=== PATIENT | female | born 1965 | race Caucasian/White ===

== ENCOUNTER → 2017-05-14 09:21 | Outpatient (POV) | payer OTHER, SELFPAY ==
[2017-05-14 09:41] VITALS: BP 102/62; PULSE 69; RESP 18; O2SAT 96; BMI 41.0
--- NOTE | 2017-05-14 10:19 | HMH.PAINSOAP ---
[facility] Pain Management SOAP Note Subjective:: This patient is a very pleasant 52-year-old white female that we are treating for chronic cervical neck pain secondary to degenerative disc disease cervical spine multiple levels and postlaminectomy syndrome. Also, history of fibromyalgia. Patient describes her cervical neck pain is constant, dull, aching. Patient also complains of bilateral shoulder and arm radiculopathy symptoms at times. We medically manage the patient with [place] 7.5 mg 1 p.o. twice daily. Patient reports the pain medicine decreases her pain by 50%. She does not reporting side effects from the pain medication. I will give HER-2 refills today. Her kaspar #[id number] has been reviewed and appropriate. Her UDS has been appropriate in the past. Objective:: Patient is awake alert oriented ?3. No acute distress. Action extension cervical spine somewhat guarded secondary to pain. Deep tendon reflexes upper and lower extremities normal. Motor strength upper extremities left 5/5. Right 4/5. Lower extremities 5/5. There is no gross sensory deficit. Gait is normal. Assessment:: Degenerative disc disease cervical spine multiple levels. Cervical radiculopathy symptoms. Cervical postlaminectomy syndrome. Plan:: I will refill the patient's pain medication. [place] 7.5 mg 1 p.o. twice daily. I gave her 2 prescriptions. Patient reports today she had a recent abdominal surgery. She was given Dilaudid 2 mg 1 p.o. twice daily from her surgeon. She brings in her leftover medicine today. Also, reports to me she has 7 pills over from her [place] prescription due to the fact she was taking the Dilaudid postoperatively. Patient will return to see us in 2 months
--- NOTE | 2017-05-14 10:23 | P.CONS_ITS ---
[facility] Pain Management SOAP Note Subjective:: This patient is a very pleasant 52-year-old white female that we are treating for chronic cervical neck pain secondary to degenerative disc disease cervical spine multiple levels and postlaminectomy syndrome. Also, history of fibromyalgia. Patient describes her cervical neck pain is constant, dull, aching. Patient also complains of bilateral shoulder and arm radiculopathy symptoms at times. We medically manage the patient with [place] 7.5 mg 1 p.o. twice daily. Patient reports the pain medicine decreases her pain by 50%. She does not reporting side effects from the pain medication. I will give HER-2 refills today. Her kaspar #[id number] has been reviewed and appropriate. Her UDS has been appropriate in the past. Objective:: Patient is awake alert oriented ?3. No acute distress. Action extension cervical spine somewhat guarded secondary to pain. Deep tendon reflexes upper and lower extremities normal. Motor strength upper extremities left 5/5. Right 4/5. Lower extremities 5/5. There is no gross sensory deficit. Gait is normal. Assessment:: Degenerative disc disease cervical spine multiple levels. Cervical radiculopathy symptoms. Cervical postlaminectomy syndrome. Plan:: I will refill the patient's pain medication. [place] 7.5 mg 1 p.o. twice daily. I gave her 2 prescriptions. Patient reports today she had a recent abdominal surgery. She was given Dilaudid 2 mg 1 p.o. twice daily from her surgeon. She brings in her leftover medicine today. Also, reports to me she has 7 pills over from her [place] prescription due to the fact she was taking the Dilaudid postoperatively. Patient will return to see us in 2 months
== END ==
PROVIDERS: PCP Family Medicine; Visit Provider Nurse Anesthetist, Certified Registered
DX: M50.10 Cervical disc disorder with radiculopathy, unspecified cervical region (principal)
CPT/HCPCS: 99212

== ENCOUNTER → 2017-05-31 15:01 | Outpatient (CLI) | payer OTHER, SELFPAY ==
--- NOTE | 2017-05-31 15:16 | MM_ITS ---
MM Dig screening mamm BI w/CAD CAD Screening COMPARISON: Digital mammograms 04/28/2015 and 05/05/2016 INDICATION: There is no personal or family history of breast cancer TECHNIQUE: Standard CC and MLO images were obtained. R2 CAD reviewed. FINDINGS: The breasts are composed primarily of fat with minimal scattered fiber glandular densities in each breast. There is no suspicious lesion and no suspicious microcalcifications. IMPRESSION: Stable fatty type breast parenchyma tissue lesion seen BI-RADS Category: 1 Negative RECOMMENDED FOLLOW-UP: 1YR - 1 YEAR FOLLOW-UP (A letter has been sent to the patient regarding results of the study.)
== END ==
PROVIDERS: PCP Family Medicine; Visit Provider Family Medicine
DX: Z12.11 Encounter for screening for malignant neoplasm of colon (principal)
CPT/HCPCS: 77067

== ENCOUNTER → 2017-06-26 13:23 | Outpatient (POV) | payer OTHER, SELFPAY ==
[2017-06-26 13:40] VITALS: BP 120/69; PULSE 68; RESP 18; TEMP 36.3; O2SAT 96; BMI 38.6
--- NOTE | 2017-06-26 14:09 | HMH.PAINSOAP ---
[facility] Pain Management SOAP Note Subjective:: Patient is a very pleasant 52-year-old white female who presents today to discuss her back pain, right hip pain, right leg pain. Patient has been treated in our clinic for quite a while for this. Patient currently on [place] 7.51 mg p.o. twice daily. She states the patient medication helps her pain 60-70%. Patient is having some severe point tenderness over her right SI joint. I believe that this is directly related to her back injury. Patient Kaspar #[id number] reviewed and appropriate. Patient's UDS has been appropriate in the past. We will continue to monitor this. Patient is having some decreased functionality due to right leg pain radiating from her back down her SI joint and to her knee. Patient is having numbness and tingling in his right leg. ROS General: no recent weight change, no fever, no sleep disturbances Respiratory: no cough, no shortness of air, no recurring pulmonary infections Cardiovascular/Peripheral Vascular: No chest pain, No palpitations, no edema, no shortness of breath. Gastrointestinal: no incontinence, normal bowel movements reported Genitourinary: no incontinence Musculoskeletal: Back pain, right hip pain, right SI joint pain Psychiatric: normal mood/ affect Neurological: Intermittent weakness in right lower extremely Objective:: Physical Exam General: Alert and oriented x3, no acute distress, pleasant and cooperative, [on room air] Lungs: Resps E/U, Symmetrical chest expansion, Musculoskeletal: Flexion and extension of lumbar spine somewhat guarded secondary to pain, deep tendon reflexes normal, strength in upper and lower extremities [5/5], [abnormal gait noted], positive Jero's test on the right side. Extreme point tenderness over the right SI and extreme point tenderness over the right bursa. Neurological: speech clear, color laboratory technician equal, no gross sensory deficits Assessment:: Degenerative disc disease of the lumbar spine, lumbar radiculopathy, right sacroiliitis, right greater trochanteric bursitis Plan:: We will refill this patient's prescriptions today [place] 7.51 p.o. twice daily.Patient Kaspar #[id number] reviewed and appropriate. Patient's UDS has been appropriate in the past. I have spoke with Dr. Butler and he has reviewed the chart and he feels that this is appropriate. We will give this patient 2 months prescriptions and we will ask for approval for right SI joint in her right trochanteric bursa injection. I feel like the patient would do very well with this. I feel like it may help with long-term pain relief as well as increased functionality. Patient has been prescribed a controlled substance after being counseled on the medication, medication safety, and possible side effects. GITA report has been obtained and reviewed prior to prescription and found to be appropriate. Opioid contract was reviewed and signed by the patient, and that they have agreed to all of the terms set forth by our compliance program. This note was dictated using voice recognition software may contain errors or omissions
--- NOTE | 2017-06-26 14:12 | P.CONS_ITS ---
[facility] Pain Management SOAP Note Subjective:: Patient is a very pleasant 52-year-old white female who presents today to discuss her back pain, right hip pain, right leg pain. Patient has been treated in our clinic for quite a while for this. Patient currently on [place] 7.51 mg p.o. twice daily. She states the patient medication helps her pain 60- 70%. Patient is having some severe point tenderness over her right SI joint. I believe that this is directly related to her back injury. Patient Kaspar # [id number] reviewed and appropriate. Patient's UDS has been appropriate in the past. We will continue to monitor this. Patient is having some decreased functionality due to right leg pain radiating from her back down her SI joint and to her knee. Patient is having numbness and tingling in his right leg. ROS General: no recent weight change, no fever, no sleep disturbances Respiratory: no cough, no shortness of air, no recurring pulmonary infections Cardiovascular/Peripheral Vascular: No chest pain, No palpitations, no edema, no shortness of breath. Gastrointestinal: no incontinence, normal bowel movements reported Genitourinary: no incontinence Musculoskeletal: Back pain, right hip pain, right SI joint pain Psychiatric: normal mood/ affect Neurological: Intermittent weakness in right lower extremely Objective:: Physical Exam General: Alert and oriented x3, no acute distress, pleasant and cooperative, [ on room air] Lungs: Resps E/U, Symmetrical chest expansion, Musculoskeletal: Flexion and extension of lumbar spine somewhat guarded secondary to pain, deep tendon reflexes normal, strength in upper and lower extremities [5/5], [abnormal gait noted], positive Jero's test on the right side. Extreme point tenderness over the right SI and extreme point tenderness over the right bursa. Neurological: speech clear, deputy united states marshal equal, no gross sensory deficits Assessment:: Degenerative disc disease of the lumbar spine, lumbar radiculopathy, right sacroiliitis, right greater trochanteric bursitis Plan:: We will refill this patient's prescriptions today [place] 7.51 p.o. twice daily.Patient Kaspar #[id number] reviewed and appropriate. Patient's UDS has been appropriate in the past. I have spoke with Dr. Butler and he has reviewed the chart and he feels that this is appropriate. We will give this patient 2 months prescriptions and we will ask for approval for right SI joint in her right trochanteric bursa injection. I feel like the patient would do very well with this. I feel like it may help with long-term pain relief as well as increased functionality. Patient has been prescribed a controlled substance after being counseled on the medication, medication safety, and possible side effects. GITA report has been obtained and reviewed prior to prescription and found to be appropriate. Opioid contract was reviewed and signed by the patient, and that they have agreed to all of the terms set forth by our compliance program. This note was dictated using voice recognition software may contain errors or omissions
== END ==
PROVIDERS: PCP Family Medicine; Visit Provider Clinical Nurse Specialist Family Health
DX: M54.16 Radiculopathy, lumbar region (principal)
CPT/HCPCS: 99212

== ENCOUNTER → 2017-08-13 09:07 | Outpatient (POV) | payer OTHER, SELFPAY ==
[2017-08-13 09:26] VITALS: BP 124/70; PULSE 66; RESP 18; TEMP 36.6; O2SAT 100; BMI 38.4
--- NOTE | 2017-08-13 09:54 | HMH.PAINSOAP ---
[facility] Pain Management SOAP Note Subjective:: Patient is a pleasant 52-year-old white female who presents today for medication refills. Patient is currently being medically managed for low back pain and right leg pain. Patient has this pain secondary to a work-related injury. Patient reports that the pain medication helps her pain 60-70%. Patient workman's comp has denied her request for injective therapies in order to help elevate some of her pain and make her more functional. Patient's GITA #[id number] reviewed and appropriate. Patient UDS appropriate. Patient is currently on [place] 7.5 mg p.o. twice daily. Patient denies any side effects to the medication. ROS General: no recent weight change, no fever, no sleep disturbances Respiratory: no cough, no shortness of air, no recurring pulmonary infections Cardiovascular/Peripheral Vascular: No chest pain, No palpitations, no edema, no shortness of breath. Gastrointestinal: no incontinence, normal bowel movements reported Genitourinary: no incontinence Musculoskeletal: Back pain, right hip pain, right SI joint pain Psychiatric: normal mood/ affect Neurological: Intermittent weakness in right lower extremity Objective:: Physical Exam General: Alert and oriented x3, no acute distress, pleasant and cooperative, [on room air] Lungs: Resps E/U, Symmetrical chest expansion, Eyes: PERRL Musculoskeletal: Flexion and extension of lumbar spine somewhat guarded secondary to pain, deep tendon reflexes normal, strength in upper and lower extremities [5/5], abnormal gait noted, positive Jero's test on the right side, extreme point tenderness over right SI and extreme point tenderness over the right bursa Neurological: speech clear, structural engineer equal, no gross sensory deficits Assessment:: Degenerative disc disease of the lumbar spine, lumbar radiculopathy, right sacroiliitis, right greater trochanteric bursitis Plan:: We will refill the patient's prescriptions [place] 7.5 mg 1 p.o. twice daily. Patient's Gita and urine drug screen both reviewed and appropriate. Dr. Butler is reviewed this chart and agrees with this plan of care we will get patient 2 months prescriptions and we will see her back in 3 months. 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 Patient has been prescribed a controlled substance after being counseled on the medication, medication safety, and possible side effects. GITA report has been obtained and reviewed prior to prescription and found to be appropriate. Opioid contract was reviewed and signed by the patient, and that they have agreed to all of the terms set forth by our compliance program. This note was dictated using voice recognition software and may contain errors or omissions
--- NOTE | 2017-08-13 09:58 | P.CONS_ITS ---
[facility] Pain Management SOAP Note Subjective:: Patient is a pleasant 52-year-old white female who presents today for medication refills. Patient is currently being medically managed for low back pain and right leg pain. Patient has this pain secondary to a work-related injury. Patient reports that the pain medication helps her pain 60-70%. Patient workman's comp has denied her request for injective therapies in order to help elevate some of her pain and make her more functional. Patient's GITA #[id number] reviewed and appropriate. Patient UDS appropriate. Patient is currently on [place] 7.5 mg p.o. twice daily. Patient denies any side effects to the medication. ROS General: no recent weight change, no fever, no sleep disturbances Respiratory: no cough, no shortness of air, no recurring pulmonary infections Cardiovascular/Peripheral Vascular: No chest pain, No palpitations, no edema, no shortness of breath. Gastrointestinal: no incontinence, normal bowel movements reported Genitourinary: no incontinence Musculoskeletal: Back pain, right hip pain, right SI joint pain Psychiatric: normal mood/ affect Neurological: Intermittent weakness in right lower extremity Objective:: Physical Exam General: Alert and oriented x3, no acute distress, pleasant and cooperative, [ on room air] Lungs: Resps E/U, Symmetrical chest expansion, Eyes: PERRL Musculoskeletal: Flexion and extension of lumbar spine somewhat guarded secondary to pain, deep tendon reflexes normal, strength in upper and lower extremities [5/5], abnormal gait noted, positive Jero's test on the right side , extreme point tenderness over right SI and extreme point tenderness over the right bursa Neurological: speech clear, warp hauler equal, no gross sensory deficits Assessment:: Degenerative disc disease of the lumbar spine, lumbar radiculopathy, right sacroiliitis, right greater trochanteric bursitis Plan:: We will refill the patient's prescriptions [place] 7.5 mg 1 p.o. twice daily. Patient's Gita and urine drug screen both reviewed and appropriate. Dr. Butler is reviewed this chart and agrees with this plan of care we will get patient 2 months prescriptions and we will see her back in 3 months. 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 Patient has been prescribed a controlled substance after being counseled on the medication, medication safety, and possible side effects. GITA report has been obtained and reviewed prior to prescription and found to be appropriate. Opioid contract was reviewed and signed by the patient, and that they have agreed to all of the terms set forth by our compliance program. This note was dictated using voice recognition software and may contain errors or omissions
[2017-08-13 12:02] LABS: Amphetamine/Metha Screen,Urine Negative ng/mL (<1000); Barbiturates Screen,Urine Positive ng/mL (<200); Benzodiazepines Screen,Urine Negative ng/mL (200); Cannabinoid Screen,Urine Negative ng/mL (<50); Cocaine Screen,Urine Negative ng/g (<300); Methadone Screen,Urine Negative ng/mL (<300); Opiate Screen,Urine Positive ng/mL (<300); Phencyclidine Screen,Urine Negative ng/mL (<25)
[2017-08-19 11:09] LABS: Codeine Negative (Cutoff=100); Hydrocodone Positive (.); Hydromorphone Positive (.); Morphine Negative (Cutoff=100)
[2017-08-21 06:14] LABS: Opiates Positive (.)
== END ==
PROVIDERS: PCP Family Medicine; Visit Provider Clinical Nurse Specialist Family Health
DX: M54.16 Radiculopathy, lumbar region (principal)
CPT/HCPCS: 99212; 80305; 80361; 80365; G0480

== ENCOUNTER → 2017-09-10 13:43 | Outpatient (POV) | payer OTHER, SELFPAY ==
[2017-09-10 13:53] VITALS: BP 154/80; PULSE 76; RESP 18; TEMP 36.6; O2SAT 98; BMI 37.0
--- NOTE | 2017-09-10 15:34 | HMH.PAINSOAP ---
[facility] Pain Management SOAP Note Subjective:: She is a pleasant 52-year-old white female who presents today for follow-up after recent right SI joint injection and right bursa injection. Patient states she is doing extremely well. She states she is 80% to 90% better. Patient rates her pain a 2 out of 10 today. Patient has pain secondary to work-related injury. Patient is also being medically managed by us. Patient is not here for medication refills today. ROS General: no recent weight change, no fever, no sleep disturbances Respiratory: no cough, no shortness of air, no recurring pulmonary infections Cardiovascular/Peripheral Vascular: No chest pain, No palpitations, no edema, no shortness of breath. Gastrointestinal: no incontinence, normal bowel movements reported Genitourinary: no incontinence Musculoskeletal: Back pain, right hip pain, right SI joint pain Psychiatric: normal mood/ affect, Neurological: Intermittent weakness in the right lower extremity Objective:: Physical Exam General: Alert and oriented x3, no acute distress, pleasant and cooperative, [on room air] Lungs: Resps E/U, Symmetrical chest expansion, Eyes: PERRL Musculoskeletal: Flexion and extension of lumbar spine somewhat guarded secondary to pain, deep tendon reflexes normal, strength in upper and lower extremities [5/5], slightly antalgic gait noted, positive Jero's test on the right side, tenderness over right SI Neurological: speech clear, php website developer equal, no gross sensory deficits Assessment:: Degenerative disc disease of the lumbar spine, lumbar radiculopathy, right sacroiliitis, right greater trochanteric bursitis Plan:: We will follow-up with patient at her next medication refill appointment. Patient is doing well at this time. Patient is going to contact the office if she has any issues prior to her. This note was dictated using voice recognition software and may contain errors or omissions
== END ==
PROVIDERS: PCP Family Medicine; Visit Provider Clinical Nurse Specialist Family Health
DX: M54.16 Radiculopathy, lumbar region (principal); M70.61 Trochanteric bursitis, right hip
CPT/HCPCS: 99212

== ENCOUNTER → 2017-11-12 12:54 | Outpatient (POV) | payer OTHER, SELFPAY ==
[2017-11-12 13:13] VITALS: BP 135/75; PULSE 74; RESP 18; O2SAT 98; BMI 35.3
--- NOTE | 2017-11-13 09:07 | HMH.PAINSOAP ---
[facility] Pain Management SOAP Note Subjective:: Patient is a pleasant 52-year-old white female who presents today for follow-up. Patient has been doing well after her right SI joint injection and right bursa injection. Patient rates her pain 3 out of 10 today. Patient has pain secondary to work-related injury. Patient also being medically managed us. Patient is on [place] 7.51 tab p.o. twice daily. Patient recently started phentermine to help with her weight loss. Patient is already wanting to discuss CBD oil. I discussed with her that the legal THC limiting [place] was 0.3 and that if it was under this she should not test positive in her urine we will continue to monitor. ROS General: no recent weight change, no fever, no sleep disturbances Respiratory: no cough, no shortness of air, no recurring pulmonary infections Cardiovascular/Peripheral Vascular: No chest pain, No palpitations, no edema, no shortness of breath. Gastrointestinal: no incontinence, normal bowel movements reported Genitourinary: no incontinence Musculoskeletal: Back pain, right hip pain Psychiatric: normal mood/ affect Neurological: [denies weakness in extremities], [denies balance issues] Objective:: Physical Exam General: Alert and oriented x3, no acute distress, pleasant and cooperative, [on room air] Lungs: Resps E/U, Symmetrical chest expansion, Eyes: PERRL Musculoskeletal: Flexion and extension of lumbar spine somewhat guarded secondary to pain, deep tendon reflexes normal, strength in upper and lower extremities [5/5], slightly antalgic gait noted, tenderness over right SI joint Neurological: speech clear, surgical garment inspector equal, no gross sensory deficits Assessment:: Degenerative disc disease of the lumbar spine, lumbar radiculopathy, right sacroiliitis Plan:: We will follow-up with this patient in 3 months. We will refill her [place] 7.5 mg 1 tab p.o. twice daily and give HER-2 months worth of medication she can chicken picker the third month in the interim. Patient's GITA #[id number] reviewed and appropriate. Patient's urine drug screen has been appropriate in the past. Dr. Butler is reviewed this chart and agrees with this plan of care. Patient has been prescribed a controlled substance after being counseled on the medication, medication safety, and possible side effects. GITA report has been obtained and reviewed prior to prescription and found to be appropriate. Opioid contract was reviewed and signed by the patient, and that they have agreed to all of the terms set forth by our compliance program. This note was dictated using voice recognition software and may contain errors or omissions
--- NOTE | 2017-11-13 09:10 | P.CONS_ITS ---
[facility] Pain Management SOAP Note Subjective:: Patient is a pleasant 52-year-old white female who presents today for follow- up. Patient has been doing well after her right SI joint injection and right bursa injection. Patient rates her pain 3 out of 10 today. Patient has pain secondary to work-related injury. Patient also being medically managed us. Patient is on [place] 7.51 tab p.o. twice daily. Patient recently started phentermine to help with her weight loss. Patient is already wanting to discuss CBD oil. I discussed with her that the legal THC limiting [place] was 0.3 and that if it was under this she should not test positive in her urine we will continue to monitor. ROS General: no recent weight change, no fever, no sleep disturbances Respiratory: no cough, no shortness of air, no recurring pulmonary infections Cardiovascular/Peripheral Vascular: No chest pain, No palpitations, no edema, no shortness of breath. Gastrointestinal: no incontinence, normal bowel movements reported Genitourinary: no incontinence Musculoskeletal: Back pain, right hip pain Psychiatric: normal mood/ affect Neurological: [denies weakness in extremities], [denies balance issues] Objective:: Physical Exam General: Alert and oriented x3, no acute distress, pleasant and cooperative, [ on room air] Lungs: Resps E/U, Symmetrical chest expansion, Eyes: PERRL Musculoskeletal: Flexion and extension of lumbar spine somewhat guarded secondary to pain, deep tendon reflexes normal, strength in upper and lower extremities [5/5], slightly antalgic gait noted, tenderness over right SI joint Neurological: speech clear, hydrometallurgical engineer equal, no gross sensory deficits Assessment:: Degenerative disc disease of the lumbar spine, lumbar radiculopathy, right sacroiliitis Plan:: We will follow-up with this patient in 3 months. We will refill her [place] 7.5 mg 1 tab p.o. 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 Patient's GITA #[id number] reviewed and appropriate. Patient's urine drug screen has been appropriate in the past. Dr. Butler is reviewed this chart and agrees with this plan of care. Patient has been prescribed a controlled substance after being counseled on the medication, medication safety, and possible side effects. GITA report has been obtained and reviewed prior to prescription and found to be appropriate. Opioid contract was reviewed and signed by the patient, and that they have agreed to all of the terms set forth by our compliance program. This note was dictated using voice recognition software and may contain errors or omissions
== END ==
PROVIDERS: PCP Family Medicine; Visit Provider Clinical Nurse Specialist Family Health
DX: M54.16 Radiculopathy, lumbar region (principal); M46.1 Sacroiliitis, not elsewhere classified
CPT/HCPCS: 99212

== ENCOUNTER → 2018-02-04 14:07 | Outpatient (POV) | payer MEDICARE, OTHER, SELFPAY ==
[2018-02-04 14:36] VITALS: BP 133/91; PULSE 103; RESP 18; O2SAT 98; BMI 33.7
--- NOTE | 2018-02-04 14:51 | HMH.PAINSOAP ---
[facility] Pain Management SOAP Note Subjective:: Patient is a pleasant 52-year-old white female who presents today for follow-up. Patient's been doing well after her injections. Patient rates her pain today a 3 out of 10. Patient has pain secondary to work-related injury. Patient is also being medically managed by us. Patient is on [place] 7.5 mg 1 tab p.o. twice daily. She is also utilizing CBD oil which has helped her greatly. Patient's GITA #[id number] reviewed and appropriate. Patient's urine drug screen has been appropriate. ROS General: no recent weight change, no fever, no sleep disturbances Respiratory: no cough, no shortness of air, no recurring pulmonary infections Cardiovascular/Peripheral Vascular: No chest pain, No palpitations, no edema, no shortness of breath. Gastrointestinal: no incontinence, normal bowel movements reported Genitourinary: no incontinence Musculoskeletal: Back pain, hip pain Psychiatric: normal mood/ affect Neurological: [denies weakness in extremities], [denies balance issues] Objective:: Physical Exam General: Alert and oriented x3, no acute distress, pleasant and cooperative, [on room air] Lungs: Resps E/U, Symmetrical chest expansion, Eyes: PERRL Musculoskeletal: Flexion and extension of bar spine somewhat guarded secondary to pain, deep tendon reflexes normal, strength in upper and lower extremities 5/5, antalgic gait noted Neurological: speech clear, sample color maker equal, no gross sensory deficits Assessment:: Degenerative disc disease lumbar spine with lumbar radiculopathy, right sacroiliitis Plan:: We will refill the patient's [place] 7.5 mg 1 tab p.o. twice daily and give her 2 months worth of prescriptions. She can shredder picker the third month during the interim. Patient's GITA reviewed and appropriate. Patient's urine drug screen has been appropriate in the past. Dr. Butler is reviewed this chart and agrees with this plan of care. I will follow-up with the patient in 3 months. Patient's been instructed to call the office if she has any issues prior to her next appointment. Patient has been prescribed a controlled substance after being counseled on the medication, medication safety, and possible side effects. GITA report has been obtained and reviewed prior to prescription and found to be appropriate. Opioid contract was reviewed and signed by the patient, and that they have agreed to all of the terms set forth by our compliance program.
[2018-02-04 18:50] LABS: Amphetamine/Metha Screen,Urine Negative ng/mL (<1000); Barbiturates Screen,Urine Positive ng/mL (<200); Benzodiazepines Screen,Urine Negative ng/mL (<200); Cannabinoid Screen,Urine Negative ng/mL (<50); Cocaine Screen,Urine Negative ng/mL (<300); Methadone Screen,Urine Negative ng/mL (<300); Opiate Screen,Urine Positive ng/mL (<300); Phencyclidine Screen,Urine Negative ng/mL (<25)
[2018-02-12 00:07] LABS: Codeine Negative (Cutoff=100); Hydrocodone Positive (.); Hydromorphone Positive (.); Morphine Negative (Cutoff=100)
[2018-02-12 07:37] LABS: Opiates Positive (.)
== END ==
PROVIDERS: PCP Family Medicine; Visit Provider Clinical Nurse Specialist Family Health
DX: M51.16 Intervertebral disc disorders with radiculopathy, lumbar region (principal); M46.1 Sacroiliitis, not elsewhere classified; Z79.899 Other long term (current) drug therapy
CPT/HCPCS: 80305; 80361; 80365; 99213; G0480

== ENCOUNTER → 2018-04-15 13:08 | Outpatient (POV) | payer OTHER, SELFPAY ==
[2018-04-15 13:39] VITALS: BP 114/78; PULSE 93; RESP 18; O2SAT 99; BMI 32.9
--- NOTE | 2018-04-15 14:55 | HMH.PAINSOAP ---
[facility] Pain Management SOAP Note Subjective:: Patient is a pleasant 53-year-old white female who presents today for follow-up. Patient's been doing well. Rates her pain a 4 out of 10. Patient has pain secondary to work-related injury. She is being medically managed with [place] 7.5 mg 1 tab p.o. twice daily. Patient's GITA reviewed and appropriate. Patient's urine drug screen has been appropriate. ROS General: no recent weight change, no fever, no sleep disturbances Respiratory: no cough, no shortness of air, no recurring pulmonary infections Cardiovascular/Peripheral Vascular: No chest pain, No palpitations, no edema, no shortness of breath. Gastrointestinal: no incontinence, normal bowel movements reported Genitourinary: no incontinence Musculoskeletal: Back pain, hip pain Psychiatric: normal mood/ affect Neurological: [denies weakness in extremities], [denies balance issues] Objective:: Physical Exam General: Alert and oriented x3, no acute distress, pleasant and cooperative, [on room air] Lungs: Resps E/U, Symmetrical chest expansion Eyes: PERRL Musculoskeletal: Flexion and extension of lumbar spine somewhat guarded secondary to pain, deep tendon reflexes normal, strength in upper and lower extremities [5/5], antalgic gait noted Neurological: speech clear, arc trimmer equal, no gross sensory deficits Assessment:: Degenerative disc disease lumbar spine with lumbar radiculopathy, right sacroiliitis Plan:: We will refill the patient's [place] 7.5 mg 1 tab p.o. twice daily and give her 2 months worth of prescriptions. She can citrus picker the third month in the interim. Patient's Gita and urine drug screen reviewed. Dr. Butler has reviewed this chart and agrees with this plan of care. Patient's been instructed to call the office if she has any issues prior to her next appointment. Patient has been prescribed a controlled substance after being counseled on the medication, medication safety, and possible side effects. GITA report has been obtained and reviewed prior to prescription and found to be appropriate. Opioid contract was reviewed and signed by the patient, and that they have agreed to all of the terms set forth by our compliance program. This note was dictated using voice recognition software and may contain errors or omissions
--- NOTE | 2018-04-15 14:59 | P.CONS_ITS ---
[facility] Pain Management SOAP Note Subjective:: Patient is a pleasant 53-year-old white female who presents today for follow-up. Patient's been doing well. Rates her pain a 4 out of 10. Patient has pain secondary to work-related injury. She is being medically managed with [place] 7.5 mg 1 tab p.o. twice daily. Patient's GITA reviewed and appropriate. Patient's urine drug screen has been appropriate. ROS General: no recent weight change, no fever, no sleep disturbances Respiratory: no cough, no shortness of air, no recurring pulmonary infections Cardiovascular/Peripheral Vascular: No chest pain, No palpitations, no edema, no shortness of breath. Gastrointestinal: no incontinence, normal bowel movements reported Genitourinary: no incontinence Musculoskeletal: Back pain, hip pain Psychiatric: normal mood/ affect Neurological: [denies weakness in extremities], [denies balance issues] Objective:: Physical Exam General: Alert and oriented x3, no acute distress, pleasant and cooperative, [on room air] Lungs: Resps E/U, Symmetrical chest expansion Eyes: PERRL Musculoskeletal: Flexion and extension of lumbar spine somewhat guarded secondary to pain, deep tendon reflexes normal, strength in upper and lower extremities [5/5], antalgic gait noted Neurological: speech clear, keno manager equal, no gross sensory deficits Assessment:: Degenerative disc disease lumbar spine with lumbar radiculopathy, right sacroiliitis Plan:: We will refill the patient's [place] 7.5 mg 1 tab p.o. twice daily and give her 2 months worth of prescriptions. She can rock picker the third month in the interim. Patient's Gita and urine drug screen reviewed. Dr. Butler has reviewed this chart and agrees with this plan of care. Patient's been instructed to call the office if she has any issues prior to her next appointment. Patient has been prescribed a controlled substance after being counseled on the medication, medication safety, and possible side effects. GITA report has been obtained and reviewed prior to prescription and found to be appropriate. Opioid contract was reviewed and signed by the patient, and that they have agreed to all of the terms set forth by our compliance program. This note was dictated using voice recognition software and may contain errors or omissions
== END ==
PROVIDERS: PCP Family Medicine; Visit Provider Clinical Nurse Specialist Family Health
DX: M51.16 Intervertebral disc disorders with radiculopathy, lumbar region (principal); M46.1 Sacroiliitis, not elsewhere classified
CPT/HCPCS: 99213

== ENCOUNTER → 2018-05-21 16:36 | Outpatient (CLI) | payer MEDICARE, SELFPAY ==
--- NOTE | 2018-05-21 16:38 | MM_ITS ---
MM Dig screening mamm BI w/CAD CAD Screening COMPARISON: Digital mammograms with CAD 05/31/2017 and 05/05/2016 INDICATION: There is no personal or family history of breast cancer TECHNIQUE: Standard CC and MLO images were obtained. R2 CAD reviewed. FINDINGS: The breasts are composed primarily of fat with minimal scattered fibroglandular densities throughout each breast. There is no new or suspicious lesion in either breast and there are no suspicious microcalcifications. IMPRESSION: Stable exam no suspicious lesion seen BI-RADS Category: 1 Negative RECOMMENDED FOLLOW-UP: 1YR - 1 YEAR FOLLOW-UP (A letter has been sent to the patient regarding results of the study.)
== END ==
PROVIDERS: PCP Family Medicine; Visit Provider Family Medicine
DX: Z12.31 Encounter for screening mammogram for malignant neoplasm of breast (principal)
CPT/HCPCS: 77067

== ENCOUNTER → 2018-06-19 14:43 | Outpatient (CLI) | payer MEDICARE, SELFPAY ==
[2018-06-19 17:08] LABS: Amphetamine/Metha Screen,Urine Negative ng/mL (<1000); Barbiturates Screen,Urine Positive ng/mL (<200); Benzodiazepines Screen,Urine Negative ng/mL (<200); Cannabinoid Screen,Urine Negative ng/mL (<50); Cocaine Screen,Urine Negative ng/mL (<300); Methadone Screen,Urine Negative ng/mL (<300); Opiate Screen,Urine Positive ng/mL (<300); Phencyclidine Screen,Urine Negative ng/mL (<25)
[2018-06-25 05:18] LABS: Codeine Negative (Cutoff=100); Hydrocodone Positive (.); Hydromorphone Positive (.); Morphine Negative (Cutoff=100)
[2018-06-25 09:57] LABS: Opiates Positive (.)
== END ==
PROVIDERS: Visit Provider Clinical Nurse Specialist Family Health
DX: Z79.899 Other long term (current) drug therapy (principal)
CPT/HCPCS: 80305; 80361; 80365; G0480

== ENCOUNTER → 2018-07-08 13:39 | Outpatient (POV) | payer OTHER, SELFPAY ==
[2018-07-08 14:05] VITALS: BP 128/89; PULSE 92; RESP 18; O2SAT 98; BMI 31.7
--- NOTE | 2018-07-09 08:44 | HMH.PAINSOAP ---
[facility] Pain Management SOAP Note Subjective:: Patient is a pleasant 53-year-old white female who presents today for follow-up. She is been doing well and rates her pain today a 3 out of 10. She has pain secondary to work-related injury. She is being medically managed with [place] 7.5 mg 1 tab p.o. twice daily. Her Gita is appropriate and urine drug screen has been appropriate. She denies side effects or medication and states it helps up to 80%. ROS General: no recent weight change, no fever, no sleep disturbances Respiratory: no cough, no shortness of air, no recurring pulmonary infections Cardiovascular/Peripheral Vascular: No chest pain, No palpitations, no edema, no shortness of breath. Gastrointestinal: no incontinence, normal bowel movements reported Genitourinary: no incontinence Musculoskeletal: Back pain, hip pain Psychiatric: normal mood/ affect Neurological: [denies weakness in extremities], [denies balance issues] Objective:: Physical Exam General: Alert and oriented x3, no acute distress, pleasant and cooperative, [on room air] Lungs: Resps E/U, Symmetrical chest expansion, Eyes: PERRL Musculoskeletal: Flexion and extension of lumbar spine somewhat guarded secondary to pain, deep tendon reflexes normal, strength in upper and lower extremities [5/5], antalgic gait noted Neurological: speech clear, manager molecular equal, no gross sensory deficits Assessment:: Degenerative disc disease lumbar spine with lumbar radiculopathy and right sacroiliitis Plan:: We will refill the patient's [place] 7.5 mg 1 tab p.o. twice daily and give her 2 months worth of medication. 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 Patient's Gita and urine drug screen reviewed. Patient's been instructed to call the office if she has any issues prior to her next appointment. Patient has been prescribed a controlled substance after being counseled on the medication, medication safety, and possible side effects. GITA report has been obtained and reviewed prior to prescription and found to be appropriate. Opioid contract was reviewed and signed by the patient, and that they have agreed to all of the terms set forth by our compliance program. Dr. Butler has reviewed this note and agrees with this plan of care. This note was dictated using voice recognition software and may contain errors or omissions
== END ==
PROVIDERS: PCP Family Medicine; Visit Provider Clinical Nurse Specialist Family Health
DX: M51.16 Intervertebral disc disorders with radiculopathy, lumbar region (principal); M46.1 Sacroiliitis, not elsewhere classified
CPT/HCPCS: 99213

== ENCOUNTER → 2018-10-21 13:00 | Outpatient (POV) | payer OTHER, SELFPAY ==
[2018-10-21 13:14] VITALS: BP 150/92; PULSE 104; RESP 18; O2SAT 98; BMI 33.6
[2018-10-21 14:55] LABS: Amphetamine/Metha Screen,Urine Negative ng/mL (<1000); Barbiturates Screen,Urine Positive ng/mL (<200); Benzodiazepines Screen,Urine Negative ng/mL (<200); Cannabinoid Screen,Urine Negative ng/mL (<50); Cocaine Screen,Urine Negative ng/mL (<300); Methadone Screen,Urine Negative ng/mL (<300); Opiate Screen,Urine Positive ng/mL (<300); Phencyclidine Screen,Urine Negative ng/mL (<25)
--- NOTE | 2018-10-21 16:31 | HMH.PAINSOAP ---
[facility] Pain Management SOAP Note Subjective:: Patient is a pleasant 53-year-old female who presents today for follow-up. She is being treated for low back pain radiating to her right hip and right leg. She rates her pain a 2 out of 10 today. She is currently on [place] 7.5 mg 1 p.o. twice daily. Gita #[id number] is reviewed and appropriate. She denies any side effects to medications. She says that the medications helping her up to 80%. She is continuing home stretching program and anti-inflammatories. ROS General: no recent weight change, no fever, no sleep disturbances Respiratory: no cough, no shortness of air, no recurring pulmonary infections Cardiovascular/Peripheral Vascular: No chest pain, No palpitations, no edema, no shortness of breath. Gastrointestinal: no incontinence, normal bowel movements reported Genitourinary: no incontinence Musculoskeletal: Back pain Psychiatric: normal mood/ affect, [denies depression], [denies anxiety] Neurological: [denies weakness in extremities], [denies balance issues] Objective:: Physical Exam General: Alert and oriented x3, no acute distress, pleasant and cooperative, [on room air] Lungs: Resps E/U, Symmetrical chest expansion, [CTA bilateral] Eyes: PERRL Musculoskeletal: Flexion and extension of [Lumbar] spine somewhat guarded secondary to pain, deep tendon reflexes normal, strength in upper and lower extremities [5/5], [abnormal gait noted] Neurological: speech clear, shoelace tipping machine operator equal, no gross sensory deficits Assessment:: Degenerative disc disease lumbar spine with lumbar radiculopathy right sacroiliitis Plan:: We will continue the patient's [place] 7.5 mg 1 p.o. twice daily and give her 2 months worth of medication she can hand picker her third month in the interim. She has been instructed to call the office if she has any concerns prior to her next appointment. Patient has been prescribed a controlled substance after being counseled on the medication, medication safety, and possible side effects. GITA report has been obtained and reviewed prior to prescription and found to be appropriate. Opioid contract was reviewed and signed by the patient, and that they have agreed to all of the terms set forth by our compliance program. Dr. Butler has reviewed this note and agrees with this plan of care. This note was dictated using voice recognition software and may contain errors or omissions
--- NOTE | 2018-10-21 16:34 | P.CONS_ITS ---
[facility] Pain Management SOAP Note Subjective:: Patient is a pleasant 53-year-old female who presents today for follow-up. She is being treated for low back pain radiating to her right hip and right leg. She rates her pain a 2 out of 10 today. She is currently on [place] 7.5 mg 1 p.o. twice daily. Gita #[id number] is reviewed and appropriate. She denies any side effects to medications. She says that the medications helping her up to 80%. She is continuing home stretching program and anti-inflammatories. ROS General: no recent weight change, no fever, no sleep disturbances Respiratory: no cough, no shortness of air, no recurring pulmonary infections Cardiovascular/Peripheral Vascular: No chest pain, No palpitations, no edema, no shortness of breath. Gastrointestinal: no incontinence, normal bowel movements reported Genitourinary: no incontinence Musculoskeletal: Back pain Psychiatric: normal mood/ affect, [denies depression], [denies anxiety] Neurological: [denies weakness in extremities], [denies balance issues] Objective:: Physical Exam General: Alert and oriented x3, no acute distress, pleasant and cooperative, [on room air] Lungs: Resps E/U, Symmetrical chest expansion, [CTA bilateral] Eyes: PERRL Musculoskeletal: Flexion and extension of [Lumbar] spine somewhat guarded secondary to pain, deep tendon reflexes normal, strength in upper and lower extremities [5/5], [abnormal gait noted] Neurological: speech clear, lead caster equal, no gross sensory deficits Assessment:: Degenerative disc disease lumbar spine with lumbar radiculopathy right sacroiliitis Plan:: We will continue the patient's [place] 7.5 mg 1 p.o. twice daily and give her 2 months worth of medication she can clam picker her third month in the interim. She has been instructed to call the office if she has any concerns prior to her next appointment. Patient has been prescribed a controlled substance after being counseled on the medication, medication safety, and possible side effects. GITA report has been obtained and reviewed prior to prescription and found to be appropriate. Opioid contract was reviewed and signed by the patient, and that they have agreed to all of the terms set forth by our compliance program. Dr. Butler has reviewed this note and agrees with this plan of care. This note was dictated using voice recognition software and may contain errors or omissions
[2018-10-28 12:10] LABS: Codeine Negative (Cutoff=100); Hydrocodone Positive (.); Hydromorphone Positive (.); Morphine Negative (Cutoff=100)
[2018-10-28 18:10] LABS: Opiates Positive (.)
== END ==
PROVIDERS: PCP Family Medicine; Visit Provider Clinical Nurse Specialist Family Health
DX: M51.16 Intervertebral disc disorders with radiculopathy, lumbar region (principal); M46.1 Sacroiliitis, not elsewhere classified; Z79.899 Other long term (current) drug therapy
CPT/HCPCS: 80305; 80361; 80365; 99212; G0480

== ENCOUNTER → 2019-01-13 10:35 | Outpatient (POV) | payer OTHER, SELFPAY ==
[2019-01-13 10:56] VITALS: BP 135/72; PULSE 91; RESP 18; O2SAT 98; BMI 33.5
--- NOTE | 2019-01-13 11:03 | HMH.PAINSOAP ---
[facility] Pain Management SOAP Note Subjective:: Is a very pleasant 53-year-old white female who presents today for medication refills. Patient is being treated for low back and right hip pain. Patient's GITA #[id number] reviewed and appropriate. She is currently on [place] 7.5 mg p.o. twice daily. She is also on CBD oil which is very beneficial for her. She states her medications help her up to 80% she rates her pain a 3 out of 10. She is continuing to lose weight. She is continuing a home stretching program and anti-inflammatories. ROS General: no recent weight change, no fever, no sleep disturbances Respiratory: no cough, no shortness of air, no recurring pulmonary infections Cardiovascular/Peripheral Vascular: No chest pain, No palpitations, no edema, no shortness of breath. Gastrointestinal: no incontinence, normal bowel movements reported Genitourinary: no incontinence Musculoskeletal: Back pain, leg pain Psychiatric: normal mood/ affect Neurological: [denies weakness in extremities], [denies balance issues] Objective:: Physical Exam General: Alert and oriented x3, no acute distress, pleasant and cooperative, [on room air] Lungs: Resps E/U, Symmetrical chest expansion, Eyes: PERRL Musculoskeletal: Flexion and extension of lumbar spine somewhat guarded secondary to pain, deep tendon reflexes normal, strength in upper and lower extremities [5/5], slightly antalgic gait noted Neurological: speech clear, static balancer equal, no gross sensory deficits Assessment:: Degenerative disc disease lumbar spine with lumbar radiculopathy Plan:: We will refill her [place] 7.5 mg 1 p.o. twice daily and give her 2 months with medication she can pick her third month in the interim she is been instructed to call the office if she has any issues prior to her next appointment. Patient has been prescribed a controlled substance after being counseled on the medication, medication safety, and possible side effects. GITA report has been obtained and reviewed prior to prescription and found to be appropriate. Opioid contract was reviewed and signed by the patient, and that they have agreed to all of the terms set forth by our compliance program. Dr. Butler has reviewed this note and agrees with this plan of care. This note was dictated using voice recognition software and may contain errors or omissions Pain Management Hx Components *Have you ever received a pneumonia vaccine?: Yes *Have you received a flu vaccine this season?: Yes - *Social History *Occupational Status:: other *Travel in the last 8 weeks: None
--- NOTE | 2019-01-13 11:08 | P.CONS_ITS ---
[facility] Pain Management SOAP Note Subjective:: Is a very pleasant 53-year-old white female who presents today for medication refills. Patient is being treated for low back and right hip pain. Patient's GITA #[id number] reviewed and appropriate. She is currently on [place] 7.5 mg p.o. twice daily. She is also on CBD oil which is very beneficial for her. She states her medications help her up to 80% she rates her pain a 3 out of 10. She is continuing to lose weight. She is continuing a home stretching program and anti-inflammatories. ROS General: no recent weight change, no fever, no sleep disturbances Respiratory: no cough, no shortness of air, no recurring pulmonary infections Cardiovascular/Peripheral Vascular: No chest pain, No palpitations, no edema, no shortness of breath. Gastrointestinal: no incontinence, normal bowel movements reported Genitourinary: no incontinence Musculoskeletal: Back pain, leg pain Psychiatric: normal mood/ affect Neurological: [denies weakness in extremities], [denies balance issues] Objective:: Physical Exam General: Alert and oriented x3, no acute distress, pleasant and cooperative, [on room air] Lungs: Resps E/U, Symmetrical chest expansion, Eyes: PERRL Musculoskeletal: Flexion and extension of lumbar spine somewhat guarded secondary to pain, deep tendon reflexes normal, strength in upper and lower extremities [5/5], slightly antalgic gait noted Neurological: speech clear, orthopedically impaired teacher equal, no gross sensory deficits Assessment:: Degenerative disc disease lumbar spine with lumbar radiculopathy Plan:: We will refill her [place] 7.5 mg 1 p.o. twice daily and give her 2 months with medication she can pick her third month in the interim she is been instructed to call the office if she has any issues prior to her next appointment. Patient has been prescribed a controlled substance after being counseled on the medication, medication safety, and possible side effects. GITA report has been obtained and reviewed prior to prescription and found to be appropriate. Opioid contract was reviewed and signed by the patient, and that they have agreed to all of the terms set forth by our compliance program. Dr. Butler has reviewed this note and agrees with this plan of care. This note was dictated using voice recognition software and may contain errors or omissions Pain Management Hx Components *Have you ever received a pneumonia vaccine?: Yes *Have you received a flu vaccine this season?: Yes - *Social History *Occupational Status:: other *Travel in the last 8 weeks: None
== END ==
PROVIDERS: PCP Family Medicine; Visit Provider Clinical Nurse Specialist Family Health
DX: M51.16 Intervertebral disc disorders with radiculopathy, lumbar region (principal)
CPT/HCPCS: 99212

== ENCOUNTER → 2019-02-18 12:12 | Outpatient (CLI) | payer MEDICARE, SELFPAY ==
[2019-02-18 13:36] LABS: Amphetamine/Metha Screen,Urine Negative ng/mL (<1000); Barbiturates Screen,Urine Negative ng/mL (<200); Benzodiazepines Screen,Urine Negative ng/mL (<200); Cannabinoid Screen,Urine Negative ng/mL (<50); Cocaine Screen,Urine Negative ng/mL (<300); Methadone Screen,Urine Negative ng/mL (<300); Opiate Screen,Urine Positive ng/mL (<300); Phencyclidine Screen,Urine Negative ng/mL (<25)
[2019-02-22 16:14] LABS: Codeine Negative (Cutoff=100); Hydrocodone Positive (.); Hydromorphone Positive (.); Morphine Negative (Cutoff=100)
[2019-02-22 20:01] LABS: Opiates Positive (.)
== END ==
PROVIDERS: Visit Provider Clinical Nurse Specialist Family Health
DX: Z79.899 Other long term (current) drug therapy (principal)
CPT/HCPCS: 80305; 80361; 80365; G0480

== ENCOUNTER → 2019-04-14 09:35 | Outpatient (POV) | payer OTHER, SELFPAY ==
[2019-04-14 10:23] VITALS: BP 112/81; PULSE 84; RESP 18; O2SAT 98; BMI 34.3
--- NOTE | 2019-04-14 10:30 | HMH.PAINSOAP ---
[facility] Pain Management SOAP Note Subjective:: She is a pleasant 54-year-old white female who presents today for medication refills. She is being for low back and right hip pain. Patient's GITA #[id number] reviewed and appropriate. Urine drug screens have been appropriate. She does use CBD oil at times. Patient rates her pain a 3 out of 10 which is her baseline she is continuing to lose weight and continuing a home stretching program with her anti-inflammatories. ROS General: no recent weight change, no fever, no sleep disturbances Respiratory: no cough, no shortness of air, no recurring pulmonary infections Cardiovascular/Peripheral Vascular: No chest pain, No palpitations, no edema, no shortness of breath. Gastrointestinal: no new onset incontinence, normal bowel movements reported Genitourinary: no new onset incontinence Musculoskeletal: Back pain, right knee pain Psychiatric: normal mood/ affect Neurological: [denies new onset weakness in extremities], [denies new onset balance issues] Objective:: Physical Exam General: Alert and oriented x3, no acute distress, pleasant and cooperative, [on room air] Lungs: Resps E/U, Symmetrical chest expansion, Eyes: PERRL Musculoskeletal: Flexion and extension of lumbar spine somewhat guarded secondary to pain, deep tendon reflexes normal, strength in upper and lower extremities [5/5], [abnormal gait noted] Neurological: speech clear, engine research engineer equal, no gross sensory deficits Assessment:: Degenerative disc disease lumbar spine with lumbar radiculopathy, right knee pain Plan:: We will refill the patient's [place] 7.5 mg 1 p.o. twice daily and give her 2 months with medication we will see her back in 2 months reassess her symptoms at that time. She would like to discuss changing to non-opioid medication she is going to look into one that they are utilizing in [facility]. I will follow-up with her we will discuss this. She is been instructed to call the office if she has any issues prior to her next appointment. Patient has been prescribed a controlled substance after being counseled on the medication, medication safety, and possible side effects. GITA report has been obtained and reviewed prior to prescription and found to be appropriate. Opioid contract was reviewed and signed by the patient, and that they have agreed to all of the terms set forth by our compliance program. Dr. Butler has reviewed this note and agrees with this plan of care. This note was dictated using voice recognition software and may contain errors or omissions [facility] History I have reviewed the patient's past medical history: Yes Medical History: Reports:: Anxiety, Asthma, Cancer, Cerebrovascular Accident, Depression, Hyperlipidemia, Hypertension, Palpitations Denies:: Diabetes Mellitus Type 2 *Have you ever received a pneumonia vaccine?: Yes *Have you received a flu vaccine this season?: Yes Other Medical History: Reports: Arthritis, Fibromyalgia Other Surgeries: Yes: Bariatric Surgery, Cardiac Surgery, Cholecystectomy, Hysterectomy-Total, Other Amputation: No Fractures: No - *Social History Smoking Status: Former smoker Alcohol Intake: never Alcohol Intake Frequency:: other Substance Use Type: denies use *Occupational Status:: other Housing: apartment *Travel in the last 8 weeks: None - Psychiatric History Pschychiatric History:: Reports:: Anxiety, Depression Family Hx:: Coronary Artery Disease, Heart Attack
== END ==
PROVIDERS: PCP Family Medicine; Visit Provider Clinical Nurse Specialist Family Health
DX: M51.16 Intervertebral disc disorders with radiculopathy, lumbar region (principal); M25.561 Pain in right knee
CPT/HCPCS: 99212

== ENCOUNTER → 2019-06-10 10:04 | Outpatient (POV) | payer OTHER, SELFPAY ==
[2019-06-10 10:30] VITALS: BP 151/98; PULSE 90; RESP 18; O2SAT 98; BMI 36.3
--- NOTE | 2019-06-10 12:13 | HMH.PAINSOAP ---
[facility] Pain Management SOAP Note Subjective:: Erna is a very pleasant 54-year-old white female who presents today for medication refills. She is being treated for low back and right hip pain. [facility] #[id number] reviewed and appropriate urine drug screens have been appropriate. She rates her pain a 4 out of 10. She is continuing anti-inflammatories and a home stretching program. Patient used to be on Serax by Dr. Ramsay patient and I discussed starting back on this at a very low dose after we get a letter stating that the psychologist will also be monitoring her medications. And understands what she is on from our office. ROS General: no recent weight change, no fever, no sleep disturbances Respiratory: no cough, no shortness of air, no recurring pulmonary infections Cardiovascular/Peripheral Vascular: No chest pain, No palpitations, no edema, no shortness of breath. Gastrointestinal: no new onset incontinence, normal bowel movements reported Genitourinary: no new onset incontinence Musculoskeletal: Back pain, right knee pain Psychiatric: normal mood/ affect, Neurological: [denies new onset weakness in extremities], [denies new onset balance issues] Objective:: Physical Exam General: Alert and oriented x3, no acute distress, pleasant and cooperative, [on room air] Lungs: Resps E/U, Symmetrical chest expansion, Eyes: PERRL Musculoskeletal: Flexion and extension of lumbar spine somewhat guarded secondary to pain, deep tendon reflexes normal, strength in upper and lower extremities [5/5], [abnormal gait noted] Neurological: speech clear, patient access associate equal, no gross sensory deficits Assessment:: Generative disc disease lumbar spine lumbar radiculopathy and right knee pain Plan:: We will continue the patient on [place] 7.5 mg 1 p.o. twice daily. Patient is to talk to her psychologist in regards to restarting her Serax. I will follow-up with the patient in 3 months and reassess her symptoms at that time she is been instructed to call the office if she has any issues prior to her next appointment. Dr. Butler has reviewed this note and agrees with this plan of care. This note was dictated using voice recognition software and may contain errors or omissions [facility] History I have reviewed the patient's past medical history: Yes Medical History: Reports:: Anxiety, Asthma, Cancer, Cerebrovascular Accident, Depression, Hyperlipidemia, Hypertension, Palpitations Denies:: Diabetes Mellitus Type 2 *Have you ever received a pneumonia vaccine?: Yes *Have you received a flu vaccine this season?: Yes Other Medical History: Reports: Arthritis, Fibromyalgia Other Surgeries: Yes: Bariatric Surgery, Cardiac Surgery, Cholecystectomy, Hysterectomy-Total, Other Amputation: No Fractures: No - *Social History Smoking Status: Former smoker Alcohol Intake: never Alcohol Intake Frequency:: other Substance Use Type: denies use *Occupational Status:: other Housing: apartment *Travel in the last 8 weeks: None - Psychiatric History Pschychiatric History:: Reports:: Anxiety, Depression Family Hx:: Coronary Artery Disease, Heart Attack
[2019-06-10 13:05] LABS: Amphetamine/Metha Screen,Urine Negative ng/mL (<1000); Barbiturates Screen,Urine Negative ng/mL (<200); Benzodiazepines Screen,Urine Negative ng/mL (<200); Cannabinoid Screen,Urine Negative ng/mL (<50); Cocaine Screen,Urine Negative ng/mL (<300); Methadone Screen,Urine Negative ng/mL (<300); Opiate Screen,Urine Positive ng/mL (<300); Phencyclidine Screen,Urine Negative ng/mL (<25)
[2019-06-13 15:36] LABS: Codeine Negative (Cutoff=100); Hydrocodone Positive (.); Hydromorphone Positive (.); Morphine Negative (Cutoff=100)
[2019-06-13 16:57] LABS: Opiates Positive (.)
== END ==
PROVIDERS: PCP Family Medicine; Visit Provider Clinical Nurse Specialist Family Health
DX: M51.16 Intervertebral disc disorders with radiculopathy, lumbar region (principal); M25.561 Pain in right knee; Z79.899 Other long term (current) drug therapy
CPT/HCPCS: 80305; 80361; 80365; 99212; G0480

== ENCOUNTER → 2019-06-23 15:45 | Outpatient (CLI) | payer MEDICARE, SELFPAY ==
--- NOTE | 2019-06-23 15:49 | MM_ITS ---
PROCEDURE: MM DIG SCREENING MAMM BI W/CAD CLINICAL INDICATION: SCREENING There is no personal or family history of breast cancer. COMPARISON: [facility] DIG MAMM-SCREEN [place] W/CAD from 05/05/2016 [facility] MM Dig screening mamm BI w/CAD from 05/31/2017 [facility] MM Dig screening mamm BI w/CAD from 05/21/2018 TECHNIQUE: Standard CC and MLO images and 3D Tomosynthesis was obtained. R2 CAD reviewed. FINDINGS: Mild to moderate scattered fibroglandular densities are seen throughout both breasts. There is no suspicious lesion in either breast and no suspicious microcalcifications. Daniel images were reviewed. IMPRESSION: Fibrofatty parenchyma with no suspicious lesions seen BI-RAD Category: 1 Negative FOLLOW-UP: 1YR 1 Year Follow-up (A letter has been sent to the patient regarding results of the study.) Dictated by: Dr. Grover Ace MD 06/24/2019 09:[address] Grover Ace MD in [place] 06/24/2019 09:01
== END ==
PROVIDERS: PCP Family Medicine; Visit Provider Family Medicine
DX: Z12.31 Encounter for screening mammogram for malignant neoplasm of breast (principal)
CPT/HCPCS: 77063; 77067

== ENCOUNTER → 2019-09-02 10:07 | Outpatient (POV) | payer OTHER, SELFPAY ==
[2019-09-02 10:15] VITALS: BP 163/90; PULSE 96; RESP 18; TEMP 36.6; O2SAT 99; BMI 36.8
--- NOTE | 2019-09-02 10:46 | HMH.PAINSOAP ---
[facility] Pain Management SOAP Note Subjective:: Is a 54-year-old white female who presents today for medication refills. She is being treated for low back pain and right hip pain. Gita #[id number] reviewed and appropriate. Patient currently on [place] 7.51 p.o. twice daily. Today we discussed also meditation and a home stretching program. Overall patient doing well rating her pain today a 2 out of 10 ROS General: no recent weight change, no fever, no sleep disturbances Respiratory: no cough, no shortness of air, no recurring pulmonary infections Cardiovascular/Peripheral Vascular: No chest pain, No palpitations, no edema, no shortness of breath. Gastrointestinal: no new onset incontinence, normal bowel movements reported Genitourinary: no new onset incontinence Musculoskeletal: Back pain, right knee pain Psychiatric: normal mood/ affect Neurological: [denies new onset weakness in extremities], [denies new onset balance issues] Objective:: Physical Exam General: Alert and oriented x3, no acute distress, pleasant and cooperative, Lungs: Resps E/U, Symmetrical chest expansion, Eyes: PERRL Musculoskeletal: Flexion and extension of lumbar spine somewhat guarded secondary to pain, deep tendon reflexes normal, strength in upper and lower extremities [5/5], slightly antalgic gait noted Neurological: speech clear, database developer equal, no gross sensory deficits Assessment:: Degenerative disc disease lumbar spine with lumbar radiculopathy and right knee pain Plan:: We will refill the patient's [place] 7.5 mg 1 p.o. twice daily. We will see her back in 3 months reassess her symptoms at that time she is been instructed to call the office if she has any issues prior to her next appointment. Patient has been prescribed a controlled substance after being counseled on the medication, medication safety, and possible side effects. GITA report has been obtained and reviewed prior to prescription and found to be appropriate. Opioid contract was reviewed and signed by the patient, and that they have agreed to all of the terms set forth by our compliance program. We specifically discussed risk factors for Covid-19 including age, heart or lung disease, diabetes, immunosuppression and travel. We also discussed that NSAIDs may worsen Covid-19 infection symptoms and that they should not be used to treat Covid-19 symptoms. Patient was also informed that corticosteroids in any form oral or injectable will decrease immune response and may increase risk of Covid-[address] Butler has reviewed this patient's chart and this note and agrees with plan of care. Patient has been instructed to call the office if they have any issues prior to the next appointment. [facility] History I have reviewed the patient's past medical history: Yes Medical History: Reports:: Anxiety, Asthma, Cancer, Cerebrovascular Accident, Depression, Hyperlipidemia, Hypertension, Palpitations Denies:: Diabetes Mellitus Type 2 *Have you ever received a pneumonia vaccine?: Yes *Have you received a flu vaccine this season?: Yes Other Medical History: Reports: Arthritis, Fibromyalgia Other Surgeries: Yes: Bariatric Surgery, Cardiac Surgery, Cholecystectomy, Hysterectomy-Total, Other Amputation: No Fractures: No - *Social History Smoking Status: Former smoker Alcohol Intake: never Alcohol Intake Frequency:: other Substance Use Type: denies use *Occupational Status:: other Housing: apartment *Travel in the last 8 weeks: None - Psychiatric History Pschychiatric History:: Reports:: Anxiety, Depression Family Hx:: Coronary Artery Disease, Heart Attack
--- NOTE | 2019-10-22 08:54 | PC.NURSE ---
PT IS BEING PRESCRIBED SERAX 10MG QHS BY DR MARTINEZ. PT NOTIFIED US.
== END ==
PROVIDERS: PCP Family Medicine; Visit Provider Clinical Nurse Specialist Family Health
DX: M51.16 Intervertebral disc disorders with radiculopathy, lumbar region (principal); M25.561 Pain in right knee
CPT/HCPCS: 99212

== ENCOUNTER → 2019-11-24 09:29 | Outpatient (POV) | payer OTHER, SELFPAY ==
[2019-11-24 10:37] VITALS: BP 125/88; PULSE 88; RESP 18; O2SAT 98; BMI 34.2
--- NOTE | 2019-11-24 14:51 | HMH.PAINSOAP ---
[facility] Pain Management SOAP Note Subjective:: Patient is a pleasant 54-year-old white female who presents today for medication refills. She has been treated for low back pain as well as right hip and right leg pain. Patient says that she is doing well with her medication regimen. She rates her pain a 5 out of 10. She is currently managed with [place] 7.5 mg 1 tablet p.o. twice daily. She denies any side effects to her medication. She was also recently started on Serax and says this is been very beneficial for her. She rates her pain a 5 out of 10 today. Her [place] #[id number] has been reviewed and is appropriate. Her urine drug screens have been appropriate. Her morphine equivalent is 15. Review of Systems General: No recent weight changes, no fever, no sleep disturbances Respiratory: No cough, no shortness of air, no recurring pulmonary infections Cardiovascular/peripheral vascular: No chest pain, no palpitations, no edema, no shortness of breath Gastrointestinal: No new onset incontinence, normal bowel movements reported Genitourinary: No new onset incontinence Musculoskeletal: Low back pain, right hip pain, right leg pain Psychiatric: Normal mood/affect Neurological: [Denies weakness in extremities], [denies balance issues] Objective:: Physical exam General: Alert and oriented x3, no acute distress, pleasant and cooperative, [on room air] Lungs: Respirations even and unlabored, symmetrical chest expansion Eyes: PERRL Musculoskeletal: Flexion and extension of lumbar spine somewhat guarded secondary to pain, deep tendon reflexes normal, strength in upper and lower extremities [5/5], [abnormal gait noted] Neurological: Speech clear, deckhand sponge boat equal, no gross sensory deficit Assessment:: Degenerative disc disease lumbar spine with lumbar radiculopathy symptoms and right knee pain Plan:: We will refill the patient's [place] 7.5 mg 1 tablet p.o. twice daily. We will give HER-2 months worth of medication and she can vegetable picker her third month in the interim. She has been instructed to contact clinic if she has any concerns before her next appointment. The patient and I specifically discussed risk factors for COVID19. These risks include, but are not limited to age greater than 60, heart or lung disease, diabetes, immunosuppression, and travel. We also discussed NSAIDs may worsen COVID19 infection or symptoms. Patient should not use NSAIDs to treat COVID19 signs or symptoms. Patient was also informed that any type of corticosteroid of any form (oral or injection) will decrease the patient's immune system response and may increase the likelihood of COVID19 infection and symptoms[address] Dr. Butler has reviewed this note and agrees with this plan of care. This note was dictated using voice recognition software and make contain errors or omissions. [facility] History I have reviewed the patient's past medical history: Yes Medical History: Reports:: Anxiety, Asthma, Cancer, Cerebrovascular Accident, Depression, Hyperlipidemia, Hypertension, Palpitations Denies:: Diabetes Mellitus Type 2 *Have you ever received a pneumonia vaccine?: No *Have you received a flu vaccine this season?: No Other Medical History: Reports: Arthritis, Fibromyalgia Other Surgeries: Yes: Bariatric Surgery, Cardiac Surgery, Cholecystectomy, Hysterectomy-Total, Other Amputation: No Fractures: No - *Social History Smoking Status: Former smoker Alcohol Intake: never Alcohol Intake Frequency:: other Substance Use Type: denies use *Occupational Status:: other Housing: apartment *Travel in the last 8 weeks: None - Psychiatric History Pschychiatric History:: Reports:: Anxiety, Depression Family Hx:: Coronary Artery Disease, Heart Attack
== END ==
PROVIDERS: PCP Family Medicine; Visit Provider Clinical Nurse Specialist Family Health
DX: M51.16 Intervertebral disc disorders with radiculopathy, lumbar region (principal); M25.561 Pain in right knee
CPT/HCPCS: 99212

== ENCOUNTER → 2019-12-24 12:33 | Outpatient (CLI) | payer MEDICARE, SELFPAY ==
[2019-12-24 13:28] LABS: Basophils # 0.1 K/mm3 (0-0.2); Basophils % 0.7 % (0.1-2.0); Eosinophils # 0.2 K/mm3 (0.0-0.4); Eosinophils % 2.5 % (0.1-12.0); Hematocrit 48.1 % (37.0-47.0); Hemoglobin 15.8 g/dL (12.2-16.2); Lymphocytes # 2.5 K/mm3 (0.7-4.5); Lymphocytes % 29.6 % (10-50); Mean Corpuscular HGB Conc 32.9 g/dL (31.8-35.4); Mean Corpuscular Hemoglobin 29.2 pg (27.0-31.2); Mean Corpuscular Volume 88.7 fl (81-99); Mean Platelet Volume 8.1 fl (7.4-10.4); Monocytes # 0.4 K/mm3 (0.1-1.0); Monocytes % 4.6 % (1.7-9.3); Neutrophils # 5.3 K/mm3 (1.8-7.8); Neutrophils % 62.5 % (37.0-80.0); Platelet Count 244 K/mm3 (142-424); Red Blood Count 5.42 M/mm3 (4.20-5.40); Red Cell Distribution Width 13.4 % (11.5-17.5); White Blood Count 8.5 K/mm3 (4.8-10.8)
[2019-12-24 13:42] LABS: Chloride 104 mmol/L (98-107)
[2019-12-24 13:43] LABS: Potassium 4.8 mmoL/L (3.5-5.1); Sodium 140 mmol/L (136-145)
[2019-12-24 13:46] LABS: Alanine Aminotransferase 35 U/L (12-78); Albumin/Globulin Ratio 1.6 (1.1-1.8); Alkaline Phosphatase 87 U/L (38-126); Anion Gap 12.8 mEq/L (5-15); Aspartate Amino Transferase 36 U/L (14-36); Bilirubin,Total 0.7 mg/dl (0.2-1.3); Blood Urea Nitrogen 14 mg/dl (7-17); Calcium 9.8 mg/dl (8.4-10.2); Carbon Dioxide 28 mmol/L (22.0-30.0); Cholesterol 249 mg/dl (140-200); Estimated Glomerular Filt Rate 75 ml/min (>60); GFR (African American) 90 ML/MIN (>60); Globulin 2.5 g/dL (1.3-3.2); Glucose 94 mg/dl (74-100); Iron 159 ug/dL (37-170); Total Protein,Serum 6.5 g/dl (6.3-8.2); Triglycerides 217 mg/dl (30-150); VLDL Cholesterol 43 mg/dL (0-40)
[2019-12-24 13:47] LABS: Chol/HDL Ratio 4.2 (1-3.5); HDL Cholesterol 59 mg/dl (40-60)
[2019-12-24 13:57] LABS: Direct LDL Cholesterol 170.52 mg/dL (100-129)
[2019-12-24 14:06] LABS: Hemoglobin A1C 5.8 % (4.0-6.0)
[2019-12-24 14:34] LABS: 25-OH Vitamin D, Total 45.5 ng/mL (30-100)
[2019-12-25 06:22] LABS: Vitamin B12 499 pg/mL (232-1245)
[2019-12-25 12:24] LABS: Folate 16.3 ng/mL (>3.0)
== END ==
PROVIDERS: Visit Provider Family Medicine
DX: E11.9 Type 2 diabetes mellitus without complications (principal); E55.9 Vitamin D deficiency, unspecified; I10 Essential (primary) hypertension; Z79.899 Other long term (current) drug therapy
CPT/HCPCS: 36415; 80053; 80061; 82306; 82607; 82746; 83036; 83540; 83735; 85025

== ENCOUNTER → 2020-02-23 09:06 | Outpatient (POV) | payer MEDICARE, SELFPAY ==
[2020-02-23 09:29] VITALS: BP 134/92; PULSE 84; RESP 18; O2SAT 98; BMI 35.5
--- NOTE | 2020-02-23 09:36 | P.CONS_ITS ---
[facility] Pain Management SOAP Note Subjective:: Patient is a very pleasant 54-year-old white female who presents today for medication refills. She has been treated for low back pain as well as right leg pain. Patient rates her pain today 3 out of 10. She is currently medically managed with [place] 7.5 mg 1 tab p.o. twice daily. She denies side effects from medication. She is currently on Serax which is very beneficial for her. Gita #[id number] reviewed and appropriate urine drug screens have been appropriate. Her morphine equivalent is currently 15. She states the medication helps up to 80%. ROS General: no recent weight change, no fever, no sleep disturbances Respiratory: no cough, no shortness of air, no recurring pulmonary infections Cardiovascular/Peripheral Vascular: No chest pain, No palpitations, no edema, no shortness of breath. Gastrointestinal: no new onset incontinence, normal bowel movements reported Genitourinary: no new onset incontinence Musculoskeletal: Back pain, leg pain Psychiatric: normal mood/ affect Neurological: [denies new onset weakness in extremities], [denies new onset balance issues] Objective:: Physical Exam General: Alert and oriented x3, no acute distress, pleasant and cooperative, [on room air] Lungs: Resps E/U, Symmetrical chest expansion, Eyes: PERRL Musculoskeletal: Flexion and extension of lumbar spine somewhat guarded secondary to pain, deep tendon reflexes normal, strength in upper and lower extremities [5/5], antalgic gait noted Neurological: speech clear, pewter finisher equal, no gross sensory deficits Assessment:: Degenerative disc disease lumbar spine with lumbar radiculopathy symptoms and right leg pain Plan:: We will refill her [place] 7.5 mg 1 tab p.o. twice daily we will give her 2 months worth of medication. She can sweet pickle maker 1/3-month in the interim. She is been instructed contact the office if she has any issues prior to her next appointment. Patient has been prescribed a controlled substance after being counseled on the medication, medication safety, and possible side effects. GITA report has been obtained and reviewed prior to prescription and found to be appropriate. Opioid contract was reviewed and signed by the patient, and that they have agreed to all of the terms set forth by our compliance program. Dr. Butler has reviewed this note and agrees with this plan of care. This note was dictated using voice recognition software and may contain errors or omissions [facility] History I have reviewed the patient's past medical history: Yes Medical History: Reports:: Anxiety, Asthma, Cancer, Cerebrovascular Accident, Depression, Hyperlipidemia, Hypertension, Palpitations Denies:: Diabetes Mellitus Type 2 *Have you ever received a pneumonia vaccine?: Yes *Have you received a flu vaccine this season?: No Other Medical History: Reports: Arthritis, Fibromyalgia Other Surgeries: Yes: Bariatric Surgery, Cardiac Surgery, Cholecystectomy, Hysterectomy-Total, Other Amputation: No Fractures: No - *Social History Smoking Status: Former smoker Alcohol Intake: never Alcohol Intake Frequency:: other Substance Use Type: denies use *Occupational Status:: other Housing: apartment *Travel in the last 8 weeks: None - Psychiatric History Pschychiatric History:: Reports:: Anxiety, Depression Family Hx:: Coronary Artery Disease, Heart Attack
== END ==
PROVIDERS: PCP Family Medicine; Visit Provider Clinical Nurse Specialist Family Health
DX: M51.16 Intervertebral disc disorders with radiculopathy, lumbar region (principal); M79.604 Pain in right leg
CPT/HCPCS: 99212

== ENCOUNTER → 2020-05-24 09:28 | Outpatient (POV) | payer OTHER, MEDICARE, SELFPAY ==
--- NOTE | 2020-05-24 09:52 | HMH.PAINSOAP ---
[facility] Pain Management SOAP Note Subjective:: Patient is a very pleasant 55-year-old white female who presents today for medication refills. Patient has been treated for low back pain as well as right leg and hip pain. Patient rates her pain today a 2 out of 10. She is currently medically managed with [place] 7.5 mg 1 tab p.o. twice daily denies any side effects from the medication she is currently on Serax which is very beneficial for her. She is being monitored by her psychologist. Gita #[id number] reviewed and appropriate. Patient's urine drug screens have been appropriate. Her morphine equivalent is 15. She states the medication helps up to 80%. ROS General: no recent weight change, no fever, no sleep disturbances Respiratory: no cough, no shortness of air, no recurring pulmonary infections Cardiovascular/Peripheral Vascular: No chest pain, No palpitations, no edema, no shortness of breath. Gastrointestinal: no new onset incontinence, normal bowel movements reported Genitourinary: no new onset incontinence Musculoskeletal: Back pain, leg pain Psychiatric: normal mood/ affect Neurological: [denies new onset weakness in extremities], [denies new onset balance issues] Objective:: Physical Exam General: Alert and oriented x3, no acute distress, pleasant and cooperative, [on room air] Lungs: Resps E/U, Symmetrical chest expansion, Eyes: PERRL Musculoskeletal: Flexion and extension of lumbar spine somewhat guarded secondary to pain, deep tendon reflexes normal, strength in upper and lower extremities [5/5], antalgic gait noted Neurological: speech clear, casting and pasting supervisor equal, no gross sensory deficits Assessment:: Degenerative disc disease lumbar spine with lumbar radiculopathy symptoms of right leg and hip pain. Plan:: We will refill her [place] 7.5 mg 1 tab p.o. twice daily. We will continue this regimen. We will see her back in 3 months reassess her symptoms at that time she has been instructed to call the office if she has any issues prior to her next appointment. Patient has been prescribed a controlled substance after being counseled on the medication, medication safety, and possible side effects. GITA report has been obtained and reviewed prior to prescription and found to be appropriate. Opioid contract was reviewed and signed by the patient, and that they have agreed to all of the terms set forth by our compliance program. Dr. Butler has reviewed this note and agrees with this plan of care. This note was dictated using voice recognition software and may contain errors or omissions [facility] History I have reviewed the patient's past medical history: Yes Medical History: Reports:: Anxiety, Asthma, Cancer, Cerebrovascular Accident, Depression, Hyperlipidemia, Hypertension, Palpitations Denies:: Diabetes Mellitus Type 2 *Have you ever received a pneumonia vaccine?: Yes *Have you received a flu vaccine this season?: No Other Medical History: Reports: Arthritis, Fibromyalgia Other Surgeries: Yes: Bariatric Surgery, Cardiac Surgery, Cholecystectomy, Hysterectomy-Total, Other Amputation: No Fractures: No - *Social History Smoking Status: Former smoker Alcohol Intake: never Alcohol Intake Frequency:: other Substance Use Type: denies use *Occupational Status:: other Housing: apartment *Travel in the last 8 weeks: None - Psychiatric History Pschychiatric History:: Reports:: Anxiety, Depression Family Hx:: Coronary Artery Disease, Heart Attack
[2020-05-24 10:08] VITALS: BP 142/78; PULSE 85; RESP 18; TEMP 36.8; O2SAT 98; BMI 36.8
== END ==
PROVIDERS: PCP Family Medicine; Visit Provider Clinical Nurse Specialist Family Health
DX: M51.16 Intervertebral disc disorders with radiculopathy, lumbar region (principal); M25.559 Pain in unspecified hip; M79.604 Pain in right leg
CPT/HCPCS: 99212; G0463

== ENCOUNTER → 2020-08-18 13:30 | Outpatient (CLI) | payer MEDICARE, SELFPAY ==
--- NOTE | 2020-08-18 13:32 | MM_ITS ---
PROCEDURE: MM DIG SCREENING MAMM BI W/CAD Digital Breast Tomosynthesis Included CLINICAL INDICATION: SCREENING There is no personal or family history of breast cancer. COMPARISON: [facility] MM Dig screening mamm BI w/CAD from 05/31/2017 [facility] MM Dig screening mamm BI w/CAD from 05/21/2018 [facility] MM DIG SCREENING MAMM BI W/CAD from 06/23/2019 TECHNIQUE: Standard CC and MLO images and 3D Tomosynthesis was obtained. R2 CAD reviewed. FINDINGS: Mild scattered fibroglandular densities are seen in the central portions of both breast and the findings are bilateral and symmetrical. There are no CAD markings. There are stable asymmetric glandular elements central portion right breast. There is no suspicious lesion in either breast and no suspicious microcalcifications. IMPRESSION: Fibrofatty parenchyma with no suspicious lesions seen BI-RAD Category: 1 Negative FOLLOW-UP: 1YR 1 Year Follow-up (A letter has been sent to the patient regarding results of the study.) Dictated by: Dr. Grover Ace MD 08/20/2020 12:28 Dr. Grover Ace MD in [place] 08/20/2020 12:28
--- NOTE | 2020-08-18 13:32 | XR_ITS ---
PROCEDURE: XR DEXA AXIAL SKELETON CLINICAL HISTORY: POST-MENOPAUSAL Currently on vitamin-D and calcium. There has been a fracture as an adult COMPARISON: No exams were available for comparison FINDINGS: The right hip BMD is 0.804 g per sq cm with a T-score of -1.1. The left hip BMD is 0.695 g per sq cm with a T-score of -2.0. The lumbar spine BMD is 0.866 g per sq cm with a T-score of -1.6. IMPRESSION: Bilateral hips and lumbar spine all in the osteopenia range, there is a 13 percent 10 year fracture wrist for major osteoporotic fracture and 1.8 percent 10 year risk for hip fracture Based on these results a follow-up exam is recommended in 2 year. Dictated by: Dr. Grover Ace MD 08/20/2020 12:32 Dr. Grover Ace MD in [place] 08/20/2020 12:32
== END ==
PROVIDERS: PCP Family Medicine; Visit Provider Family Medicine
DX: Z12.31 Encounter for screening mammogram for malignant neoplasm of breast (principal); Z78.0 Asymptomatic menopausal state
CPT/HCPCS: 77063; 77067; 77080

== ENCOUNTER → 2020-08-23 09:28 | Outpatient (POV) | payer OTHER, SELFPAY ==
[2020-08-23 10:05] VITALS: BP 132/71; PULSE 65; RESP 18; O2SAT 98; BMI 40.8
--- NOTE | 2020-08-23 10:12 | P.CONS_ITS ---
[facility] Pain Management SOAP Note Subjective:: Patient is a pleasant 55-year-old white female who presents today for medication refills. Patient has been treated for low back pain as well as right leg and hip pain. Patient rates her pain today at 3 out of 10. She is currently medically managed with [place] 7.5 mg 1 p.o. twice daily. Patient denies any side effects to her medication. She is also currently on Serax which is very beneficial for her. Gtia #[id number] reviewed and appropriate. Patient has a morphine equivalent of 15. She states the medication helps up to 80% ROS General: no recent weight change, no fever, no sleep disturbances Respiratory: no cough, no shortness of air, no recurring pulmonary infections Cardiovascular/Peripheral Vascular: No chest pain, No palpitations, no edema, no shortness of breath. Gastrointestinal: no new onset incontinence, normal bowel movements reported Genitourinary: no new onset incontinence Musculoskeletal: Back pain, leg pain Psychiatric: normal mood/ affect Neurological: [denies new onset weakness in extremities], [denies new onset balance issues] Objective:: Physical Exam General: Alert and oriented x3, no acute distress, pleasant and cooperative, [on room air] Lungs: Resps E/U, Symmetrical chest expansion, Eyes: PERRL Musculoskeletal: Flexion and extension of lumbar spine somewhat guarded secondary to pain, deep tendon reflexes normal, strength in upper and lower extremities [5/5], antalgic gait noted Neurological: speech clear, weld engineer equal, no gross sensory deficits Assessment:: Degenerative disc disease lumbar spine lumbar radiculopathy symptoms right leg and hip pain Plan:: We will continue her [place] 7.5 mg 1 p.o. twice daily. We will see the patient back in 3 months reassess her symptoms at that time she has been instructed to call the office if she has any issues prior to her next appointment. Dr. Butler has reviewed this note and agrees with this plan of care. This note was dictated using voice recognition software and may contain errors or omissions Patient has been prescribed a controlled substance after being counseled on the medication, medication safety, and possible side effects. GITA report has been obtained and reviewed prior to prescription and found to be appropriate. Opioid contract was reviewed and signed by the patient, and that they have agreed to all of the terms set forth by our compliance program. [facility] History I have reviewed the patient's past medical history: Yes Medical History: Reports:: Anxiety, Asthma, Cancer, Cerebrovascular Accident, Depression, Hyperlipidemia, Hypertension, Palpitations Denies:: Diabetes Mellitus Type 2 *Have you ever received a pneumonia vaccine?: Yes *Have you received a flu vaccine this season?: Yes Other Medical History: Reports: Arthritis, Fibromyalgia Other Surgeries: Yes: Bariatric Surgery, Cardiac Surgery, Cholecystectomy, Hysterectomy-Total, Other Amputation: No Fractures: No - *Social History Smoking Status: Former smoker Alcohol Intake: never Alcohol Intake Frequency:: other Substance Use Type: denies use *Occupational Status:: other Housing: apartment *Travel in the last 8 weeks: None - Psychiatric History Pschychiatric History:: Reports:: Anxiety, Depression Family Hx:: Coronary Artery Disease, Heart Attack
== END ==
PROVIDERS: Visit Provider Clinical Nurse Specialist Family Health
DX: M51.16 Intervertebral disc disorders with radiculopathy, lumbar region (principal)
CPT/HCPCS: 99212; G0463

== ENCOUNTER → 2020-11-22 10:10 | Outpatient (POV) | payer OTHER, SELFPAY ==
[2020-11-22 10:26] VITALS: BP 128/69; PULSE 78; RESP 18; O2SAT 96; BMI 36.8
--- NOTE | 2020-11-22 10:36 | HMH.PAINSOAP ---
[facility] Pain Management SOAP Note Subjective:: Patient is a 55-year-old white female who presents today for follow-up and for medication refills. She is being treated for degenerative disc disease lumbar spine with lumbar radiculopathy symptoms into the right leg and right hip. She is managed with [place] 7.5 mg 1 tablet p.o. twice daily and Serax which is given to her by Dr. Cortes. She rates her pain a 2 out of 10 today. The medications are working well for her at this time. Patient's Gita #[id number] has been reviewed and is appropriate. Morphine equivalent is 15. Patient reports that she has been using CBD roll-on gel. She recently bought CBD oil drops from clinic pharmacy here at [facility]. She says that she did not want to start medication until she notified us. She will begin that today. If the patient does have a positive drug screen for THC at the next visit we will discuss and she may need to stop if she is positive for THC. We did discuss compounding cream as well. This may give her some relief to her low back area and hip. She would like to try this. Review of Systems General: No recent weight changes, no fever, no sleep disturbances Respiratory: No cough, no shortness of air, no recurring pulmonary infections Cardiovascular/peripheral vascular: No chest pain, no palpitations, no edema, no shortness of breath Gastrointestinal: No new onset incontinence, normal bowel movements reported Genitourinary: No new onset incontinence Musculoskeletal: Low back pain with radiation into right hip and l right leg Psychiatric: Normal mood/affect Neurological: [Denies weakness in extremities], [denies balance issues] Objective:: Physical exam General: Alert and oriented x3, no acute distress, pleasant and cooperative, [on room air] Lungs: Respirations even and unlabored, symmetrical chest expansion Eyes: PERRL Musculoskeletal: Flexion and extension of [] lumbar spine somewhat guarded secondary to pain, deep tendon reflexes normal, strength in upper and lower extremities [5/5], [abnormal gait noted] Neurological: Speech clear, employee benefits director equal, no gross sensory deficit Assessment:: Degenerative disc disease lumbar spine with lumbar radiculopathy symptoms, right hip pain, right leg pain Plan:: We will order the patient compounding cream to apply topically to her low back and right hip. We will also continue her [place] 7.5 mg 1 tablet p.o. twice daily. She will get a month medication and will be seen in the clinic in 1 month for reevaluation of symptoms. The patient has started CBD oil and CBD roll-on gel. Patient has been prescribed a controlled substance after being counseled on the medication, medication safety, and possible side effects. GITA report has been obtained and reviewed prior to prescription and found to be appropriate. Opioid contract was reviewed and signed by the patient, and that they have agreed to all of the terms set forth by our compliance program. Risks and benefits of the medication have been explained in detail to the patient. The patient has been advised to consult with his/her primary care provider and pharmacist regarding drug-drug interaction of medications currently prescribed. Patient has been instructed to contact the clinic with any concerns before the next appointment. Dr. Butler has reviewed this note and agrees with this plan of care. This note was dictated using voice recognition software and make contain errors or omissions. [facility] History I have reviewed the patient's past medical history: Yes Medical History: Reports:: Anxiety, Asthma, Cancer, Cerebrovascular Accident, Depression, Hyperlipidemia, Hypertension, Palpitations Denies:: Diabetes Mellitus Type 2 *Have you ever received a pneumonia vaccine?: No *Have you received a flu vaccine this season?: No Other Medical History: Reports: Arthritis, Fibromyalgia Other Surgeries: Yes: Bariatric Surgery, Cardiac Surgery, Cholecystectomy, H
== END ==
PROVIDERS: Visit Provider Clinical Nurse Specialist Family Health
DX: M51.16 Intervertebral disc disorders with radiculopathy, lumbar region (principal); M25.551 Pain in right hip; M79.604 Pain in right leg
CPT/HCPCS: 99212; G0463

== ENCOUNTER → 2020-12-23 10:06 | Outpatient (POV) | payer OTHER, SELFPAY ==
[2020-12-23 10:32] VITALS: BP 133/77; PULSE 75; RESP 18; O2SAT 96; BMI 37.0
--- NOTE | 2020-12-23 12:51 | HMH.PAINSOAP ---
[facility] Pain Management SOAP Note Subjective:: Patient is a pleasant 55-year-old white female who presents today for medication refills and follow-up. The patient is being treated for degenerative disc disease lumbar spine with lumbar radiculopathy symptoms into her right leg and hip. This pain has been ongoing for years. She is managed with [place] 7.5 mg 1 tablet p.o. twice daily in our clinic. Her pain is a 2 out of 10 today. The patient's Gita #[id number] has been reviewed and is appropriate. The patient's morphine equivalent is 15. She denies any side effects to the medicine. She is doing well overall with her regimen. Review of Systems General: No recent weight changes, no fever, no sleep disturbances Respiratory: No cough, no shortness of air, no recurring pulmonary infections Cardiovascular/peripheral vascular: No chest pain, no palpitations, no edema, no shortness of breath Gastrointestinal: No new onset incontinence, normal bowel movements reported Genitourinary: No new onset incontinence Musculoskeletal: Chronic right leg and right hip pain Psychiatric: [Normal mood/affect] Neurological: [Denies weakness in extremities], [denies balance issues] Objective:: Physical exam General: Alert and oriented x3, no acute distress, pleasant and cooperative, [on room air] Lungs: Respirations even and unlabored, symmetrical chest expansion Eyes: PERRL Musculoskeletal: Flexion and extension of lumbar [spine] and right lower extremity somewhat guarded secondary to pain, strength in upper and lower extremities [5/5], [antalgic gait noted] Neurological: Speech clear, [merchandise manager equal], no gross sensory deficit Assessment:: Degenerative disc disease lumbar spine with lumbar radiculopathy symptoms, right hip pain, right leg pain Plan:: We will refill the patient's [place] 7.5 mg 1 tablet p.o. twice daily. She will get a month medication will be seen in the clinic in 1 month for reevaluation of symptoms. Risks and benefits of the medication have been explained in detail to the patient. The patient has been advised to consult with his/her primary care provider and pharmacist regarding drug-drug interaction of medications currently prescribed. Patient has been prescribed a controlled substance after being counseled on the medication, medication safety, and possible side effects. GITA report has been obtained and reviewed prior to prescription and found to be appropriate. Opioid contract was reviewed and signed by the patient, and that they have agreed to all of the terms set forth by our compliance program. Patient has been instructed to contact the clinic with any concerns before the next appointment. Dr. Butler has reviewed this note and agrees with this plan of care. This note was dictated using voice recognition software and make contain errors or omissions. [facility] History I have reviewed the patient's past medical history: Yes Medical History: Reports:: Anxiety, Asthma, Cancer, Cerebrovascular Accident, Depression, Hyperlipidemia, Hypertension, Palpitations Denies:: Diabetes Mellitus Type 2 *Have you ever received a pneumonia vaccine?: No *Have you received a flu vaccine this season?: No Other Medical History: Reports: Arthritis, Fibromyalgia Other Surgeries: Yes: Bariatric Surgery, Cardiac Surgery, Cholecystectomy, Hysterectomy-Total, Other Amputation: No Fractures: No - *Social History Smoking Status: Former smoker Alcohol Intake: never Alcohol Intake Frequency:: other Substance Use Type: denies use *Occupational Status:: unemployed Housing: apartment *Travel in the last 8 weeks: None - Psychiatric History Pschychiatric History:: Reports:: Anxiety, Depression Family Hx:: Coronary Artery Disease, Heart Attack
== END ==
PROVIDERS: Visit Provider Clinical Nurse Specialist Family Health
DX: M51.16 Intervertebral disc disorders with radiculopathy, lumbar region (principal); M25.551 Pain in right hip; M79.604 Pain in right leg
CPT/HCPCS: 99212; G0463

== ENCOUNTER → 2021-01-24 10:25 | Outpatient (POV) | payer OTHER, SELFPAY ==
--- NOTE | 2021-01-24 10:42 | HMH.PAINSOAP ---
[facility] Pain Management SOAP Note Subjective:: Patient is a pleasant 55-year-old white female who presents today for medication refills. The patient is being treated in the clinic for degenerative disc disease lumbar spine with lumbar radiculopathy symptoms. Patient has pain in her right low back, right hip, right leg. She continues to have significant pain to the area. We did manage the patient with [place] 7.5 mg 1 tablet p.o. twice daily. She says when she takes her medication, her pain is around a 2 to a 5 out of 10. Weather does make her pain worse. She is also managed with compounding cream. Gita #[id number] has been reviewed and is appropriate. Morphine equivalent is 15. Drug screens have been appropriate. Review of Systems General: No recent weight changes, no fever, no sleep disturbances Respiratory: No cough, no shortness of air, no recurring pulmonary infections Cardiovascular/peripheral vascular: No chest pain, no palpitations, no edema, no shortness of breath Gastrointestinal: No new onset incontinence, normal bowel movements reported Genitourinary: No new onset incontinence Musculoskeletal: Right low back pain, right hip pain, right leg pain with numbness and tingling Psychiatric: [Normal mood/affect] Neurological: [Denies weakness in extremities], [denies balance issues] Objective:: Physical exam General: Alert and oriented x3, no acute distress, pleasant and cooperative, [on room air] Lungs: Respirations even and unlabored, symmetrical chest expansion Eyes: PERRL Musculoskeletal: Flexion and extension of lumbar [spine] somewhat guarded secondary to pain, strength in upper and lower extremities [5/5], [antalgic gait noted] Neurological: Speech clear, [community association manager equal], no gross sensory deficit Assessment:: Degenerative disc disease lumbar spine with lumbar radiculopathy symptoms Plan:: We will refill the patient's [place] 7.5 mg 1 tablet p.o. twice daily. We will give her a month medication see her back in the clinic in 1 month. Risks and benefits of the medication have been explained in detail to the patient. The patient has been advised to consult with his/her primary care provider and pharmacist regarding drug-drug interaction of medications currently prescribed. Patient has been prescribed a controlled substance after being counseled on the medication, medication safety, and possible side effects. GITA report has been obtained and reviewed prior to prescription and found to be appropriate. Opioid contract was reviewed and signed by the patient, and that they have agreed to all of the terms set forth by our compliance program. Patient has been instructed to contact the clinic with any concerns before the next appointment. Dr. Butler has reviewed this note and agrees with this plan of care. This note was dictated using voice recognition software and make contain errors or omissions. [facility] History I have reviewed the patient's past medical history: Yes Medical History: Reports:: Anxiety, Asthma, Cancer, Cerebrovascular Accident, Depression, Hyperlipidemia, Hypertension, Palpitations Denies:: Diabetes Mellitus Type 2 *Have you ever received a pneumonia vaccine?: No *Have you received a flu vaccine this season?: No Other Medical History: Reports: Arthritis, Fibromyalgia Other Surgeries: Yes: Bariatric Surgery, Cardiac Surgery, Cholecystectomy, Hysterectomy-Total, Other Amputation: No Fractures: No - *Social History Smoking Status: Former smoker Alcohol Intake: never Alcohol Intake Frequency:: other Substance Use Type: denies use *Occupational Status:: unemployed Housing: apartment *Travel in the last 8 weeks: None - Psychiatric History Pschychiatric History:: Reports:: Anxiety, Depression Family Hx:: Coronary Artery Disease, Heart Attack
[2021-01-24 11:18] VITALS: BP 127/79; PULSE 76; RESP 18; O2SAT 94; BMI 37.2
== END ==
PROVIDERS: Visit Provider Clinical Nurse Specialist Family Health
DX: M51.16 Intervertebral disc disorders with radiculopathy, lumbar region (principal)
CPT/HCPCS: 99212; G0463

== ENCOUNTER → 2021-02-21 09:38 | Outpatient (POV) | payer OTHER, SELFPAY ==
[2021-02-21 09:47] VITALS: BP 160/88; PULSE 85; RESP 18; O2SAT 98; BMI 37.2
--- NOTE | 2021-02-21 10:25 | HMH.PAINSOAP ---
[facility] Pain Management SOAP Note Subjective:: Patient is a 55-year-old white female who presents today for medication refills. Patient is rating her pain a 2 out of 10 today. She is treating in our clinic for chronic right low back pain right hip pain and right leg pain. She continues to have significant pain in this area with standing walking and sitting. She does have degenerative disc disease lumbar spine with lumbar radicular symptoms. She gets [place] 7.5 mg 1 tablet p.o. twice daily. She says the medication is working well for her at this time. She denies any side effects. Patient's Gita #[id number] has been reviewed and is appropriate. Drug screen is appropriate. Review of Systems General: No recent weight changes, no fever, no sleep disturbances Respiratory: No cough, no shortness of air, no recurring pulmonary infections Cardiovascular/peripheral vascular: No chest pain, no palpitations, no edema, no shortness of breath Gastrointestinal: No new onset incontinence, normal bowel movements reported Genitourinary: No new onset incontinence Musculoskeletal: Chronic right low back pain, right hip pain, right leg pain Psychiatric: [Normal mood/affect] Neurological: [Denies weakness in extremities], [denies balance issues] Objective:: Physical exam General: Alert and oriented x3, no acute distress, pleasant and cooperative Lungs: Respirations even and unlabored, symmetrical chest expansion Eyes: PERRL Musculoskeletal: Flexion and extension of lumbar [spine] somewhat guarded secondary to pain, [antalgic gait noted] Neurological: Speech clear, no gross sensory deficit Assessment:: Degenerative disc disease lumbar spine with lumbar radiculopathy symptoms, chronic right low back pain, right hip pain, right leg pain Plan:: We will refill the patient's [place] 7.5 mg 1 tablet p.o. twice daily. We will give the patient a month medication see her back in the clinic in 1 month. Risks and benefits of the medication have been explained in detail to the patient. The patient does understand the risk of dependence on the medication when given over a prolonged period. Patient has been advised of risks of oversedation with the prescribed medication. Narcan has been offered to the paitent in the event of oversedation. Patient has been advised that a family member should also be educated regarding administration of Narcan. The patient has been advised to consult with his/her primary care provider and pharmacist regarding drug-drug interaction of medications currently prescribed. Patient has been prescribed a controlled substance after being counseled on the medication, medication safety, and possible side effects. GIAT report has been obtained and reviewed prior to prescription and found to be appropriate. Opioid contract was reviewed and signed by the patient, and that they have agreed to all of the terms set forth by our compliance program. Patient has been instructed to contact the clinic with any concerns before the next appointment. Dr. Butler has reviewed this note and agrees with this plan of care. This note was dictated using voice recognition software and make contain errors or omissions. [facility] History I have reviewed the patient's past medical history: Yes Medical History: Reports:: Anxiety, Asthma, Cancer, Cerebrovascular Accident, Depression, Hyperlipidemia, Hypertension, Palpitations Denies:: Diabetes Mellitus Type 2 *Have you ever received a pneumonia vaccine?: No *Have you received a flu vaccine this season?: No Other Medical History: Reports: Arthritis, Fibromyalgia Other Surgeries: Yes: Bariatric Surgery, Cardiac Surgery, Cholecystectomy, Hysterectomy-Total, Other Amputation: No Fractures: No - *Social History Smoking Status: Former smoker Alcohol Intake: never Alcohol Intake Frequency:: other Substance Use Type: denies use *Occupational Status:: unemployed Housing: apartment *Travel in the last 8
[2021-02-21 13:19] LABS: Amphetamine/Metha Screen,Urine Negative ng/ml (<1000)
[2021-02-21 13:20] LABS: Barbiturates Screen,Urine Positive ng/ml (<200)
[2021-02-21 13:24] LABS: Benzodiazepines Screen,Urine Negative ng/ml (<200); Cannabinoid Screen,Urine Negative ng/ml (<50)
[2021-02-21 13:25] LABS: Cocaine Screen,Urine Negative ng/ml (<300); Methadone Screen,Urine Negative ng/ml (<300)
[2021-02-21 13:26] LABS: Opiate Screen,Urine Positive ng/ml (<300)
[2021-02-21 13:27] LABS: Phencyclidine Screen,Urine Negative ng/ml (<25)
== END ==
PROVIDERS: Visit Provider Clinical Nurse Specialist Family Health
DX: M51.16 Intervertebral disc disorders with radiculopathy, lumbar region (principal); M54.50 Low back pain, unspecified; M25.551 Pain in right hip; M79.604 Pain in right leg
CPT/HCPCS: 80305; 99212; G0463

== ENCOUNTER → 2021-03-21 09:29 | Outpatient (POV) | payer OTHER, SELFPAY ==
--- NOTE | 2021-03-21 10:20 | HMH.PAINSOAP ---
[facility] Pain Management SOAP Note Subjective:: Patient is a 55-year-old white female who presents today for medication refill. She is doing well overall with her medication regimen. We did treat her for continuing right low back pain with right hip pain and right leg pain. She has significant pain with standing walking and sitting. She is managed with [place] 7.5 mg 1 tablet p.o. twice daily. We do treat her for degenerative disc disease lumbar spine with lumbar radiculopathy symptoms. The patient's Gita number [id number] is appropriate. Drug screen is appropriate. She denies any side effects to the medication She does rate her pain a 2 out of 10 which is baseline for her. Review of Systems General: No recent weight changes, no fever, no sleep disturbances Respiratory: No cough, no shortness of air, no recurring pulmonary infections Cardiovascular/peripheral vascular: No chest pain, no palpitations, no edema, no shortness of breath Gastrointestinal: No new onset incontinence, normal bowel movements reported Genitourinary: No new onset incontinence Musculoskeletal: Right low back pain, right leg pain, right hip pain Psychiatric: [Normal mood/affect] Neurological: [Denies weakness in extremities], [denies balance issues] Objective:: Physical exam General: Alert and oriented x3, no acute distress, pleasant and cooperative Lungs: Respirations even and unlabored, symmetrical chest expansion Eyes: PERRL Musculoskeletal: Flexion and extension of lumbar [spine] and right lower extremity somewhat guarded secondary to pain, [antalgic gait noted] Neurological: Speech clear, no gross sensory deficit Assessment:: Degenerative disc disease lumbar spine with lumbar radiculopathy symptoms, chronic right low back pain, right hip pain, right leg pain Plan:: We will continue the patient on [place] 7.5 mg 1 tablet p.o. twice daily. We will give the patient 1 month medication. We will see the patient back in clinic in 1 month. Risks and benefits of the medication have been explained in detail to the patient. The patient does understand the risk of dependence on the medication when given over a prolonged period. Patient has been advised of risks of oversedation with the prescribed medication. Narcan has been offered to the paitent in the event of oversedation. Patient has been advised that a family member should also be educated regarding administration of Narcan. The patient has been advised to consult with his/her primary care provider and pharmacist regarding drug-drug interaction of medications currently prescribed. Patient has been prescribed a controlled substance after being counseled on the medication, medication safety, and possible side effects. GITA report has been obtained and reviewed prior to prescription and found to be appropriate. Opioid contract was reviewed and signed by the patient, and that they have agreed to all of the terms set forth by our compliance program. Patient has been instructed to contact the clinic with any concerns before the next appointment. Dr. Butler has reviewed this note and agrees with this plan of care. This note was dictated using voice recognition software and make contain errors or omissions. [facility] History I have reviewed the patient's past medical history: Yes Medical History: Reports:: Anxiety, Asthma, Cancer, Cerebrovascular Accident, Depression, Hyperlipidemia, Hypertension, Palpitations Denies:: Diabetes Mellitus Type 2 *Have you ever received a pneumonia vaccine?: No *Have you received a flu vaccine this season?: No Other Medical History: Reports: Arthritis, Fibromyalgia Other Surgeries: Yes: Bariatric Surgery, Cardiac Surgery, Cholecystectomy, Hysterectomy-Total, Other Amputation: No Fractures: No - *Social History Smoking Status: Former smoker Alcohol Intake: never Alcohol Intake Frequency:: other Substance Use Type: denies use *Occupational Status:: unemployed Housing
[2021-03-21 11:07] VITALS: BP 149/96; PULSE 87; RESP 18; O2SAT 97; BMI 37.2
== END ==
PROVIDERS: Visit Provider Clinical Nurse Specialist Family Health
DX: M51.16 Intervertebral disc disorders with radiculopathy, lumbar region (principal); M25.551 Pain in right hip; M79.604 Pain in right leg; G89.29 Other chronic pain
CPT/HCPCS: 99212; G0463

== ENCOUNTER → 2021-04-21 09:42 | Outpatient (POV) | payer OTHER, SELFPAY ==
[2021-04-21 10:00] VITALS: BP 122/74; PULSE 77; RESP 18; O2SAT 95; BMI 38.0
--- NOTE | 2021-04-21 12:50 | HMH.PAINSOAP ---
[facility] Pain Management SOAP Note Subjective:: Patient is a 56-year-old white female who presents today for follow-up and for medication refills. She is seen in our clinic for chronic right low back pain with right hip pain and right leg pain. She continues to have significant pain with standing walking and sitting. Should we do provide the patient [place] 7.5 mg 1 tablet p.o. twice daily. She says that she gets significant relief with her pain medication regimen. She rates her pain a 2 out of 10 today. She is much more functional and able to walk and stand with less pain with the medication. She does also get compounding cream which does help significantly with her pain. [facility] #[id number] has been reviewed and is appropriate. Morphine equivalent is 15. Review of Systems General: No recent weight changes, no fever, no sleep disturbances Respiratory: No cough, no shortness of air, no recurring pulmonary infections Cardiovascular/peripheral vascular: No chest pain, no palpitations, no edema, no shortness of breath Gastrointestinal: No new onset incontinence, normal bowel movements reported Genitourinary: No new onset incontinence Musculoskeletal: Right low back pain with radiation into right hip and right leg Psychiatric: [Normal mood/affect] Neurological: [Denies weakness in extremities], [denies balance issues] Objective:: Physical exam General: Alert and oriented x3, no acute distress, pleasant and cooperative Lungs: Respirations even and unlabored, symmetrical chest expansion Eyes: PERRL Musculoskeletal: Flexion and extension of lumbar [spine] somewhat guarded secondary to pain, [antalgic gait noted] Neurological: Speech clear, no gross sensory deficit Assessment:: Degenerative disc disease lumbar spine with lumbar radiculopathy symptoms, chronic right low back pain, chronic right hip pain, chronic leg pain?right Plan:: We will continue patient's [place] 7.5 mg 1 tablet p.o. twice daily. We will give the patient a month medication see her back in the clinic in 1 month for further evaluation symptoms. She has been instructed to contact clinic if she has any concerns before next appointment. Risks and benefits of the medication have been explained in detail to the patient. The patient does understand the risk of dependence on the medication when given over a prolonged period. Patient has been advised of risks of oversedation with the prescribed medication. Narcan has been offered to the paitent in the event of oversedation. Patient has been advised that a family member should also be educated regarding administration of Narcan. The patient has been advised to consult with his/her primary care provider and pharmacist regarding drug-drug interaction of medications currently prescribed. Patient has been prescribed a controlled substance after being counseled on the medication, medication safety, and possible side effects. GITA report has been obtained and reviewed prior to prescription and found to be appropriate. Opioid contract was reviewed and signed by the patient, and that they have agreed to all of the terms set forth by our compliance program. Patient has been instructed to contact the clinic with any concerns before the next appointment. Dr. Butler has reviewed this note and agrees with this plan of care. This note was dictated using voice recognition software and make contain errors or omissions. [facility] History I have reviewed the patient's past medical history: Yes Medical History: Reports:: Anxiety, Asthma, Cancer, Cerebrovascular Accident, Depression, Hyperlipidemia, Hypertension, Palpitations Denies:: Diabetes Mellitus Type 2 *Have you ever received a pneumonia vaccine?: No *Have you received a flu vaccine this season?: No Other Medical History: Reports: Arthritis, Fibromyalgia Other Surgeries: Yes: Bariatric Surgery, Cardiac Surgery, Cholecystectomy, Hysterectomy-Total, Other Amputation: No Fractu
== END ==
PROVIDERS: Visit Provider Clinical Nurse Specialist Family Health
DX: M51.16 Intervertebral disc disorders with radiculopathy, lumbar region (principal); G89.29 Other chronic pain; M25.551 Pain in right hip; M79.604 Pain in right leg
CPT/HCPCS: 99212; G0463

== ENCOUNTER → 2021-06-17 15:31 | Outpatient (CLI) | payer MEDICARE, SELFPAY ==
[2021-06-17 17:25] LABS: Hemoglobin A1C 5.8 % (4.0-6.0)
[2021-06-17 18:20] LABS: Alanine Aminotransferase 38 U/L (12-78); Albumin Level 4.3 g/dl (3.5-5.0); Albumin/Globulin Ratio 1.8 (1.1-1.8); Alkaline Phosphatase 77 U/L (38-126); Anion Gap 11.7 mEq/L (5-15); Aspartate Amino Transferase 34 U/L (14-36); Bilirubin,Total 0.5 mg/dl (0.2-1.3); Blood Urea Nitrogen 18 mg/dl (7-17); Calcium 9.5 mg/dl (8.4-10.2); Carbon Dioxide 25 mmol/L (22.0-30.0); Chloride 105 mmol/L (98-107); Chol/HDL Ratio 4.5 (1-3.5); Cholesterol 245 mg/dl (140-200); Estimated Glomerular Filt Rate 74 ml/min (>60); GFR (African American) 90 ML/MIN (>60); Globulin 2.4 g/dL (1.3-3.2); Glucose 99 mg/dl (74-100); HDL Cholesterol 55 mg/dl (40-60); Potassium 4.7 mmoL/L (3.5-5.1); Sodium 137 mmol/L (136-145); Total Protein,Serum 6.7 g/dl (6.3-8.2); Triglycerides 182 mg/dl (30-150); VLDL Cholesterol 36 mg/dL (0-40)
[2021-06-17 18:31] LABS: Direct LDL Cholesterol 176.87 mg/dL (100-129)
== END ==
PROVIDERS: PCP Family Medicine; Visit Provider Family Medicine
DX: I10 Essential (primary) hypertension (principal); E78.5 Hyperlipidemia, unspecified; R73.9 Hyperglycemia, unspecified
CPT/HCPCS: 36415; 80053; 80061; 83036

== ENCOUNTER → 2021-06-23 09:08 | Outpatient (POV) | payer OTHER, SELFPAY ==
[2021-06-23 09:45] VITALS: BP 126/88; PULSE 79; RESP 18; O2SAT 95; BMI 38.6
--- NOTE | 2021-06-23 12:45 | HMH.PAINSOAP ---
[facility] Pain Management SOAP Note Subjective:: Patient is a very pleasant 56-year-old white female who presents today for follow-up and medication refills. She is currently being treated for degenerative disc disease of lumbar spine with lumbar radiculopathy. She is currently prescribed hydrocodone 7.5 mg twice daily as prescribed by her clinic as well as gabapentin 600 mg 3 times daily and oxazepam 10mg daily prescribed by outside providers. She states that her current pain medication regiment is adequately managing her overall chronic pain symptoms. She denies any adverse effects to this medications. Objective:: General: Alert and oriented x3, no acute distress, pleasant and cooperative Lungs: Resps E/U, symmetric chest expansion Eyes: PERRL Musculoskeletal: limited flexion and extension of the lumbar spine secondary to pain. Deep tendon reflexes were normal in bilateral lower extremities. Motor exam was grossly intact in the bilateral lower extremities, antalgic gait noted. Neurological: Speech is clear, print decorator equal, no gross sensory deficits Assessment:: Degenerative disc disease of the lumbar spine with lumbar radiculopathy Plan:: I discussed with the patient continue and refill hydrocodone/APAP 7.5 mg twice daily #60 for a 1 month supply. We will follow-up with this patient in 1 month assessment and medication refills. [facility] #[id number] and prior drug screens were reviewed and appropriate. [facility] History Medical History: Reports:: Anxiety, Asthma, Cancer, Cerebrovascular Accident, Depression, Hyperlipidemia, Hypertension, Palpitations Denies:: Diabetes Mellitus Type 2 *Have you ever received a pneumonia vaccine?: No *Have you received a flu vaccine this season?: No Other Medical History: Reports: Arthritis, Fibromyalgia Other Surgeries: Yes: Bariatric Surgery, Cardiac Surgery, Cholecystectomy, Hysterectomy-Total, Other Amputation: No Fractures: No - *Social History Smoking Status: Former smoker Alcohol Intake: never Alcohol Intake Frequency:: other Substance Use Type: denies use *Occupational Status:: unemployed Housing: apartment *Travel in the last 8 weeks: None - Psychiatric History Pschychiatric History:: Reports:: Anxiety, Depression Family Hx:: Coronary Artery Disease, Heart Attack
== END ==
PROVIDERS: Visit Provider Anesthesiology Pain Medicine
DX: M51.16 Intervertebral disc disorders with radiculopathy, lumbar region (principal)
CPT/HCPCS: 99212; G0463

== ENCOUNTER → 2021-06-23 10:09 | Outpatient (CLI) | payer MEDICARE, SELFPAY ==
[2021-06-23 12:19] LABS: Amphetamine/Metha Screen,Urine Negative ng/ml (<1000); Barbiturates Screen,Urine Negative ng/ml (<200)
[2021-06-23 12:20] LABS: Benzodiazepines Screen,Urine Negative ng/ml (<200); Methadone Screen,Urine Negative ng/ml (<300)
[2021-06-23 12:21] LABS: Cannabinoid Screen,Urine Negative ng/ml (<50)
[2021-06-23 12:22] LABS: Cocaine Screen,Urine Negative ng/ml (<300); Opiate Screen,Urine Positive ng/ml (<300)
[2021-06-23 12:23] LABS: Phencyclidine Screen,Urine Negative ng/ml (<25)
[2021-07-08 20:19] LABS: Codeine Negative (Cutoff=100); Hydrocodone Positive (.); Hydromorphone Positive (.); Morphine Negative (Cutoff=100); Opiates Positive (.)
== END ==
PROVIDERS: Visit Provider Anesthesiology Pain Medicine
DX: Z79.891 Long term (current) use of opiate analgesic (principal)
CPT/HCPCS: 80305; 80361; 80365; G0480

== ENCOUNTER → 2021-07-18 08:40 | Outpatient (POV) | payer OTHER, SELFPAY ==
[2021-07-18 09:00] VITALS: BP 141/78; PULSE 85; RESP 18; TEMP 36.5; O2SAT 99; BMI 38.0
--- NOTE | 2021-07-18 10:38 | P.CONS_ITS ---
[facility] Pain Management SOAP Note Subjective:: Patient is a pleasant 56-year-old white female that presents today for medication refills. She is currently being treated for degenerative disease lumbar spine multilevels with lumbar radiculopathy. She is currently being prescribed hydrocodone 7.5 mg twice daily. Also gabapentin 600 mg 3 times nomi ly. These medications seems to be managing her pain quite well. She denies any adverse side effects from the medication. Objective:: Is awake alert oriented x3 no acute distress. Flexion-extension lumbar spine somewhat guarded secondary to pain. Deep tendon reflexes upper lower extremities normal. Patient is in no acute distress. Gait is normal. Assessment:: Disc disease lumbar spine multilevels. Radiculopathy. Plan:: We will refill her medications today. She will return in a month for follow-up. [facility] History Medical History: Reports:: Anxiety, Asthma, Cancer, Cerebrovascular Accident, Depression, Hyperlipidemia, Hypertension, Palpitations Denies:: Diabetes Mellitus Type 2 *Have you ever received a pneumonia vaccine?: No *Have you received a flu vaccine this season?: No Other Medical History: Reports: Arthritis, Fibromyalgia Other Surgeries: Yes: Bariatric Surgery, Cardiac Surgery, Cholecystectomy, Hysterectomy-Total, Other Amputation: No Fractures: No - *Social History Smoking Status: Former smoker Alcohol Intake: never Alcohol Intake Frequency:: other Substance Use Type: denies use *Occupational Status:: disabled Housing: apartment *Travel in the last 8 weeks: None - Psychiatric History Pschychiatric History:: Reports:: Anxiety, Depression Family Hx:: Coronary Artery Disease, Heart Attack
== END ==
PROVIDERS: Visit Provider Nurse Anesthetist, Certified Registered
DX: M51.16 Intervertebral disc disorders with radiculopathy, lumbar region (principal)
CPT/HCPCS: 99212; G0463

== ENCOUNTER → 2021-07-28 13:34 | Outpatient (CLI) | payer MEDICARE, SELFPAY ==
--- NOTE | 2021-07-28 13:37 | CT_ITS ---
FINAL REPORT CLINICAL HISTORY: H/O NICOTINE DEPENDENCE 1/2ppd x38 years FINDINGS: Low-Dose Chest CT CTDI vol (mGy): 2.90 DLP (mGy-cm): 90.90 Axial images were obtained from the lung apex to the mid abdomen by computed tomography. Low-dose protocol was utilized. FINDINGS: CHEST: There is streak artifact arising from cervical fusion hardware. There is no axillary adenopathy. There is no hilar or mediastinal adenopathy. The heart is proper size. There is no pericardial or pleural effusion. Limited images of the upper abdomen shows postoperative changes from gastric sleeve. There are postoperative changes from cholecystectomy. Lung window images demonstrate no suspicious infiltrate or nodule. IMPRESSION: Lung RADS category 1. Recommend 12 month follow-up low-dose chest CT. Reviewed, Interpreted and Dictated by Akash Ybarra MD Transcribed by Tammie Chavez Authenticated by Akash Ybarra MD on 07/28/2021 03:00:55 PM [facility]
== END ==
PROVIDERS: PCP Family Medicine; Visit Provider Family Medicine
DX: Z87.891 Personal history of nicotine dependence (principal); Z12.2 Encounter for screening for malignant neoplasm of respiratory organs
CPT/HCPCS: 71271

== ENCOUNTER → 2021-08-18 08:50 | Outpatient (POV) | payer OTHER, SELFPAY ==
[2021-08-18 08:59] VITALS: BP 126/84; PULSE 77; RESP 18; TEMP 36.4; O2SAT 96; BMI 38.4
--- NOTE | 2021-08-18 09:08 | HMH.PAINSOAP ---
[facility] Pain Management SOAP Note Subjective:: Patient is a pleasant 56-year-old female who is here for medication refill and follow-up. Patient is currently being treated for degenerative disc disease lumbar spine with lumbar radiculopathy symptoms. Patient is being managed with [place] 7.5 mg twice a day. Patient denies any side effects from the medications. Patient denies any changes to the location and type of pain. Patient states that this is adequately helping manage their pain. Rates pain as 2 out of 10. Patient is also prescribed gabapentin 600 mg 3 times a day and oxazepam 10 mg daily that are prescribed by an outside clinic. [facility] number [id number] with an active morphine equivalent 15. Drug screens have been reviewed and appropriate. Review of Systems: General: No recent weight changes, no fever, no sleep disturbances Respiratory: No cough, no shortness of air, no recurring pulmonary infections Cardiovascular/peripheral vascular: No chest pain, no palpitations, no edema, no shortness of breath Gastrointestinal: No new onset incontinence, normal bowel movements reported Genitourinary: No new onset incontinence Musculoskeletal: Low back pain Psychiatric: [Normal mood/affect] Neurological: [Denies weakness in extremities], [denies balance issues] Objective:: Physical Exam: General: Alert and oriented x3, no acute distress, pleasant and cooperative, [on room air] Lungs: Respirations even and unlabored, symmetrical chest expansion Eyes: PERRL Musculoskeletal: Flexion and extension of lumbar [spine] somewhat guarded secondary to pain, [antalgic gait noted] Neurological: Speech clear, no gross sensory deficit Assessment:: Degenerative disc disease of lumbar spine with lumbar radiculopathy symptoms Plan:: We will continue the patient's [place] 7.5 mg twice a day. We will provide the patient with 1 month of refills. We would like to see the patient back in 1 month for follow-up and reevaluation of chronic pain syndrome. Patient has been advised of risks of oversedation with the prescribed medication. Narcan has been offered to the patient in the event of oversedation. Patient has been advised that a family member should also be educated regarding administration of Narcan. Patient has been instructed to contact the clinic with any concerns before the next appointment. Dr. Butler has reviewed this note and agrees with this plan of care. This note was dictated using voice recognition software and make contain errors or omissions. [facility] History Medical History: Reports:: Anxiety, Asthma, Cancer, Cerebrovascular Accident, Depression, Hyperlipidemia, Hypertension, Palpitations Denies:: Diabetes Mellitus Type 2 *Have you ever received a pneumonia vaccine?: No *Have you received a flu vaccine this season?: No Other Medical History: Reports: Arthritis, Fibromyalgia Other Surgeries: Yes: Bariatric Surgery, Cardiac Surgery, Cholecystectomy, Hysterectomy-Total, Other Amputation: No Fractures: No - *Social History Smoking Status: Former smoker Alcohol Intake: never Alcohol Intake Frequency:: other Substance Use Type: denies use *Occupational Status:: employed Housing: apartment *Travel in the last 8 weeks: None - Psychiatric History Pschychiatric History:: Reports:: Anxiety, Depression Family Hx:: Coronary Artery Disease, Heart Attack
== END ==
PROVIDERS: Visit Provider Student in an Organized Health Care Education/Training Program
DX: M51.16 Intervertebral disc disorders with radiculopathy, lumbar region (principal)
CPT/HCPCS: 99212; G0463

== ENCOUNTER → 2021-08-19 15:34 | Outpatient (CLI) | payer MEDICARE, SELFPAY ==
--- NOTE | 2021-08-19 15:35 | MM_ITS ---
PROCEDURE INFORMATION: Exam: MG Bilateral Screening 3D Mammography Exam date and time: 08/19/2021 3:33 PM Age: 56 years old Clinical indication: Screening examination TECHNIQUE: Imaging protocol: Bilateral Screening tomosynthesis and 2D mammography including computer-aided detection (CAD) when performed. COMPARISON: 1. MG MM DIG SCREENING MAMM BI W/CAD 08/18/2020 1:30 PM 2. MG MM DIG SCREENING MAMM BI W/CAD 06/23/2019 4:06 PM 3. MG SCBI MM Dig screening mamm BI w/CAD 05/21/2018 4:42 PM 4. MG SCBI MM Dig screening mamm BI w/CAD 05/31/2017 3:29 PM FINDINGS: MAMMOGRAPHY: Breast composition: There are scattered areas of fibroglandular density. Mass: None. Architectural distortion: No new or suspicious architectural distortion. Calcifications: No new or suspicious calcifications are present Asymmetric density: No new or suspicious asymmetric density is present Skin thickening: None. Axillary adenopathy: None. IMPRESSION: No mammographic evidence of malignancy. Recommend annual screening mammography unless otherwise clinically indicated. ASSESSMENT: BI-RADS category 1: Negative
== END ==
PROVIDERS: PCP Family Medicine; Visit Provider Family Medicine
DX: Z12.31 Encounter for screening mammogram for malignant neoplasm of breast (principal)
CPT/HCPCS: 77063; 77067

== ENCOUNTER → 2021-09-15 09:25 | Outpatient (POV) | payer OTHER, SELFPAY ==
[2021-09-15 09:57] VITALS: BP 139/90; PULSE 79; RESP 18; TEMP 36.5; O2SAT 96; BMI 39.4
--- NOTE | 2021-09-15 10:57 | P.CONS_ITS ---
[facility] Pain Management SOAP Note Subjective:: Patient is a pleasant 56-year-old female who is here for medication refill and follow-up. Patient is currently being treated for degenerative disc disease of lumbar spine with lumbar radiculopathy symptoms. Patient is being managed with [place] 7.5 mg twice a day. Patient denies any side effects from the medications. Patient denies any changes to the location and type of pain. Patient states that this is adequately helping manage their pain. Rates pain as 2 out of 10. [facility] number [id number] with an active morphine equivalent 15. Drug screens have been reviewed and appropriate. Patient is also prescribed gabapentin 600 mg and oxazepam 10 mg by an outside clinic. Review of Systems: General: No recent weight changes, no fever, no sleep disturbances Respiratory: No cough, no shortness of air, no recurring pulmonary infections Cardiovascular/peripheral vascular: No chest pain, no palpitations, no edema, no shortness of breath Gastrointestinal: No new onset incontinence, normal bowel movements reported Genitourinary: No new onset incontinence Musculoskeletal: Low back pain Psychiatric: [Normal mood/affect] Neurological: [Denies weakness in extremities], [denies balance issues] Objective:: Physical Exam: General: Alert and oriented x3, no acute distress, pleasant and cooperative Lungs: Respirations even and unlabored, symmetrical chest expansion Eyes: PERRL Musculoskeletal: Flexion and extension of lumbar [spine] somewhat guarded secondary to pain, [antalgic gait noted] Neurological: Speech clear, no gross sensory deficit Assessment:: Degenerative disc disease of lumbar spine with lumbar radiculopathy symptoms Plan:: We will continue the patient's [place] 7.5 mg twice a day. We will provide the patient with 1 month of refills. We would like to see the patient back in 1 month for follow-up and reevaluation of chronic pain syndrome. Patient has been advised of risks of oversedation with the prescribed medication. Narcan has been offered to the patient in the event of oversedation. Patient has been advised that a family member should also be educated regarding administration of Narcan. Patient has been instructed to contact the clinic with any concerns before the next appointment. Dr. Butler has reviewed this note and agrees with this plan of care. This note was dictated using voice recognition software and make contain errors or omissions. [facility] History Medical History: Reports:: Anxiety, Asthma, Cancer, Cerebrovascular Accident, Depression, Hyperlipidemia, Hypertension, Palpitations Denies:: Diabetes Mellitus Type 2 *Have you ever received a pneumonia vaccine?: No *Have you received a flu vaccine this season?: No Other Medical History: Reports: Arthritis, Fibromyalgia Other Surgeries: Yes: Bariatric Surgery, Cardiac Surgery, Cholecystectomy, Hysterectomy-Total, Other Amputation: No Fractures: No - *Social History Smoking Status: Former smoker Alcohol Intake: never Alcohol Intake Frequency:: other Substance Use Type: denies use *Occupational Status:: employed Housing: apartment *Travel in the last 8 weeks: None - Psychiatric History Pschychiatric History:: Reports:: Anxiety, Depression Family Hx:: Coronary Artery Disease, Heart Attack
== END ==
PROVIDERS: Visit Provider Student in an Organized Health Care Education/Training Program
DX: M51.16 Intervertebral disc disorders with radiculopathy, lumbar region (principal)
CPT/HCPCS: 99212; G0463

== ENCOUNTER → 2021-09-15 09:59 | Outpatient (CLI) | payer MEDICARE, SELFPAY ==
[2021-09-15 10:46] LABS: Barbiturates Screen,Urine Positive ng/ml (<200); Benzodiazepines Screen,Urine Negative ng/ml (<200)
[2021-09-15 10:47] LABS: Amphetamine/Metha Screen,Urine Negative ng/ml (<1000); Cannabinoid Screen,Urine Negative ng/ml (<50)
[2021-09-15 10:48] LABS: Cocaine Screen,Urine Negative ng/ml (<300)
[2021-09-15 10:49] LABS: Methadone Screen,Urine Negative ng/ml (<300); Opiate Screen,Urine Positive ng/ml (<300)
[2021-09-15 10:50] LABS: Phencyclidine Screen,Urine Negative ng/ml (<25)
[2021-09-26 16:41] LABS: Codeine Negative (Cutoff=100); Hydrocodone Positive (.); Hydromorphone Positive (.); Morphine Negative (Cutoff=100); Opiates Positive (.)
== END ==
PROVIDERS: Student in an Organized Health Care Education/Training Program; Visit Provider Anesthesiology
DX: Z79.891 Long term (current) use of opiate analgesic (principal)
CPT/HCPCS: 80305; 80361; 80365; G0480

== ENCOUNTER → 2021-10-13 09:22 | Outpatient (POV) | payer OTHER, SELFPAY ==
[2021-10-13 09:32] VITALS: BP 146/84; PULSE 81; RESP 18; TEMP 36.7; O2SAT 95; BMI 39.4
--- NOTE | 2021-10-13 09:56 | HMH.PAINSOAP ---
[facility] Pain Management SOAP Note Subjective:: Patient is a pleasant 56-year-old female who is here for medication refill and follow-up. Patient is currently being treated for degenerative disease of lumbar spine with lumbar radiculopathy symptoms, right hip pain, right leg pain. Patient is being managed with [place] 7.5 mg twice a day. Patient denies any side effects from the medications. Patient denies any changes to the location and type of pain. Patient states that this is adequately helping manage their pain. Rates pain as 2 out of 10. [facility] number [id number] with an active morphine equivalent 15. Drug screens have been reviewed and appropriate. Patient is also prescribed gabapentin 600 mg and oxazepam 10 mg by an outside clinic. Review of Systems: General: No recent weight changes, no fever, no sleep disturbances Respiratory: No cough, no shortness of air, no recurring pulmonary infections Cardiovascular/peripheral vascular: No chest pain, no palpitations, no edema, no shortness of breath Gastrointestinal: No new onset incontinence, normal bowel movements reported Genitourinary: No new onset incontinence Musculoskeletal: Low back pain Psychiatric: [Normal mood/affect] Neurological: [Denies weakness in extremities], [denies balance issues] Objective:: Physical Exam: General: Alert and oriented x3, no acute distress, pleasant and cooperative Lungs: Respirations even and unlabored, symmetrical chest expansion Eyes: PERRL Musculoskeletal: Flexion and extension of lumbar [spine] somewhat guarded secondary to pain, [antalgic gait noted] Neurological: Speech clear, no gross sensory deficit Assessment:: Degenerative disease of lumbar spine with lumbar radiculopathy symptoms, right hip pain, right leg pain Plan:: We will continue the patient's [place] 7.5 mg twice a day. We will provide the patient with 1 month of refills. We would like to see the patient back in 1 month for follow-up and reevaluation of chronic pain syndrome. Patient has been advised of risks of oversedation with the prescribed medication. Narcan has been offered to the patient in the event of oversedation. Patient has been advised that a family member should also be educated regarding administration of Narcan. Patient has been instructed to contact the clinic with any concerns before the next appointment. Dr. Butler has reviewed this note and agrees with this plan of care. This note was dictated using voice recognition software and make contain errors or omissions. [facility] History Medical History: Reports:: Anxiety, Asthma, Cancer, Cerebrovascular Accident, Depression, Hyperlipidemia, Hypertension, Palpitations Denies:: Diabetes Mellitus Type 2 *Have you ever received a pneumonia vaccine?: No *Have you received a flu vaccine this season?: No Other Medical History: Reports: Arthritis, Fibromyalgia Other Surgeries: Yes: Bariatric Surgery, Cardiac Surgery, Cholecystectomy, Hysterectomy-Total, Other Amputation: No Fractures: No - *Social History Smoking Status: Former smoker Alcohol Intake: never Alcohol Intake Frequency:: other Substance Use Type: denies use *Occupational Status:: unemployed Housing: apartment *Travel in the last 8 weeks: None - Psychiatric History Pschychiatric History:: Reports:: Anxiety, Depression Family Hx:: Coronary Artery Disease, Heart Attack
== END ==
PROVIDERS: Visit Provider Student in an Organized Health Care Education/Training Program
DX: M51.16 Intervertebral disc disorders with radiculopathy, lumbar region (principal); M25.551 Pain in right hip; M79.604 Pain in right leg
CPT/HCPCS: 99212; G0463

== ENCOUNTER → 2021-11-08 10:21 | Outpatient (POV) | payer OTHER, SELFPAY ==
[2021-11-08 10:33] VITALS: BP 124/83; PULSE 80; RESP 18; TEMP 36.7; O2SAT 98; BMI 40.3
--- NOTE | 2021-11-08 10:44 | HMH.PAINSOAP ---
[facility] Pain Management SOAP Note Subjective:: Patient is a pleasant 56-year-old female who is here for medication refill and follow-up. Patient is currently being treated for degenerative disc disease of the lumbar spine with lumbar radiculopathy symptoms, right hip pain, right leg pain. Today patient rates her pain a 2 out of 10. She states the pain is in her low back and describes it as a chronic achy pain. She states the pain is worse in the morning and at bedtime. patient is being managed with Allport 7.5 mg twice a day. She denies any side effects from the medication. She denies any changes to the location and type of pain. She states pain is adequately managed with this medication. Patient has also tried the compounding cream and states that helps with the pain. She would also like a refill on this medication. Patient is also prescribed gabapentin 600 mg and oxazepam 10 mg by an outside clinic. Her Sarthak is [id number]. It has been reviewed and its appropriate. Review of Systems: General: No recent weight changes, no fever, no sleep disturbances Respiratory: No cough, no shortness of air, no recurring pulmonary infections Cardiovascular/peripheral vascular: No chest pain, no palpitations, no edema, no shortness of breath Gastrointestinal: No new onset incontinence, normal bowel movements reported Genitourinary: No new onset incontinence Musculoskeletal: Low back pain Psychiatric: [Normal mood/affect] Neurological: [Denies weakness in extremities], [denies balance issues] Objective:: Physical Exam: General: Alert and oriented x3, no acute distress, pleasant and cooperative Lungs: Respirations even and unlabored, symmetrical chest expansion Eyes: PERRL Musculoskeletal: Flexion and extension of lumbar [spine] somewhat guarded secondary to pain, [antalgic gait noted] Neurological: Speech clear, no gross sensory deficit Assessment:: Degenerative disc disease of lumbar spine with lumbar radiculopathy symptoms, right hip pain, right leg pain Plan:: We will continue the patient's Allport 7.5 mg twice daily. We will provide the patient with 1 month of refills. We will also refill the patient's order of compounding cream. Patient will return to clinic in 1 month for medication refill and follow-up. Patient has been advised of risks of oversedation with the prescribed medication. Narcan has been offered to the patient in the event of oversedation. Patient has been advised that a family member should also be educated regarding administration of Narcan. Patient has been instructed to contact the clinic with any concerns before the next appointment. Dr. Butler has reviewed this note and agrees with this plan of care. This note was dictated using voice recognition software and make contain errors or omissions. [facility] History I have reviewed the patient's past medical history: Yes Medical History: Reports:: Anxiety, Asthma, Cancer, Cerebrovascular Accident, Depression, Hyperlipidemia, Hypertension, Palpitations Denies:: Diabetes Mellitus Type 2 *Have you ever received a pneumonia vaccine?: No *Have you received a flu vaccine this season?: No Other Medical History: Reports: Arthritis, Fibromyalgia Other Surgeries: Yes: Bariatric Surgery, Cardiac Surgery, Cholecystectomy, Hysterectomy-Total, Other Amputation: No Fractures: No - *Social History Smoking Status: Former smoker Alcohol Intake: never Alcohol Intake Frequency:: other Substance Use Type: denies use *Occupational Status:: other Housing: apartment *Travel in the last 8 weeks: Inside the [facility] - Psychiatric History Pschychiatric History:: Reports:: Anxiety, Depression Family Hx:: Coronary Artery Disease, Heart Attack
== END ==
PROVIDERS: Visit Provider Student in an Organized Health Care Education/Training Program
DX: M51.16 Intervertebral disc disorders with radiculopathy, lumbar region (principal); M25.551 Pain in right hip; M79.604 Pain in right leg
CPT/HCPCS: 99212; G0463

== ENCOUNTER → 2021-12-08 10:44 | Outpatient (POV) | payer OTHER, SELFPAY ==
[2021-12-08 10:58] VITALS: BP 148/97; PULSE 94; RESP 20; O2SAT 95; BMI 38.4
--- NOTE | 2021-12-08 11:06 | HMH.PAINSOAP ---
[facility] Pain Management SOAP Note Subjective:: Patient is a pleasant 56-year-old female who comes today for a follow-up and medication refill. We are currently treating the patient for degenerative disc disease of lumbar spine with lumbar radiculopathy symptoms, right hip pain, right leg pain. Today the patient rates her pain a 2 out of 10. She states this pain is all in her low back and right leg. She describes this as a chronic achy sensation that is worse with activity. We currently manage the patient with Wellman 7.5 mg twice a day. She denies any side effects of this medication. She denies any change to the location or type of pain she experiences. She does state this medication helps adequately manage her pain. She has tried compounding cream and states it does help give some relief. Patient is also prescribed gabapentin 600 mg and oxazepam from an outside clinic. Her Sarthak is [id number]. It has been reviewed and appropriate. Review of Systems: General: No recent weight changes, no fever, no sleep disturbances Respiratory: No cough, no shortness of air, no recurring pulmonary infections Cardiovascular/peripheral vascular: No chest pain, no palpitations, no edema, no shortness of breath Gastrointestinal: No new onset incontinence, normal bowel movements reported Genitourinary: No new onset incontinence Musculoskeletal: Low back pain, right leg pain, right hip pain Psychiatric: [Normal mood/affect] Neurological: [Denies weakness in extremities], [denies balance issues] Objective:: Physical Exam: General: Alert and oriented x3, no acute distress, pleasant and cooperative Lungs: Respirations even and unlabored, symmetrical chest expansion Eyes: PERRL Musculoskeletal: Flexion and extension of lumbar [spine] somewhat guarded secondary to pain, [antalgic gait noted] Neurological: Speech clear, no gross sensory deficit Assessment:: Degenerative disc disease of lumbar spine with lumbar radiculopathy symptoms, right hip pain, right leg pain Plan:: Patient continues to have significant pain in her low back, right leg and right hip. We will continue the patient's Wellman 7.5 mg twice daily. We will provide the patient with a 1 month supply of this medication. Patient will return to clinic in 1 month for medication refill and follow-up. Patient has been advised of the risk of oversedation with the prescribed medication. Patient has been instructed to contact the clinic with any concerns before the next appointment. Dr. Butler has reviewed this note and agrees with this plan of care. This note was dictated using voice recognition software and make contain errors or omissions. [facility] History I have reviewed the patient's past medical history: Yes Medical History: Reports:: Anxiety, Asthma, Cancer, Cerebrovascular Accident, Depression, Hyperlipidemia, Hypertension, Palpitations Denies:: Diabetes Mellitus Type 2 *Have you ever received a pneumonia vaccine?: No *Have you received a flu vaccine this season?: No Other Medical History: Reports: Arthritis, Fibromyalgia Other Surgeries: Yes: Bariatric Surgery, Cardiac Surgery, Cholecystectomy, Hysterectomy-Total, Other Amputation: No Fractures: No - *Social History Smoking Status: Former smoker Alcohol Intake: never Alcohol Intake Frequency:: other Substance Use Type: denies use *Occupational Status:: other Housing: apartment *Travel in the last 8 weeks: None - Psychiatric History Pschychiatric History:: Reports:: Anxiety, Depression Family Hx:: Coronary Artery Disease, Heart Attack
== END ==
PROVIDERS: PCP Family Medicine; Visit Provider Nurse Practitioner Family
DX: M51.16 Intervertebral disc disorders with radiculopathy, lumbar region (principal); M25.551 Pain in right hip; M79.604 Pain in right leg
CPT/HCPCS: 99212; G0463

== ENCOUNTER → 2021-12-08 11:06 | Outpatient (CLI) | payer MEDICARE, OTHER, SELFPAY ==
--- NOTE | 2021-12-08 11:11 | XR_ITS ---
FINAL REPORT CLINICAL HISTORY: Pain in left foot when pressure applied FINDINGS: 3 views of the left foot were obtained. There is no acute fracture or dislocation. There are mild degenerative changes. The soft tissues are unremarkable. IMPRESSION: Mild degenerative change. Reviewed, Interpreted and Dictated by Preston Francis III, MD Transcribed by Joseph Jorgensen Authenticated and . [facility]
[2021-12-08 11:53] LABS: Amphetamine/Metha Screen,Urine Negative ng/ml (<1000); Benzodiazepines Screen,Urine Negative ng/ml (<200)
[2021-12-08 11:54] LABS: Barbiturates Screen,Urine Negative ng/ml (<200); Cannabinoid Screen,Urine Negative ng/ml (<50)
[2021-12-08 11:55] LABS: Cocaine Screen,Urine Negative ng/ml (<300)
[2021-12-08 11:56] LABS: Methadone Screen,Urine Negative ng/ml (<300); Opiate Screen,Urine Positive ng/ml (<300)
[2021-12-08 11:57] LABS: Phencyclidine Screen,Urine Negative ng/ml (<25)
[2021-12-13 15:15] LABS: Codeine Negative (Cutoff=100); Hydrocodone Positive (.); Hydromorphone Positive (.); Morphine Negative (Cutoff=100); Opiates Positive (.)
== END ==
PROVIDERS: Student in an Organized Health Care Education/Training Program; PCP Family Medicine; Visit Provider Nurse Practitioner Family
DX: Z79.891 Long term (current) use of opiate analgesic (principal); M79.672 Pain in left foot
CPT/HCPCS: 73630; 80305; 80361; 80365; G0480

== ENCOUNTER → 2022-01-05 10:35 | Outpatient (POV) | payer OTHER, SELFPAY ==
[2022-01-05 10:43] VITALS: BP 131/88; PULSE 85; RESP 18; TEMP 36.7; O2SAT 94; BMI 39.4
--- NOTE | 2022-01-05 10:55 | EXP.PAIN.SOA ---
[facility] Pain Management SOAP Note Subjective:: Patient is a pleasant 56-year-old female presents today for follow-up and medication refill. We are currently treating the patient for degenerative disc disease of lumbar spine with lumbar radiculopathy symptoms, right hip pain, right leg pain. Today the patient rates her pain a 2 out of 10. She states the pain is all primarily in her low back that radiates into her right leg. She describes this as a aching, throbbing sensation that is worse with increased activity. We are currently managing the patient with Sargeant 7.5 mg twice a day. Patient denies any side effects from this medication. She states that this medication is adequately helping manage her pain. She is requesting a refill of this medication at today's visit. Patient does also use compounding cream that provides some relief. Patient is also prescribed gabapentin 600 mg 3 times a day and oxazepam 10 mg daily by outside providers. Her Sarthak is [id number]. Its been reviewed and appropriate. Review of Systems: General: No recent weight changes, no fever, no sleep disturbances Respiratory: No cough, no shortness of air, no recurring pulmonary infections Cardiovascular/peripheral vascular: No chest pain, no palpitations, no edema, no shortness of breath Gastrointestinal: No new onset incontinence, normal bowel movements reported Genitourinary: No new onset incontinence Musculoskeletal: Low back pain, right leg pain, right hip pain Psychiatric: [Normal mood/affect] Neurological: [Denies weakness in extremities], [denies balance issues] Objective:: Physical Exam: General: Alert and oriented x3, no acute distress, pleasant and cooperative Lungs: Respirations even and unlabored, symmetrical chest expansion Eyes: PERRL Musculoskeletal: Flexion and extension of lumbar [spine] somewhat guarded secondary to pain, [antalgic gait noted] Neurological: Speech clear, no gross sensory deficit Assessment:: Degenerative disc disease of lumbar spine with lumbar radiculopathy symptoms, right hip pain, right leg pain Plan:: Patient continues to have significant pain along her low back that radiates into her right hip and right leg. I will reorder the patient's Sargeant 7.5 mg twice daily. We will provide the patient with a 1 month supply of this medication. Patient will return to clinic in 1 month for medication refill and reevaluation of symptoms. Patient has been advised of risks of oversedation with the prescribed medication. Narcan has been offered to the patient in the event of oversedation. Patient has been advised that a family member should also be educated regarding administration of Narcan. Patient has been instructed to contact the clinic with any concerns before the next appointment. Dr. Butler has reviewed this note and agrees with this plan of care. This note was dictated using voice recognition software and make contain errors or omissions. PFSH PFSH Social History Smoking Status: Former smoker alcohol intake: never counseling provided: none substance use type: denies use current occupational status: unemployed Travel in the last 8 weeks: None housing: apartment current occupational exposures/hazards: No caffeine: Yes
== END | disposition home or self-care (01) ==
PROVIDERS: PCP Family Medicine; Visit Provider Nurse Practitioner Family
DX: M51.16 Intervertebral disc disorders with radiculopathy, lumbar region (principal); M25.551 Pain in right hip; M79.604 Pain in right leg
CPT/HCPCS: 99212; G0463

== ENCOUNTER → 2022-02-06 10:17 | Outpatient (POV) | payer OTHER, SELFPAY ==
[2022-02-06 10:46] VITALS: BP 132/80; PULSE 81; RESP 18; TEMP 36.7; O2SAT 95; BMI 38.7
--- NOTE | 2022-02-06 10:56 | EXP.PAIN.SOA ---
[facility] Pain Management SOAP Note Subjective:: Patient is a pleasant 56-year-old female who presents today for medication refill and follow-up. We are currently treating the patient for degenerative disc disease of lumbar spine with lumbar radiculopathy symptoms, right hip pain, right leg pain. Today the patient rates her pain a 3 out of 10. She states the pain is in her low back that radiates to her right leg. She describes this as an aching, throbbing sensation that is worse with increased activity. Patient denies any new trauma or injury. She denies any change in location or type of pain she experiences. She is currently managed with Humphrey 7.5 mg twice a day. Patient denies any side effects from this medication. She states this medication does help her pain symptoms. She is also prescribed a compounding cream that provides additional relief of some symptoms. She is prescribed gabapentin 600 mg 3 times a day and oxazepam 10 mg daily from outside providers. Her Sarthak is [id number]. It has been reviewed and appropriate. Review of Systems: General: No recent weight changes, no fever, no sleep disturbances Respiratory: No cough, no shortness of air, no recurring pulmonary infections Cardiovascular/peripheral vascular: No chest pain, no palpitations, no edema, no shortness of breath Gastrointestinal: No new onset incontinence, normal bowel movements reported Genitourinary: No new onset incontinence Musculoskeletal: Low back pain, right hip pain, right leg pain Psychiatric: [Normal mood/affect] Neurological: [Denies weakness in extremities], [denies balance issues] Objective:: Physical Exam: General: Alert and oriented x3, no acute distress, pleasant and cooperative Lungs: Respirations even and unlabored, symmetrical chest expansion Eyes: PERRL Musculoskeletal: Flexion and extension of lumbar [spine] somewhat guarded secondary to pain, [antalgic gait noted] Neurological: Speech clear, no gross sensory deficit Assessment:: Degenerative disc disease lumbar spine with lumbar radiculopathy symptoms, right hip pain right leg pain Plan:: Patient continues to have significant pain in her low back that radiates to her right hip and right leg. She is currently doing well with her medication regimen. I will refill the patient's Humphrey 7.5 mg twice a day and provide a 1 month supply of this medication. Patient will follow-up in 1 month. Patient will return to clinic in 1 month for reevaluation of symptoms, medication refill and follow-up. Patient has been advised of risks of oversedation with the prescribed medication. Narcan has been offered to the patient in the event of oversedation. Patient has been advised that a family member should also be educated regarding administration of Narcan. Patient has been instructed to contact the clinic with any concerns before the next appointment. Dr. Butler has reviewed this note and agrees with this plan of care. This note was dictated using voice recognition software and make contain errors or omissions. PFSH PFSH Social History Smoking Status: Former smoker alcohol intake: never counseling provided: none substance use type: denies use current occupational status: disabled Travel in the last 8 weeks: None housing: apartment current occupational exposures/hazards: No caffeine: Yes
== END | disposition home or self-care (01) ==
PROVIDERS: Visit Provider Nurse Practitioner Family
DX: M51.16 Intervertebral disc disorders with radiculopathy, lumbar region (principal); M25.551 Pain in right hip; M79.604 Pain in right leg; Z79.899 Other long term (current) drug therapy
CPT/HCPCS: 99212; G0463

== ENCOUNTER → 2022-02-06 11:12 | Outpatient (CLI) | payer MEDICARE, SELFPAY ==
[2022-02-06 12:08] LABS: Amphetamine/Metha Screen,Urine Negative ng/ml (<1000); Barbiturates Screen,Urine Negative ng/ml (<200)
[2022-02-06 12:09] LABS: Benzodiazepines Screen,Urine Negative ng/ml (<200)
[2022-02-06 12:10] LABS: Cannabinoid Screen,Urine Negative ng/ml (<50); Cocaine Screen,Urine Negative ng/ml (<300)
[2022-02-06 12:11] LABS: Methadone Screen,Urine Negative ng/ml (<300)
[2022-02-06 12:12] LABS: Opiate Screen,Urine Positive ng/ml (<300); Phencyclidine Screen,Urine Negative ng/ml (<25)
[2022-02-13 08:09] LABS: Codeine Negative (Cutoff=100); Hydrocodone Positive (.); Hydromorphone Positive (.); Morphine Negative (Cutoff=100); Opiates Positive (.)
== END ==
LOC: LAB 11:16
PROVIDERS: PCP Family Medicine; Visit Provider Nurse Practitioner Family
DX: Z79.891 Long term (current) use of opiate analgesic (principal)
CPT/HCPCS: 80305; 80361; 80365; G0480

== ENCOUNTER → 2022-03-09 10:32 | Outpatient (POV) | payer OTHER, SELFPAY ==
[2022-03-09 10:53] VITALS: BP 120/70; PULSE 76; RESP 18; TEMP 37.2; O2SAT 98; BMI 39.4
--- NOTE | 2022-03-09 11:16 | A.OFFVIS_ITS ---
[facility] Pain Management SOAP Note Subjective:: Patient is a pleasant 56-year-old female who presents today for medication refill and follow-up. We are currently treating the patient for degenerative disc disease of lumbar spine with lumbar radiculopathy symptoms. Today the patient rates her pain a 2 out of 10. Patient states her pain is in her low back and right hip that radiates down her right leg. Patient does state this is an aching, throbbing sensation that is worse with increased activity. Patient is currently managed with Ingleside 7.5 mg twice a day. Patient denies any side effects from this medication. She states this medication does help with her pain symptoms. She is also prescribed a compounding cream that provides some additional improvement. Patient does use an herbal cream called rosa mojica as well. Patient is prescribed gabapentin 600 mg 3 times a day and oxazepam 10 mg daily from outside providers. Patient's Sarthak is [id number]. It has been reviewed and appropriate. Review of Systems: General: No recent weight changes, no fever, no sleep disturbances Respiratory: No cough, no shortness of air, no recurring pulmonary infections Cardiovascular/peripheral vascular: No chest pain, no palpitations, no edema, no shortness of breath Gastrointestinal: No new onset incontinence, normal bowel movements reported Genitourinary: No new onset incontinence Musculoskeletal: Low back pain, right hip pain, right leg pain Psychiatric: [Normal mood/affect] Neurological: [Denies weakness in extremities], [denies balance issues] Objective:: Physical Exam: General: Alert and oriented x3, no acute distress, pleasant and cooperative Lungs: Respirations even and unlabored, symmetrical chest expansion Eyes: PERRL Musculoskeletal: Flexion and extension of lumbar [spine] somewhat guarded secondary to pain, [antalgic gait noted] Neurological: Speech clear, no gross sensory deficit Assessment:: Degenerative disc disease of lumbar spine with lumbar radiculopathy symptoms Plan:: Patient continues to experience pain in her low back that radiates into her right hip and down her right leg. I will refill the patient's Ingleside 7.5 twice a day and provide a 1 month supply of this medication. Patient will return to clinic in 1 month for reevaluation of symptoms, medication refill and follow-up. Patient has been advised of risks of oversedation with the prescribed me dication. Narcan has been offered to the patient in the event of oversedation. Patient has been advised that a family member should also be educated regarding administration of Narcan. Patient has been instructed to contact the clinic with any concerns before the next appointment. Dr. Butler has reviewed this note and agrees with this plan of care. This note was dictated using voice recognition software and make contain errors or omissions. PFSH PFSH Social History Smoking Status: Former smoker alcohol intake: never counseling provided: none substance use type: denies use current occupational status: retired Travel in the last 8 weeks: None housing: apartment current occupational exposures/hazards: No caffeine: Yes
== END | disposition home or self-care (01) ==
PROVIDERS: PCP Family Medicine; Visit Provider Nurse Practitioner Family
DX: M51.16 Intervertebral disc disorders with radiculopathy, lumbar region (principal)
CPT/HCPCS: 99212; G0463

== ENCOUNTER → 2022-04-06 10:16 | Outpatient (POV) | payer OTHER, SELFPAY ==
[2022-04-06 10:36] VITALS: BP 116/68; PULSE 84; RESP 18; O2SAT 93; BMI 40.3
--- NOTE | 2022-04-06 11:08 | EXP.PAIN.SOA ---
[facility] Pain Management SOAP Note Subjective:: Patient is a pleasant 57-year-old female who presents today for medication refill and follow-up. We are currently treating the patient for degenerative disc disease of lumbar spine with lumbar radiculopathy symptoms, low back pain, right hip pain, right leg pain. Patient denies any new trauma or injury. Patient denies any change in location or type of pain she experiences. Patient describes this as an aching, throbbing sensation that is worse with increased activity. Patient states it does affect her ability to perform activities of daily living such as light cooking and cleaning because she frequently has to stop and take breaks due to the pain. Patient is currently managed with Stanford 7.5 mg twice a day. Patient denies any side effects from this medication. She states this medication does help her pain symptoms. She is requesting a refill at today's visit. She also uses a compounding cream and a herbal cream called deep blue to provide additional relief. Patient is prescribed gabapentin 600 mg 3 times a day and oxazepam 10 mg daily from outside providers. Her Sarthak is [id number]. It is been reviewed and appropriate. Review of Systems: General: No recent weight changes, no fever, no sleep disturbances Respiratory: No cough, no shortness of air, no recurring pulmonary infections Cardiovascular/peripheral vascular: No chest pain, no palpitations, no edema, no shortness of breath Gastrointestinal: No new onset incontinence, normal bowel movements reported Genitourinary: No new onset incontinence Musculoskeletal: Low back pain, right hip pain, right leg pain Psychiatric: [Normal mood/affect] Neurological: [Denies weakness in extremities], [denies balance issues] Objective:: Physical Exam: General: Alert and oriented x3, no acute distress, pleasant and cooperative Lungs: Respirations even and unlabored, symmetrical chest expansion Eyes: PERRL Musculoskeletal: Flexion and extension of lumbar [spine] somewhat guarded secondary to pain, [antalgic gait noted] Neurological: Speech clear, no gross sensory deficit Assessment:: Degenerative disc disease of lumbar spine with lumbar radiculopathy symptoms, low back pain, right hip pain, right leg pain Plan:: Patient continues to experience significant pain in her low back that radiates into her right hip and right leg. Patient did have limited range of motion of her lumbar spine during today's visit. I will refill the patient's Stanford 7.5 mg twice a day and provide a 1 month supply of this medication. I have also discussed with the patient that she may benefit from a Camden device. Risk and benefits were discussed with the patient. This device is FDA cleared as a ultrasound device for multi hour treatment to reduce pain and accelerate healing of chronic pain, musculoskeletal injuries and bone growth. This is often used as a adjunct therapy in conjunction with current treatment for increased mobility and speed recovery. Educational handouts were given to her during today's visit and she would like to proceed forward with this plan of care. I will submit to insurance today for approval of this ultrasound device and patient will return to clinic in 1 month for reevaluation of symptoms, medication refill and follow-up. Patient has been advised of risks of oversedation with the prescribed medication. Narcan has been offered to the patient in the event of oversedation. Patient has been advised that a family member should also be educated regarding administration of Narcan. Patient has been instructed to contact the clinic with any concerns before the next appointment. Dr. Butler has reviewed this note and agrees with this plan of care. This note was dictated using voice recognition software and make contain errors or omissions. [facility] Disclaimer: The information contained in this section may have been updated after the patient was seen, as this information can be up
== END | disposition home or self-care (01) ==
PROVIDERS: PCP Family Medicine; Visit Provider Nurse Practitioner Family
DX: M51.16 Intervertebral disc disorders with radiculopathy, lumbar region (principal); M25.551 Pain in right hip; M79.604 Pain in right leg
CPT/HCPCS: 99212; G0463

== ENCOUNTER → 2022-05-15 11:10 | Outpatient (POV) | payer OTHER, SELFPAY ==
[2022-05-15 11:19] VITALS: BP 135/66; PULSE 78; RESP 18; O2SAT 97; BMI 40.3
--- NOTE | 2022-05-15 11:27 | EXP.PAIN.SOA ---
[facility] Pain Management SOAP Note Subjective:: Patient is a pleasant 57-year-old female who presents today for medication refill and follow-up. We are currently treating the patient for degenerative disc disease of lumbar spine with lumbar radiculopathy symptoms, low back pain, right hip pain, right leg pain. Today the patient rates her pain a 2 out of 10. Patient denies any new trauma or injury. Patient denies any change location or type of pain she experiences. Patient continues to state that her pain is all in her low back, right hip and right leg. She does describe this as a achy, throbbing sensation that is worse with increased activity. Patient is currently managed with gabapentin 600 mg 3 times a day and oxazepam 10 mg daily from an outside provides. Patient denies any side effects from this medication. She is currently managed with [place] 7.5 mg twice a day and compounding cream. Patient denies any side effects from these medications. She states these medications do help her symptoms. Patient also continues to use a herbal cream called deep blue for additional relief. Her Sarthak is [id number]. Its been reviewed and appropriate. Review of Systems: General: No recent weight changes, no fever, no sleep disturbances Respiratory: No cough, no shortness of air, no recurring pulmonary infections Cardiovascular/peripheral vascular: No chest pain, no palpitations, no edema, no shortness of breath Gastrointestinal: No new onset incontinence, normal bowel movements reported Genitourinary: No new onset incontinence Musculoskeletal: Low back pain Psychiatric: [Normal mood/affect] Neurological: [Denies weakness in extremities], [denies balance issues] Objective:: Physical Exam: General: Alert and oriented x3, no acute distress, pleasant and cooperative Lungs: Respirations even and unlabored, symmetrical chest expansion Eyes: PERRL Musculoskeletal: Flexion and extension of lumbar [spine] somewhat guarded secondary to pain, [antalgic gait noted] Neurological: Speech clear, no gross sensory deficit Assessment:: Degenerative disc disease of lumbar spine with lumbar radiculopathy symptoms, low back pain, right hip pain, right leg pain Plan:: Patient continues to experience significant pain in her low back however she is doing well with her current medication regimen. I will refill the patient's [place] 7.5 mg twice a day and provide a 1 month supply of this medication. Patient will return to clinic in 1 month for reevaluation of symptoms, medication refill and follow-up. Patient has been advised of risks of oversedation with the prescribed medication. Narcan has been offered to the patient in the event of oversedation. Patient has been advised that a family member should also be educated regarding administration of Narcan. Patient has been instructed to contact the clinic with any concerns before the next appointment. Dr. Butler has reviewed this note and agrees with this plan of care. This note was dictated using voice recognition software and make contain errors or omissions. [facility] Disclaimer: The information contained in this section may have been updated after the patient was seen, as this information can be updated by other users. Social History Smoking Status: Former smoker alcohol intake: never counseling provided: none substance use type: denies use current occupational status: disabled Travel in the last 8 weeks: None housing: apartment current occupational exposures/hazards: No caffeine: Yes
== END | disposition home or self-care (01) ==
PROVIDERS: PCP Family Medicine; Visit Provider Nurse Practitioner Family
DX: M51.16 Intervertebral disc disorders with radiculopathy, lumbar region (principal); M25.551 Pain in right hip; M79.604 Pain in right leg
CPT/HCPCS: 99212; G0463

== ENCOUNTER → 2022-05-15 11:45 | Outpatient (CLI) | payer OTHER, SELFPAY ==
[2022-05-15 13:42] LABS: Amphetamine/Metha Screen,Urine Negative ng/ml (<1000)
[2022-05-15 13:43] LABS: Barbiturates Screen,Urine Negative ng/ml (<200); Benzodiazepines Screen,Urine Negative ng/ml (<200)
[2022-05-15 13:44] LABS: Cannabinoid Screen,Urine Negative ng/ml (<50)
[2022-05-15 13:45] LABS: Cocaine Screen,Urine Negative ng/ml (<300); Methadone Screen,Urine Negative ng/ml (<300)
[2022-05-15 13:46] LABS: Opiate Screen,Urine Positive ng/ml (<300)
[2022-05-15 13:47] LABS: Phencyclidine Screen,Urine Negative ng/ml (<25)
[2022-05-22 21:24] LABS: Codeine Negative (Cutoff=100); Hydrocodone Positive (.); Hydromorphone Positive (.); Morphine Negative (Cutoff=100); Opiates Positive (.)
== END ==
LOC: LAB 11:46
PROVIDERS: PCP Family Medicine; Visit Provider Nurse Practitioner Family
DX: Z79.891 Long term (current) use of opiate analgesic (principal)
CPT/HCPCS: 80305; 80361; 80365; G0480

== ENCOUNTER → 2022-06-15 10:43 | Outpatient (POV) | payer OTHER, SELFPAY ==
--- NOTE | 2022-06-15 10:51 | EXP.PAIN.SOA ---
[facility] Pain Management SOAP Note Subjective:: Patient is a pleasant 57-year-old female who presents today for medication refill and follow-up. We are currently treating the patient for degenerative disc disease of lumbar spine with lumbar radiculopathy symptoms, low back pain, right hip pain, right leg pain. Today she rates her pain a 2 out of 10. Patient denies any new trauma or injury. Patient denies any change location or type of pain she experiences. Patient does continue to experience a aching, throbbing sensation in her low back with radiating symptoms into her right hip and leg. Patient is currently managed with gabapentin 600 mg 3 times a day and oxazepam 10 mg daily from outside providers. Patient denies any side effects from this medication. She is also prescribed [place] 7.5 mg twice a day and compounding cream from our office. Patient denies any side effects from this medication. She states this does help with her pain symptoms. She is requesting a refill of her [place] at today's visit. Patient does continue to use a herbal cream called rosa blue for additional relief. Her Sarthak is [id number]. Its been reviewed and appropriate. Review of Systems: General: No recent weight changes, no fever, no sleep disturbances Respiratory: No cough, no shortness of air, no recurring pulmonary infections Cardiovascular/peripheral vascular: No chest pain, no palpitations, no edema, no shortness of breath Gastrointestinal: No new onset incontinence, normal bowel movements reported Genitourinary: No new onset incontinence Musculoskeletal: Low back pain Psychiatric: [Normal mood/affect] Neurological: [Denies weakness in extremities], [denies balance issues] Objective:: Physical Exam: General: Alert and oriented x3, no acute distress, pleasant and cooperative Lungs: Respirations even and unlabored, symmetrical chest expansion Eyes: PERRL Musculoskeletal: Flexion and extension of lumbar [spine] somewhat guarded secondary to pain, [antalgic gait noted] Neurological: Speech clear, no gross sensory deficit Assessment:: Degenerative disc disease of lumbar spine with lumbar radiculopathy symptoms, low back pain, right hip pain, right leg pain Plan:: Patient continues to experience significant pain in her low back, right hip and right leg however she is doing well with her current medication regimen. I will refill the patient's [place] 7.5 mg twice a day and provide a 1 month supply of this medication. Patient will return to clinic in 1 month for reevaluation of symptoms, medication refill and follow-up. Patient has been advised of risks of oversedation with the prescribed medication. Narcan has been offered to the patient in the event of oversedation. Patient has been advised that a family member should also be educated regarding administration of Narcan. Patient has been instructed to contact the clinic with any concerns before the next appointment. Dr. Butler has reviewed this note and agrees with this plan of care. This note was dictated using voice recognition software and make contain errors or omissions. [facility] Disclaimer: The information contained in this section may have been updated after the patient was seen, as this information can be updated by other users. Social History Smoking Status: Former smoker alcohol intake: never counseling provided: none substance use type: denies use current occupational status: disabled Travel in the last 8 weeks: None housing: apartment current occupational exposures/hazards: No caffeine: Yes
[2022-06-15 10:54] VITALS: BP 114/67; PULSE 79; RESP 18; O2SAT 97; BMI 39.9
== END ==
PROVIDERS: PCP Family Medicine; Visit Provider Nurse Practitioner Family
DX: M51.16 Intervertebral disc disorders with radiculopathy, lumbar region (principal); M54.50 Low back pain, unspecified; M25.551 Pain in right hip; M79.604 Pain in right leg
CPT/HCPCS: 99212; G0463

== ENCOUNTER → 2022-07-12 13:06 | Outpatient (CLI) | payer MEDICARE, SELFPAY ==
[2022-07-12 14:06] LABS: Chloride 105 mmol/L (98-107); Potassium 4.6 mmoL/L (3.5-5.1); Sodium 138 mmol/L (136-145)
[2022-07-12 14:09] LABS: Alanine Aminotransferase 24 U/L (12-78); Albumin/Globulin Ratio 1.7 (1.1-1.8); Alkaline Phosphatase 75 U/L (38-126); Anion Gap 9.6 mEq/L (5-15); Aspartate Amino Transferase 24 U/L (14-36); Bilirubin,Total 0.5 mg/dl (0.2-1.3); Blood Urea Nitrogen 14 mg/dl (7-17); Carbon Dioxide 28 mmol/L (22.0-30.0); Cholesterol 225 mg/dl (140-200); Estimated Glomerular Filt Rate 86 ml/min (>60); GFR (African American) 104 ML/MIN (>60); Globulin 2.3 g/dL (1.3-3.2); Total Protein,Serum 6.3 g/dl (6.3-8.2); Triglycerides 216 mg/dl (30-150); VLDL Cholesterol 43 mg/dL (0-40)
[2022-07-12 14:10] LABS: Chol/HDL Ratio 4.2 (1-3.5); Glucose 96 mg/dl (74-100); HDL Cholesterol 53 mg/dl (40-60)
[2022-07-12 14:44] LABS: Direct LDL Cholesterol 135.41 mg/dL (100-129)
== END ==
PROVIDERS: PCP Family Medicine; Visit Provider Family Medicine
DX: I10 Essential (primary) hypertension (principal); E78.5 Hyperlipidemia, unspecified
CPT/HCPCS: 36415; 80053; 80061

== ENCOUNTER → 2022-07-13 09:36 | Outpatient (POV) | payer OTHER, SELFPAY ==
--- NOTE | 2022-07-13 09:56 | EXP.PAIN.SOA ---
[facility] Pain Management SOAP Note Subjective:: Patient is a pleasant 57-year-old female who presents today for 1 month follow-up and medication refill. We are currently treating the patient for degenerative disc disease of lumbar spine with lumbar radiculopathy symptoms, low back pain, right hip pain, right leg pain. Today she rates her pain a 2 out of 10. Patient denies any new trauma or injury. Patient denies any change in location or type of pain she experiences. Patient is currently managed with gabapentin 600 mg 3 times a day and Oxazepam 10 mg daily from outside providers. Patient denies any side effects from this medication. She is also prescribed [place] 7.5 mg twice a day from our office along with compounding cream. Patient denies any side effects from this medication. Her Sarthak is [id number]. Its been reviewed and appropriate. Review of Systems: General: No recent weight changes, no fever, no sleep disturbances Respiratory: No cough, no shortness of air, no recurring pulmonary infections Cardiovascular/peripheral vascular: No chest pain, no palpitations, no edema, no shortness of breath Gastrointestinal: No new onset incontinence, normal bowel movements reported Genitourinary: No new onset incontinence Musculoskeletal: Low back pain Psychiatric: [Normal mood/affect] Neurological: [Denies weakness in extremities], [denies balance issues] Objective:: Physical Exam: General: Alert and oriented x3, no acute distress, pleasant and cooperative Lungs: Respirations even and unlabored, symmetrical chest expansion Eyes: PERRL Musculoskeletal: Flexion and extension of lumbar [spine] somewhat guarded secondary to pain, [antalgic gait noted] Neurological: Speech clear, no gross sensory deficit Assessment:: Degenerative disc disease of lumbar spine with lumbar radiculopathy symptoms, low back pain, right hip pain, right leg pain Plan:: Patient is doing well with her current medication regimen. I will refill her [place] 7.5 mg twice a day and provide a 1 month supply of this medication. Patient will return to clinic in 1 month for reevaluation of symptoms and medication refill. Patient has been advised of risks of oversedation with the prescribed medication. Narcan has been offered to the patient in the event of oversedation. Patient has been advised that a family member should also be educated regarding administration of Narcan. Patient has been instructed to contact the clinic with any concerns before the next appointment. Dr. Butler has reviewed this note and agrees with this plan of care. This note was dictated using voice recognition software and make contain errors or omissions. [facility] Disclaimer: The information contained in this section may have been updated after the patient was seen, as this information can be updated by other users. Social History Smoking Status: Former smoker alcohol intake: never counseling provided: none substance use type: denies use current occupational status: disabled Travel in the last 8 weeks: None housing: apartment current occupational exposures/hazards: No caffeine: Yes
[2022-07-13 10:09] VITALS: BP 139/76; PULSE 76; RESP 20; BMI 39.4
== END | disposition home or self-care (01) ==
PROVIDERS: PCP Family Medicine; Visit Provider Nurse Practitioner Family
DX: M51.16 Intervertebral disc disorders with radiculopathy, lumbar region (principal); M79.604 Pain in right leg; M25.551 Pain in right hip
CPT/HCPCS: 99212; G0463

== ENCOUNTER → 2022-08-14 10:09 | Outpatient (POV) | payer OTHER, SELFPAY ==
[2022-08-14 10:42] VITALS: BP 110/70; PULSE 85; RESP 18; O2SAT 97; BMI 39.8
--- NOTE | 2022-08-14 11:11 | EXP.PAIN.SOA ---
[facility] Pain Management SOAP Note Subjective:: Patient is a pleasant 57-year-old female who presents today for medication refill and follow-up. We are currently treating the patient for degenerative disc disease of lumbar spine with lumbar radiculopathy symptoms, low back pain, right hip pain, right leg pain. Today she rates her pain a 2 out of 10. Patient denies any new trauma or injury. Patient denies any change location or type of pain she experiences. She is currently managed with gabapentin 600 mg 3 times a day and oxazepam 10 mg daily from outside providers. Patient denies any side effects from this medication. She is prescribed [place] 7.5 mg twice a day from our office along with compounding cream. Patient denies any side effects from this medication. Her Sarthak is [phone]. Its been reviewed and appropriate. Review of Systems: General: No recent weight changes, no fever, no sleep disturbances Respiratory: No cough, no shortness of air, no recurring pulmonary infections Cardiovascular/peripheral vascular: No chest pain, no palpitations, no edema, no shortness of breath Gastrointestinal: No new onset incontinence, normal bowel movements reported Genitourinary: No new onset incontinence Musculoskeletal: Low back pain Psychiatric: [Normal mood/affect] Neurological: [Denies weakness in extremities], [denies balance issues] Objective:: Physical Exam: General: Alert and oriented x3, no acute distress, pleasant and cooperative Lungs: Respirations even and unlabored, symmetrical chest expansion Eyes: PERRL Musculoskeletal: Flexion and extension of lumbar [spine] somewhat guarded secondary to pain, [antalgic gait noted] Neurological: Speech clear, no gross sensory deficit Assessment:: Degenerative disc disease of lumbar spine with lumbar radiculopathy symptoms, low back pain, right hip pain, right leg pain Plan:: She is doing well with her current medication regimen. I will refill her [place] 7.5 mg twice a day and provide a 1 month supply of this medication. Patient will return to clinic in 1 month for reevaluation of symptoms, medication refill and follow-up. Patient has been advised of risks of oversedation with the prescribed medication. Narcan has been offered to the patient in the event of oversedation. Patient has been advised that a family member should also be educated regarding administration of Narcan. Patient has been instructed to contact the clinic with any concerns before the next appointment. Dr. Butler has reviewed this note and agrees with this plan of care. This note was dictated using voice recognition software and make contain errors or omissions. [facility] Disclaimer: The information contained in this section may have been updated after the patient was seen, as this information can be updated by other users. Social History Smoking Status: Former smoker alcohol intake: never counseling provided: none substance use type: denies use current occupational status: disabled Travel in the last 8 weeks: None housing: apartment current occupational exposures/hazards: No caffeine: Yes
== END | disposition home or self-care (01) ==
PROVIDERS: Visit Provider Nurse Practitioner Family
DX: M51.16 Intervertebral disc disorders with radiculopathy, lumbar region (principal); M25.511 Pain in right shoulder; M79.604 Pain in right leg
CPT/HCPCS: 99212; G0463

== ENCOUNTER → 2022-08-25 14:18 | Outpatient (CLI) | payer MEDICARE, SELFPAY ==
--- NOTE | 2022-08-25 14:30 | MM_ITS ---
PROCEDURE INFORMATION: Exam: MG Bilateral Screening 3D Mammography Exam date and time: 08/25/2022 2:20 PM Age: 57 years old Clinical indication: Screening mammogram TECHNIQUE: Imaging protocol: Bilateral Screening tomosynthesis and 2D mammography including computer-aided detection (CAD) when performed. COMPARISON: 1. MG MM DIG SCREENING MAMM BI W/CAD 08/19/2021 3:33 PM 2. MG MM DIG SCREENING MAMM BI W/CAD 08/18/2020 1:30 PM 3. MG MM DIG SCREENING MAMM BI W/CAD 06/23/2019 4:06 PM 4. MG SCBI MM Dig screening mamm BI w/CAD 05/21/2018 4:42 PM FINDINGS: MAMMOGRAPHY: Breast composition: There are scattered areas of fibroglandular density. Mass: Stable benign-appearing subcentimeter nodules are present in the bilateral breasts. No new or morphologically suspicious nodule has developed to suggest malignancy. Architectural distortion: No new or suspicious architectural distortion. Calcifications: No new or suspicious calcifications are present Asymmetric density: No new or suspicious asymmetric density is present Skin thickening: None. Axillary adenopathy: None. IMPRESSION: No mammographic evidence of malignancy. Recommend annual screening mammography unless otherwise clinically indicated. ASSESSMENT: BI-RADS category 2: Benign
== END ==
PROVIDERS: PCP Family Medicine; Visit Provider Family Medicine
DX: Z12.31 Encounter for screening mammogram for malignant neoplasm of breast (principal)
CPT/HCPCS: 77063; 77067

== ENCOUNTER → 2022-09-14 10:15 | Outpatient (POV) | payer OTHER, SELFPAY ==
--- NOTE | 2022-09-14 10:46 | A.OFFVIS_ITS ---
[facility] Pain Management SOAP Note Subjective:: Patient is a pleasant 57-year-old female who presents today for medication refill and follow-up. We are currently treating the patient for degenerative disc disease of lumbar spine with lumbar radiculopathy symptoms, low back pain, right hip pain, right leg pain. Today she rates her pain a 2 out of 10. Patient denies any new trauma or injury. She denies any change location or type of pain she experiences. Patient states she continues to have pain along her low back with radiating symptoms down her right leg. She is currently managed with gabapentin 600 mg 3 times a day and oxazepam 10 mg daily from outside providers. She is prescribed [place] 7.5 mg twice a day from our office along with compounding cream. Patient denies any side effects from these medications. Her Sarthak is [phone]. Its been reviewed and appropriate. Review of Systems: General: No recent weight changes, no fever, no sleep disturbances Respiratory: No cough, no shortness of air, no recurring pulmonary infections Cardiovascular/peripheral vascular: No chest pain, no palpitations, no edema, no shortness of breath Gastrointestinal: No new onset incontinence, normal bowel movements reported Genitourinary: No new onset incontinence Musculoskeletal: Low back pain, right hip pain, right leg pain Psychiatric: [Normal mood/affect] Neurological: [Denies weakness in extremities], [denies balance issues] Objective:: Physical Exam: General: Alert and oriented x3, no acute distress, pleasant and cooperative Lungs: Respirations even and unlabored, symmetrical chest expansion Eyes: PERRL Musculoskeletal: Flexion and extension of lumbar [spine] somewhat guarded secondary to pain, [antalgic gait noted] Neurological: Speech clear, no gross sensory deficit Assessment:: Degenerative disc disease of lumbar spine with lumbar radiculopathy symptoms, low back pain, right hip pain, right leg pain Plan:: Patient continues to experience significant pain on a daily basis in her low back with radiating symptoms into her right extremity. I will refill the patient's [place] 7.5 mg twice a day and provide a 1 month supply of this medication. I have also discussed with the patient that she may benefit from [employer]ide e-stim device which is a nonpharmacologic alternative for chronic pain and swelling and provide reduced opioid usage. I will send this order in today and a insurance claims representative will be in contact with her for follow-up and insurance approval. Patient will return to clinic in 1 month for reevaluation of symptoms, medication refill and follow-up. Patient has been advised of risks of oversedation with the prescribed medication. Narcan has been offered to the patient in the event of oversedation. Patient has been advised that a family member should also be educated regarding administration of Narcan. Patient has been instructed to contact the clinic with any concerns before the next appointment. Dr. Butler has reviewed this note and agrees with this plan of care. This note was dictated using voice recognition software and make contain errors or omissions. [facility] Disclaimer: The information contained in this section may have been updated after the patient was seen, as this information can be updated by other users. Social History Smoking Status: Former smoker alcohol intake: never counseling provided: none substance use type: denies use current occupational status: disabled Travel in the last 8 weeks: None housing: apartment current occupational exposures/hazards: No caffeine: Yes
[2022-09-14 10:51] VITALS: BP 130/80; PULSE 78; RESP 18; O2SAT 96; BMI 38.9
== END | disposition home or self-care (01) ==
PROVIDERS: PCP Family Medicine; Visit Provider Nurse Practitioner Family
DX: M51.16 Intervertebral disc disorders with radiculopathy, lumbar region (principal); M79.604 Pain in right leg; M25.551 Pain in right hip
CPT/HCPCS: 99212; G0463

== ENCOUNTER → 2022-09-14 10:49 | Outpatient (CLI) | payer MEDICARE, SELFPAY ==
[2022-09-14 11:33] LABS: Barbiturates Screen,Urine Positive ng/ml (<200); Benzodiazepines Screen,Urine Negative ng/ml (<200)
[2022-09-14 11:34] LABS: Amphetamine/Metha Screen,Urine Negative ng/ml (<1000)
[2022-09-14 11:35] LABS: Cannabinoid Screen,Urine Negative ng/ml (<50)
[2022-09-14 11:36] LABS: Cocaine Screen,Urine Negative ng/ml (<300)
[2022-09-14 11:37] LABS: Methadone Screen,Urine Negative ng/ml (<300); Opiate Screen,Urine Positive ng/ml (<300)
[2022-09-14 11:38] LABS: Phencyclidine Screen,Urine Negative ng/ml (<25)
[2022-09-27 12:19] LABS: Barbiturates Positive (.); Codeine Negative (Cutoff=100); Hydrocodone Positive (.); Hydromorphone Positive (.); Morphine Negative (Cutoff=100); Opiates Positive (.)
== END ==
PROVIDERS: Nurse Practitioner Family; PCP Family Medicine; Visit Provider Anesthesiology
DX: Z79.891 Long term (current) use of opiate analgesic (principal)
CPT/HCPCS: 80305; 80345; 80361; 80365; G0480

== ENCOUNTER → 2022-10-16 10:06 | Outpatient (POV) | payer OTHER, SELFPAY ==
[2022-10-16 10:19] VITALS: BP 101/60; PULSE 80; RESP 18; O2SAT 96; BMI 81.7
--- NOTE | 2022-10-16 10:31 | A.OFFVIS_ITS ---
[facility] Pain Management SOAP Note Subjective:: Patient is a pleasant 57-year-old female who presents today for medication refill and follow-up. We are currently treating the patient for degenerative disc disease of lumbar spine with lumbar radiculopathy symptoms, low back pain, right hip pain, right leg pain. Today the patient rates her pain a 2 out of 10. Patient states that overall this morning she is doing better than normal. She states she does continue to have pain in her low back with radiating symptoms into her right hip and leg. She is currently managed with gabapentin 600 mg 3 times a day and oxazepam 10 mg daily from outside providers. She is prescribed from our office [place] 7.5 mg twice a day along with compounding cream. She denies any side effects from this medication. At her last visit we did try and get her approved for [employer] medical superintendent to improve her chronic pain however she states that the field support representative told her that [employer] would not approve it and she did not proceed forward with this. Her Sarthak is [id number]. Its been reviewed and appropriate. Review of Systems: General: No recent weight changes, no fever, no sleep disturbances Respiratory: No cough, no shortness of air, no recurring pulmonary infections Cardiovascular/peripheral vascular: No chest pain, no palpitations, no edema, no shortness of breath Gastrointestinal: No new onset incontinence, normal bowel movements reported Genitourinary: No new onset incontinence Musculoskeletal: Low back pain, right hip pain, right leg pain Psychiatric: [Normal mood/affect] Neurological: [Denies weakness in extremities], [denies balance issues] Objective:: Physical Exam: General: Alert and oriented x3, no acute distress, pleasant and cooperative Lungs: Respirations even and unlabored, symmetrical chest expansion Eyes: PERRL Musculoskeletal: Flexion and extension of lumbar [spine] somewhat guarded secondary to pain, [antalgic gait noted] Neurological: Speech clear, no gross sensory deficit Assessment:: Degenerative disc disease of lumbar spine with lumbar radiculopathy symptoms, low back pain, right hip pain, right leg pain Plan:: We will refill her [place] 7.5 mg twice a day and provide a 1 month supply of this medication. Patient will return to clinic in 1 month for reevaluation of symptoms and medication refill. Patient has been advised of risks of oversedation with the prescribed medication. Narcan has been offered to the patient in the event of oversedation. Patient has been advised that a family member should also be educated regarding administration of Narcan. Patient has been instructed to contact the clinic with any concerns before the next appointment. Dr. Butler has reviewed this note and agrees with this plan of care. This note was dictated using voice recognition software and make contain errors or omissions. [facility] Disclaimer: The information contained in this section may have been updated after the patient was seen, as this information can be updated by other users. Social History Smoking Status: Former smoker alcohol intake: never counseling provided: none substance use type: denies use current occupational status: disabled Travel in the last 8 weeks: None housing: apartment current occupational exposures/hazards: No caffeine: Yes
== END | disposition home or self-care (01) ==
PROVIDERS: PCP Family Medicine; Visit Provider Nurse Practitioner Family
DX: M51.16 Intervertebral disc disorders with radiculopathy, lumbar region (principal); M79.604 Pain in right leg; M25.551 Pain in right hip
CPT/HCPCS: 99212; G0463

== ENCOUNTER → 2022-11-13 09:35 | Outpatient (POV) | payer OTHER, SELFPAY ==
--- NOTE | 2022-11-13 10:20 | A.OFFVIS_ITS ---
[facility] Pain Management SOAP Note Subjective:: Patient is a pleasant 57-year-old female who presents today for 1 month follow- up and medication refill. We are currently treating the patient for degenerative disc disease of lumbar spine with lumbar radiculopathy symptoms, low back pain, right hip pain, right leg pain. Today she rates her pain a 2 out of 10. Patient denies any new trauma or injury. She denies any change location or type of pain she experiences. She is currently managed with gabapentin 600 mg 3 times a day and oxazepam 10 mg daily from outside providers. She is managed with [place] 7.5 mg twice a day along with compounding cream from our office. She denies any side effects from this medication. Her Sarthak is [phone]. Its been reviewed and appropriate. Review of Systems: General: No recent weight changes, no fever, no sleep disturbances Respiratory: No cough, no shortness of air, no recurring pulmonary infections Cardiovascular/peripheral vascular: No chest pain, no palpitations, no edema, no shortness of breath Gastrointestinal: No new onset incontinence, normal bowel movements reported Genitourinary: No new onset incontinence Musculoskeletal: Low back pain Psychiatric: [Normal mood/affect] Neurological: [Denies weakness in extremities], [denies balance issues] Objective:: Physical Exam: General: Alert and oriented x3, no acute distress, pleasant and cooperative Lungs: Respirations even and unlabored, symmetrical chest expansion Eyes: PERRL Musculoskeletal: Flexion and extension of lumbar [spine] somewhat guarded secondary to pain, [antalgic gait noted] Neurological: Speech clear, no gross sensory deficit Assessment:: Degenerative disc disease of lumbar spine with lumbar radiculopathy symptoms, low back pain, right hip pain, right leg pain Plan:: I will refill her [place] 7.5 mg twice a day and provide a 1 month supply of this medication. Patient will return to clinic in 1 month for reevaluation of symptoms and medication refill. Patient has been advised of risks of oversedation with the prescribed medication. Narcan has been offered to the patient in the event of oversedation. Patient has been advised that a family member should also be educated regarding administration of Narcan. Patient has been instructed to contact the clinic with any concerns before the next appointment. Dr. Butler has reviewed this note and agrees with this plan of care. This note was dictated using voice recognition software and make contain errors or omissions. [facility] Disclaimer: The information contained in this section may have been updated after the patient was seen, as this information can be updated by other users. Social History Smoking Status: Former smoker alcohol intake: never counseling provided: none substance use type: denies use current occupational status: disabled Travel in the last 8 weeks: None housing: apartment current occupational exposures/hazards: No caffeine: Yes
[2022-11-13 10:33] VITALS: BP 107/52; PULSE 76; RESP 20; O2SAT 96; BMI 36.8
== END | disposition home or self-care (01) ==
PROVIDERS: PCP Family Medicine; Visit Provider Nurse Practitioner Family
DX: M51.16 Intervertebral disc disorders with radiculopathy, lumbar region (principal); M25.551 Pain in right hip; M79.604 Pain in right leg
CPT/HCPCS: 99212; G0463

== ENCOUNTER → 2022-12-14 10:20 | Outpatient (POV) | payer OTHER, SELFPAY ==
--- NOTE | 2022-12-14 10:39 | EXP.PAIN.SOA ---
[facility] Pain Management SOAP Note Subjective:: Patient is a pleasant 57-year-old female who presents today for medication refill and follow-up. We are currently treating the patient for degenerative disc disease of lumbar spine with lumbar radiculopathy symptoms, low back pain, right hip pain, right leg pain. Today she rates her pain a 1 out of 10. Patient denies any new trauma or injury. She denies any change to location or type of pain she experiences. She is doing well with her current medications of [place] 7.5 mg twice a day along with compounding cream. her Sarthak is [id number]. Its been reviewed and appropriate. Review of Systems: General: No recent weight changes, no fever, no sleep disturbances Respiratory: No cough, no shortness of air, no recurring pulmonary infections Cardiovascular/peripheral vascular: No chest pain, no palpitations, no edema, no shortness of breath Gastrointestinal: No new onset incontinence, normal bowel movements reported Genitourinary: No new onset incontinence Musculoskeletal: Low back pain Psychiatric: [Normal mood/affect] Neurological: [Denies weakness in extremities], [denies balance issues] Objective:: Physical Exam: General: Alert and oriented x3, no acute distress, pleasant and cooperative Lungs: Respirations even and unlabored, symmetrical chest expansion Eyes: PERRL Musculoskeletal: Flexion and extension of lumbar [spine] somewhat guarded secondary to pain, [antalgic gait noted] Neurological: Speech clear, no gross sensory deficit Assessment:: Degenerative disc disease of lumbar spine with lumbar radiculopathy symptoms, low back pain, right hip pain, right leg pain Plan:: Patient continues to do well on her current medication regimen. I will send in refills on her [place] 7.5 mg twice a day and provide a 1 month supply of these medications. Patient will return to clinic in 1 month for reevaluation of symptoms and plan of care. Patient has been advised of risks of oversedation with the prescribed medication. Narcan has been offered to the patient in the event of oversedation. Patient has been advised that a family member should also be educated regarding administration of Narcan. Patient has been instructed to contact the clinic with any concerns before the next appointment. Dr. Butler has reviewed this note and agrees with this plan of care. This note was dictated using voice recognition software and make contain errors or omissions. [facility] Disclaimer: The information contained in this section may have been updated after the patient was seen, as this information can be updated by other users. Social History Smoking Status: Former smoker alcohol intake: never counseling provided: none substance use type: denies use current occupational status: disabled Travel in the last 8 weeks: None housing: apartment current occupational exposures/hazards: No caffeine: Yes
[2022-12-14 10:42] VITALS: BP 115/86; PULSE 87; RESP 18; O2SAT 95; BMI 35.0
== END | disposition home or self-care (01) ==
PROVIDERS: PCP Family Medicine; Visit Provider Nurse Practitioner Family
DX: M51.16 Intervertebral disc disorders with radiculopathy, lumbar region (principal); M25.551 Pain in right hip; M79.604 Pain in right leg
CPT/HCPCS: 99212; G0463

== ENCOUNTER → 2023-01-15 08:48 | Outpatient (POV) | payer OTHER, SELFPAY ==
--- NOTE | 2023-01-15 09:07 | A.OFFVIS_ITS ---
[facility] Pain Management SOAP Note Subjective:: Patient is a pleasant 57-year-old female who presents today for medication refill. We are currently treating the patient for degenerative disc disease of lumbar spine with lumbar radiculopathy symptoms, right hip pain, right leg pain, low back pain. Today she rates her pain a 2 out of 10. Patient denies any new trauma or injury. Patient denies any change to location or type of pain she experiences. Patient does describe her pain as an aching, throbbing sensation that is worse with increased activity. She is currently managed with compounded cream and [place] 7.5 mg twice a day. She denies any side effects from this medication. She is also treated with gabapentin 600 mg 3 times a day and oxazepam 10 mg daily from outside providers. She does state that she thinks she needs a new prescription for her compounding cream. Her Sarthak is [id number]. Its been reviewed and appropriate. Review of Systems: General: No recent weight changes, no fever, no sleep disturbances Respiratory: No cough, no shortness of air, no recurring pulmonary infections Cardiovascular/peripheral vascular: No chest pain, no palpitations, no edema, no shortness of breath Gastrointestinal: No new onset incontinence, normal bowel movements reported Genitourinary: No new onset incontinence Musculoskeletal: Low back pain Psychiatric: [Normal mood/affect] Neurological: [Denies weakness in extremities], [denies balance issues] Objective:: Physical Exam: General: Alert and oriented x3, no acute distress, pleasant and cooperative Lungs: Respirations even and unlabored, symmetrical chest expansion Eyes: PERRL Musculoskeletal: Flexion and extension of lumbar [spine] somewhat guarded secondary to pain, [antalgic gait noted] Neurological: Speech clear, no gross sensory deficit Assessment:: Degenerative disc disease of lumbar spine with lumbar radiculopathy symptoms, right hip pain, right leg pain, low back pain Plan:: I will refill the patient's [place] 7.5 mg twice a day and provide a 1 month supply of this medication. I will also send in a new prescription of compounding cream. Patient will return to clinic in 1 month for reevaluation of symptoms and medication refill. Patient has been advised of risks of oversedation with the prescribed medication. Narcan has been offered to the patient in the event of oversedation. Patient has been advised that a family member should also be educated regarding administration of Narcan. Patient has been instructed to contact the clinic with any concerns before the next appointment. Dr. Butler has reviewed this note and agrees with this plan of care. This note was dictated using voice recognition software and make contain errors or omissions. [facility] Disclaimer: The information contained in this section may have been updated after the patient was seen, as this information can be updated by other users. Social History Smoking Status: Former smoker alcohol intake: never counseling provided: none substance use type: denies use current occupational status: disabled Travel in the last 8 weeks: None housing: apartment current occupational exposures/hazards: No caffeine: Yes
[2023-01-15 09:57] VITALS: BP 143/89; PULSE 78; RESP 18; O2SAT 100; BMI 35.2
== END | disposition home or self-care (01) ==
PROVIDERS: PCP Family Medicine; Visit Provider Nurse Practitioner Family
DX: M51.16 Intervertebral disc disorders with radiculopathy, lumbar region (principal); M25.551 Pain in right hip; M79.604 Pain in right leg
CPT/HCPCS: 99212; G0463

== ENCOUNTER → 2023-02-12 08:59 | Outpatient (POV) | payer OTHER, SELFPAY ==
[2023-02-12 09:05] VITALS: BP 131/92; PULSE 94; RESP 20; BMI 33.7
--- NOTE | 2023-02-12 12:37 | A.OFFVIS_ITS ---
[facility] Pain Management SOAP Note Subjective:: This patient is a very pleasant 57-year-old female that comes our clinic today for follow-up regarding medication refills We currently treat the patient for degenerative disc disease lumbar spine multilevels. With lumbar radiculopathy. We currently manage the patient with [place] 7.5 mg 1 p.o. twice daily. Patient reports medication decreases her pain by 50%. She does not report any side effects from the medical management. Patient also uses compound pain cream at times. Her Sarthak #[id number] is been reviewed and appropriate. Patient rates her pain today 06/16. Patient also taking gabapentin 600 mg 3 times daily and Oxazepam 10 mg 1 p.o. nightly from her neurologist. Objective:: Patient is awake alert [place] x3. In no acute distress. Flexion-extension lumbar spine somewhat guarded secondary to pain. Deep tendon reflexes upper and lower extremities normal. Motor strength upper and lower extremities normal. There is no gross sensory deficit. Gait is normal. Assessment:: Degenerative disc lumbar spine multilevels. Lumbar radiculopathy. Plan:: Patient will return to see us in 1 month. Medications will be refilled [place] 7.5 mg 1 p.o. twice daily. [facility] Disclaimer: The information contained in this section may have been updated after the patient was seen, as this information can be updated by other users. Social History Smoking Status: Former smoker alcohol intake: never counseling provided: none substance use type: denies use current occupational status: other Travel in the last 8 weeks: None housing: apartment current occupational exposures/hazards: No caffeine: Yes
== END | disposition home or self-care (01) ==
PROVIDERS: PCP Family Medicine; Visit Provider Nurse Practitioner Family
DX: M51.16 Intervertebral disc disorders with radiculopathy, lumbar region (principal)
CPT/HCPCS: 99212; G0463

== ENCOUNTER → 2023-02-12 09:55 | Outpatient (CLI) | payer MEDICARE, OTHER, SELFPAY ==
[2023-02-12 10:47] LABS: Amphetamine/Metha Screen,Urine Negative ng/ml (<1000)
[2023-02-12 10:48] LABS: Benzodiazepines Screen,Urine Negative ng/ml (<200)
[2023-02-12 10:49] LABS: Cannabinoid Screen,Urine Negative ng/ml (<50); Cocaine Screen,Urine Negative ng/ml (<300)
[2023-02-12 10:50] LABS: Methadone Screen,Urine Negative ng/ml (<300)
[2023-02-12 10:51] LABS: Opiate Screen,Urine Positive ng/ml (<300)
[2023-02-12 10:54] LABS: Barbiturates Screen,Urine Positive ng/ml (<200)
[2023-02-12 10:56] LABS: Phencyclidine Screen,Urine Negative ng/ml (<25)
[2023-02-12 16:51] LABS: Alanine Aminotransferase 19 U/L (12-78); Albumin Level 4.3 g/dl (3.5-5.0); Albumin/Globulin Ratio 1.6 (1.1-1.8); Alkaline Phosphatase 71 U/L (38-126); Anion Gap 10.5 mEq/L (5-15); Aspartate Amino Transferase 21 U/L (14-36); Bilirubin,Total 0.3 mg/dl (0.2-1.3); Blood Urea Nitrogen 11 mg/dl (7-17); Calcium 9.5 mg/dl (8.4-10.2); Carbon Dioxide 26 mmol/L (22.0-30.0); Chloride 109 mmol/L (98-107); Chol/HDL Ratio 4.7 (1-3.5); Cholesterol 227 mg/dl (140-200); Estimated Glomerular Filt Rate 86 ml/min (>60); GFR (African American) 104 ML/MIN (>60); Globulin 2.7 g/dL (1.3-3.2); Glucose 86 mg/dl (74-100); HDL Cholesterol 48 mg/dl (40-60); Potassium 4.5 mmoL/L (3.5-5.1); Sodium 141 mmol/L (136-145); Triglycerides 154 mg/dl (30-150); VLDL Cholesterol 31 mg/dL (0-40)
[2023-02-12 17:06] LABS: 25-OH Vitamin D, Total 54.3 ng/mL (30-100)
[2023-02-17 15:35] LABS: Codeine Negative (Cutoff=100); Hydrocodone Positive (.); Hydromorphone Positive (.); Morphine Negative (Cutoff=100); Opiates Positive (.)
== END ==
PROVIDERS: PCP Family Medicine; Referring Provider Nurse Practitioner Family; Visit Provider Family Medicine
DX: E78.5 Hyperlipidemia, unspecified (principal); E55.9 Vitamin D deficiency, unspecified; Z79.891 Long term (current) use of opiate analgesic; K58.9 Irritable bowel syndrome, unspecified
CPT/HCPCS: 36415; 80053; 80061; 80305; 80361; 80365; 82306; G0480

== ENCOUNTER → 2023-03-15 10:04 | Outpatient (POV) | payer OTHER, SELFPAY ==
--- NOTE | 2023-03-15 10:10 | EXP.PAIN.SOA ---
[facility] Pain Management SOAP Note Subjective:: Patient is a pleasant 57-year-old female who presents today for medication refill. We are currently treating the patient for degenerative disc disease of lumbar spine with lumbar radiculopathy symptoms, low back pain, right hip pain, right leg pain. Today she rates her pain a 2 out of 10. Patient denies any new trauma or injury. She is currently managed with gabapentin 600 mg 3 times a day and oxazepam 10 mg daily from outside providers. She is managed with [place] 7.5 mg twice a day along with compounding cream from our office. She denies any side effects from this medication. Her Sarthak has been reviewed and appropriate. MME of 15 Review of Systems: General: No recent weight changes, no fever, no sleep disturbances Respiratory: No cough, no shortness of air, no recurring pulmonary infections Cardiovascular/peripheral vascular: No chest pain, no palpitations, no edema, no shortness of breath Gastrointestinal: No new onset incontinence, normal bowel movements reported Genitourinary: No new onset incontinence Musculoskeletal: Low back pain Psychiatric: [Normal mood/affect] Neurological: [Denies weakness in extremities], [denies balance issues] Objective:: Physical Exam: General: Alert and oriented x3, no acute distress, pleasant and cooperative Lungs: Respirations even and unlabored, symmetrical chest expansion Eyes: PERRL Musculoskeletal: Flexion and extension of lumbar [spine] somewhat guarded secondary to pain, [antalgic gait noted] Neurological: Speech clear, no gross sensory deficit Assessment:: Degenerative disc disease of lumbar spine with lumbar radiculopathy symptoms, low back pain, right hip pain, right leg pain Plan:: I will refill the patient's [place] 7.5 mg twice a day and provide a 1 month supply of this medication. Patient will return to clinic in 1 month for reevaluation of symptoms and plan of care. Patient has been advised of risks of oversedation with the prescribed medication. Narcan has been offered to the patient in the event of oversedation. Patient has been advised that a family member should also be educated regarding administration of Narcan. Patient has been instructed to contact the clinic with any concerns before the next appointment. Dr. Butler has reviewed this note and agrees with this plan of care. This note was dictated using voice recognition software and make contain errors or omissions. [facility] Disclaimer: The information contained in this section may have been updated after the patient was seen, as this information can be updated by other users. Social History Smoking Status: Former smoker alcohol intake: never counseling provided: none substance use type: denies use current occupational status: other Travel in the last 8 weeks: None housing: apartment current occupational exposures/hazards: No caffeine: Yes
[2023-03-15 12:39] VITALS: BP 114/85; PULSE 81; RESP 18; O2SAT 95; BMI 33.3
== END | disposition home or self-care (01) ==
PROVIDERS: PCP Family Medicine; Visit Provider Nurse Practitioner Family
DX: M51.16 Intervertebral disc disorders with radiculopathy, lumbar region (principal); M25.551 Pain in right hip; M79.604 Pain in right leg
CPT/HCPCS: 99212; G0463

== ENCOUNTER → 2023-04-11 11:23 | Outpatient (POV) | payer OTHER, SELFPAY ==
--- NOTE | 2023-04-11 11:29 | EXP.PAIN.SOA ---
[facility] Pain Management SOAP Note Subjective:: Patient is a pleasant 58-year-old female who presents today for 1 month follow-up and medication refill. We are currently treating the patient for degenerative disc disease of lumbar spine with lumbar radiculopathy symptoms, low back pain, right hip pain, right leg pain. Today she rates her pain a 2 out of 10. Patient denies any new trauma or injury. She does state that the cold has aggravated her symptoms and even this morning she felt like she was very stiff. Patient states that hot showers do help and that she has started to use a lidocaine/flex patch that does help with some of her sharp shooting pains. She is currently managed with gabapentin 600 mg 3 times a day and oxazepam 10 mg daily from outside providers. She is managed with [place] 7.5 mg twice a day along with compounding cream from our office. She denies any side effects from this medication. Her Sarthak has been reviewed and appropriate. Review of Systems: General: No recent weight changes, no fever, no sleep disturbances Respiratory: No cough, no shortness of air, no recurring pulmonary infections Cardiovascular/peripheral vascular: No chest pain, no palpitations, no edema, no shortness of breath Gastrointestinal: No new onset incontinence, normal bowel movements reported Genitourinary: No new onset incontinence Musculoskeletal: Low back pain Psychiatric: [Normal mood/affect] Neurological: [Denies weakness in extremities], [denies balance issues] Objective:: Physical Exam: General: Alert and oriented x3, no acute distress, pleasant and cooperative Lungs: Respirations even and unlabored, symmetrical chest expansion Eyes: PERRL Musculoskeletal: Flexion and extension of lumbar [spine] somewhat guarded secondary to pain, [antalgic gait noted] Neurological: Speech clear, no gross sensory deficit Assessment:: Degenerative disc disease of lumbar spine with lumbar radiculopathy symptoms, low back pain, right hip pain, right leg pain Plan:: I will refill the patient's [place] 7.5 mg twice a day and provide a 1 month supply of this medication. Patient will return to clinic in 1 month for reevaluation of symptoms and plan of care. Patient has been advised of risks of oversedation with the prescribed medication. Narcan has been offered to the patient in the event of oversedation. Patient has been advised that a family member should also be educated regarding administration of Narcan. Patient has been instructed to contact the clinic with any concerns before the next appointment. Dr. Butler has reviewed this note and agrees with this plan of care. This note was dictated using voice recognition software and make contain errors or omissions. [facility] Disclaimer: The information contained in this section may have been updated after the patient was seen, as this information can be updated by other users. Social History Smoking Status: Former smoker alcohol intake: never counseling provided: none substance use type: denies use current occupational status: other Travel in the last 8 weeks: None housing: apartment current occupational exposures/hazards: No caffeine: Yes
[2023-04-11 11:56] VITALS: BP 130/43; PULSE 87; RESP 18; O2SAT 97; BMI 329191.6
== END | disposition home or self-care (01) ==
PROVIDERS: PCP Family Medicine; Visit Provider Nurse Practitioner Family
DX: M51.16 Intervertebral disc disorders with radiculopathy, lumbar region (principal); M25.551 Pain in right hip; M79.604 Pain in right leg
CPT/HCPCS: 99212; G0463

== ENCOUNTER → 2023-05-09 10:16 | Outpatient (POV) | payer OTHER, SELFPAY ==
[2023-05-09 10:49] VITALS: BP 109/85; PULSE 86; RESP 18; O2SAT 94; BMI 33.3
--- NOTE | 2023-05-09 10:50 | EXP.PAIN.SOA ---
[facility] Pain Management SOAP Note Subjective:: Patient is a pleasant 58-year-old female who presents today for medication refill and follow-up. We are currently treating the patient for degenerative disc disease of lumbar spine with lumbar radiculopathy symptoms, low back pain, right hip pain, right leg pain. Today she rates her pain a 2 out of 10. She denies any new trauma or injury. She is currently managed with [place] 7.5 mg twice a day and compounded cream from our office and gabapentin 600 mg 3 times a day with oxazepam 10 mg from outside providers. She denies any side effects from these medications. At her last visit patient was only able to get a partial dose of her monthly medication due to shortage on the 7.5 mg tablets. 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 She states she has talked to pharmacy as of yesterday and they do currently have her medication in stock. Her Sarthak has been reviewed and is appropriate. Review of Systems: General: No recent weight changes, no fever, no sleep disturbances Respiratory: No cough, no shortness of air, no recurring pulmonary infections Cardiovascular/peripheral vascular: No chest pain, no palpitations, no edema, no shortness of breath Gastrointestinal: No new onset incontinence, normal bowel movements reported Genitourinary: No new onset incontinence Musculoskeletal: Low back pain Psychiatric: [Normal mood/affect] Neurological: [Denies weakness in extremities], [denies balance issues] Objective:: Physical Exam: General: Alert and oriented x3, no acute distress, pleasant and cooperative Lungs: Respirations even and unlabored, symmetrical chest expansion Eyes: PERRL Musculoskeletal: Flexion and extension of lumbar [spine] somewhat guarded secondary to pain, [antalgic gait noted] Neurological: Speech clear, no gross sensory deficit Assessment:: Degenerative disc disease of lumbar spine with lumbar radiculopathy symptoms, low back pain, right hip pain, right leg pain Plan:: We will refill the patient's [place] 7.5 mg twice a day and provide a 1 month supply of this medication. Patient will return to clinic in 1 month for reevaluation of symptoms and medication refill. Patient has been advised of risks of oversedation with the prescribed medication. Narcan has been offered to the patient in the event of oversedation. Patient has been advised that a family member should also be educated regarding administration of Narcan. Patient has been instructed to contact the clinic with any concerns before the next appointment. Dr. Butler has reviewed this note and agrees with this plan of care. This note was dictated using voice recognition software and make contain errors or omissions. [facility] Disclaimer: The information contained in this section may have been updated after the patient was seen, as this information can be updated by other users. Social History Smoking Status: Former smoker alcohol intake: never counseling provided: none substance use type: denies use current occupational status: other Travel in the last 8 weeks: None housing: apartment current occupational exposures/hazards: No caffeine: Yes
[2023-05-09 12:17] LABS: Amphetamine/Metha Screen,Urine Negative ng/ml (<1000); Barbiturates Screen,Urine Positive ng/ml (<200); Benzodiazepines Screen,Urine Negative ng/ml (<200); Cannabinoid Screen,Urine Negative ng/ml (<50); Cocaine Screen,Urine Negative ng/ml (<300); Methadone Screen,Urine Negative ng/ml (<300); Opiate Screen,Urine Positive ng/ml (<300); Phencyclidine Screen,Urine Negative ng/ml (<25)
[2023-05-14 20:09] LABS: Barbiturates Positive (.); Codeine Negative (Cutoff=100); Hydrocodone Positive (.); Hydromorphone Positive (.); Morphine Negative (Cutoff=100); Opiates Positive (.)
== END | disposition home or self-care (01) ==
PROVIDERS: PCP Family Medicine; Visit Provider Nurse Practitioner Family
DX: M51.16 Intervertebral disc disorders with radiculopathy, lumbar region (principal); M25.551 Pain in right hip; M79.604 Pain in right leg
CPT/HCPCS: 80307; 80345; 80361; 80365; 99212; G0463; G0480

== ENCOUNTER 2023-05-09 11:15 | Outpatient (CLI) | payer OTHER, SELFPAY | END 2023-05-09 23:59 | LOC: LAB 11:17 | PROVIDERS: PCP Family Medicine; Visit Provider Nurse Practitioner Family | DX: Z79.899 Other long term (current) drug therapy (principal) ==

== ENCOUNTER → 2023-06-08 10:26 | Outpatient (POV) | payer OTHER, SELFPAY ==
--- NOTE | 2023-06-08 11:00 | EXP.PAIN.SOA ---
[facility] Pain Management SOAP Note Subjective:: Patient is a very pleasant 58-year-old female comes our clinic today for medication refills and follow-up. We are currently treating the patient for degenerative disc lumbar spine multilevels. Lumbar radiculopathy. Chronic low back pain. Chronic right hip pain. And right leg pain she rates her pain today 3/10. We prescribed her [place] 7.5 mg 1 p.o. twice daily. Patient reports pain medicine does help with her overall symptoms. She does not report any side effects from the pain medication. Patient also taking gabapentin 600 mg 1 p.o. 3 times daily from her PCP. Patient's Sarthak has been reviewed and appropriate Objective:: Patient is awake alert [place] x 3. No acute distress. Flexion-extension lumbar spine somewhat guarded secondary to pain. Deep tendon reflexes upper and lower extremities normal. Motor strength upper lower extremities normal. There is no gross sensory deficit. Gait is normal. Assessment:: Degenerative disc lumbar spine multilevels. Lumbar radiculopathy. Chronic right hip pain. Chronic right leg pain. Plan:: I will refill the patient's [place] 7.5 mg 1 p.o. twice daily. To the clinic pharmacy. She will return to see us in 1 month. [facility] Disclaimer: The information contained in this section may have been updated after the patient was seen, as this information can be updated by other users. Social History Smoking Status: Former smoker alcohol intake: never counseling provided: none substance use type: denies use current occupational status: other Travel in the last 8 weeks: None housing: apartment current occupational exposures/hazards: No caffeine: Yes
[2023-06-08 11:11] VITALS: BP 119/81; PULSE 89; RESP 18; O2SAT 96; BMI 33.7
== END | disposition home or self-care (01) ==
PROVIDERS: PCP Family Medicine; Visit Provider Nurse Anesthetist, Certified Registered
DX: M51.16 Intervertebral disc disorders with radiculopathy, lumbar region (principal); M25.551 Pain in right hip; M79.604 Pain in right leg; G89.29 Other chronic pain
CPT/HCPCS: 99212; G0463

== ENCOUNTER 2023-07-09 11:22 | Outpatient (POV) | payer OTHER, SELFPAY ==
[2023-07-09 11:36] VITALS: BP 140/93; PULSE 88; RESP 18; BMI 34.9
--- NOTE | 2023-07-09 11:46 | EXP.PAIN.SOA ---
[facility] Pain Management SOAP Note Subjective:: Patient is a pleasant 58-year-old female who presents today for medication refill. We are currently treating the patient for degenerative disc disease of lumbar spine with lumbar radiculopathy symptoms, right hip pain, right leg pain. Today she rates her pain a 2 out of 10. Patient denies any new trauma or injury. She is currently managed with [place] 7.5 mg twice a day from our office and gabapentin from her primary care provider. Her Sarthak has been reviewed and is appropriate. Review of Systems: General: No recent weight changes, no fever, no sleep disturbances Respiratory: No cough, no shortness of air, no recurring pulmonary infections Cardiovascular/peripheral vascular: No chest pain, no palpitations, no edema, no shortness of breath Gastrointestinal: No new onset incontinence, normal bowel movements reported Genitourinary: No new onset incontinence Musculoskeletal: Low back pain Psychiatric: [Normal mood/affect] Neurological: [Denies weakness in extremities], [denies balance issues] Objective:: Physical Exam: General: Alert and oriented x3, no acute distress, pleasant and cooperative Lungs: Respirations even and unlabored, symmetrical chest expansion Eyes: PERRL Musculoskeletal: Flexion and extension of lumbar [spine] somewhat guarded secondary to pain, [antalgic gait noted] Neurological: Speech clear, no gross sensory deficit Assessment:: Degenerative disc disease of lumbar spine with lumbar radiculopathy symptoms, right hip pain, right leg pain Plan:: I will refill the patient's [place] 7.5 mg twice a day and provide a 1 month supply of this medication. Patient will return to clinic in 1 month for reevaluation of symptoms and plan of care. Risks and benefits of the medication have been explained in detail to the patient. The patient does understand the risk of dependence on the medication when given over a prolonged period. Patient has been advised of risks of oversedation with the prescribed medication. Narcan has been offered to the paitent in the event of oversedation. Patient has been advised that a family member should also be educated regarding administration of Narcan. The patient has been advised to consult with his/her primary care provider and pharmacist regarding drug-drug interaction of medications currently prescribed. Patient has been prescribed a controlled substance after being counseled on the medication, medication safety, and possible side effects. Opioid contract was reviewed and signed by the patient, and that they have agreed to all of the terms set forth by our compliance program. Patient has been instructed to contact the clinic with any concerns before the next appointment. Dr. Butler has reviewed this note and agrees with this plan of care. This note was dictated using voice recognition software and make contain errors or omissions. [facility] Disclaimer: The information contained in this section may have been updated after the patient was seen, as this information can be updated by other users. Social History Smoking Status: Former smoker alcohol intake: never counseling provided: none substance use type: denies use current occupational status: other Travel in the last 8 weeks: None housing: apartment current occupational exposures/hazards: No caffeine: Yes
== END 2023-07-09 23:59 | disposition home or self-care (01) ==
PROVIDERS: PCP Family Medicine; Visit Provider Nurse Practitioner Family
DX: M51.16 Intervertebral disc disorders with radiculopathy, lumbar region (principal); M25.551 Pain in right hip; M79.604 Pain in right leg
CPT/HCPCS: 99212; G0463

== ENCOUNTER 2023-08-08 14:56 | Outpatient (POV) | payer OTHER, SELFPAY ==
--- NOTE | 2023-08-08 15:21 | EXP.PAIN.SOA ---
[facility] Pain Management SOAP Note Subjective:: Patient is a pleasant 58-year-old female who presents today for medication refill and follow-up. Today she rates her pain a 2 out of 10. Patient denies any new trauma or injury. She states she is doing well with her current medicine. She is managed with [place] 7.5 mg twice a day from our office and is prescribed gabapentin from an outside provider. Her Sarthak has been reviewed and is appropriate. Review of Systems: General: No recent weight changes, no fever, no sleep disturbances Respiratory: No cough, no shortness of air, no recurring pulmonary infections Cardiovascular/peripheral vascular: No chest pain, no palpitations, no edema, no shortness of breath Gastrointestinal: No new onset incontinence, normal bowel movements reported Genitourinary: No new onset incontinence Musculoskeletal: Low back pain Psychiatric: [Normal mood/affect] Neurological: [Denies weakness in extremities], [denies balance issues] Objective:: Physical Exam: General: Alert and oriented x3, no acute distress, pleasant and cooperative Lungs: Respirations even and unlabored, symmetrical chest expansion Eyes: PERRL Musculoskeletal: Flexion and extension of lumbar [spine] somewhat guarded secondary to pain, [antalgic gait noted] Neurological: Speech clear, no gross sensory deficit Assessment:: Degenerative disc disease of lumbar spine with lumbar radiculopathy symptoms, right hip pain, right leg pain Plan:: I will refill the patient's [place] 7.5 mg twice a day and provide a 1 month supply of this medication. Patient will return to clinic in 1 month for reevaluation of symptoms and plan of care. Risks and benefits of the medication have been explained in detail to the patient. The patient does understand the risk of dependence on the medication when given over a prolonged period. Patient has been advised of risks of oversedation with the prescribed medication. Narcan has been offered to the paitent in the event of oversedation. Patient has been advised that a family member should also be educated regarding administration of Narcan. The patient has been advised to consult with his/her primary care provider and pharmacist regarding drug-drug interaction of medications currently prescribed. Patient has been prescribed a controlled substance after being counseled on the medication, medication safety, and possible side effects. Opioid contract was reviewed and signed by the patient, and that they have agreed to all of the terms set forth by our compliance program. Patient has been instructed to contact the clinic with any concerns before the next appointment. Dr. Butler has reviewed this note and agrees with this plan of care. This note was dictated using voice recognition software and make contain errors or omissions. [facility] Disclaimer: The information contained in this section may have been updated after the patient was seen, as this information can be updated by other users. Social History Smoking Status: Former smoker alcohol intake: never counseling provided: none substance use type: denies use current occupational status: other Travel in the last 8 weeks: None housing: apartment current occupational exposures/hazards: No caffeine: Yes
[2023-08-08 15:40] VITALS: BP 113/70; PULSE 94; RESP 16; O2SAT 95; BMI 33.2
== END 2023-08-08 23:59 | disposition home or self-care (01) ==
PROVIDERS: PCP Family Medicine; Visit Provider Nurse Practitioner Family
DX: M51.16 Intervertebral disc disorders with radiculopathy, lumbar region (principal); M25.551 Pain in right hip; M79.604 Pain in right leg
CPT/HCPCS: 99212; G0463

== ENCOUNTER 2023-09-06 13:35 | Outpatient (POV) | payer OTHER, SELFPAY ==
[2023-09-06 13:45] VITALS: BP 117/69; PULSE 87; RESP 18; O2SAT 100; BMI 33.1
--- NOTE | 2023-09-06 14:19 | EXP.PAIN.SOA ---
[facility] Pain Management SOAP Note Subjective:: Patient is a pleasant 58-year-old female who presents today for medication refill and follow-up. Today she rates her pain a 1 out of 10. Patient denies any new trauma or injury. She states she is doing well currently and her medications are working. She is currently prescribed Gabapentin from an outside provider and [place] 7.5 mg twice a day from our office. She denies any side effects from this medication. Her Sarthak has been reviewed and is appropriate. Review of Systems: General: No recent weight changes, no fever, no sleep disturbances Respiratory: No cough, no shortness of air, no recurring pulmonary infections Cardiovascular/peripheral vascular: No chest pain, no palpitations, no edema, no shortness of breath Gastrointestinal: No new onset incontinence, normal bowel movements reported Genitourinary: No new onset incontinence Musculoskeletal: Low back pain Psychiatric: [Normal mood/affect] Neurological: [Denies weakness in extremities], [denies balance issues] Objective:: Physical Exam: General: Alert and oriented x3, no acute distress, pleasant and cooperative Lungs: Respirations even and unlabored, symmetrical chest expansion Eyes: PERRL Musculoskeletal: Flexion and extension of lumbar [spine] somewhat guarded secondary to pain, [antalgic gait noted] Neurological: Speech clear, no gross sensory deficit Assessment:: Degenerative disc disease lumbar spine with lumbar radiculopathy symptoms, hip pain Plan:: I will refill the patient's [place] and provide a 1 month supply of this medication. Patient will return to clinic in 1 month for reevaluation of symptoms and plan of care. Risks and benefits of the medication have been explained in detail to the patient. The patient does understand the risk of dependence on the medication when given over a prolonged period. Patient has been advised of risks of oversedation with the prescribed medication. Narcan has been offered to the paitent in the event of oversedation. Patient has been advised that a family member should also be educated regarding administration of Narcan. The patient has been advised to consult with his/her primary care provider and pharmacist regarding drug-drug interaction of medications currently prescribed. Patient has been prescribed a controlled substance after being counseled on the medication, medication safety, and possible side effects. Opioid contract was reviewed and signed by the patient, and that they have agreed to all of the terms set forth by our compliance program. Patient has been instructed to contact the clinic with any concerns before the next appointment. Dr. Butler has reviewed this note and agrees with this plan of care. This note was dictated using voice recognition software and make contain errors or omissions. [facility] Disclaimer: The information contained in this section may have been updated after the patient was seen, as this information can be updated by other users. Social History Smoking Status: Former smoker alcohol intake: never counseling provided: none substance use type: denies use current occupational status: other Travel in the last 8 weeks: None housing: apartment current occupational exposures/hazards: No caffeine: Yes
== END 2023-09-06 23:59 | disposition home or self-care (01) ==
PROVIDERS: PCP Family Medicine; Visit Provider Nurse Practitioner Family
DX: M51.16 Intervertebral disc disorders with radiculopathy, lumbar region (principal); M25.559 Pain in unspecified hip
CPT/HCPCS: 99212; G0463

== ENCOUNTER 2023-10-08 11:37 | Outpatient (POV) | payer OTHER, SELFPAY ==
[2023-10-08 11:43] VITALS: BP 138/75; PULSE 82; RESP 18; O2SAT 94; BMI 33.3
--- NOTE | 2023-10-08 11:47 | A.OFFVIS_ITS ---
[facility] Pain Management SOAP Note Subjective:: Patient is a pleasant 58-year-old female who presents today for medication refill. Today she rates her pain a 2 out of 10. She denies any new trauma or injury. She does state that the increased running has seemed to aggravate some of her overall pain however she is doing well with her current medicines. She is currently prescribed [place] 7.5 mg twice a day from our office and gabapentin from her PCP. Patient denies any side effects from these medications. Her Sarthak has been reviewed and is appropriate. Review of Systems: General: No recent weight changes, no fever, no sleep disturbances Respiratory: No cough, no shortness of air, no recurring pulmonary infections Cardiovascular/peripheral vascular: No chest pain, no palpitations, no edema, no shortness of breath Gastrointestinal: No new onset incontinence, normal bowel movements reported Genitourinary: No new onset incontinence Musculoskeletal: Low back pain Psychiatric: [Normal mood/affect] Neurological: [Denies weakness in extremities], [denies balance issues] Objective:: Physical Exam: General: Alert and oriented x3, no acute distress, pleasant and cooperative Lungs: Respirations even and unlabored, symmetrical chest expansion Eyes: PERRL Musculoskeletal: Flexion and extension of lumbar [spine] somewhat guarded secondary to pain, [antalgic gait noted] Neurological: Speech clear, no gross sensory deficit Assessment:: degenerative disc disease of lumbar spine with lumbar radiculopathy symptoms, hip pain Plan:: I will refill the patient's [place] and provide a 1 month supply of this medication. Patient will return to clinic in 1 month for reevaluation of symptoms and plan of care. Risks and benefits of the medication have been explained in detail to the patien t. The patient does understand the risk of dependence on the medication when given over a prolonged period. Patient has been advised of risks of oversedation with the prescribed medication. Narcan has been offered to the paitent in the event of oversedation. Patient has been advised that a family member should also be educated regarding administration of Narcan. The patient has been advised to consult with his/her primary care provider and pharmacist regarding drug-drug interaction of medications currently prescribed. Patient has been prescribed a controlled substance after being counseled on the medication, medication safety, and possible side effects. Opioid contract was reviewed and signed by the patient, and that they have agreed to all of the terms set forth by our compliance program. Patient has been instructed to contact the clinic with any concerns before the next appointment. Dr. Butler has reviewed this note and agrees with this plan of care. This note was dictated using voice recognition software and make contain errors or omissions. [facility] Disclaimer: The information contained in this section may have been updated after the patient was seen, as this information can be updated by other users. Social History Smoking Status: Former smoker alcohol intake: never counseling provided: none substance use type: denies use current occupational status: other Travel in the last 8 weeks: None housing: apartment current occupational exposures/hazards: No caffeine: Yes
[2023-10-08 13:36] LABS: Benzodiazepines Screen,Urine Negative ng/ml (<200)
[2023-10-08 13:37] LABS: Amphetamine/Metha Screen,Urine Negative ng/ml (<1000)
[2023-10-08 13:38] LABS: Barbiturates Screen,Urine Positive ng/ml (<200); Cocaine Screen,Urine Negative ng/ml (<300)
[2023-10-08 13:39] LABS: Methadone Screen,Urine Negative ng/ml (<300)
[2023-10-08 13:40] LABS: Cannabinoid Screen,Urine Negative ng/ml (<50); Opiate Screen,Urine Positive ng/ml (<300)
[2023-10-08 13:41] LABS: Phencyclidine Screen,Urine Negative ng/ml (<25)
[2023-10-12 12:04] LABS: Codeine Negative (Cutoff=100); Hydrocodone Positive (.); Hydromorphone Positive (.); Morphine Negative (Cutoff=100); Opiates Positive (.)
== END 2023-10-08 23:59 | disposition home or self-care (01) ==
PROVIDERS: PCP Family Medicine; Visit Provider Nurse Practitioner Family
DX: M51.16 Intervertebral disc disorders with radiculopathy, lumbar region (principal); M25.559 Pain in unspecified hip
CPT/HCPCS: 80307; 80361; 80365; 99212; G0463; G0480

== ENCOUNTER 2023-11-12 07:19 | Outpatient (CLI) | payer MEDICARE, SELFPAY ==
--- NOTE | 2023-11-12 07:24 | CT_ITS ---
FINAL REPORT TECHNIQUE: Axial images through the abdomen and pelvis were performed without contrast. This study was performed with techniques to keep radiation doses as low as reasonably achievable, (ALARA). Individualized dose reduction techniques using automated exposure control or adjustment of mA and/or kV according to the patient's size were employed. CLINICAL HISTORY: RECTAL BLEEDING; ABDOMINAL PAIN FINDINGS: ABDOMEN: There is mild atelectasis or scarring in the lung bases. The heart size is normal. Postoperative changes are seen from gastric sleeve. The patient is status postcholecystectomy. Limited images of the liver are unremarkable. The spleen is normal. No adrenal mass is identified. The aorta is normal in caliber. There is no significant free fluid or adenopathy. There is no nephrolithiasis. There is no hydronephrosis. PELVIS: The appendix is is normal. The urinary bladder is unremarkable. There is no significant free fluid or adenopathy. IMPRESSION: No acute intra-abdominal or intrapelvic abnormality. Reviewed, Interpreted and Dictated by Preston Francis III, MD Transcribed by Vickie Alicea Authenticated and [facility]
== END 2023-11-12 23:59 | disposition home or self-care (01) ==
LOC: RAD 07:19
PROVIDERS: PCP Family Medicine; Visit Provider Family Medicine
DX: R10.31 Right lower quadrant pain (principal); K62.5 Hemorrhage of anus and rectum
CPT/HCPCS: 74176

== ENCOUNTER 2023-11-12 10:56 | Outpatient (POV) | payer OTHER, SELFPAY ==
[2023-11-12 11:25] VITALS: BP 115/69; PULSE 84; RESP 16; O2SAT 98; BMI 33.3
--- NOTE | 2023-11-12 11:54 | A.OFFVIS_ITS ---
[facility] Disclaimer: The information contained in this section may have been updated after the patient was seen, as this information can be updated by other users. Social History Smoking Status: Former smoker alcohol intake: never counseling provided: none substance use type: denies use current occupational status: other Travel in the last 8 weeks: None housing: apartment current occupational exposures/hazards: No caffeine: Yes PM Subjective & Objective Subjective Subjective:: Patient is a pleasant 58-year-old female who presents today for medication refill and follow-up. Today she rates her pain a 1 out of 10. Patient denies any trauma or injury. She is currently managed with [place] 7.5 mg twice a day from our office and gabapentin from her primary care. She denies any new trauma or injury. Her Sarthak has been reviewed and is appropriate. Review of Systems: General: No recent weight changes, no fever, no sleep disturbances Respiratory: No cough, no shortness of air, no recurring pulmonary infections Cardiovascular/peripheral vascular: No chest pain, no palpitations, no edema, no shortness of breath Gastrointestinal: No new onset incontinence, normal bowel movements reported Genitourinary: No new onset incontinence Musculoskeletal: Low back pain Psychiatric: [Normal mood/affect] Neurological: [Denies weakness in extremities], [denies balance issues] Pain at rest (0-10 scale): 1 Objective Objective:: Physical Exam: General: Alert and oriented x3, no acute distress, pleasant and cooperative Lungs: Respirations even and unlabored, symmetrical chest expansion Eyes: PERRL Musculoskeletal: Flexion and extension of lumbar [spine] somewhat guarded secondary to pain, [antalgic gait noted] Neurological: Speech clear, no gross sensory deficit Has patient had previous pain injection?: No Conservative treatment options previously tried: Home exercise plan Length of treatment: Longer than 6 weeks and Prescription medications Length of treatment: Longer than 6 weeks Meds Home Medications and Allergies Home Medications Medication Instructions Recorded Confirmed Type hydroxyzine pamoate 50 mg capsule 50 mg PO BID Anxiety 05/14/17 11/12/23 History montelukast 10 mg tablet 10 mg PO PM Asthma 05/14/17 11/12/23 History ibuprofen 800 mg tablet 800 mg PO TID PRN pain 06/26/17 11/12/23 History gabapentin 600 mg tablet 600 mg PO TID nerve pain 08/01/17 11/12/23 History primidone 50 mg tablet 50 mg PO TID seizures 08/01/17 11/12/23 History buspirone 10 mg tablet 10 mg PO TID Depression 11/21/17 11/12/23 History cyclobenzaprine 10 mg tablet 10 mg PO BID Pain 11/21/17 11/12/23 History hyoscyamine sulfate 0.125 mg 0.125 mg PO QID PRN reflux 11/21/17 11/12/23 History tablet (Levsin) trazodone 50 mg tablet 50 mg PO QHS sleep 11/21/17 11/12/23 History bisoprolol fumarate 5 mg tablet 5 mg PO DAILY htn 01/30/18 11/12/23 History spironolactone 25 mg tablet 25 mg PO DAILY Fluid 01/30/18 11/12/23 History furosemide 40 mg tablet 40 mg PO DAILY Fluid #30 tabs 07/25/18 11/12/23 Rx amitriptyline 10 mg tablet 10 mg PO DAILY . 11/20/18 11/12/23 History levothyroxine 25 mcg tablet 25 mcg PO DAILY THYROID 11/20/18 11/12/23 History hydrocodone 7.5 mg-acetaminophen 1 tab PO BID Pain #60 tabs 10/08/23 11/12/23 Rx 325 mg tablet New Prescriptions to Start Prescriptions: Allergies Allergy/AdvReac Type Severity Reaction Status Date / Time formaldehyde [FORMALDEHYDE] Allergy Mild Verified 10/08/23 11:43 orange juice [ORANGE JUICE] Allergy Mild Verified 10/08/23 11:43 levothyroxine sodium Allergy Unknown CANT TAKE Verified 10/08/23 11:43 [From SYNTHROID] GENERIC PIZZA SAUCE Allergy Mild Uncoded 11/20/18 10:32 Assessment and Plan *Assessment and plan (1) Degenerative disc disease, lumbar: Status: Acute Category: Medical Code(s): M51.36 - Other intervertebral disc degeneration, lumbar region (2) Lumbar radiculopathy: Status: Acute Category: Medical Code(s): M54.16 - Radiculopathy, lumbar region Plan I will refill the patient's [place] and provide a 1 month supply of this medication. Patient will return to clinic in 1 month for reevaluation of symptoms and plan of care. Risks and benefits of the medication have been explained in detail to the patient. The patient does understand the risk of dependence on the medication when given over a prolonged period. Patient has been advised of risks of oversedation with the prescribed medication. Narcan has been offered to the paitent in the event of oversedation. Patient has been advised that a family member should also be educated regarding administration of Narcan. The patient has been advised to consult with his/her primary care provider and pharmacist regarding drug-drug interaction of medications currently prescribed. Patient has been prescribed a controlled substance after being counseled on the medication, medication safety, and possible side effects. Opioid contract was reviewed and signed by the patient, and that they have agreed to all of the terms set forth by our compliance program. Patient has been instructed to contact the clinic with any concerns before the next appointment. Dr. Butler has reviewed this note and agrees with this plan of care. This note was dictated using voice recognition software and make contain errors or omissions.
== END 2023-11-12 23:59 | disposition home or self-care (01) ==
PROVIDERS: PCP Family Medicine; Visit Provider Nurse Practitioner Family
DX: M51.36 Other intervertebral disc degeneration, lumbar region (principal); M54.16 Radiculopathy, lumbar region
CPT/HCPCS: 99212; G0463

== ENCOUNTER 2023-12-10 11:08 | Outpatient (POV) | payer OTHER, SELFPAY ==
[2023-12-10 11:15] VITALS: BP 122/74; PULSE 56; RESP 16; O2SAT 95; BMI 50.3
--- NOTE | 2023-12-10 11:24 | EXP.PAIN.SOA ---
[facility] Disclaimer: The information contained in this section may have been updated after the patient was seen, as this information can be updated by other users. Social History Smoking Status: Former smoker alcohol intake: never counseling provided: none substance use type: denies use current occupational status: unemployed Travel in the last 8 weeks: None housing: apartment current occupational exposures/hazards: No caffeine: Yes PM Subjective & Objective Subjective Subjective:: Patient is a pleasant 58-year-old female who presents today for medication refill and follow-up. Today she rates her pain a 1 out of 10. She states that she is actually doing really good today and denies any new trauma or injury. Patient denies currently state [place] 7.5 mg twice a day from our office and gabapentin from her PCP. She denies any side effects from these medications. Her Sarthak has been reviewed and is appropriate. Review of Systems: General: No recent weight changes, no fever, no sleep disturbances Respiratory: No cough, no shortness of air, no recurring pulmonary infections Cardiovascular/peripheral vascular: No chest pain, no palpitations, no edema, no shortness of breath Gastrointestinal: No new onset incontinence, normal bowel movements reported Genitourinary: No new onset incontinence Musculoskeletal: Low back pain Psychiatric: [Normal mood/affect] Neurological: [Denies weakness in extremities], [denies balance issues] Pain at rest (0-10 scale): 1 Objective Objective:: Physical Exam: General: Alert and oriented x3, no acute distress, pleasant and cooperative Lungs: Respirations even and unlabored, symmetrical chest expansion Eyes: PERRL Musculoskeletal: Flexion and extension of lumbar [spine] somewhat guarded secondary to pain, [antalgic gait noted] Neurological: Speech clear, no gross sensory deficit Has patient had previous pain injection?: No Conservative treatment options previously tried: Home exercise plan Length of treatment: Longer than 6 weeks Meds Home Medications and Allergies Home Medications ?Medication ?Instructions ?Recorded ?Confirmed ?Type hydroxyzine pamoate 50 mg capsule 50 mg PO BID Anxiety 05/14/17 12/10/23 History montelukast 10 mg tablet 10 mg PO PM Asthma 05/14/17 12/10/23 History ibuprofen 800 mg tablet 800 mg PO TID PRN pain 06/26/17 12/10/23 History gabapentin 600 mg tablet 600 mg PO TID nerve pain 08/01/17 12/10/23 History primidone 50 mg tablet 50 mg PO TID seizures 08/01/17 12/10/23 History buspirone 10 mg tablet 10 mg PO TID Depression 11/21/17 12/10/23 History cyclobenzaprine 10 mg tablet 10 mg PO BID Pain 11/21/17 12/10/23 History hyoscyamine sulfate 0.125 mg 0.125 mg PO QID PRN reflux 11/21/17 12/10/23 History tablet (Levsin) trazodone 50 mg tablet 50 mg PO QHS sleep 11/21/17 12/10/23 History bisoprolol fumarate 5 mg tablet 5 mg PO DAILY htn 01/30/18 12/10/23 History spironolactone 25 mg tablet 25 mg PO DAILY Fluid 01/30/18 12/10/23 History furosemide 40 mg tablet 40 mg PO DAILY Fluid #30 tabs 07/25/18 12/10/23 Rx amitriptyline 10 mg tablet 10 mg PO DAILY . 11/20/18 12/10/23 History levothyroxine 25 mcg tablet 25 mcg PO DAILY THYROID 11/20/18 12/10/23 History hydrocodone 7.5 mg-acetaminophen 1 tab PO BID Pain #60 tabs 11/12/23 12/10/23 Rx 325 mg tablet New Prescriptions to Start Prescriptions: Allergies Allergy/AdvReac Type Severity Reaction Status Date / Time formaldehyde [FORMALDEHYDE] Allergy Mild Verified 10/08/23 11:43 orange juice [ORANGE JUICE] Allergy Mild Verified 10/08/23 11:43 levothyroxine sodium Allergy Unknown CANT TAKE Verified 10/08/23 11:43 [From SYNTHROID] GENERIC PIZZA SAUCE Allergy Mild Uncoded 11/20/18 10:32 Assessment and Plan *Assessment and plan (1) Degenerative disc disease, lumbar: Status: Acute Category: Medical Code(s): M51.36 - Other intervertebral disc degeneration, lumbar region (2) Lumbar radiculopathy: Status: Acute Category: Medical Code(s): M54.16 - Radiculopathy, lumbar region Plan We will refill her [place] Gate and provide a 1 month supply of this medication. Patient will return to clinic in 1 month for reevaluation of symptoms and plan of care. Risks and benefits of the medication have been explained in detail to the patient. The patient does understand the risk of dependence on the medication when given over a prolonged period. Patient has been advised of risks of oversedation with the prescribed medication. Narcan has been offered to the paitent in the event of oversedation. Patient has been advised that a family member should also be educated regarding administration of Narcan. The patient has been advised to consult with his/her primary care provider and pharmacist regarding drug-drug interaction of medications currently prescribed. Patient has been prescribed a controlled substance after being counseled on the medication, medication safety, and possible side effects. Opioid contract was reviewed and signed by the patient, and that they have agreed to all of the terms set forth by our compliance program. Patient has been instructed to contact the clinic with any concerns before the next appointment. Dr. Butler has reviewed this note and agrees with this plan of care. This note was dictated using voice recognition software and make contain errors or omissions.
== END 2023-12-10 23:59 | disposition home or self-care (01) ==
PROVIDERS: PCP Family Medicine; Visit Provider Nurse Practitioner Family
DX: M51.16 Intervertebral disc disorders with radiculopathy, lumbar region (principal); Z87.891 Personal history of nicotine dependence; Z79.899 Other long term (current) drug therapy
CPT/HCPCS: 99212; G0463

== ENCOUNTER 2023-12-31 09:39 | Outpatient (CLI) | payer MEDICARE, SELFPAY ==
--- NOTE | 2023-12-31 09:42 | MM_ITS ---
PROCEDURE INFORMATION: Exam: MG Bilateral Screening 3D Mammography Exam date and time: 12/31/2023 9:40 AM Age: 58 years old Clinical indication: Screening examination TECHNIQUE: Imaging protocol: Bilateral Screening tomosynthesis and 2D mammography including computer-aided detection (CAD) when performed. COMPARISON: 1. MG MM DIG SCREENING MAMM BI W/CAD 08/25/2022 2:20 PM 2. MG MM DIG SCREENING MAMM BI W/CAD 08/19/2021 3:33 PM FINDINGS: MAMMOGRAPHY: Breast composition: There are scattered areas of fibroglandular density. Mass: None. Architectural distortion: None. Calcifications: No suspicious calcifications. Asymmetric density: None. Skin thickening: None. Axillary adenopathy: None. IMPRESSION: No mammographic evidence of malignancy. Annual screening is recommended unless otherwise clinically indicated. ASSESSMENT: BI-RADS Category 1: Negative
== END 2023-12-31 23:59 | disposition home or self-care (01) ==
LOC: RAD 09:39
PROVIDERS: PCP Family Medicine; Visit Provider Family Medicine
DX: Z12.31 Encounter for screening mammogram for malignant neoplasm of breast (principal)
CPT/HCPCS: 77063; 77067

== ENCOUNTER 2024-01-14 10:34 | Outpatient (POV) | payer OTHER, SELFPAY ==
--- OUTSIDE RECORDS SUMMARY | 2024-01-14 10:36 | XMS_ITS ---
[facility] Organization [facility] Address [address] [place] [id number] Care Team Providers Care Marshmallow Machine Worker Name Role Phone Omi Cortes Primary Care Provider [phone] ALLERGIES Allergen (clinical drug ingredient) Drug/Non Drug Allergy documented on EMR Reaction Allergy Type Onset Date Status pregabalin Lyrica swelling Drug Allergy Active Flu Virus Vaccine Unknown Drug Allergy Active levothyroxine Levothyroxine itching Drug Allergy Active pravastatin Pravastatin GI Drug Allergy Act padmini rosuvastatin Rosuvastatin stomach upset Drug Allergy Active RESULTS Component Value Reference Range Notes Mammogram Reviewed date:01/03/2024 04:25:02 PM Interpretation:Negative, annual f/u Performing Lab: Notes/Report: Negative, annual f/u result Negative, annual f/u REASON FOR VISIT 2 month follow up, Needs mammogram, low dose chest CT, bone density screening, & Tdap MEDICATIONS Medication SIG (Take, Route, Frequency, Duration) Notes [...] 5 MG 1 tablet Orally Once a day for 90 days Active Singulair 10 MG 1 tab(s) orally once a day for 90 days Active Furosemide 40 MG 1 tab(s) orally once a day for 90 days Active Spironolactone 25 MG 1 tab(s) orally onc e daily for 90 days Active Bisoprolol Fumarate 5 MG 1 tab(s) orally once a day for 90 days Active Pravastatin Sodium 80 MG 1 tab(s) Orally once a day Active ProAir Digihaler 108 (90 Base) MCG/ACT 2 puff(s) inhaled 4 times a day for 30 day(s) 04/19/2013 Active Albuterol Sulfate HFA 90 UG/INHALATION 2 PUFFS QID AND Q 1-2 HOURS 05/27/2012 Active Ibuprofen 800 MG 1 tab(s) orally tid prn for 30 days Active Levsin/SL 0.125 MG 1 tab(s) sublinguall y four times a day as needed Active Aspirin Low Dose 81 MG 1 tab(s) orally o nce a day Active Gabapentin 600 MG 1 tab(s) orally 3 times a day Active HYDROcodone-Acetaminophen 7.5-325 MG 1 tab(s) orally bid prn Active Amitriptyline HCl 10 MG 1 tab(s) orally once a day (at bedtime) for 30 day(s) Active Primidone 50 MG 1 in morning, 2 at lunch, 2 qhs orally 3 times a day Active Cymbalta 60 MG 1 cap(s) orally once a day Active SOCIAL HISTORY Tobacco Use: Social History Observation Description Date Details (start date - stop date) Current Smoker NA - NA Sex Assigned At : Social History Observation Description Sex Assigned At Unknown CURRENT TOBACCO USE: Question Answer Notes Are you a: current smoker 4-5 cigarettes/ day VITAL SIGNS Blood pressure systolic 110 mm Hg 12/13/19 24 Blood pressure diastolic 78 mm Hg 024 Heart Rate 100 /min 12/13/2023 Height 63.75 in 12/13/2023 Weight 199.6 lbs 12/13/2023 BMI 34.53 kg/m2 12/13/2023 Encounters Encounter Location Date Provider Diagnosis [facility] [address] [place] [id number] 12/13/2023 Omi Cortes Generalized anxiety disorder F41.1 ; Cervicalgia M54.2 ; Dyslipidemia E78.5 ; Vitamin D deficiency E55.9 ; Essential hypertension I10 ; Tobacco use disorder Z72.0 and Breast cancer screening Z12.31 ASSESSMENTS Encounter Date Diagnosis Assessment Notes Treatment Notes Treatment Clinical Notes 12/13/2023 Generalized anxiety disorder (ICD-10 - F41.1) 12/13/2023 Cervicalgia (ICD-10 - M54.2) 12/13/2023 Dyslipidemia (ICD-10 - E78.5) 12/13/2023 Vitamin D deficiency (ICD-10 - E55.9) 12/13/2023 Essential hypertension (ICD-10 - I10) 12/13/2023 Tobacco use disorder (ICD-10 - Z72.0) Declines LDCT 12/13/2023 Breast cancer screening (ICD-10 - Z12.31) PLAN OF TREATMENT Medication Medication Name Sig Start Date Stop Date Notes Cyclobenzaprine HCl 10 MG 1 tab(s) orally Two times a day Oxazepam 10 MG 1 cap(s) orally At Bed Time 12/13/2023 Ezetimibe 10 MG 1 tablet Orally Once a day Treatment Notes Assessment Notes Tobacco use disorder Declines LDCT Next Appt Details Follow Up: 2 Months, Reason: Provider Name:Omi Elkins, 02/07/2024 01:30:00 PM, [address] [facility] [address] [facility], [address], [place], [place], [phone], Progress Notes * Examination Category Sub-Category Detail Notes General Examination Heart: RSR Lungs: clear to auscultatio n Extremities: no leg edema General Appearance: affect good. Neurologic Exam: coarse tremor of hea d noted Neck: decreased ROM due to stiffness Oral cavity: mucosa moist and WNL History and Physical Notes * HPI (History of Present Illness) Category Sub-Category Detail Notes Gastroenterology Abdominal Pain Pt sts that her abdominal pain has resolved and she has not seen any more blood in her stool HPI Patient is here today for a 2 mo [facility] follow up. Pt sts that she needs a refill of Flexeril and Oxazepam
--- OUTSIDE RECORDS SUMMARY | 2024-01-14 10:37 | XMS_ITS ---
Author Organization [facility] Address [address] [facility] [address] [facility] [address] [place] [id number] Care Team Providers Care Glove Finisher Name Role Phone Omi Cortes Primary Care Provider REASON FOR VISIT test results Encounters Encounter Location Date Provider Diagnosis [place] [address] [facility] [address] [place] [id number] 11/16/2023 Omi Cortes PLAN OF TREATMENT Next Appt Details Provider Name:Omi Elkins, 02/07/2024 01:30:00 PM, [address], [address], [place], [phone],
--- OUTSIDE RECORDS SUMMARY | 2024-01-14 10:37 | XMS_ITS ---
Author Organization [facility] Address [address] [place] [id number] Care Team Providers Care Sfdc Developer Name Role Phone Omi Cortes Primary Care Provider ALLERGIES Allergen (clinical drug ingredient) Drug/Non Drug Allergy documented on EMR Reaction Allergy Type Onset Date Status pregabalin Lyrica swelling Drug Allergy Active Flu Virus Vaccine Unknown Drug Allergy Active levothyroxine Levothyroxine itching Drug Allergy Active pravastatin Pravastatin GI Drug Allergy Act padmini rosuvastatin Rosuvastatin stomach upset Drug Allergy Active RESULTS Component Value Reference Range Notes Urinalysis - Inhouse Reviewed date:11/01/2023 02:13:08 PM Interpretation:Normal Performing Lab: Notes/Report: Normal Color/Clarity yellow/clear Leuk neg Nitrite neg Urobili 3.2 Protein neg pH 5.5 Blood neg Sp. Gr. 1.020 Ketone neg Bili neg Gluc neg bacteria WBC RBC CBC Fingerstick (in house) Reviewed date:11/01/2023 02:14:40 PM Interpretation: Performing Lab: Notes/Report: wbc 11.4 3.5 - 10 lym 27.7 15 - 50 mid 6.8 2 - 15 gran 65.5 35 - 80 rbc 5.43 3.5 - 5.5 hgb 15.5 11.5 - 16.5 hct 47.5 35 - 55 mcv 87.4 75 - 100 mch 28.6 25 - 35 mchc 32.7 31 - 38 plat 159 100 - 400 CT Scan : Abd & Pelvis w/o c ontrast Reviewed date:11/16/2023 02:49:20 PM Interpretation:Negative Performing Lab: Notes/Report: Negative REASON FOR VISIT bleeding, right side pain MEDICATIONS Medication SIG (Take, Route, Frequency, Duration) Notes Start Date End Date Status Primidone 50 MG 1 in morning, 2 at lunch, 2 qhs orally 3 times a day Active ProAir Digihaler 108 (90 Base) MCG/ACT 2 puff(s) inhaled 4 times a day for 30 day(s) 04/19/2013 Active Albuterol Sulfate HFA 90 UG/INHALATION 2 PUFFS QID AND Q 1-2 HOURS 05/27/2012 Active Ibuprofen 800 MG 1 tab(s) orally tid prn for 30 days Active Levsin/SL 0.125 MG 1 tab(s) sublinguall y four times a day as needed Active Cymbalta 60 MG 1 cap(s) orally once a day Active Aspirin Low Dose 81 MG 1 tab(s) orally o nce a day Active Gabapentin 600 MG 1 tab(s) orally 3 times a day Active HYDROcodone-Acetaminophen 7.5-325 MG 1 tab(s) orally bid prn Active Amitriptyline HCl 10 MG 1 tab(s) orally once a day (at bedtime) for 30 day(s) Active Cyclobenzaprine HCl 10 MG 1 tab(s) orall y Two times a day Active Oxazepam 10 MG 1 cap(s) orally At B ed Time 10/09/2023 Active Ezetimibe 10 MG 1 tablet Orally [...] 1 tab(s) Orally once a day Active SOCIAL HISTORY Tobacco Use: Social History Observation Description Date Details (start date - stop date) Current Smoker NA - NA Sex Assigned At : Social History Observation Description Sex Assigned At Unknown CURRENT TOBACCO USE: Question Answer Notes Are you a: current smoker 4-5 cigarettes/ day VITAL SIGNS Blood pressure systolic 120 mm Hg 11/01/19 24 Blood pressure diastolic 80 mm Hg 024 Heart Rate 80 /min 11/01/2023 Height 63.75 in 11/01/2023 Weight 200 lbs 11/01/2023 BMI 34.60 kg/m2 11/01/2023 Encounters Encounter Location Date Provider Diagnosis [facility] [address] [facility] 36 [facility] [address] [place] [id number] 11/01/2023 Omi Peterst RLQ abdominal pain R10.31 and Rectal bleeding K62.5 ASSESSMENTS Encounter Date Diagnosis Assessment Notes Treatment Notes Treatment Clinical Notes 11/01/2023 RLQ abdominal pain (ICD-10 - R10.31) 11/01/2023 Rectal bleeding (ICD-10 - K62.5) PLAN OF TREATMENT Next Appt Details Follow Up: after tests, Reas on: Provider Name:Omi Bell [place], 02/07/2024 01:30:00 PM, [address] [place] [address], [address], [place], [id number], Progress Notes * Examination Category Sub-Category Detail Notes General Examination Heart: RSR Lungs: clear to auscultatio n Abdomen: Soft, nondistended. Mild diffuse right mid and right lower quadrant tenderness. No rebound or guarding. General Appearance: NAD
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
[2024-01-14 10:59] VITALS: BP 129/90; PULSE 84; RESP 16; O2SAT 96; BMI 33.6
--- NOTE | 2024-01-14 11:16 | EXP.PAIN.SOA ---
[facility] Disclaimer: The information contained in this section may have been updated after the patient was seen, as this information can be updated by other users. Social History Smoking Status: Former smoker alcohol intake: never counseling provided: none substance use type: denies use current occupational status: other Travel in the last 8 weeks: Outside the [facility] housing: apartment current occupational exposures/hazards: No caffeine: Yes PM Subjective & Objective Subjective Subjective:: Patient is a pleasant 58-year-old female who presents today for medication refill and follow-up. Today she rates her pain a 3 out of 10. She denies any new trauma or injury. She does state that she has been doing a little household activity that required some lifting and was having a little bit more pain. Patient is currently managed with [place] 7.5 mg twice a day from our office and gabapentin from an outside provider. Her Sarthak has been reviewed and is appropriate. Review of Systems: General: No recent weight changes, no fever, no sleep disturbances Respiratory: No cough, no shortness of air, no recurring pulmonary infections Cardiovascular/peripheral vascular: No chest pain, no palpitations, no edema, no shortness of breath Gastrointestinal: No new onset incontinence, normal bowel movements reported Genitourinary: No new onset incontinence Musculoskeletal: Low back pain Psychiatric: [Normal mood/affect] Neurological: [Denies weakness in extremities], [denies balance issues] Pain at rest (0-10 scale): 3 Objective Objective:: Physical Exam: General: Alert and oriented x3, no acute distress, pleasant and cooperative Lungs: Respirations even and unlabored, symmetrical chest expansion Eyes: PERRL Musculoskeletal: Flexion and extension of lumbar [spine] somewhat guarded secondary to pain, [antalgic gait noted] Neurological: Speech clear, no gross sensory deficit Has patient had previous pain injection?: No Conservative treatment options previously tried: Home exercise plan Length of treatment: Longer than 6 weeks Meds Home Medications and Allergies Home Medications ?Medication ?Instructions ?Recorded ?Confirmed ?Type hydroxyzine pamoate 50 mg capsule 50 mg PO BID Anxiety 05/14/17 01/14/24 History montelukast 10 mg tablet 10 mg PO PM Asthma 05/14/17 01/14/24 History ibuprofen 800 mg tablet 800 mg PO TID PRN pain 06/26/17 01/14/24 History gabapentin 600 mg tablet 600 mg PO TID nerve pain 08/01/17 01/14/24 History primidone 50 mg tablet 50 mg PO TID seizures 08/01/17 01/14/24 History buspirone 10 mg tablet 10 mg PO TID Depression 11/21/17 01/14/24 History cyclobenzaprine 10 mg tablet 10 mg PO BID Pain 11/21/17 01/14/24 History hyoscyamine sulfate 0.125 mg 0.125 mg PO QID PRN reflux 11/21/17 01/14/24 History tablet (Levsin) trazodone 50 mg tablet 50 mg PO QHS sleep 11/21/17 01/14/24 History bisoprolol fumarate 5 mg tablet 5 mg PO DAILY htn 01/30/18 01/14/24 History spironolactone 25 mg tablet 25 mg PO DAILY Fluid 01/30/18 01/14/24 History furosemide 40 mg tablet 40 mg PO DAILY Fluid #30 tabs 07/25/18 01/14/24 Rx amitriptyline 10 mg tablet 10 mg PO DAILY . 11/20/18 01/14/24 History levothyroxine 25 mcg tablet 25 mcg PO DAILY THYROID 11/20/18 01/14/24 History hydrocodone 7.5 mg-acetaminophen 1 tab PO BID Pain #60 tabs 12/10/23 01/14/24 Rx 325 mg tablet hydrocodone 7.5 mg-acetaminophen 1 tab PO BID #4 tabs 12/31/23 01/14/24 Rx 325 mg tablet New Prescriptions to Start Prescriptions: Allergies Allergy/AdvReac Type Severity Reaction Status Date / Time formaldehyde [FORMALDEHYDE] Allergy Mild Verified 10/08/23 11:43 orange juice [ORANGE JUICE] Allergy Mild Verified 10/08/23 11:43 levothyroxine sodium Allergy Unknown CANT TAKE Verified 10/08/23 11:43 [From SYNTHROID] GENERIC PIZZA SAUCE Allergy Mild Uncoded 11/20/18 10:32 Assessment and Plan *Assessment and plan (1) Degenerative disc disease, lumbar: Status: Acute Category: Medical Code(s): M51.36 - Other intervertebral disc degeneration, lumbar region (2) Lumbar radiculopathy: Status: Acute Category: Medical Code(s): M54.16 - Radiculopathy, lumbar region Plan I will refill the patient's [place] and provide a 1 month supply of this medication. Patient will return to clinic in 1 month for reevaluation of symptoms and plan of care. Risks and benefits of the medication have been explained in detail to the patient. The patient does understand the risk of dependence on the medication when given over a prolonged period. Patient has been advised of risks of oversedation with the prescribed medication. Narcan has been offered to the paitent in the event of oversedation. Patient has been advised that a family member should also be educated regarding administration of Narcan. The patient has been advised to consult with his/her primary care provider and pharmacist regarding drug-drug interaction of medications currently prescribed. Patient has been prescribed a controlled substance after being counseled on the medication, medication safety, and possible side effects. Opioid contract was reviewed and signed by the patient, and that they have agreed to all of the terms set forth by our compliance program. Patient has been instructed to contact the clinic with any concerns before the next appointment. Dr. Butler has reviewed this note and agrees with this plan of care. This note was dictated using voice recognition software and make contain errors or omissions.
== END 2024-01-14 23:59 | disposition home or self-care (01) ==
PROVIDERS: PCP Family Medicine; Visit Provider Nurse Practitioner Family
DX: M51.16 Intervertebral disc disorders with radiculopathy, lumbar region (principal); Z87.891 Personal history of nicotine dependence; Z79.899 Other long term (current) drug therapy
CPT/HCPCS: 99212; G0463

== ENCOUNTER 2024-02-28 09:16 | Outpatient (POV) | payer OTHER, SELFPAY ==
--- OUTSIDE RECORDS SUMMARY | 2024-02-28 09:18 | XMS_ITS ---
Author Organization [facility] Address [address] [place] [id number] Care Team Providers Care Home Care Companion Name Role Phone Omi Cortes Primary Care Provider ALLERGIES Allergen (clinical drug ingredient) Drug/Non Drug Allergy documented on EMR Reaction Allergy Type Onset Date Status pregabalin Lyrica swelling Drug Allergy Active Flu Virus Vaccine Unknown Drug Allergy Active levothyroxine Levothyroxine itching Drug Allergy Active pravastatin Pravastatin GI Drug Allergy Act padmini rosuvastatin Rosuvastatin stomach upset Drug Allergy Active REASON FOR VISIT 3 months MEDICATIONS Medication SIG (Take, Route, Frequency, Duration) Notes Start Date End Date Status Albuterol Sulfate HFA 90 UG/INHALATION 2 PUFFS QID AND Q 1-2 HOURS 05/27/2012 Active ProAir Digihaler 108 (90 Base) MCG/ACT 2 puff(s) inhaled 4 times a day for 30 day(s) 04/19/2013 Active HYDROcodone-Acetaminophen 7.5-325 MG 1 tab(s) orally bid prn Acti ve Primidone 50 MG 1 in morning, 2 at lunch, 2 qhs orally 3 times a day Active Amitriptyline HCl 10 MG 1 tab(s) orally once a day (at bedtime) for 30 day(s) Active Cymbalta 60 MG 1 cap(s) orally once a day Active busPIRone HCl 10 MG 1 tab(s) orally thre e times a day----per Dr. Hines Active Ibuprofen 800 MG 1 tab(s) orally tid prn for 30 days Active Aspirin Low Dose 81 MG 1 tab(s) orally o nce a day Active Gabapentin 600 MG 1 tab(s) orally 3 ti mes a day Active Ezetimibe 10 MG 1 tablet Orally Once a day for 90 days Active Oxazepam 10 MG 1 cap(s) orally At B ed Time 02/05/2024 Active Cyclobenzaprine HCl 10 MG 1 tab(s) orall y Two times a day Active Ezetimibe 10 MG 1 tablet Orally Once a day Active Desloratadine 5 MG 1 tablet Orally Once a day for 90 days Active Furosemide 40 MG 1 tab(s) orally once a day for 90 days Active Spironolactone 25 MG 1 tab(s) orally onc e daily for 90 days Active Singulair 10 MG 1 tab(s) orally once a day for 90 days Active Bisoprolol Fumarate 5 MG 1 tab(s) orally once a day for 90 days Active Pravastatin Sodium 80 MG 1 tab(s) Orally once a day Active Levsin/SL 0.125 MG 1 tab(s) sublinguall y four times a day as needed Active SOCIAL HISTORY Tobacco Use: Social History Observation Description Date Details (start date - stop date) Current Smoker NA - NA Sex Assigned At : Social History Observation Description Sex Assigned At Unknown CURRENT TOBACCO USE: Question Answer Notes Are you a: current smoker 4-5 cigarettes/ day VITAL SIGNS Weight 215 lbs 02/05/2024 Blood pressure systolic 130 mm Hg 02/05/20 24 Blood pressure diastolic 90 mm Hg 024 Heart Rate 79 /min 02/05/2024 Height 63.75 in 02/05/2024 BMI 37.19 kg/m2 02/05/2024 Encounters Encounter Location Date Provider Diagnosis [facility] [address] [place] [phone] 02/05/2024 Omi Cortes Generalized anxiety disorder F41.1 ; Cervicalgia M54.2 ; Dyslipidemia E78.5 ; Vitamin D deficiency E55.9 ; Essential hypertension I10 and Tobacco use disorder Z72.0 ASSESSMENTS Encounter Date Diagnosis Assessment Notes Treatment Notes Treatment Clinical Notes 02/05/2024 Generalized anxiety disorder (ICD-10 - F41.1) 02/05/2024 Cervicalgia (ICD-10 - M54.2) 02/05/2024 Dyslipidemia (ICD-10 - E78.5) 02/05/2024 Vitamin D deficiency (ICD-10 - E55.9) 02/05/2024 Essential hypertension (ICD-10 - I10) 02/05/2024 Tobacco use disorder (ICD-10 - Z72.0) Declines LDCT PLAN OF TREATMENT Medication Medication Name Sig Start Date Stop Date Notes Ibuprofen 800 MG 1 tab(s) orally tid prn for 30 days Oxazepam 10 MG 1 cap(s) orally At Bed Time 02/05/2024 Cyclobenzaprine HCl 10 MG 1 tab(s) orally Two times a day Ezetimibe 10 MG 1 tablet Orally Once a day Treatment Notes Assessment Notes Tobacco use disorder Declines LDCT Next Appt Details Follow Up: 2 Months, Reason: Provider Name:Omi Elkins, 04/08/2024 01:30:00 PM, [address] [facility], [address], [place], [place], [phone], Progress Notes * Examination Category Sub-Category Detail Notes ENT/Respiratory Oral cavity : no erythema or e xudate seen on pharynx Ears: auditory canals norm al bilaterally, TM's WNL Heart : RRR, normal S1 S2, n o murmurs Lungs: clear to auscultatio n bilaterally General Appearance: NAD History and Physical Notes * HPI (History of Present Illness) Category Sub-Category Detail Notes HPI Patient is here today for a 3 mo [facility] follow up. Pt sts that she needs refills today , a scheduled check up. Pt sts that she needs refills of Flexeril and Oxazepam. Pt sts that she has no new concerns or complaints at this time
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
--- OUTSIDE RECORDS SUMMARY | 2024-02-28 09:19 | XMS_ITS ---
Author Organization [facility] Address [address] [facility] [address] [place] [id number] Care Team Providers Care Turning Sander Operator Name Role Phone Omi Cortes Primary Care Provider [phone] REASON FOR VISIT Message Encounters Encounter Location Date Provider Diagnosis [facility] [address] [place] [id number] 01/24/2024 Omi Cortes Encounter for screening colonoscopy Z12.11 ASSESSMENTS Encounter Date Diagnosis Assessment Notes Treatment Notes Treatment Clinical Notes 01/24/2024 Encounter for screening colonoscopy (ICD-10 - Z12.11) PLAN OF TREATMENT Pending Test Test Name Order Date colonoscopy 01/24/2024 Next Appt Details Provider Name:Omi Elkins, 04/08/2024 01:30:00 PM, [address], [address], [place], [phone],
--- OUTSIDE RECORDS SUMMARY | 2024-02-28 09:19 | XMS_ITS ---
[facility] Organization [facility] Address [address] [place] [id number] Care Team Providers Care Mold Tooler Name Role Phone Omi Cortes Primary Care Provider Yuli Millan Unavailable [phone] ALLERGIES Allergen (clinical drug ingredient) Drug/Non Drug [...] VISIT pain in her jaw possible infection MEDICATIONS Medication SIG (Take, Route, Frequency, Duration) Notes Start Date End Date Status Primidone 50 MG 1 in morning, 2 at lunch, 2 qhs orally 3 times a day Active Amitriptyline HCl 10 MG 1 tab(s) orally once a day (at bedtime) for 30 day(s) Active HYDROcodone-Acetaminophen 7.5-325 MG 1 tab(s) orally bid prn Acti ve Gabapentin 600 MG 1 tab(s) orally 3 ti mes a day Active Aspirin Low Dose 81 MG 1 tab(s) orally o nce a day Active Cyclobenzaprine HCl 10 MG 1 tab(s) orall y Two times a day Active Cefdinir 300 MG as directed Orally b id for 10 days 01/21/2024 Active Cymbalta 60 MG [...] once a day for 90 days Active Ibuprofen 800 MG 1 tab(s) orally tid prn for 30 days Active Albuterol Sulfate HFA 90 UG/INHALATION 2 PUFFS QID AND Q 1-2 HOURS 05/27/2012 Active Spironolactone 25 MG 1 tab(s) orally onc e daily for 90 days Active Pravastatin Sodium 80 MG 1 tab(s) Orally once a day Active Levsin/SL 0.125 MG 1 tab(s) sublinguall y four times a day as needed Active ProAir Digihaler 108 (90 Base) MCG/ACT 2 puff(s) inhaled 4 times a day for 30 day(s) 04/19/2013 Active SOCIAL HISTORY Tobacco Use: Social History Observation Description Date Details (start date - stop date) Current Smoker NA - NA Sex Assigned At : Social History Observation Description Sex Assigned At Unknown CURRENT TOBACCO USE: Question Answer Notes Are you a: current smoker 4-5 cigarettes/ day PROBLEMS Problem Type ICD Code Onset Dates Problem Status W/U Status Risk SNOMED Code Notes Problem Leucocytosis (D72.829) Active confirmed Leucocytosis (569483010) VITAL SIGNS Weight 205.6 lbs 01/21/2024 Blood pressure systolic 110 mm Hg 01/21/20 24 Blood pressure diastolic 80 mm Hg 024 Heart Rate 92 /min 01/21/2024 Height 63.75 in 01/21/2024 BMI 35.56 kg/m2 01/21/2024 Encounters Encounter Location Date Provider Diagnosis [facility] [address] [place] [address] [address] [facility] [address] [place] [id number] 01/21/2024 Yuli Millan Leucocytosis D72.829 and Jaw pain R68.84 ASSESSMENTS Encounter Date Diagnosis Assessment Notes Treatment Notes Treatment Clinical Notes 01/21/2024 Leucocytosis (ICD-10 - D72.829) 01/21/2024 Jaw pain (ICD-10 - R68.84) motrin prn with food; heat application prn; no gum chewing; soft foods; good oral care; offered xray and she declines at this time; will let me know if wishes to do in the future PLAN OF TREATMENT Medication Medication Name Sig Start Date Stop Date Notes Cefdinir 300 MG as directed Orally bid for 10 days 024 Treatment Notes Assessment Notes Jaw pain motrin prn with food ; heat application prn; no gum chewing; soft foods; good oral care; offered xray and she declines at this time; will let me know if wishes to do in the future Next Appt Details Follow Up: prn, Reason: Provider Name:Omi Elkins, 04/08/2024 01:30:00 PM, [address] [place] [address], [address], [place], [id number], Progress Notes * Examination Category Sub-Category Detail Notes ENT/Respiratory Oral cavity : no erythema or e xudate seen on pharynx, dentition satisfactory, pink and moist mucosa; pain with tapping bilateral molars Sinuses : non tender bilateral ly Ears: auditory canals norm al bilaterally, tympanic membranes normal bilaterally Neck : tender jaw line; Heart : RRR Lungs: CTAB A&P General Appearance: well nourished and h ydrated, NAD, alert, active Nose : nares patent Eyes: sclera and conjuncti va clear History and Physical Notes * HPI (History of Present Illness) Category Sub-Category Detail Notes ENT/respiratory ear pain Fever headache rhinorrhea nasal congestion smoking 1/4 PPD painful tooth
--- NOTE | 2024-02-28 09:35 | A.OFFVIS_ITS ---
[facility] Disclaimer: The information contained in this section may have been updated after the patient was seen, as this information can be updated by other users. Social History Smoking Status: Former smoker alcohol intake: never counseling provided: none substance use type: denies use current occupational status: other Travel in the last 8 weeks: Outside the [facility] housing: apartment current occupational exposures/hazards: No caffeine: Yes PM Subjective & Objective Subjective Subjective:: Patient is a pleasant 58-year-old female who presents today for medication re fill and follow-up. Today she rates her pain a 2 out of 10. She denies any new changes or injuries from her last visit. She is doing well with her [place] 7.5 mg twice a day. She denies any side effects. She is prescribed gabapentin from her primary care. Her Sarthak has been reviewed and is appropriate. Review of Systems: General: No recent weight changes, no fever, no sleep disturbances Respiratory: No cough, no shortness of air, no recurring pulmonary infections Cardiovascular/peripheral vascular: No chest pain, no palpitations, no edema, no shortness of breath Gastrointestinal: No new onset incontinence, normal bowel movements reported Genitourinary: No new onset incontinence Musculoskeletal: Low back pain psychiatric: [Normal mood/affect] Neurological: [Denies weakness in extremities], [denies balance issues] Pain at rest (0-10 scale): 2 Objective Objective:: Physical Exam: General: Alert and oriented x3, no acute distress, pleasant and cooperative Lungs: Respirations even and unlabored, symmetrical chest expansion Eyes: PERRL Musculoskeletal: Flexion and extension of lumbar [spine] somewhat guarded secondary to pain, [antalgic gait noted] Neurological: Speech clear, no gross sensory deficit Has patient had previous pain injection?: No Conservative treatment options previously tried: Home exercise plan Length of treatment: Longer than 6 weeks Meds Home Medications and Allergies Home Medications ?Medication ?Instructions ?Recorded ?Confirmed ?Type hydroxyzine pamoate 50 mg capsule 50 mg PO BID Anxiety 05/14/17 01/14/24 History montelukast 10 mg tablet 10 mg PO PM Asthma 05/14/17 01/14/24 History ibuprofen 800 mg tablet 800 mg PO TID PRN pain 06/26/17 01/14/24 History gabapentin 600 mg tablet 600 mg PO TID nerve pain 08/01/17 01/14/24 History primidone 50 mg tablet 50 mg PO TID seizures 08/01/17 01/14/24 History buspirone 10 mg tablet 10 mg PO TID Depression 11/21/17 01/14/24 History cyclobenzaprine 10 mg tablet 10 mg PO BID Pain 11/21/17 01/14/24 History hyoscyamine sulfate 0.125 mg 0.125 mg PO QID PRN reflux 11/21/17 01/14/24 History tablet (Levsin) trazodone 50 mg tablet 50 mg PO QHS sleep 11/21/17 01/14/24 History bisoprolol fumarate 5 mg tablet 5 mg PO DAILY htn 01/30/18 01/14/24 History spironolactone 25 mg tablet 25 mg PO DAILY Fluid 01/30/18 01/14/24 History furosemide 40 mg tablet 40 mg PO DAILY Fluid #30 tabs 07/25/18 01/14/24 Rx amitriptyline 10 mg tablet 10 mg PO DAILY . 11/20/18 01/14/24 History levothyroxine 25 mcg tablet 25 mcg PO DAILY THYROID 11/20/18 01/14/24 History hydrocodone 7.5 mg-acetaminophen 1 tab PO BID #4 tabs 12/31/23 01/14/24 Rx 325 mg tablet hydrocodone 7.5 mg-acetaminophen 1 tab PO BID Pain #60 tabs 01/14/24 Rx 325 mg tablet New Prescriptions to Start Prescriptions: Allergies Allergy/AdvReac Type Severity Reaction Status Date / Time formaldehyde [FORMALDEHYDE] Allergy Mild Verified 10/08/23 11:43 orange juice [ORANGE JUICE] Allergy Mild Verified 10/08/23 11:43 levothyroxine sodium Allergy Unknown CANT TAKE Verified 10/08/23 11:43 [From SYNTHROID] GENERIC PIZZA SAUCE Allergy Mild Uncoded 11/20/18 10:32 Assessment and Plan *Assessment and plan (1) Lumbar radiculopathy: Status: Acute Category: Medical Code(s): M54.16 - Radiculopathy, lumbar region (2) Degenerative disc disease, lumbar: Status: Acute Category: Medical Code(s): M51.36 - Other intervertebral disc degeneration, lumbar region Plan Patient's [place] will be refilled with a 1 month supply of this medication. Patient will return to clinic in 1 month for reevaluation of symptoms and plan of care. Risks and benefits of the medication have been explained in detail to the patient. The patient does understand the risk of dependence on the medication when given over a prolonged period. Patient has been advised of risks of oversedation with the prescribed medication. Narcan has been offered to the paitent in the event of oversedation. Patient has been advised that a family member should also be educated regarding administration of Narcan. The patient has been advised to consult with his/her primary care provider and pharmacist regarding drug-drug interaction of medications currently prescribed. Patient has been prescribed a controlled substance after being counseled on the medication, medication safety, and possible side effects. Opioid contract was reviewed and signed by the patient, and that they have agreed to all of the terms set forth by our compliance program. Patient has been instructed to contact the clinic with any concerns before the next appointment. Dr. Butler has reviewed this note and agrees with this plan of care. This note was dictated using voice recognition software and make contain errors or omissions.
[2024-02-28 10:11] VITALS: BP 140/85; PULSE 58; RESP 18; O2SAT 99; BMI 33.1
== END 2024-02-28 23:59 | disposition home or self-care (01) ==
PROVIDERS: PCP Family Medicine; Visit Provider Nurse Practitioner Family
DX: M51.16 Intervertebral disc disorders with radiculopathy, lumbar region (principal)
CPT/HCPCS: 99212; G0463

== ENCOUNTER 2024-03-31 10:57 | Day surgery (SDC) | payer MEDICARE, SELFPAY ==
[2024-03-28 11:06] VITALS: BMI 36.8
--- OUTSIDE RECORDS SUMMARY | 2024-03-31 11:25 | XMS_ITS | Clinical Summary ---
Author Organization [employer] Address [address] [place] [address] Care Team Providers Care Longwall Headgate Operator Name Role Phone Jeremy Cortes MD Primary Care Provider +1- [phone] Allergies No known active allergies Medications bisoprolol (ZEBETA) 5 MG tablet Take 1 tablet (5 mg total) by mouth daily. 3 Active busPIRone (BUSPAR) 10 MG tablet Take 1 tablet (10 mg total) by mouth 3 (three) times daily. 3 Active cyclobenzaprine (FLEXERIL) 10 MG tablet Take 1 tablet (10 mg total) by mouth 2 (two) times daily. 3 Active desloratadine (CLARINEX) 5 mg tablet Take 1 tablet (5 mg total) by mouth daily. 3 Active DULoxetine (CYMBALTA) 60 MG capsule Take 2 capsules (120 mg total) by mouth daily. 3 Active amitriptyline (ELAVIL) 10 MG tabletIndications: Migraine without aura and without status migrainosus, not intractable Take 1 tablet (10 mg total) by mouth nightly. 90 tablet 3 4 025 Active gabapentin (NEURONTIN) 600 MG tabletIndications: Idiopathic polyneuropathy Take 1 tablet (600 mg total) by mouth 3 (three) times daily for 180 days. Max Daily Amount: 1,800 mg 270 tablet 1 4 025 Active primidone (MYSOLINE) 50 MG tabletIndications: Tremor TAKE TWO TABLETS BY MOUTH EVERY MORNING AND TAKE THREE TABLETS EVERY DAY AT BEDTIME. 450 tablet 3 4 Active amitriptyline (ELAVIL) 10 MG tabletIndications: Migraine without aura and without status migrainosus, not intractable TAKE ONE TABLET BY MOUTH EVERY DAY AT BEDTIME 270 tablet 3 4 024 Discontin ued(Reord er) primidone (MYSOLINE) 50 MG tabletIndications: Tremor TAKE TWO TABLETS BY MOUTH EVERY MORNING AND TAKE THREE TABLETS EVERY DAY AT BEDTIME. 450 tablet 4 024 Discontin ued(Reord er) gabapentin (NEURONTIN) 600 MG tabletIndications: Idiopathic polyneuropathy Take 1 tablet (600 mg total) by mouth 3 (three) times daily. Max Daily Amount: 1,800 mg 90 tablet 4 024 Discontin ued(Reord er) Hospital, Clinic, or Other Facility Administered Medication Ordered Dose Route Frequency Start Date End Date Status incobotulinumtoxinA (XEOMIN) injection 100 UnitsIndications:Cervical dystonia 100 Units IM Once 03/13/2024 03/13/2024 Ended Active Problems No known active problems Encounters Date Type Department Care Team Description 03/13/2024 3:30 PM EST Procedure Visit [facility] - [place] [address] [place] [address] Brianne Bundy MD Cervical dystonia (Primary Dx) 03/13/2024 2:45 PM EST Office Visit [facility] - [facility] [address] [place] [address] Sara Huddleston APRN Idiopathic polyneuropathy (Primary Dx); Migraine without aura and without status migrainosus, not intractable; Tremor; Cervical dystonia 03/13/2024 Travel 02/12/2024 Orders Only [facility] - [facility] [address] [place] [address] Garima Avila CMA Idiopathic polyneuropathy 02/11/2024 Refill [facility] - [facility] [address] [place] [address] Brianne Bundy MD Idiopathic polyneuropathy 02/11/2024 [facility] - [facility] [address] [place] [address] Brianne Bundy MD Tremor 01/14/2024 [facility] Neurology [facility] [address] [place] [address] Brianne Bundy MD Idiopathic polyneuropathy from Last 3 Months Family History Medical History Relation Name Comments Arthritis Other Depression Other Diabetes Other Hyperlipidemia Other Schizophrenia Other Stroke Other Relation Name Status Comments Other Social History Tobacco Use Types Packs/Day Years Used Date Smoking Tobacco: Never Smokeless Tobacco: Never Tobacco Cessation:Counseling Given: Not Answered Interpersonal Safety Answer Date Record ed Family or friends hurt you Not on file 05/15 Family or friends insult you Not on file 01/2024 Family or friends threaten you Not on file 0 05/15/2023 Family or friends scream or curse at you Not on file 05/15/2023 Housing Stability Answer Date Recorded Living situation today Not on file Living situation problems Not on file 2023 Family and Community Support Answer Johny e Recorded Help with Day to Day Activities Not on file 05/15/2023 Feeling Lonely or Isolated Not on file 05/15 Educational Attainment Answer Date Adrian rded Speak language other than Puerto Rican at home Not on file 05/15/2023 Want help with school or training Not on file 05/15/2023 Depression Answer Date Recorded PHQ-2 Risk Not on file 05/15/2023 Disabilities Answer Date Recorded Difficulty concentrating Not on file 024 Difficulty doing errands alone Not on file 0 05/15/2023 Substance Use Answer Date Recorded Used prescription meds for non-medical reasons N ot on file 05/15/2023 Used illegal drugs past 12 months Not on file 05/15/2023 Comments Unknown Sex and Gender Information Value Date Recorded Sex Assigned at Not on file Legal Sex Female 1:59 PM CDT Gender Identity Not on file Sexual Orientation Not on file Last Filed Vital Signs Vital Sign Reading Time Taken Comments Blood Pressure 123/84 03/13/2024 2:57 PM EST Pulse 68 03/13/2024 2:57 PM EST Temperature - - Respiratory Rate - - Oxygen Saturation 99% 05/15/2023 2:24 PM EST Inhaled Oxygen Concentration - - Weight 95 kg (209 lb 8 oz) 03/13/2024 2:57 PM ES T Height 162.6 cm (5' 4 ) 03/13/2024 2:57 PM EST Body Mass Index 35.96 03/13/2024 2:57 PM EST Plan of Treatment Upcoming Encounters Date Type Department Care Team (Late st Contact Info) Description 06/05/2024 3:30 PM EST Procedure Visit [facility] - [place] [address] [place] [address] Brianne Bundy MD [address] [place] [address] Health Maintenance Due Date Last Done Comments CT Colonography 1965 Colonoscopy 1965 Colorectal Cancer Screening 1965 FOBT/FIT 1965 Fit-DNA (Cologuard) 1965 Sigmoidoscopy 1965 Depression Screening (12+) 1977 HIV Screening 1980 Hepatitis C Screening 1983 DTAP/TDAP/TD VACCINES (1 - Tdap) 1984 Pap Smear 1986 Breast Cancer Screening 2005 Lipid Panel 2010 Shingles Vaccine (Zoster) (1 of 2) 2015 Medicare Initial AWV [id number] 05/08/2023 COVID-19 VACCINE (1 - 2023- season) 2024 Influenza Vaccine (#1) 2024 Tobacco Cessation Counseling and Screening (12+) 03/1303/13/2024 Insurance [employer] MEDICARE HMO Care Teams Longwall Headgate Operator Relationship Specialty Start Date End Date Jeremy Cortes MD [address] [place] [address] PCP - General Family Medicine 05/10/22
--- OUTSIDE RECORDS SUMMARY | 2024-03-31 11:25 | XMS_ITS ---
Author Organization [facility] Address [address] [place] [id number] Care Team Providers Care Treasury Director Name Role Phone Omi Cortes Primary [...] Encounter Location Date Provider Diagnosis [place] [address] [facility] [address] [place] [id number] 02/05/2024 Omi Cortes Generalized anxiety disorder F41.1 [...] Up: 2 Months, Reason: Provider Name:Omi Elkins, 04/10/2024 02:00:00 PM, [address] [facility] [address] [facility], [address], [place], [place], [id number], Progress Notes * Examination Category Sub-Category Detail [...] is here today for a 3 mo [facility] follow up. Pt sts that she needs refills today , a scheduled check up. Pt sts that she needs refills of Flexeril and Oxazepam. Pt sts that she has no new concerns or complaints at this time
--- OUTSIDE RECORDS SUMMARY | 2024-03-31 11:25 | XMS_ITS ---
Author Organization [facility] Address [address] [facility] [address] [place] [id number] Care Team Providers Care Hot Metal Mixer Operator Helper Name Role Phone Omi Cortes Primary Care Provider [phone] REASON FOR VISIT Message Encounters Encounter Location Date Provider Diagnosis [facility] [address] [place] [id number] 01/24/2024 Omi Cortes Encounter for screening colonoscopy Z12.11 ASSESSMENTS Encounter Date Diagnosis Assessment Notes Treatment Notes Treatment Clinical Notes 01/24/2024 Encounter for screening colonoscopy (ICD-10 - Z12.11) PLAN OF TREATMENT Pending Test Test Name Order Date colonoscopy 01/24/2024 Next Appt Details Provider Name:Omi Elkins, 04/10/2024 02:00:00 PM, [address], [address], [place], [id number],
--- OUTSIDE RECORDS SUMMARY | 2024-03-31 11:25 | XMS_ITS ---
Author Organization [facility] Address [address] [place] [id number] Care Team Providers Care Mattress Stuffer Name Role Phone Omi Cortes Primary Care Provider [phone] Yuli Millan Unavailable [phone] ALLERGIES Allergen (clinical drug ingredient) Drug/Non Drug [...] Notes Problem Leucocytosis (D72.829) Active confirmed Leucocytosis (323236659) VITAL SIGNS Weight 205.6 lbs 01/21/2024 Blood pressure systolic 110 mm Hg 01/21/20 24 Blood pressure diastolic 80 mm Hg 024 Heart Rate 92 /min 01/21/2024 Height 63.75 in 01/21/2024 BMI 35.56 kg/m2 01/21/2024 Encounters Encounter Location Date Provider Diagnosis [facility] 12[address] [facility] 36 [facility] [address] [place] [id number] 01/21/2024 Yuli Millan Leucocytosis D72.829 and Jaw [...] Follow Up: prn, Reason: Provider Name:Omi Elkins, 04/10/2024 02:00:00 PM, [address] [place] [address], [address], [place], [phone], Progress Notes * Examination Category Sub-Category Detail [...]
--- OUTSIDE RECORDS SUMMARY | 2024-03-31 11:25 | XMS_ITS | Encounter Summary ---
Author Organization [employer] [facility] [employer] Address [address] [place] [address] Care Team Providers Care Chief Legal Officer Name Role Phone Jeremy Cortes MD Primary Care Provider [phone]- [phone] Encounter Details Date Type Department Care Team (Latest Contact Info) Description 03/13/2024 Travel Social History Tobacco Use Types Packs/Day Years Used Date Smoking Tobacco: Never Smokeless Tobacco: Never Interpersonal Safety Answer Date Record ed Family [...] Date Adrian rded Speak language other than Anguillan at home Not on file 05/15/2023 Want [...] on file Sexual Orientation Not on file documented as of this encounter Plan of Treatment Upcoming Encounters Date Type Department Care Team (Late st Contact Info) Description 06/05/2024 3:30 PM EST Procedure Visit [facility] - [place] [address] [place] [address] Brianne Bundy MD [address] [place] [address] documented as of this encounter Visit Diagnoses Not on filedocumented in this encounter Care Teams Chief Legal Officer Relationship Specialty Start Date End Date Jeremy Cortes MD [address] [place] [address] PCP - General Family Medicine 05/10/22 documented as of this encounter
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
--- OUTSIDE RECORDS SUMMARY | 2024-03-31 11:25 | XMS_ITS | Referral Summary ---
Author Organization [facility] Address [address] [place] [address] Care Team Providers Care Auto Hiker Name Role Phone Jeremy Cortes MD Primary Care Provider +1- [phone] Encounters Date Type Department Care Team Description 03/13/2024 Travel 03/13/2024 3:30 PM EST Procedure Visit [facility] [address] [place] [address] Brianne Bundy MD Cervical dystonia (Primary Dx) 03/13/2024 2:45 PM EST Office Visit [facility] [address] [place] [address] Sara Huddleston APRN Idiopathic polyneuropathy (Primary Dx); Migraine without aura and without status migrainosus, not intractable; Tremor; Cervical dystonia 02/12/2024 Orders Only [facility] [address] [place] [address] Garima Avila CMA Idiopathic polyneuropathy 02/11/2024 Refill [facility] [address] [place] [address] Brianne Bundy MD Idiopathic polyneuropathy 02/11/2024 Refill [facility] [address] [place] [address] Brianne Bundy MD Tremor 01/14/[address] [facility] - [address] [place] [address] Brianne Bundy MD Idiopathic polyneuropathy from Last 3 Months Allergies No known active allergies Medications bisoprolol [...] Max Daily Amount: 1,800 mg 90 tablet 024 Discontin ued([facility]) Hospital, Clinic, or Other Facility Administered Medication Ordered Dose Route Frequency Start Date End Date Status incobotulinumtoxinA (XEOMIN) injection 100 UnitsIndications:Cervical dystonia 100 Units IM Once 03/13/2024 03/13/2024 Ended Active Problems No known active problems Social History Tobacco Use Types Packs/Day Years [...] Date Adrian rded Speak language other than Guamanian at home Not on file 05/15/2023 Want [...] Description 06/05/2024 3:30 PM EST Procedure Visit [facility] - [place] [address] [place] [address] Brianne Bundy MD [address] [place], [place] [id number] Insurance [employer] MEDICARE HMO Care Teams Auto Hiker Relationship Specialty Start Date End Date Jeremy Cortes MD [address] [place] [address] PCP - General Family Medicine 05/10/22
--- OUTSIDE RECORDS SUMMARY | 2024-03-31 11:26 | XMS_ITS | Encounter Summary ---
Author Organization [employer] Address [address] [place] [address] Care Team Providers Care Electrical Contractor Name Role Phone Jeremy Cortes MD Primary Care Provider +1- [phone] Reason for Visit * Reason Comments Cervical Dystonia Encounter Details Date Type Department Care Team (Latest Contact Info) Description 03/13/2024 2:45 PM EST Office Visit [facility] Neurology - [facility] [address] [place] [address] [address] [place] [phone] Sara Huddleston APRN [address] [facility] [address] [place] [address] Idiopathic polyneuropathy (Primary Dx); Migraine without aura and without status migrainosus, not intractable; Tremor; Cervical dystonia Social History Tobacco Use Types Packs/Day Years [...] Date Adrian rded Speak language other than Cymraes at home Not on file 05/15/2023 Want [...] on file documented as of this encounter Last Filed Vital Signs Vital Sign Reading Time Taken Comments Blood Pressure 123/84 03/13/2024 2:57 PM EST Pulse 68 03/13/2024 2:57 PM EST Temperature - - Respiratory Rate - - Oxygen Saturation - - Inhaled Oxygen Concentration - - Weight 95 kg (209 lb 8 oz) 03/13/2024 2:57 PM ES T Height 162.6 cm (5' 4 ) 03/13/2024 2:57 PM EST Body Mass Index 35.96 03/13/2024 2:57 PM EST documented in this encounter Progress Notes * Sara Huddleston, RETAIL ACCOUNT SPECIALIST - 03/13/2024 2:45 PM EST Subjective Erna Mosley is a 58 y.o. female Chief Complaint Patient presents with Cervical Dystonia I have reviewed and/or updated the following: Tobacco Allergies Meds Problems Med Hx Surg Hx Fam Hx Ms. Mosley has tremor. She is being treated with Botox for cervical dystonia Botox with Dr. Bundy. Botox is working well for her neck tremor. Unless it is hurting the tremor can come back. Notes she is a little shakier at the end of her Botox cycle. Primidone works for tremor as well. Good water drinker and limited caffeine intake. Gabapentin works well for neuropathy. Mostly burning and pain is controlled. Every now and then shewill have numbness break through. Denies falls. Has low back issues, this is a chronic problem. Back bothers her more in the cold weather. Denies weakness. Sleeps well at night. Anxiety and depression is managed with medicine. Headaches are controlled with amitriptyline 10 mg QHS. Review of Systems Musculoskeletal: Positive for back pain and neck pain. Neurological: Positive for numbness. All other systems reviewed and are negative. Radiology Results (last 7 days) No results found for the last 168 hours. No visits with results within 1 Day(s) from this visit. Latest known visit with results is: Office Visit on 05/11/2022 Component Date Value Ref Range Status Vitamin B12 05/11/2022 299 232 - 1,245 pg/mL Final Vitamin B6 05/11/2022 14.2 3.4 - 65.2 ug/L Final Comment: Deficiency: <3.4 Marginal: 3.4 - 5.1 Adequate: >5.1 Vit. B1, Whole Blood 05/11/2022 124.7 66.5 - 200.0 nmol/L Final Vitamin D, 25-Hydroxy 05/11/2022 21.9 (L) 30.0 - 100.0 ng/mL Final Comment: Vitamin D deficiency has been defined by the [place] of Medicine and an Endocrine Society practice guideline as a level of serum 25-OH vitamin D less than 20 ng/mL (1,2). The Endocrine Society went on to further define vitamin D insufficiency as a level between 21 and 29 ng/mL (2). 1. IOM ([place] of Medicine). 2010. Dietary reference intakes for calcium and D. [place]: The National Academies Press. 2. Darrius MF, Dustin NC, Cristian TAM, et al. Evaluation, treatment, and prevention of vitamin D deficiency: an Endocrine Society clinical practice guideline. JCEM. 2010; 96(7):1911-30. Folate (Folic Acid), Serum 05/11/2022 12.4 >3.0 ng/mL Final Comment: A serum folate concentration of less than 3.1 ng/mL is considered to represent clinical deficiency. Glucose, Serum 05/11/2022 83 70 - 99 mg/dL Final BUN 05/11/2022 14 6 - 24 mg/dL Final Creatinine, Serum 05/11/2022 0.47 (L) 0.57 - 1.00 mg/dL Final EGFR 05/11/2022 111 >59 mL/min/1.73 Final BUN/Creatinine Ratio 05/11/2022 30 (H) 9 - 23 Final Sodium, Serum 05/11/2022 143 134 - 144 mmol/L Final Potassium, Serum 05/11/2022 4.5 3.5 - 5.2 mmol/L Final Chloride, Serum 05/11/2022 106 96 - 106 mmol/L Final Carbon Dioxide, Total 05/11/2022 23 20 - 29 mmol/L Final Calcium, Serum 05/11/2022 9.3 8.7 - 10.2 mg/dL Final Protein, Total, Serum 05/11/2022 6.1 6.0 - 8.5 g/dL Final Albumin, Serum 05/11/2022 3.9 3.8 - 4.9 g/dL Final Globulin, Total 05/11/2022 2.2 1.5 - 4.5 g/dL Final A/G Ratio 05/11/2022 1.8 1.2 - 2.2 Final Bilirubin, Total 05/11/2022 <0.2 0.0 - 1.2 mg/dL Final Alkaline Phosphatase, S 05/11/2022 85 44 - 121 IU/L Final AST (SGOT) 05/11/2022 16 0 - 40 IU/L Final ALT (SGPT) 05/11/2022 24 0 - 32 IU/L Final Objective BP 123/84 (BP Location: Left arm, Patient Position: Sitting, Cuff Size: Large Adult) Pulse 68 Ht 1.626 m (5' 4 ) Wt 95 kg (209 lb 8 oz) BMI 35.96 kg/m?? Neurologic Exam Mental Status Oriented to person, place, and time. Level of consciousness: alert Cranial Nerves Cranial nerves II through XII intact. CN III, IV, Pupils are equal, round, and reactive to light. Motor Exam Muscle bulk: normal Overall muscle tone: normal Strength Strength 5/5 except as noted. 4/5 to RUE, states related to injury Sensory Exam Decreased sensation to BLE to TMP in a stocking distribution Gait, Coordination, and Reflexes Gait Gait: normal Coordination Romberg: negative Tandem walking coordination: normal Tremor Resting tremor: mild horizontal neck tremor. Reflexes Reflexes 2+ except as noted. Physical Exam Vitals and nursing note reviewed. Constitutional: Appearance: Normal appearance. HENT: Head: Normocephalic. Eyes: Extraocular Movements: Extraocular movements intact. Conjunctiva/sclera: Conjunctivae normal. Pupils: Pupils are equal, round, and reactive to light. Neck: Comments: Increased tone to B trapezius muscles Pulmonary: Effort: Pulmonary effort is normal. Skin: General: Skin is warm and dry. Neurological: Mental Status: She is alert and oriented to person, place, and time. Cranial Nerves: Cranial nerves 2-12 are intact. Coordination: Romberg Test normal. Gait: Gait is intact. Tandem walk normal. Psychiatric: Mood and Affect: Mood normal. Thought Content: Thought content normal. No images are attached to the encounter. Assessment 1. Idiopathic polyneuropathy 2. Migraine without aura and without status migrainosus, not intractable 3. Tremor 4. Cervical dystonia Plan Ms. Mosley has tremor and neuropathy. Continue with Dr. Bundy for Botox for cervical dystonia. Continue current medication regimen of Gabapentin for neuropathy, amitriptyline for headache, and primidone for tremor. Diagnoses and all orders for this visit: Idiopathic polyneuropathy - gabapentin (NEURONTIN) 600 MG tablet; Take 1 tablet (600 mg total) by mouth 3 (three) times dailyfor 180 days. Max Daily Amount: 1,800 mg Migraine without aura and without status migrainosus, not intractable - amitriptyline (ELAVIL) 10 MG tablet; Take 1 tablet (10 mg total) by mouth nightly. Tremor - primidone (MYSOLINE) 50 MG tablet; TAKE TWO TABLETS BY MOUTH EVERY MORNING AND TAKE THREE TABLETSEVERY DAY AT BEDTIME. Cervical dystonia Return in about 6 months (around 09/10/2024) for same day as botox with dr bundy. [employer] [facility] documented in this encounter Plan of Treatment Upcoming Encounters Date Type Department Care Team (Late st Contact Info) Description 06/05/2024 3:30 PM EST Procedure Visit [facility] - [place] [address] [facility] [address] [place] [address] Brianne Bundy MD [address] [facility] [address] [place] [address] documented as of this encounter Visit Diagnoses Diagnosis Idiopathic polyneuropathy- Primary Migraine without aura and without status migrainosus, not intractable Tremor Abnormal involuntary movements Cervical dystonia Spasmodic torticollis documented in this encounter Care Teams Electrical Contractor Relationship Specialty Start Date End Date Jeremy Cortes MD [address] [place] [address] PCP - General Family Medicine 05/10/22 documented as of this encounter
--- OUTSIDE RECORDS SUMMARY | 2024-03-31 11:26 | XMS_ITS | Encounter Summary ---
Author Organization [employer] Address [address] [place] [address] Care Team Providers Care Extrusion Press Operator Name Role Phone Jeremy Cortes MD Primary Care Provider +1- [phone] Reason for Visit * Reason Comments Medication Refill Encounter Details Date Type Department Care Team (Late st Contact Info) Description 11/16/2023 Refill [facility] - [facility] [address] [facility] [address] [place] [address] Brianne Bundy MD [address] [place] [address] Idiopathic polyneuropathy Social History Tobacco Use Types Packs/Day Years [...] Date Adrian rded Speak language other than [place] at home Not on file 05/15/2023 Want [...] Description 06/05/2024 3:30 PM EST Procedure Visit [facility] Neurology - [facility] [address] [facility] [facility] [address] [place] [address] Brianne Bundy MD [address] [place] [address] documented as of this encounter Visit Diagnoses Diagnosis Idiopathic polyneuropathy documented in this encounter Care Teams Extrusion Press Operator Relationship Specialty Start Date End Date Jeremy Cortes MD [address] [place] [id number] PCP - General Family Medicine 05/10/22 documented as of this encounter
--- OUTSIDE RECORDS SUMMARY | 2024-03-31 11:26 | XMS_ITS | Encounter Summary ---
Author Organization [employer] Address [address] [place] [address] Care Team Providers Care Concrete Pipe Machine Operator Name Role Phone Jeremy Cortes MD Primary Care Provider +1- [phone] Reason for Visit * Reason Onset Date Comments Medication Refill 01/14/2024 Encounter Details Date Type Department Care Team (Late st Contact Info) Description 01/14/2024 Refill [facility] - [facility] [address] [facility] [address] [place] [address] Brianne Bundy MD [address] [place] [address] Idiopathic polyneuropathy Social History Tobacco Use Types [...] on file documented as of this encounter Miscellaneous Notes * Telephone Encounter - Shira Philip CMA - 01/14/2024 1:08 PM EDT Patient called needing [facility] refill [facility]. Shira Flannery CMA documented in this encounter Plan of Treatment Upcoming Encounters Date Type Department Care Team (Late st Contact Info) Description 06/05/2024 3:30 PM EST Procedure Visit [facility] Neurology - [place] [address] [place] [address] Brianne Bundy MD [address] [place] [address] documented as of this encounter Visit Diagnoses Diagnosis Idiopathic polyneuropathy documented in this encounter Care Teams Concrete Pipe Machine Operator Relationship Specialty Start Date End Date Jeremy Cortes MD [address] [place] [address] PCP - General Family Medicine 05/10/22 documented as of this encounter
--- OUTSIDE RECORDS SUMMARY | 2024-03-31 11:26 | XMS_ITS | Encounter Summary ---
Author Organization [employer] Address [address] [place] [address] Care Team Providers Care Tubing Mill Operator Name Role Phone Jeremy Cortes MD Primary Care Provider +1- [phone] Encounter Details Date Type Department Care Team (Late st Contact Info) Description 11/16/2023 Orders Only [facility] Neurology - [address] [place] [address] Garima Avila, RADHA Idiopathic polyneuropathy Social History Tobacco Use Types [...] Date Adrian rded Speak language other than [place]aur[place] at home Not on file 05/15/2023 Want [...] Description 06/05/2024 3:30 PM EST Procedure Visit [facility] Neurology - [facility] [address] [facility] [address] [place] [id number] Brianne Bundy MD [address] [place] [address] documented as of this encounter Visit Diagnoses Diagnosis Idiopathic polyneuropathy documented in this encounter Care Teams Tubing Mill Operator Relationship Specialty Start Date End Date Jeremy Cortes MD [address] [place] [address] PCP - General Family Medicine 05/10/22 documented as of this encounter
--- OUTSIDE RECORDS SUMMARY | 2024-03-31 11:26 | XMS_ITS | Encounter Summary ---
Author Organization [employer] Address [address] [place] [address] Care Team Providers Care Drill Runner Helper Name Role Phone Jeremy Cortes MD Primary Care Provider +1- [phone] Reason for Visit * Reason Comments Follow-up Peripheral Neuropathy Encounter Details Date Type Department Care Team (Late st Contact Info) Description 11/14/2022 1:45 PM EDT Office Visit [facility] Neurology - [facility] [address] [facility] [address] [place] [address] Brianne Bundy MD [address] [facility] [address] [place], [place] [id number] Idiopathic polyneuropathy; Tremor Social History Tobacco Use Types Packs/Day Years Used Date Smoking Tobacco: Never Smokeless Tobacco: Never Tobacco Cessation:Counseling Given: Not Answered Comments Unknown Sex and Gender Information Value Date Recorded Sex Assigned at Not on file Legal Sex Female 1:59 PM CDT Gender Identity Not on file Sexual Orientation Not on file documented as of this encounter Last Filed Vital Signs Vital Sign Reading Time Taken Comments Blood Pressure 109/73 11/14/2022 1:44 PM EDT Pulse 81 11/14/2022 1:44 PM EDT Temperature - - Respiratory Rate - - Oxygen Saturation 100% 11/14/2022 1:44 PM EDT Inhaled Oxygen Concentration - - Weight 96.4 kg (212 lb 8 oz) 11/14/2022 1:44 PM EDT Height 157.5 cm (5' 2 ) 11/14/2022 1:44 PM EDT Body Mass Index 38.87 11/14/2022 1:44 PM EDT documented in this encounter Progress Notes * Brianne Bundy MD - 11/14/2022 1:45 PM EDT Subjective Erna Mosley is a 57 y.o. female Chief Complaint Patient presents with ??? Follow-up ??? Peripheral Neuropathy I have reviewed and/or updated the following: Ms. Mosley has polyneuroapthy. She feels symptoms are overall stable in legs. She was noticing painwith tunring in her back but this has gotten better. She does see a Chiropractor. She has Sciatic pain as well. She feels like she is more active in warm weather which does help. She has essential tremors. She feels this is overall stable. She has bilateral carpal tunnel symdrome. She does wear the wrist splint at night. Review of Systems Constitutional: Positive for fatigue. Cardiovascular: Positive for leg swelling. Gastrointestinal: Positive for constipation. Musculoskeletal: Positive for back pain, myalgias and neck pain. Neurological: Positive for dizziness, weakness, light-headedness and numbness. Radiology Results (last 7 days) No results found for the last 168 hours. No visits with results within 1 Day(s) from this visit. Latest known visit with results is: Office Visit on 05/11/2022 Component Date Value Ref Range Status ??? Vitamin B12 05/11/2022 299 232 - 1,245 pg/mL Final ??? Vitamin B6 05/11/2022 14.2 3.4 - 65.2 ug/L Final Comment: Deficiency: <3.4 Marginal: 3.4 - 5.1 Adequate: >5.1 ??? Vit. B1, Whole Blood 05/11/2022 124.7 66.5 - 200.0 nmol/L Final ??? Vitamin D, 25-Hydroxy 05/11/2022 21.9 (L) 30.0 - 100.0 ng/mL Final Comment: Vitamin D deficiency has been defined by the [place] of Medicine and an Endocrine Society practice guideline as a level of serum 25-OH vitamin D less than 20 ng/mL (1,2). The Endocrine Society went on to further define vitamin D insufficiency as a level between 21 and 29 ng/mL (2). 1. IOM ([place] of Medicine). 2010. Dietary reference intakes for calcium and D. [place]: The National Academies Press. 2. Darrius MF, Dustin NC, Cristian TAM, et al. Evaluation, treatment, and prevention of vitamin D deficiency: an Endocrine Society clinical practice guideline. JCEM. 2010; 96(5):1911-30. ? ? Folate (Folic Acid), Serum 05/11/2022 12.4 >3.0 ng/mL Final Comment: A serum folate concentration of less than 3.1 ng/mL is considered to represent clinical deficiency. ??? Glucose, Serum 05/11/2022 83 70 - 99 mg/dL Final ??? BUN 05/11/2022 14 6 - 24 mg/dL Final ??? Creatinine, Serum 05/11/2022 0.47 (L) 0.57 - 1.00 mg/dL Final ? ? EGFR 05/11/2022 111 >59 mL/min/1.73 Final ??? BUN/Creatinine Ratio 05/11/2022 30 (H) 9 - 23 Final ??? Sodium, Serum 05/11/2022 143 134 - 144 mmol/L Final ??? Potassium, Serum 05/11/2022 4.5 3.5 - 5.2 mmol/L Final ??? Chloride, Serum 05/11/2022 106 96 - 106 mmol/L Final ??? Carbon Dioxide, Total 05/11/2022 23 20 - 29 mmol/L Final ??? Calcium, Serum 05/11/2022 9.3 8.7 - 10.2 mg/dL Final ??? Protein, Total, Serum 05/11/2022 6.1 6.0 - 8.5 g/dL Final ??? Albumin, Serum 05/11/2022 3.9 3.8 - 4.9 g/dL Final ??? Globulin, Total 05/11/2022 2.2 1.5 - 4.5 g/dL Final ??? A/G Ratio 05/11/2022 1.8 1.2 - 2.2 Final ? ? Bilirubin, Total 05/11/2022 <0.2 0.0 - 1.2 mg/dL Final ??? Alkaline Phosphatase, S 05/11/2022 85 44 - 121 IU/L Final ??? AST (SGOT) 05/11/2022 16 0 - 40 IU/L Final ??? ALT (SGPT) 05/11/2022 24 0 - 32 IU/L Final Objective BP 109/73 Pulse 81 Ht 1.575 m (5' 2 ) Wt 96.4 kg (212 lb 8 oz) SpO2 100% BMI 38.87 kg/m?? Neurologic Exam Mental Status Oriented to person, place, and time. Attention: normal. Concentration: normal. Level of consciousness: alert Knowledge: good. Normal comprehension. Cranial Nerves Cranial nerves II through XII intact. CN III, IV, Pupils are equal, round, and reactive to light. Motor Exam Muscle bulk: normal Overall muscle tone: normal Strength Strength 5/5 throughout. Sensory Exam Right leg vibration: decreased from ankle Left leg vibration: decreased from ankle Gait, Coordination, and Reflexes Gait Gait: normal Tremor Resting tremor: absent Intention tremor: present Action tremor: left arm and right arm Physical Exam Vitals and nursing note reviewed. Constitutional: Appearance: Normal appearance. Eyes: Conjunctiva/sclera: Conjunctivae normal. Pupils: Pupils are equal, round, and reactive to light. Cardiovascular: Rate and Rhythm: Normal rate and regular rhythm. Pulmonary: Effort: Pulmonary effort is normal. Breath sounds: Normal breath sounds. Musculoskeletal: Cervical back: Normal range of motion and neck supple. Skin: General: Skin is warm and dry. Neurological: Mental Status: She is alert and oriented to person, place, and time. Cranial Nerves: Cranial nerves 2-12 are intact. Motor: Motor strength is normal. Gait: Gait is intact. Psychiatric: Mood and Affect: Mood normal. Behavior: Behavior normal. Thought Content: Thought content normal. Judgment: Judgment normal. Assessment 1. Idiopathic polyneuropathy 2. Tremor Plan Ms. Mosley has tremor. She will continue on Primidone 100mg in am and 150mg qhs. She has neuropathy. She will stay on Gabapentin. Siddharth PELAYO is reviewed. Diagnoses and all orders for this visit: Idiopathic polyneuropathy - gabapentin (NEURONTIN) 600 MG tablet; Take 1 tablet (600 mg total) by mouth 3 (three) times daily. Max Daily Amount: 1,800 mg Tremor - primidone (MYSOLINE) 50 MG tablet; 2 tabs po qam and 3 tabs po qhs. Return in about 6 months (around 05/17/2023). documented in this encounter Plan of Treatment Upcoming Encounters Date Type Department Care Team (Late st Contact Info) Description 06/05/2024 3:30 PM EST Procedure Visit [facility] Neurology - [place] [address] [place] [id number] Brianne Bundy MD [address] [facility] [address] [place] [address] documented as of this encounter Visit Diagnoses Diagnosis Idiopathic polyneuropathy Tremor Abnormal involuntary movements documented in this encounter Care Teams Drill Runner Helper Relationship Specialty Start Date End Date Jeremy Cortes MD [address] [place] [address] PCP - General Family Medicine 05/10/22 documented as of this encounter
--- OUTSIDE RECORDS SUMMARY | 2024-03-31 11:26 | XMS_ITS | Encounter Summary ---
Author Organization [employer] Address [address] [place] [address] Care Team Providers Care Baseball Scout Name Role Phone Jeremy Cortes MD Primary Care Provider +1- [phone] Reason for Visit * Reason Comments Spasms * Clinic Procedure (Routine) - Authorized Specialty Diagnoses / Procedures Referred By Contac t Referred To Contact Neurology Diagnoses Cervical dystonia Xeomin CD 200 Units [employer] [facility] B&B Exp: 05/06/24 Brianne Bundy MD [address] [place] [address] Phone: tel: fax: Brianne Bundy MD [address] [place] [address] Phone: tel: fax: Referral ID Status Reason Start Date Expiration Date V isits Requested Visits Authorized [id number] Authorized 06/05/2023 05/06/2024 5 5 Encounter Details Date Type Department Care Team (Latest Contact Info) Description 12/20/2023 3:30 PM EDT Procedure Visit [facility] Neurology - [place] [address] [place] [address] Brianne Bundy MD [address] [place] [address] Cervical dystonia (Primary Dx) Social History Tobacco Use Types Packs/Day Years [...] Date Adrian rded Speak language other than Northern Irish at home Not on file 05/15/2023 Want [...] on file documented as of this encounter Progress Notes * Brianne Bundy MD - 12/20/2023 3:30 PM EDT Erna Mosley is a 58 y.o. female that presents with Spasms She has cervical dystonia. At her last appointment, we decreased the total Xeomin to 100 units. Shefelt she did very well with this last set of injections. He had no neck weakness or other adverse reaction. She can feel the Xeomin wearing off at the end of the cycle. Procedures Neck Botulinum Injection Date/Time: 12/20/2023 Performed by: Brianne Bundy MD Authorized by: Brianne Bundy MD Consent: Consent obtained: Written Consent given by: Patient Risks discussed: Weakness, pain, infection and bleeding Procedure details: EMG used?: Yes EMG result: to localize appropriate muscles and grade level of spasticity Diluted by: Preservative free saline Toxin (Brand): IncoBoNT-A (Xeomin) Concentration (u/mL): 100 Total number of units available: 100 Right semispinalis capitis: 25 units divided amongst 1 site(s) Right upper trapezius: 25 units divided amongst 1 site(s) Left upper trapezius: 25 units divided amongst 1 site(s) Right levator scapulae: 25 units divided amongst 1 site(s) Total units injected: 100 Total units wasted: 0 Post-procedure details: Patient tolerance of procedure: Tolerated well, no immediate complications Comments: MARCELO AND BILL Lot #[id number], exp 03/01 x 1 vial She is responding very well to Xeomin injections Return in about 12 weeks (around 03/13/2024) for xeomin. documented in this encounter Miscellaneous Notes * Addendum Note - Lindy Rene - 12/20/2023 3:30 PM EDTAddended by: LINDY RENE on: 12/21/2023 05:26 PM Modules accepted: Orders documented in this encounter Plan of Treatment Upcoming Encounters Date Type Department Care Team (Late st Contact Info) Description 06/05/2024 3:30 PM EST Procedure Visit [facility] Neurology - [place] [facility] [address] [place] [address] Brianne Bundy MD [address] [facility] [address] [place] [address] documented as of this encounter Visit Diagnoses Diagnosis Cervical dystonia- Primary Spasmodic torticollis documented in this encounter Administered Medications Inactive Administered Medications - up to 3 most recent administrations Medication Order MAR Action Action Date Dose Rate Site incobotulinumtoxinA (XEOMIN) injection 100 Units 100 Units Once, intraMUSCULAR, On Daf[place] 12/20/23 at 1500, For 1 dose, XEOMIN should be used for only 1 injection session and for only one patient. XEOMIN vials are for single-dose only. Discard any unused portion. Refrigerate.Indications:Cer vical dystonia Given by Other 12/20/2023 3:00 PM EDT 100 Units O ther documented in this encounter Care Teams Baseball Scout Relationship Specialty Start Date End Date Jeremy Cortes MD [address] [place] [address] PCP - General Family Medicine 05/10/22 documented as of this encounter
--- OUTSIDE RECORDS SUMMARY | 2024-03-31 11:26 | XMS_ITS | Encounter Summary ---
Author Organization [facility] Address [address] [place] [address] Care Team Providers Care Nuclear Licensing Engineer Name Role Phone Unavailable Primary Care Provider Unavailabl e Encounter Details Date Type Department Care Team (Late st Contact Info) Description 01/09/2014 5:52 AM EDT - 01/10/2014 9:52 AM EDT Hospital Encounter [address] [address] Sanjay Pinto MD Social History Tobacco Use Types Packs/Day Years Used Date Smoking Tobacco: Never Assessed Comments Unknown Sex and Gender Information Value Date Recorded Sex Assigned at Not on file Legal Sex Female 1:43 PM EDT Gender Identity Not on file Sexual Orientation Not on file documented as of this encounter Discharge Summaries * Interface, See Report - 01/09/2014 5:52 AM EDT [address] [address] DISCHARGE SUMMARY PATIENT NAME: KAVIN ARAMBULA ROOM NUMBER: [id number] VISIT NUMBER: [id number] DATE OF : 1965 DATE OF ADMISSION: 01/09/2014 DATE OF DISCHARGE: 01/10/2014 PRIMARY CARE PHYSICIAN: Miguelito Cortes MD DISCHARGE DIAGNOSIS: Cervical disc herniation C5-C6, left degenerative cervical disc at C6-C7. OPERATIVE PROCEDURE: Anterior cervical discectomy and fusion at C5-C6, C6-C7. HISTORY: The patient is a 48-year-old woman with a history of pain in her left chest and arm that began on 06/13/2013. She has had neck and bilateral shoulder pain since then treated with physical therapy without relief. She had cervical injection therapies. MRI scan showed a cervical disc herniation at C5-C6 on the left, degenerative disc change of both C5-C6 and C6-C7. There was progression of degenerative changes in the 2 cervical discs over a 14-year period since 1999. PHYSICAL EXAMINATION: Strength intact in her upper extremities, subjective numbness in the left arm. No focal sensory loss. Reflexes were 1+ in both biceps and triceps. HOSPITAL COURSE: On the day of admission, the patient had an anterior cervical discectomy and fusion, C5-C6 and C6-C7. There were no surgical complications. She was observed overnight and discharged home the following morning. She complained of right upper extremity pain, moderate in degree, much better relief of pain on the left side, bilateral shoulder discomfort as expected. Wound closure is subcuticular. Bandage was changed prior to discharge. DISCHARGE MEDICATIONS: 1. Clarinex daily. 2. Trazodone 100 mg at bedtime. 3. Vistaril 50 mg q.8h. p.r.n. 4. BuSpar 10 mg t.i.d. 5. Viibryd 40 mg at bedtime. 6. Propranolol 10 mg t.i.d. 7. Tizanidine 4 mg 1-2 a day. 8. Lortab 10 mg q.6h. p.r.n. 9. Mavik 2 mg daily. 10. Flexeril p.r.n. 11. ProAir inhaler. 12. Levsin 0.125 mg p.r.n. stomach irritation. FOLLOW UP: The patient will be seen in follow-up in 4 weeks. 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 Sanjay Pinto MD* JRB/rxmsc Voice Rec. ID #[id number] Voice Original ID #[id number] Doc ID #[id number] Rev. #0 cc: Sanjay Pinto MD* Leola Cortes M.D.* DO NOT TEXT EDIT THIS LINE :CDS:[id number]: Authenticated by SANJAY PINTO MD On 01/14/2014 06:21:46 AM documented in this encounter H&P Notes * Interface, See Report - 01/09/2014 5:52 AM EDT [address] HISTORY AND PHYSICAL PATIENT NAME: KAVIN ARAMBULA ROOM NUMBER: VISIT NUMBER: [id number] DATE OF : 1965 DATE OF ADMISSION: 01/09/2014 CHIEF COMPLAINT: Left shoulder and arm pain. REFERRING PHYSICIAN: Miguelito Cortes MD, [place] HISTORY OF PRESENT ILLNESS: The patient is a 48-year-old woman with a history of pain in her left chest and arm that began on 06/13/2013. She has had physical therapy without success and cervical injection therapies. MRI scan shows a cervical disc herniation C5-C6 on the left. She has degenerative disc changes significant at C5-C6 and C6-C7. There has been progression of degenerative change in both levels since previous scan 1999. PAST SURGICAL HISTORY: 1. Tonsillectomy. 2. Wrist reconstruction. 3. Hysterectomy. MEDICATIONS: 1. Clarinex daily. 2. Trazodone 100 at bedtime. 3. Vistaril 50 q.8 h. p.r.n. 4. BuSpar 10 t.i.d. 5. Cymbalta at bedtime. 6. Viibryd 40 mg at bedtime. 7. Propranolol 10 t.i.d. 8. Tizanidine 4, 1-2 daily. 9. Lortab 7.5 b.i.d. p.r.n. 9. Mavik 2 mg daily. 10. Flexeril p.r.n. 11. ProAir inhaler. 12. Levsin 0.125 mg for stomach. 13. Ibuprofen p.r.n. 14. Pravastatin 40 mg. SOCIAL HISTORY: Single. Works as a produce service team member at [employer]. Pack per day smoker. FAMILY HISTORY: Heart disease, colon cancer and diabetes. REVIEW OF SYSTEMS: History of pneumonia, headaches, dizziness, memory loss, nervousness, insomnia, depression and heat and cold intolerance. PHYSICAL EXAMINATION: Height 5 feet 4 inches. Weight 241. Strength intact deltoid, biceps, triceps and varnish maker. Subjective numbness left arm. No focal loss. Reflexes 1+ in both biceps, and triceps, 2+ knee jerks, 1+ ankle jerks equal. IMPRESSION: 1. Cervical disc herniation, C5-C6, left. 2. Significant degenerative disc C5-C6, C6-C7. PLAN: Anterior cervical discectomy and fusion, C5-C6, C6-C7. Sanjay Pinto MD* JRB/rxll Voice Rec. ID #[id number] Voice Original ID #[id number] Doc ID #[id number] Rev. #0 cc: Sanjay Pinto MD* Leola Cortes M.D.* DO NOT TEXT EDIT THIS LINE :[facility]:[id number]: Authenticated by SANJAY PINTO MD On 12/12/2013 06:09:35 AM documented in this encounter OR Notes * Op Note - Interface, See Report - 01/09/2014 5:52 AM EDT [place] [address] OPERATIVE REPORT PATIENT NAME: KAVIN ARAMBULA ROOM NUMBER: [id number] VISIT NUMBER: [id number] DATE OF : 1965 DATE OF OPERATION: 01/09/2014 PREOPERATIVE DIAGNOSES: 1. Cervical disc herniation C5-C6 left. 2. Degenerative disc C6-C7. POSTOPERATIVE DIAGNOSES: PROCEDURE PERFORMED: Anterior cervical discectomy and fusion C5-C6, C6-C7. SURGEON: Sanjay Pinto MD HAND PATTERN MARKER: Jami García PA-C. INDICATIONS FOR PROCEDURE: The patient had symptoms of neck and left shoulder pain. MR scan showed a cervical disc herniation C5-C6 on the left and degenerative disc change at both levels C5-C6 and C6-C7. DESCRIPTION OF PROCEDURE: Surgery was under a general anesthetic in the supine position with the neck extended over a shoulder roll. The anterior neck was prepared sterilely and draped. A transverse incision was made in a skin crease to the right of midline in the anterior neck 2 fingerbreadths above the clavicle. The incision was deepened through the platysma, then dissected medial to the sternocleidomastoid and omohyoid, medial to the carotid sheath to the anterior cervical spine. Needle placement and lateral x-ray confirmed C5-C6. The longus colli muscles were elevated at both C5-C6 and C6-C7 and the retractors were placed at the C5-C6 level. The disc was incised across the front. Vertebral body distraction screws were placed and the space widened. Then the disc was removed with a combination of pituitary forceps and angled cup curettes with the high-speed drill to remove the cartilaginous endplate and the posterior osteophyte. Final removal of the posterior longitudinal ligament was carried out with a 1 mm and 2 mm punch and extended into the foramen on each side for a full decompression. Gelfoam was used over the epidural foraminal veins on each side for hemostasis. A 7 mm height cage filled with Bledsoe was inserted and countersunk by 2 mm and the lateral disc space was filled with Gelfoam. The retractors were removed from the longus colli muscle after removing the C5 vertebral body screw. The retractors were replaced at C6-C7 and the vertebral body screw placed in C7 and the disc space widened at C6-C7. The disc was incised across the front and removed in a similar fashion using pituitary forceps, angled cup curettes and high speed drill. Final removal of the posterior osteophyte was performed with a 1 and 2 mm Kerrison punch freeing the foramina bilaterally. Gelfoam was placed in the foramen for epidural venous hemostasis on each side. A 7 mm PEEK cage filled with Bledsoe was inserted at this level also and slightly countersunk. Then the distraction was released. The screws were removed from the vertebral bodies. The holes were waxed. A 40 mm Monowi plate was positioned over the C5 to C7 segment and fixed in place using 14 mm screws placing two in C5, two in C6 and two in C7. The locking mechanism was tightened. Lateral x-ray confirmed good position of the screws, plate and interbody graft. The longus colli retractors were removed and the wound was inspected with bipolar for final hemostasis. Then the incision was closed with Vicryl for the platysma and subcuticular Vicryl for the skin and Steri-Strips. Blood loss was 140 mL. Sanjay Pinto MD* JRB/rxcbp Voice Rec. ID #[id number] Original Voice Rec. ID #[id number] Doc ID #[id number] Revision Count: 0 cc: Sanjay Pinto MD* <start header> [place] [address] OPERATIVE REPORT PATIENT NAME: KAVIN ARAMBULA ROOM NUMBER: [id number] VISIT NUMBER: [id number] DATE OF : 1965 <end header> DO NOT TEXT EDIT THIS LINE :[employer]:[id number]: Authenticated by SANJAY PINTO MD On 01/09/2014 03:59:17 PM documented in this encounter Plan of Treatment Not on file documented as of this encounter Procedures Procedure Name Priority Date/Time Associated Diagnosis Comments CONV OR POTASSIUM Routine 01/09/2014 6:2 5 AM EDT XR SPINE CERVICAL LATERAL Routine 01/09/2014 6:08 AM EDT XR SPINE CERVICAL LATERAL Routine 01/09/2014 6:07 AM EDT CONVERTED (HISTORICAL) SURGICAL PATHOLOGY Routine 01/09/2014 5:52 AM EDT SCANNED EKG 01/09/2014 CBC (NO DIFF) Routine 01/02/2014 11:55 AM EDT BASIC METABOLIC PANEL Routine 01/02/2014 11:55 AM EDT MRSA SCREEN Routine 01/02/2014 11:49 AM EDT documented in this encounter Results * OR Potassium (01/09/2014 6:25 AM EDT) Potassium 4.18 3.5 - 5.3 mmol/L [facility] Venous blood specimen (specimen) 01/09/2014 6:25 AM EDT Narrative [facility] - 01/09/2014 6:54 AM EDT Specimen Type: Venous Akash Chauhan MD LAB BLOOD ORDERABLES Micaela hugo Result [facility] [address] [place] [address], * X-RAY CERVICAL SPINE LATERAL (01/09/2014 6:08 AM EDT) Anatomical Region Laterality Modality Spine, C-spine N/A Radiographic Gabriela ging 01/09/2014 6:08 AM EDT Narrative 01/09/2014 9:55 AM EDT LATERAL VIEW OF THE CERVICAL SPINE: HISTORY: ??Neck pain. FINDINGS: ??Lateral view of the cervical spine demonstrates anterior plate and screw devices fusing C5, C6 and C7. ??The alignment is excellent in a single lateral projection. D: ??01/09/2014 E: ??01/09/2014 ? Reading Gracie GATICA ? Releasing Gracie GATICA ? Released Date Time- 01/09/14 1005 ? Pole Setter- León Procedure Note Donn Castillo MD - 01/27/2015 LATERAL VIEW OF THE CERVICAL SPINE: HISTORY: Neck pain. FINDINGS: Lateral view of the cervical spine demonstrates anterior plate and screw devices fusing C5, C6 and C7. The alignment is excellent in a single lateral projection. E: 01/09/2014 Reading Gracie GATICA Releasing Gracie GATICA Released Date Time- 01/09/14 1005 [employer]- León Sanjay Pinto MD IMG DIAGNOSTIC IMAGING ORDERABLE S Final Result * X-RAY CERVICAL SPINE LATERAL (01/09/2014 6:07 AM EDT) Anatomical Region Laterality Modality Spine, C-spine N/A Radiographic Gabriela ging 01/09/2014 6:07 AM EDT Narrative 01/09/2014 8:59 AM EDT CROSSTABLE LATERAL PORTABLE VIEW CERVICAL SPINE, SINGLE IMAGE ON 01/09/2014: HISTORY: Cervical fusion, neck pain, preop localization for disc surgery FINDINGS: ??Needle has been placed from the anterolateral approach into the C5-C6 interspace for preoperative disc space localization. DT: ??01/09/2014 DE: ??01/09/2014 ? Reading Gracie SCHAFFER ? Releasing Gracie SCHAFFER ? Released Date Time- 01/09/14 1007 ? Pole Setter- D.M.E. Procedure Note Sanjay Curiel MD - 01/27/2015 CROSSTABLE LATERAL PORTABLE VIEW CERVICAL SPINE, SINGLE IMAGE ON 01/09/2014: HISTORY: Cervical fusion, neck pain, preop localization for disc surgery FINDINGS: Needle has been placed from the anterolateral approach into the C5-C6 interspace for preoperative disc space localization. DE: 01/09/2014 Reading Gracie SCHAFFER Releasing Gracie SCHAFFER Released Date Time- 01/09/14 1007 [employer]- Yovanny.M.EChristina Sanjay Pinto MD IMG DIAGNOSTIC IMAGING ORDERABLE S Final Result * Converted Surgical Pathology (01/09/2014 5:52 AM EDT) 01/09/2014 5:52 AM EDT Narrative [facility] - 01/13/2014 3:03 [place] [address] SURGICAL PATHOLOGY REPORT Patient Name: KAVIN ARAMBULA MR#: [id number] : 1965 Gender: F Ordering Physician: SANJAY PINTO Copy To: ?? Location: [address] [place] [address] Collected: 01/09/2014 Received: 01/09/2014 Reported: 01/13/2014 Clinical Diagnosis and History The working history is HNP C5-7; left degenerative disc. Final Diagnosis Intervertebral disc C5-7: ? Fibrocartilage from intervertebral disc. JFJ/mbc ?? Amendments: Electronically Signed Out By Tip Haywood M.D. Specimen(s) Received: Intervertebral disc Gross Description Received in formalin labeled disc consists of a 4.0x4.0x2.0 cm aggregate of neely/pink fibrocartilaginous soft tissue fragments from which training representative sections are submitted in one cassette. HBM/mbc Microscopic Description Sections of the intervertebral disc material demonstrate fibrocartilage without inflammation or neoplasia. JFJ/mbc ?? Procedures/Addenda us See Report Interface PATHOLOGY/CYTOLOGY [place] [address], * SCANNED EKG (01/09/2014) us [facility] New Onbase ECG ORDERABLES Final Result * (ABNORMAL) Basic metabolic panel (01/02/2014 11:55 AM EDT) Glucose 100 70 - 100 mg/dL [facility] BUN 10 9 - 23 mg/dL [facility] Creatinine 0.8 0.6 - 1.3 mg/dL [facility] Sodium 138 132 - 146 mmol/L [facility] Potassium 4.3 3.5 - 5.5 mmol/L [facility] Chloride 108 99 - 109 mmol/L [facility] CO2 29 20 - 31 mmol/L [facility] Calcium 9.1 8.7 - 10.4 mg/dL [facility] eGFR 77 ml/min/1.7 32 [facility] Comment: DF by IF @ 01/02/2014 12:31 ?? National Kidney [employer] Guidelines ?Stage ? Description ?GFR ?1 ?Normal or High ? 90+ ?2 ?Mild decrease ? 60-89 ?3 ?Moderate decrease ?30-59 ?4 ?Severe decrease ?15-29 ?5 ?Kidney failure ?<15 Anion Gap 1(L) 3 - 11 mmol/L [facility] Blood specimen (specimen) 01/02/2014 11:55 AM EDT [facility] - 01/02/2014 12:31 PM EDT Specimen Type: Blood Sanjay Pinto MD LAB BLOOD ORDERABLES Final Resul t Performing Organization Address [facility] [place] [address], * (ABNORMAL) CBC (No diff) (01/02/2014 11:55 AM EDT) WBC 10.62 3.50 - 10.80 K/[facility] RBC 5.50(H) 3.89 - 5.14 /[facility] Hemoglobin 16.4(H) 11.5 - 15.5 g/dL [facility] Hematocrit 47.9(H) 34.5 - 44.0 % [facility] MCV 87.1 80.0 - 99.0 fL [facility] MCH 29.8 27.0 - 31.0 pg [facility] MCHC 34.2 32.0 - 36.0 g/dL [facility] RDW-CV 12.8 11.3 - 14.5 % [facility] Platelets 252 150 - 450 [facility] Blood specimen (specimen) 01/02/2014 11:55 AM EDT [facility] - 01/02/2014 12:09 PM EDT Specimen Type: Blood us Sanjay Pinto MD LAB BLOOD ORDERABLES Final Resul t Performing Organization Address [facility] [place] [address], * MRSA screen (01/02/2014 11:49 AM EDT) Other 01/02/2014 11:4 9 AM EDT [facility] - 01/04/2014 8:49 AM EDT Specimen Type: Screening Nares [facility] - Culture MRSA Screen Specimen: Screening Nares Collected: 01/02/2014 11:49 Status: FINAL ? Last Updated: 01/04/2014 08:49 Culture Result (CR) (Final) ??No Methicillin Resistant Staph Aureus Isolated us Sanjay Pinto MD MICROBIOLOGY - GENERAL ORDERABLE S Final Result Performing Organization Address City/State/[facility] Co de Phone Number [facility] [address] [place] [address], documented in this encounter Visit Diagnoses Not on filedocumented in this encounter
--- OUTSIDE RECORDS SUMMARY | 2024-03-31 11:26 | XMS_ITS | Encounter Summary ---
Author Organization [employer] Address [address] [place] [address] Care Team Providers Care Vice President & General Manager [employer] Name Role Phone Jeremy Cortes MD Primary Care Provider +1- [phone] Reason for Visit * Reason Comments Medication Refill Encounter Details Date Type Department Care Team (Late st Contact Info) Description 02/11/[address] [facility] [address] [address] [place] [address] Brianne Bundy MD [address] [place] [address] Tremor Social History Tobacco Use Types Packs/Day [...] Date Adrian rded Speak language other than [place]istanian at home Not on file 05/15/2023 Want [...] Description 06/05/2024 3:30 PM EST Procedure Visit [facility] - [facility] [address] [address] [place] [address] Brianne Bundy MD [address] [facility] [address] [place] [address] documented as of this encounter Visit Diagnoses Diagnosis Tremor Abnormal involuntary movements documented in this encounter Care Teams Vice President & General Manager [employer] Relationship Specialty Start Date End Date Jeremy Cortes MD [address] [place] [phone] PCP - General Family Medicine 05/10/22 documented as of this encounter
--- OUTSIDE RECORDS SUMMARY | 2024-03-31 11:26 | XMS_ITS | Encounter Summary ---
Author Organization [employer] Address [address] [place] [address] Care Team Providers Care Acquisition Manager Name Role Phone Jeremy Cortes MD Primary Care Provider +1- [phone] Reason for Visit * Reason Comments Medication Refill Encounter Details Date Type Department Care Team (Late st Contact Info) Description 05/22/2023 Refill [facility] [address] [place] [address] Brianne Bundy MD [address] [place] [address] Migraine without aura and without status migrainosus, not intractable Social History Tobacco Use Types Packs/Day Years [...] Date Adrian rded Speak language other than Tajik at home Not on file 05/15/2023 Want [...] Description 06/05/2024 3:30 PM EST Procedure Visit [facility] - [facility] [address] [place] [phone] Brianne Bundy MD [address] [place] [address] documented as of this encounter Visit Diagnoses Diagnosis Migraine without aura and without status migrainosus, not intractable documented in this encounter Care Teams Acquisition Manager Relationship Specialty Start Date End Date Jeremy Cortes MD [address] [place] [address] PCP - General Family Medicine 05/10/22 documented as of this encounter
--- OUTSIDE RECORDS SUMMARY | 2024-03-31 11:26 | XMS_ITS | Encounter Summary ---
Author Organization [employer] Address [address] [place] [address] Care Team Providers Care Petrology Teacher Name Role Phone Jeremy Cortes MD Primary Care Provider +1- [phone] Encounter Details Date Type Department Care Team (Late st Contact Info) Description 05/12/2022 Orders Only [facility] Neurology - [facility] [address] [place] [address] Garima Avila, WELT RANDER Idiopathic polyneuropathy Social History Tobacco Use Types Packs/Day Years Used Date Smoking Tobacco: Never Smokeless Tobacco: Never Comments Unknown Sex and Gender Information Value Date Recorded Sex Assigned at Not on file Legal Sex Female 1:59 PM CDT Gender Identity Not on file Sexual Orientation Not on file documented as of this encounter Plan of Treatment Upcoming Encounters Date Type Department Care Team (Late st Contact Info) Description 06/05/2024 3:30 PM EST Procedure Visit [facility] Neurology - [facility] [address] [place] [address] Brianne Bundy MD [address] [place] [address] documented as of this encounter Visit Diagnoses Diagnosis Idiopathic polyneuropathy documented in this encounter Care Teams Petrology Teacher Relationship Specialty Start Date End Date Jeremy Cortes MD [address] [place] [address] PCP - General Family Medicine 05/10/22 documented as of this encounter
--- OUTSIDE RECORDS SUMMARY | 2024-03-31 11:26 | XMS_ITS | Encounter Summary ---
Author Organization [employer] Address [address] [place] [address] Care Team Providers Care Aircraft Tool Maker Name Role Phone Jeremy Cortes MD Primary Care Provider +1- [phone] Encounter Details Date Type Department Care Team (Late st Contact Info) Description 02/12/2024 Orders Only [facility] Neurology - [address] [place] [address] Garima Avila, RADHA Idiopathic polyneuropathy [...] Date Adrian rded Speak language other than Tuvaluan at home Not on file 05/15/2023 Want [...] Description 06/05/2024 3:30 PM EST Procedure Visit [facility] Neurology - [facility] [address] [place] [phone] Brianne Bundy MD [address] [place] [address] documented as of this encounter Visit Diagnoses Diagnosis Idiopathic polyneuropathy documented in this encounter Care Teams Aircraft Tool Maker Relationship Specialty Start Date End Date Jeremy Cortes MD [address] [place] [address] PCP - General Family Medicine 05/10/22 documented as of this encounter
--- OUTSIDE RECORDS SUMMARY | 2024-03-31 11:26 | XMS_ITS | Encounter Summary ---
Author Organization [employer] Address [address] [place] [address] Care Team Providers Care Bookkeeping Teacher Name Role Phone Jeremy Cortes MD Primary Care Provider +1- [phone] Reason for Visit * Reason Comments NCV/EMG follow up Encounter Details Date Type Department Care Team (Latest Contact Info) Description 05/11/2022 2:15 PM EST Office Visit [facility] Neurology - [facility] [address] [facility] [address] [place] [address] Brianne Bundy MD [address] [facility] [address] [place] [address] Idiopathic polyneuropathy (Primary Dx); Tremor; Avitaminosis D; Migraine without aura and without status migrainosus, [...] Sign Reading Time Taken Comments Blood Pressure 141/72 05/11/2022 2:00 PM EST Pulse 90 05/11/2022 2:00 PM EST Temperature - - Respiratory Rate - - Oxygen Saturation - - Inhaled Oxygen Concentration - - Weight 108.4 kg (239 lb) 05/11/2022 2:00 PM EST Height 157.5 cm (5' 2 ) 05/11/2022 2:00 PM EST Body Mass Index 43.71 05/11/2022 2:00 PM EST documented in this encounter Progress Notes * Brianne Bundy MD - 05/11/2022 2:15 PM EST Subjective Erna Mosley is a 57 y.o. female Chief Complaint Patient presents with ??? NCV/EMG follow up I have reviewed and/or updated the following: Ms. Mosley is here today for a EMG/NCS to evaluate hands for carpal tunnel syndrome. She mentioned at her last visit that she was having increasing numbness in both hands. She feels her numbness has improved some since last visit. She has tremors. She does feel her tremors have worsened since last visit. She takes Primidone. She has polyneuropathy. She feels her symptoms are overall stable. No falls since last visit. Review of Systems All other systems reviewed and are negative. Radiology Results (last 7 days) No results found for the last 168 hours. No visits with results within 1 Day(s) from this visit. Latest known visit with results is: No results found for any previous visit. Objective There were no vitals taken for this visit. Neurologic Exam Mental Status Oriented to person, [...] and oriented to person, place, and time. Gait: Gait is intact. Deep Tendon Reflexes: Strength normal. Psychiatric: Mood and Affect: Mood normal. Behavior: Behavior normal. Thought Content: Thought content normal. Judgment: Judgment normal. MAY 29: Bilateral mild to moderate median neuropathies at the wrist. Assessment 1. Idiopathic polyneuropathy 2. Tremor 3. Avitaminosis D 4. Migraine without aura and without status migrainosus, not intractable Plan 1. Migraines. She will continue on amitriptyline 30 mg nightly 2. Polyneuropathy. She will continue on gabapentin 600 mg 3 times a day. Counseled to be cautious with standing and turning to prevent falls. GITA reviewed and placed in medical record. Will check lab work to rule out vitamin deficiencies that could worsen neuropathy. 3. Essential tremor. She will continue on primidone 100 mg in the morning and 150 mg at night. I offered to increase the primidone due to her worsening tremors but she wants to continue on current dose for now. 4. Bilateral hand numbness. NCS is consistent with bilateral carpal tunnel syndrome. She will wear wrist splints at night. If symptoms worsen, I will refer her to Orthopedist. Diagnoses and all orders for this visit: Idiopathic polyneuropathy - Vitamin B12 - Vitamin B6, Plasma - Vitamin B1 (Thiamine), Whole Blood, LC/MS/MS - Vitamin D, 25-Hydroxy - Folate, Serum - Comprehensive metabolic panel Tremor - Vitamin B12 - Vitamin B6, Plasma - Vitamin B1 (Thiamine), Whole Blood, LC/MS/MS - Vitamin D, 25-Hydroxy - Folate, Serum - Comprehensive metabolic panel - primidone (MYSOLINE) 50 MG tablet; 2 tabs po qam and 3 tabs po qhs. Avitaminosis D - Vitamin B12 - Vitamin B6, Plasma - Vitamin B1 (Thiamine), Whole Blood, LC/MS/MS - Vitamin D, 25-Hydroxy - Folate, Serum - Comprehensive metabolic panel Migraine without aura and without status migrainosus, not intractable - Vitamin B12 - Vitamin B6, Plasma - Vitamin B1 (Thiamine), Whole Blood, LC/MS/MS - Vitamin D, 25-Hydroxy - Folate, Serum - Comprehensive metabolic panel - amitriptyline (ELAVIL) 10 MG tablet; Take 1 tablet (10 mg total) by mouth nightly. Return in about 6 months (around 11/08/2022). HER [employer] documented in this encounter Plan of Treatment Upcoming Encounters Date Type Department Care Team (Late st Contact Info) Description 06/05/2024 3:30 PM EST Procedure Visit [facility] Neurology - [facility] [address] [place] [address] Brianne Bundy MD [address] [place] [address] documented as of this encounter Procedures Procedure Name Priority Date/Time Associated Diagnosis Comments VITAMIN B1 (THIAMINE), WHOLE BLOOD, LC/MS/MS Routine 05/11/2022 2:00 PM EST Idiopathic polyneuropathy Tremor Avitaminosis D Migraine without aura and without status migrainosus, not intractable VITAMIN D, 25-HYDROXY Routine 05/11/2022 2:00 PM EST Idiopathic polyneuropathy Tremor Avitaminosis D Migraine without aura and without status migrainosus, not intractable VITAMIN B6, PLASMA Routine 05/11/2022 2: 00 PM EST Idiopathic polyneuropathy Tremor Avitaminosis D Migraine without aura and without status migrainosus, not intractable FOLATE, SERUM Routine 05/11/2022 2:00 PM EST Idiopathic polyneuropathy Tremor Avitaminosis D Migraine without aura and without status migrainosus, not intractable VITAMIN B12 Routine 05/11/2022 2:00 PM EST Idiopathic polyneuropathy Tremor Avitaminosis D Migraine without aura and without status migrainosus, not intractable COMPREHENSIVE METABOLIC PANEL Routine 05/11/2022 2:00 PM EST Idiopathic polyneuropathy Tremor Avitaminosis D Migraine without aura and without status migrainosus, not intractable documented in this encounter Results * (ABNORMAL) Comprehensive metabolic panel (05/11/2022 2:00 PM EST) Pathologist [facility] Glucose, Serum 83 70 - 99 mg/dL [facility] BUN 14 6 - 24 mg/dL [facility] Creatinine, Serum 0.47(L) 0.57 - 1.00 mg/dL [facility] EGFR 111 >59 mL/min/1.7 3 [facility] BUN/Creatinine Ratio 30(H) 9 - 23 [facility] Sodium, Serum 143 134 - 144 mmol/L [facility] Potassium, Serum 4.5 3.5 - 5.2 mmol/L [facility] Chloride, Serum 106 96 - 106 mmol/L [facility] Carbon Dioxide, Total 23 20 - 29 mmol/L [facility] Calcium, Serum 9.3 8.7 - 10.2 mg/dL [facility] Protein, Total, Serum 6.1 6.0 - 8.5 g/dL [facility] Albumin, Serum 3.9 3.8 - 4.9 g/dL [facility] Globulin, Total 2.2 1.5 - 4.5 g/dL [facility] A/G Ratio 1.8 1.2 - 2.2 [facility] Bilirubin, Total <0.2 0.0 - 1.2 mg/dL [facility] Alkaline Phosphatase, S 85 44 - 121 IU/L [facility] AST (SGOT) 16 0 - 40 IU/L [facility] ALT (SGPT) 24 0 - 32 IU/L [facility] Blood 05/11/2022 2:00 PM EST 05/11/2022 Narrative [facility] - 05/16/2022 1:05 AM EST Performed at: ??01 - [facility] ??[id number] Manager Of Radiology: Brandan Syed PhD, Phone: ??[phone] us Brianne Bundy MD LAB BLOOD ORDERABLES Final R esult [facility] * Folate, Serum (05/11/2022 2:00 PM EST) Pathologist [facility] Folate (Folic Acid), Serum 12.4 >3.0 ng/mL [facility] Comment: A serum folate concentration of less than 3.1 ng/mL is considered to represent clinical deficiency. Blood 05/11/2022 2:00 PM EST 05/11/2022 Narrative [facility] - 05/16/2022 1:05 AM EST Performed at: ??01 - [facility] [address] ??[id number] Manager Of Radiology: Brandan Syed PhD, Phone: ??[phone] Brianne Bundy MD LAB BLOOD ORDERABLES Final R esult Performing Organization Address [facility] de Phone Number [facility] * (ABNORMAL) Vitamin D, 25-Hydroxy (05/11/2022 2:00 PM EST) Vitamin D, 25-Hydroxy 21.9(L) 30.0 - 100.0 ng/mL [facility] Comment: Vitamin D deficiency has been defined by the [place] of Medicine and an Endocrine Society practice guideline as a level of serum 25-OH vitamin D less than 20 ng/mL (1,2). The Endocrine Society went on to further define vitamin D insufficiency as a level between 21 and 29 ng/mL (2). 1. IOM ([place] of Medicine). 2010. Dietary reference ?? intakes for calcium and D. [place]: The ?? National E[employer]un Press. 2. Darrius MF, Dustin NC, Cristian TAM, et al. ?? Evaluation, treatment, and prevention of vitamin D ?? deficiency: an Endocrine Society clinical practice ?? guideline. JCEM. 2010; 96(7):1911-30. Blood 05/11/2022 2:00 PM EST 05/11/2022 Narrative [facility] - 05/16/2022 1:05 AM EST Performed at: ??01 - [facility] [address] ??[id number] Manager Of Radiology: Brandan Syed PhD, Phone: ??[phone] Brianne Bundy MD LAB BLOOD ORDERABLES Final R esult Performing Organization Address [facility] de Phone Number [facility] * Vitamin B1 (Thiamine), Whole Blood, LC/MS/MS (05/11/2022 2:00 PM EST) Vit. B1, Whole Blood 124.7 66.5 - 200.0 nmol/L [facility] 05/11/2022 2:00 PM EST 05/11/2022 Narrative [facility] - 05/16/2022 1:05 AM EST Test(s) 549354-Nlo. B1, Whole Blood was developed and its performance characteristics determined by [facility]. It has not been cleared or approved by the Food and Drug Administration. Performed at: ??02 - [facility] [address] ??[id number] Manager Of Radiology: Kameron Naylor MD, Phone: ??[phone] Brianne Bundy MD LAB BLOOD ORDERABLES Final R esult [facility] * Vitamin B6, Plasma (05/11/2022 2:00 PM EST) [facility] Vitamin B6 14.2 3.4 - 65.2 ug/L [facility] Comment: ? Deficiency: ? <3.4 ? Marginal: ?3.4 - 5.1 ? Adequate: ? >5.1 Blood 05/11/2022 2:00 PM EST 05/11/2022 Narrative [facility] - 05/16/2022 1:05 AM EST Test(s) [id number]-Aonqcih B6 was developed and its performance characteristics determined by [facility]. It has not been cleared or approved by the Food and Drug Administration. Performed at: ??02 - [facility] [address] ??[id number] Manager Of Radiology: Kameron Naylor MD, Phone: ??[phone] Brianne Bundy MD LAB BLOOD ORDERABLES Final R esult [facility] * Vitamin B12 (05/11/2022 2:00 PM EST) Vitamin B12 299 232 - 1,245 pg/mL [facility] Blood 05/11/2022 2:00 PM EST 05/11/2022 Narrative [facility] - 05/16/2022 1:05 AM EST Performed at: ??01 - [facility] [address] ??[id number] Manager Of Radiology: Brandan Syed PhD, Phone: ??[phone] us Brianne Bundy MD LAB BLOOD ORDERABLES Final R esult [facility] documented in this encounter Visit Diagnoses Diagnosis Idiopathic polyneuropathy- Primary Tremor Abnormal involuntary movements Avitaminosis D Unspecified vitamin D deficiency Migraine without aura and without status migrainosus, not intractable documented in this encounter Care Teams Bookkeeping Teacher Relationship Specialty Start Date End Date Jeremy Cortes MD [address] [place] [address] PCP - General Family Medicine 05/10/22 documented as of this encounter
--- OUTSIDE RECORDS SUMMARY | 2024-03-31 11:26 | XMS_ITS | Encounter Summary ---
Author Organization [employer] Address [address] [place] [address] Care Team Providers Care Corner Trimmer Operator Name Role Phone Jeremy Cortes MD Primary Care Provider +1- [phone] Reason for Visit * Reason Comments Spasms * Clinic Procedure (Routine) - Authorized Specialty Diagnoses / Procedures Referred By Contac t Referred To Contact Neurology Diagnoses Cervical dystonia Xeomin CD 200 Units [employer] [facility] B&B Exp: 05/06/24 Brianne Bundy MD [address] [place] [address] Phone: tel: fax: Brianne Bundy MD [address] [place] [address] Phone: tel: fax: Referral ID Status Reason Start Date Expiration Date V isits Requested Visits Authorized [id number] Authorized 06/05/2023 05/06/2024 5 5 Encounter Details Date Type Department Care Team (Latest Contact Info) Description 09/27/2023 3:30 PM EDT Procedure Visit [facility] Neurology - [facility] [place] [address] [place] [address] Brianne Bundy MD [address] [place] [address] Cervical dystonia (Primary Dx) Social History Tobacco [...] Date Adrian rded Speak language other than Maltese at home Not on file 05/15/2023 Want [...] Progress Notes * Brianne Bundy MD - 09/27/2023 3:30 PM EDT Erna Mosley is a 58 y.o. female that presents with Spasms She has cervical dystonia. She is here today for second set of Xeomin injections. She did feel likeshe had some neck weakness after her last set of injections. This resolved after a few weeks. Overall her pain in her neck and tremors was much better. Procedures Neck Botulinum Injection Date/Time: 09/27/23 Performed by: Brianne Bundy MD Authorized by: Brianne Bundy MD Consent: Consent obtained: Written Consent given by: Patient Risks discussed: Weakness, pain, infection and bleeding Procedure details: EMG used?: Yes EMG result: to localize appropriate muscles and grade level of spasticity Diluted by: Preservative free saline Toxin (Brand): IncoBoNT-A (Xeomin) Concentration (u/mL): 100 Total number of units available: 100 Left semispinalis capitis: 25 units divided amongst 1 site(s) Right upper trapezius: 25 units divided amongst 1 site(s) Left upper trapezius: 25 units divided amongst 1 site(s) Right levator scapulae: 25 units divided amongst 1 site(s) Total units injected: 100 Total units wasted: 0 Post-procedure details: Patient tolerance of procedure: Tolerated well, no immediate complications Comments: BUY AND BILL Lot [id number], exp 10/30 x 1 vial I am optimistic she will have benefit from Xeomin injections. I did decrease the dose to 100 units today due to neck heaviness. Return in about 12 weeks (around 12/20/2023). documented in this encounter Miscellaneous Notes * Addendum Note - Lindy Rene - 09/27/2023 3:30 PM EDTAddended by: LINDY RENE on: 10/03/2023 03:15 PM Modules accepted: Orders documented in this encounter Plan of Treatment Upcoming Encounters Date Type Department Care Team (Late st Contact Info) Description 06/05/2024 3:30 PM EST Procedure Visit [facility] Neurology - [facility] [address] [place] [id number] Brianne Bundy MD [address] [facility] [address] [place] [address] documented as of this encounter Visit Diagnoses Diagnosis Cervical dystonia- Primary Spasmodic torticollis documented in this encounter Administered Medications Inactive Administered Medications - up to 3 most recent administrations Medication Order MAR Action Action Date Dose Rate Site incobotulinumtoxinA (XEOMIN) injection 100 Units 100 Units Once, intraMUSCULAR, On Dafne 09/27/23 at 0000, For 1 dose, XEOMIN should be used for only 1 injection session and for only one patient. XEOMIN vials are for single-dose only. Discard any unused portion. Refrigerate.Indications:Cer vical dystonia Given by Other 10/01/2023 3:14 PM EDT 100 Units O ther documented in this encounter Care Teams Corner Trimmer Operator Relationship Specialty Start Date End Date Jeremy Cortes MD [address] [place] [address] PCP - General Family Medicine 05/10/22 documented as of this encounter
--- OUTSIDE RECORDS SUMMARY | 2024-03-31 11:26 | XMS_ITS | Encounter Summary ---
Author Organization [employer] Address [address] [place] [address] Care Team Providers Care Health Promoter Name Role Phone Jeremy Cortes MD Primary Care Provider +1- [phone] Reason for Visit * Reason Comments Spasms * Clinic Procedure (Routine) - Authorized Specialty Diagnoses / Procedures Referred By Contac t Referred To Contact Neurology Diagnoses Cervical dystonia Xeomin CD 200 Units [employer] [facility] B&B Exp: 05/06/24 Brianne Bundy MD [address] [place] [address] Phone: tel: fax: Brianne Bundy MD [address] [place] [address] Phone: tel: fax: Referral ID Status Reason Start Date Expiration Date V isits Requested Visits Authorized [id number] Authorized 06/05/2023 05/06/2024 5 5 Encounter Details Date Type Department Care Team (Latest Contact Info) Description 07/05/2023 3:30 PM EST Procedure Visit [facility] Neurology - [facility] [address] [place] [address] Brianne Bundy MD [address] [place] [address] Cervical dystonia (Primary Dx) Social History Tobacco [...] Date Adrian rded Speak language other than Gibraltarian at home Not on file 05/15/2023 Want [...] Progress Notes * Brianne Bundy MD - 07/05/2023 3:30 PM ESTAssociated Order(s): Neck Botulinum Injection Erna Mosley is a 58 y.o. female that presents with Spasms She has cervical dystonia. She is here today for her first set of Xeomin injections. Neck Botulinum Injection Date/Time: 07/11/2023 8:03 AM Performed by: Brianne Bundy MD Authorized by: Brianne Bundy MD Consent: Consent obtained: Written Consent given by: Patient Risks discussed: Weakness, pain, infection and bleeding Procedure details: EMG used?: Yes EMG result: to localize appropriate muscles and grade level of spasticity Diluted by: Preservative free saline Toxin (Brand): IncoBoNT-A (Xeomin) Concentration (u/mL): 100 Total number of units available: 150 Right splenius capitis: 25 units divided amongst 1 site(s) Right semispinalis capitis: 25 units divided amongst 1 site(s) Left semispinalis capitis: 25 units divided amongst 1 site(s) Right upper trapezius: 25 units divided amongst 1 site(s) Left upper trapezius: 25 units divided amongst 1 site(s) Right levator scapulae: 25 units divided amongst 1 site(s) Total units injected: 150 Total units wasted: 0 Post-procedure details: Patient tolerance of procedure: Tolerated well, no immediate complications Comments: BUY AND BILL LOT# [id number], exp 04/30 x 1 vial LOT # [id number], exp 02/28 x 1 vial I am optimistic she will have benefit from Xeomin injections. Return in about 12 weeks (around 09/27/2023) for xeomin. UP TECHNICIAN documented in this encounter Plan of Treatment Upcoming Encounters Date Type Department Care Team (Late st Contact Info) Description 06/05/2024 3:30 PM EST Procedure Visit [facility] Neurology - [facility] [address] [place] [id number] Brianne Bunyd MD [address] [place] [address] documented as of this encounter Procedures Procedure Name Priority Date/Time Associated Diagnosis Comments NECK BOTULINUM INJECTION Routine 07/11/2023 8:03 AM EST Cervical dystonia documented in this encounter Results * Neck Botulinum Injection (07/11/2023 8:03 AM EST) Narrative Brianne Bundy MD - 07/11/2023 8:03 AM EST Brianne Bundy MD ? 07/11/2023 ??8:07 AM Neck Botulinum Injection Date/Time: 07/11/2023 8:03 AM Performed by: Brianne Bundy MD Authorized by: Brianne Bundy MD ?? Consent: ??Consent obtained: ??Written ??Consent given by: ??Patient ??Risks discussed: ??Weakness, pain, infection and bleeding Procedure details: ?? EMG used?: ??Yes ?? EMG result: ??to localize appropriate muscles and grade level of spasticity ?? Diluted by: ??Preservative free saline ?? Toxin (Brand): ??IncoBoNT-A (Xeomin) ?? Concentration (u/mL): ??100 ?? Total number of units available: ??150 ?? Right splenius capitis: ??25 units divided amongst 1 site(s) ?? Right semispinalis capitis: ??25 units divided amongst 1 site(s) ?? Left semispinalis capitis: ??25 units divided amongst 1 site(s) ?? Right upper trapezius: ??25 units divided amongst 1 site(s) ?? Left upper trapezius: ??25 units divided amongst 1 site(s) ?? Right levator scapulae: ??25 units divided amongst 1 site(s) ?? Total units injected: ??150 ?? Total units wasted: ??0 Post-procedure details: ?? Patient tolerance of procedure: ??Tolerated well, no immediate complications Comments: BUY AND BILL LOT# [id number], exp 04/30 x 1 vial LOT # [id number], exp 02/28 x 1 vial us Brianne Bundy MD PROCEDURE/MINOR SURGICAL ORD ERABLES Final Result documented in this encounter Visit Diagnoses Diagnosis Cervical dystonia- Primary Spasmodic torticollis documented in this encounter Administered Medications Inactive Administered Medications - up to 3 most recent administrations Medication Order MAR Action Action Date Dose Rate Site incobotulinumtoxinA (XEOMIN) injection 150 Units 150 Units Once, intraMUSCULAR, On Dafne 07/05/23 at 0000, For 1 dose, XEOMIN should be used for only 1 injection session and for only one patient. XEOMIN vials are for single-dose only. Discard any unused portion. Refrigerate.Indications:Cer vical dystonia Given by Other 07/05/2023 3:30 PM EST 150 Units O ther documented in this encounter Care Teams Health Promoter Relationship Specialty Start Date End Date Jeremy Cortes MD [address] [place] [id number] PCP - General Family Medicine 05/10/22 documented as of this encounter
--- OUTSIDE RECORDS SUMMARY | 2024-03-31 11:26 | XMS_ITS | Encounter Summary ---
Author Organization [employer] Address [address] [place] [address] Care Team Providers Care Business Coordinator Name Role Phone Jeremy Cortes MD Primary Care Provider +1- [phone] Reason for Visit * Reason Comments Medication Refill Encounter Details Date Type Department Care Team (Late st Contact Info) Description 02/11/2024 Refill [facility] Neurology - [facility] [address] [place] [address] Brianne Bundy MD [address] [place] [address] Idiopathic polyneuropathy Social History Tobacco Use Types [...] Description 06/05/2024 3:30 PM EST Procedure Visit [facility] Neurology - [facility] [address] [place] [address] Brianne Bundy MD [address] [place] [address] documented as of this encounter Visit Diagnoses Diagnosis Idiopathic polyneuropathy documented in this encounter Care Teams Business Coordinator Relationship Specialty Start Date End Date Jeremy Cortes MD [address] [place] [id number] PCP - General Family Medicine 05/10/22 documented as of this encounter
--- OUTSIDE RECORDS SUMMARY | 2024-03-31 11:26 | XMS_ITS | Clinical Summary ---
Author Organization [facility] ystem Address [address] [place] [address] Care Team Providers Care Spool Cleaner Name Role Phone Unavailable Primary Care Provider Unavailabl e Social History Tobacco Use Types Packs/Day Years Used Date Smoking Tobacco: Never Assessed Abuse Screen Answer Date Recorded Unsafe at Home or Work/School Not on file Feels Threatened by Someone? Not on file 02/2023 Does Anyone Keep You from Co ntacting Others or Doint Things Outside the Home? Not on file 02/13/2023 Physical Sign of Abuse Present Not on file 1 Housing Stability Answer Date Recorded Current Living Arrangements Not on file 02/04 Potentially Unsafe Housing Conditions Not on tanja e 02/13/2023 Family and Community Support Answer Johny e Recorded Help with Day-to-Day Activities Not on file 02/13/2023 Lonely or Isolated Not on file 02/13/2023 Employment Answer Date Recorded Do you want help finding or keeping work or a jam b? Not on file 02/13/2023 Disabilities Answer Date Recorded Concentrating, Remembering, or Making Decisions Difficulty Not on file 02/13/2023 Doing Errands Independently Difficulty Not on fi le 02/13/2023 Education Answer Date Recorded Help with school or training? Not on file Preferred Language Not on file 02/13/2023 Comments Unknown Sex and Gender Information Value Date Recorded Sex Assigned at Not on file Legal Sex Female 1:43 PM EDT Gender Identity Not on file Sexual Orientation Not on file Plan of Treatment Health Maintenance Due Date Last Done Comments ANNUAL PHYSICAL 1965 Annual Gynecologic Pelvic an d Breast Exam 1965 COLOGUARD 1965 COLON CANCER SCREENING 5 YEA R SIGMOIDOSCOPY 1965 COLONOSCOPY 1965 [address] CANCER SCREENING 1965 CT COLONOGRAPHY 1965 FECAL OCCULT BLOOD TEST 1965 FIT Testing (1 year) 1965 HEPATITIS C SCREENING 1965 TDAP/TD VACCINES (1 - Tdap) 1984 MAMMOGRAM 2005 ZOSTER VACCINE (1 of 2) 2015 INFLUENZA VACCINE 12/06/2023 COVID-19 Vaccine (1 - 2023-2 5 season) 2024 Pneumococcal Vaccine 0-64 Aged Out No longer eligible based on patient's age to complete this topic
--- OUTSIDE RECORDS SUMMARY | 2024-03-31 11:26 | XMS_ITS | Encounter Summary ---
Author Organization [employer] Address [address] [place] [address] Care Team Providers Care Body Cleaner Name Role Phone Unavailable Primary Care Provider Unavailabl e Encounter Details Date Type Department Care Team (Late st Contact Info) Description 02/05/2014 11:42 AM EDT - 02/05/2014 11:59 PM EDT Hospital Encounter [facility] DE[facility] [address] [facility] [place] [address] Howie Pinto MD Social History Tobacco Use Types Packs/Day Years Used Date Smoking Tobacco: Never Assessed Comments Unknown Sex and Gender Information Value Date Recorded Sex Assigned at Not on file Legal Sex Female 1:43 PM EDT Gender Identity Not on file Sexual Orientation Not on file documented as of this encounter Plan of Treatment Not on file documented as of this encounter Procedures Procedure Name Priority Date/Time Associated Diagnosis Comments XR SPINE CERVICAL 2 VW Routine 02/05/2014 11:51 AM EDT documented in this encounter Results * X-RAY CERVICAL SPINE 2 VIEW (02/05/2014 11:51 AM EDT) Anatomical Region Laterality Modality Spine, C-spine N/A Radiographic Gabriela ging 02/05/2014 11:5 1 AM EDT Narrative 02/05/2014 1:54 PM EDT TWO VIEWS OF THE CERVICAL SPINE 02/05/2014 INDICATION: Right arm pain FINDINGS: ??Fusion hardware is present at the C5, C6, and C7 levels. ??The prevertebral soft tissues are normal. The cervical thoracic junction is unremarkable. The hardware is intact. There are no areas of lucency. IMPRESSION- 1. Fusion changes of C5, C6 and C7. 2. No areas of lucency. E: 02/05/2014 ? Reading Radiologist- NINO EVANS ? Releasing RadiologistLatoya EVANS ? Released Date Time- 02/05/141658 ? Ben Yang Procedure Note Nino Benjamin MD - 01/26/2015 TWO VIEWS OF THE CERVICAL SPINE 02/05/2014 INDICATION: Right arm pain FINDINGS: Fusion hardware is present at the C5, C6, and C7 levels. The prevertebral soft tissues are normal. The cervical thoracic junction is unremarkable. The hardware is intact. There are no areas of lucency. IMPRESSION- 1. Fusion changes of C5, C6 and C7. 2. No areas of lucency. E: 02/05/2014 Reading Radiologist- NINO EVANS Releasing RadiologistLatoya EVANS Released Date Time- 02/05/141658 Ben Yang Result [facility] Howie Pinto MD [facility] ORDERABLE S Final Result documented in this encounter Visit Diagnoses Not on filedocumented in this encounter
--- OUTSIDE RECORDS SUMMARY | 2024-03-31 11:26 | XMS_ITS | Encounter Summary ---
Author Organization [facility] ystem Address [address] [place] [address] Care Team Providers Care Track Grinder Operator Name Role Phone Unavailable Primary Care Provider Unavailabl e Encounter Details Date Type Department Care Team (Late st Contact Info) Description 04/23/2014 8:45 AM EST - 04/23/2014 11:59 PM EST Hospital Encounter [facility] [address] [place] [address] Howie Pinto MD Social History [...] Procedure Name Priority Date/Time Associated Diagnosis Comments MRI CERVICAL SPINE W WO CONTRAST Routine 04/23/2014 9:05 AM EST documented in this encounter Results * MRI CERVICAL SPINE W WO CONTRAST (04/23/2014 9:05 AM EST) Anatomical Region Laterality Modality Spine, C-spine N/A Magnetic Resonan ce 04/23/2014 9:05 AM EST Narrative 04/23/2014 2:11 PM EST EXAMINATION: OM CERVICAL SPINE W WO CONTRAST- INDICATION: 722.0: CERVICAL DISC DISPLACMNT neck pain, right arm pain TECHNIQUE: MR images of the cervical spine were displayed both prior to and following intravenous contrast. ?? COMPARISON: Plain radiographs of the cervical spine dated 02/05/2014. FINDINGS: There is anterior fusion of C5, C6 and C7. Neither of the vertebral bodies or intervertebral discs impinge upon the neural canal. The cervical cord is of normal size and has normal signal. ??There is no congenital anomaly of the posterior fossa. There is no abnormal contrast enhancement. IMPRESSION- Status post anterior cervical fusion of C5, C6 and C7. There is no disc protrusion or compromise of the neural canal and only postoperative findings are noted. DT: ??04/23/2014 DE: ??04/23/2014 ? Reading Gracie GATICA ? Releasing Gracie GATICA ? Released Date Time- 04/23/14 1647 ? Hand Assembler For Puller Over- Narcisa. Procedure Note Donn Castillo MD - 01/27/2015 EXAMINATION: OM CERVICAL SPINE W WO CONTRAST- INDICATION: 722.0: CERVICAL DISC DISPLACMNT neck pain, right arm pain TECHNIQUE: MR images of the cervical spine were displayed both prior to and following intravenous contrast. COMPARISON: Plain radiographs of the cervical spine dated 02/05/2014. FINDINGS: There is anterior fusion of C5, C6 and C7. Neither of the vertebral bodies or intervertebral discs impinge upon the neural canal. The cervical cord is of normal size and has normal signal. There is no congenital anomaly of the posterior fossa. There is no abnormal contrast enhancement. IMPRESSION- Status post anterior cervical fusion of C5, C6 and C7. There is no disc protrusion or compromise of the neural canal and only postoperative findings are noted. DE: 04/23/2014 Reading Gracie GATICA Releasing Gracie GATICA Released Date Time- 04/23/14 1647 Hand Assembler For Puller Over- Can Howie Pinto MD IMG MRI ORDERABLES Final Result documented in this encounter Visit Diagnoses Not on filedocumented in this encounter
--- OUTSIDE RECORDS SUMMARY | 2024-03-31 11:26 | XMS_ITS | Encounter Summary ---
Author Organization [employer] Address [address] [place] [address] Care Team Providers Care Director Mortgage Name Role Phone Jermey Cortes MD Primary Care Provider +1- [phone] Encounter Details Date Type Department Care Team (Late Contact Info) Description 05/16/2022 Orders Only [facility] Neurology - [place] [address] [place] [address] Brianne Bundy MD [address] [place] [address] Avitaminosis D (Primary Dx) Social History Tobacco Use Types Packs/Day Years Used Date Smoking Tobacco: Never Smokeless Tobacco: Never Comments Unknown Sex and Gender Information Value Date Recorded Sex Assigned at Not on file Legal Sex Female 1:59 PM CDT Gender Identity Not on file Sexual Orientation Not on file documented as of this encounter Progress Notes * Brianne Bundy MD - 05/16/2022 12:49 PM EST Vit D sent in [employer] documented in this encounter Plan of Treatment Upcoming Encounters Date Type Department Care Team (Late st Contact Info) Description 06/05/2024 3:30 PM EST Procedure Visit [facility] Neurology - [place] [address] [place] [address] Brianne Bundy MD [address] [place], [place] [id number] documented as of this encounter Visit Diagnoses Diagnosis Avitaminosis D- Primary Unspecified vitamin D deficiency documented in this encounter Care Teams Director Mortgage Relationship Specialty Start Date End Date Jeremy Cortes MD [address] [place] [address] PCP - General Family Medicine 05/10/22 documented as of this encounter
--- OUTSIDE RECORDS SUMMARY | 2024-03-31 11:26 | XMS_ITS | Encounter Summary ---
Author Organization [employer] Address [address] [place] [address] Care Team Providers Care Customer Engagement Specialist Name Role Phone Jeremy Cortes MD Primary Care Provider +1- [phone] Encounter Details Date Type Department Care Team (Latest Contact Info) Description 09/27/2023 Travel Social History Tobacco Use Types Packs/Day [...] Date Adrian rded Speak language other than Mauritanian at home Not on file 05/15/2023 Want [...] Description 06/05/2024 3:30 PM EST Procedure Visit [facility] Neurology - [place] [address] [place] [address] Brianne Bundy MD [address] [place] [address] documented as of this encounter Visit Diagnoses Not on filedocumented in this encounter Care Teams Customer Engagement Specialist Relationship Specialty Start Date End Date Jeremy Cortes MD [address] [place] [address] PCP - General Family Medicine 05/10/22 documented as of this encounter
--- OUTSIDE RECORDS SUMMARY | 2024-03-31 11:26 | XMS_ITS | Encounter Summary ---
Author Organization [employer] Address [address] [place] [address] Care Team Providers Care Swaging Machine Adjuster Name Role Phone Jeremy Cortes MD Primary Care Provider +1- [phone] Reason for Visit * Reason Comments Medication Refill Encounter Details Date Type Department Care Team (Late Contact Info) Description 07/07/2022 Refill [facility] [address] [place] [address] Brianne Bundy MD [address] [place], [place] [id number] Avitaminosis D Social History Tobacco Use Types Packs/Day Years [...] Description 06/05/2024 3:30 PM EST Procedure Visit [facility] Neurology - [place] [address] [place] [address] Brianne Bundy MD [address] [place], [place] [id number] documented as of this encounter Visit Diagnoses Diagnosis Avitaminosis D Unspecified vitamin D deficiency documented in this encounter Care Teams Swaging Machine Adjuster Relationship Specialty Start Date End Date Jeremy Cortes MD [address] [place] [id number] PCP - General Family Medicine 05/10/22 documented as of this encounter
--- OUTSIDE RECORDS SUMMARY | 2024-03-31 11:26 | XMS_ITS | Encounter Summary ---
Author Organization [employer] Address [address] [place] [address] Care Team Providers Care Junior Bookkeeper Name Role Phone Jeermy Cortes MD Primary Care Provider +1- [phone] Reason for Referral * Clinic Procedure (Routine) - Authorized Specialty Diagnoses / Procedures Referred By Bee khan Referred To Contact Neurology Diagnoses Cervical dystonia Xeomin CD [address] [employer] [facility] B[facility]B Exp: 05/06/24 Brianne Bundy MD [facility] [address] [place] [address] Phone: tel: fax: Brianne Bundy MD [facility] [address] [place] [address] Phone: tel: fax: Referral ID Status Reason Start Date Expiration Date V isits Requested Visits Authorized [id number] Authorized 06/05/2023 05/06/2024 5 5 Reason for Visit * Reason Comments Follow-up Encounter Details Date Type Department Care Team (Latest Contact Info) Description 05/15/2023 1:45 PM EST Office Visit [facility] Neurology - [place] [address] [place] [address] Brianne Bundy MD [facility] [place] [address] Cervical dystonia (Primary Dx); Tremor; Idiopathic polyneuropathy Social History Tobacco Use Types [...] Date Adrian rded Speak language other than Mosotho at home Not on file 05/15/2023 Want [...] Sign Reading Time Taken Comments Blood Pressure 123/78 05/15/2023 2:24 PM EST Pulse 83 05/15/2023 2:24 PM EST Temperature - - Respiratory Rate - - Oxygen Saturation 99% 05/15/2023 2:24 PM EST Inhaled Oxygen Concentration - - Weight 90 kg (198 lb 8 oz) 05/15/2023 2:24 PM ES T Height 162.6 cm (5' 4 ) 05/15/2023 2:24 PM EST Body Mass Index 34.07 05/15/2023 2:24 PM EST documented in this encounter Progress Notes * Brianne Bundy MD - 05/15/2023 1:45 PM EST Subjective Erna Mosley is a 58 y.o. female Chief Complaint Patient presents with ??? Follow-up I have reviewed and/or updated the following: Tobacco Allergies Meds Problems Med Hx Surg Hx Fam Hx Ms. Mosley has polyneuropathy. She feels Gabapentin is beneficial. This helps her burning and pain.She has numbness is there. Her balance has been okay. No wekaness. She feels her tremors are worse in her neck. She reads a lot and her page will shake. She feels thetremors are doing okay in her neck. She has neck pain. She does feel her neck pulls to the right. Review of Systems Constitutional: Positive for diaphoresis and fatigue. Eyes: Positive for photophobia and visual disturbance. Cardiovascular: Positive for leg swelling. Endocrine: Positive for cold intolerance and heat intolerance. Musculoskeletal: Positive for arthralgias, back pain, myalgias and neck pain. Neurological: Positive for dizziness, tremors, light-headedness and numbness. Psychiatric/Behavioral: The patient is nervous/anxious. Radiology Results (last 7 days) No results [...] D deficiency has been defined by the [place] of Medicine and an Endocrine Society practice guideline as a level of serum 25-OH vitamin D less than 20 ng/mL (1,2). The Endocrine Society went on to further define vitamin D insufficiency as a level between 21 and 29 ng/mL (2). 1. IOM ([place] of Medicine). 2010. Dietary reference intakes for calcium and D. [place]: The National Academies Press. 2. Darrius BRICENO, Dustin AVILEZ, Cristian TAM, et al. Evaluation, treatment, and prevention of vitamin D deficiency: an Endocrine Society clinical practice guideline. JCEM. 2010; 96(8):1911-30. ? ? Folate (Folic Acid), Serum 05/11/2022 [...] 0 - 32 IU/L Final Objective BP 123/78 Pulse 83 Ht 1.626 m (5' 4 ) Wt 90 kg (198 lb 8 oz) SpO2 99% BMI 34.07 kg/m?? Neurologic Exam Mental Status Oriented to person, place, and time. Attention: normal. Concentration: normal. Level of consciousness: alert Knowledge: good. Normal comprehension. Cranial Nerves Cranial nerves II through XII intact. CN III, IV, Pupils are equal, round, and reactive to light. Motor Exam Muscle bulk: normal Overall muscle tone: normal Strength Strength 5/5 throughout. Pulling of neck to the right. Decreased ROM when looking to the left. Sensory Exam Right leg vibration: decreased from [...] content normal. Judgment: Judgment normal. Assessment 1. Cervical dystonia 2. Tremor 3. Idiopathic polyneuropathy Plan 1. Essential tremors/cervical dystonia. She will continue on the primidone which has worked well for her. She is having breakthrough tremors and pain in the neck. Upon further examination, I think she also has a cervical dystonia with pooling of the neck to the right. Therefore, I recommend we start Xeomin injections. I discussed this with her thoroughly. We discussed mechanism of action, dosing schedule and possible side effects. She is agreeable to the plan. 2. Polyneuropathy. Overall symptoms are stable. She will continue on gabapentin. Diagnoses and all orders for this visit: Cervical dystonia - Ambulatory referral for Botulinum Toxin; Future Tremor - primidone (MYSOLINE) 50 MG tablet; 2 tabs po qam and 3 tabs po qhs. Idiopathic polyneuropathy Return for xeomin. [employer] documented in this encounter Plan of Treatment Upcoming Encounters Date Type Department Care Team (Late st Contact Info) Description 06/05/2024 3:30 PM EST Procedure Visit [facility] Neurology - [place] [address] [place] [address] Brianne Bundy MD [address] [place] [address] Scheduled Referrals Name Type Priority Associated Diagnoses Order Schedule Ambulatory referral for Botulinum Toxin Outpatient Referral Routine Cervical dystonia Expected: 05/15/2023, Expires: 05/15/2024 documented as of this encounter Visit Diagnoses Diagnosis Cervical dystonia- Primary Spasmodic torticollis Tremor Abnormal involuntary movements Idiopathic polyneuropathy documented in this encounter Care Teams Junior Bookkeeper Relationship Specialty Start Date End Date Jeremy Cortes MD [address] [place] [address] PCP - General Family Medicine 05/10/22 documented as of this encounter
--- OUTSIDE RECORDS SUMMARY | 2024-03-31 11:26 | XMS_ITS | Encounter Summary ---
Author Organization [employer] Address [address] [place] [address] Care Team Providers Care Director Alumni Relations Name Role Phone Jeremy Corets MD Primary Care Provider +1- [phone] Encounter Details Date Type Department Care Team (Latest Contact Info) Description 12/20/2023 Travel Social History Tobacco Use Types Packs/Day [...] Description 06/05/2024 3:30 PM EST Procedure Visit [facility] Neurology - [place] [address] [place] [address] Brianne Bundy MD [address] [place] [address] documented as of this encounter Visit Diagnoses Not on filedocumented in this encounter Care Teams Director Alumni Relations Relationship Specialty Start Date End Date Jeremy Cortes MD [address] [place] [address] PCP - General Family Medicine 05/10/22 documented as of this encounter
--- OUTSIDE RECORDS SUMMARY | 2024-03-31 11:26 | XMS_ITS | Encounter Summary ---
Author Organization [employer] Address [address] [place] [address] Care Team Providers Care Agronomy Professor Name Role Phone Jeremy Cortes MD Primary Care Provider +1- [phone] Encounter Details Date Type Department Care Team (Late st Contact Info) Description 05/11/2022 Orders Only [facility] Neurology - [facility] [address] [place] [address] ProviderMiguel MD [address] [place] [address] Social History Tobacco Use Types Packs/Day Years [...] Procedure Visit [facility] Neurology - [facility] [address] [place] [address] Brianne Bundy MD [address] [facility] [address] [place] [address] documented as of this encounter Procedures Procedure Name Priority Date/Time Associated Diagnosis Comments EMG W/NCS Routine 05/11/2022 documented in this encounter Results * EMG W/ NCS (05/11/2022) Anatomical Region Laterality Modality Other Historical Provider NEUROLOGY ORDERABLES (MCT ) Final Result documented in this encounter Visit Diagnoses Not on filedocumented in this encounter Care Teams Agronomy Professor Relationship Specialty Start Date End Date Jeremy Cortes MD [address] [place] [address] PCP - General Family Medicine 05/10/22 documented as of this encounter
--- OUTSIDE RECORDS SUMMARY | 2024-03-31 11:26 | XMS_ITS | Encounter Summary ---
Author Organization [employer] Address [address] [place] [address] Care Team Providers Care Assembler Molded Frames Name Role Phone Jeremy Cortes MD Primary Care Provider +1- [phone] Reason for Visit * Reason Comments Medication Refill Encounter Details Date Type Department Care Team (Late st Contact Info) Description 12/20/2023 Refill [facility] Neurology - [facility] [address] [facility] [address] [place] [address] Brianne Bundy MD [address] [place] [address] Idiopathic polyneuropathy Social History Tobacco Use Types [...] Date Adrian rded Speak language other than Djiboutian at home Not on file 05/15/2023 Want [...] Description 06/05/2024 3:30 PM EST Procedure Visit [facility] Neurology - [facility] [address] [place] [address] Brianne Bundy MD [address] [place] [address] documented as of this encounter Visit Diagnoses Diagnosis Idiopathic polyneuropathy documented in this encounter Care Teams Assembler Molded Frames Relationship Specialty Start Date End Date Jeremy Cortes MD [address] [place] [id number] PCP - General Family Medicine 05/10/22 documented as of this encounter
--- OUTSIDE RECORDS SUMMARY | 2024-03-31 11:26 | XMS_ITS | Encounter Summary ---
Author Organization [employer] Address [address] [place] [address] Care Team Providers Care Brewing Director Name Role Phone Jeremy Cortes MD Primary Care Provider +1- [phone] Reason for Visit * Reason Comments Spasms * Clinic Procedure (Routine) - Authorized Specialty Diagnoses / Procedures Referred By Contac t Referred To Contact Neurology Diagnoses Cervical dystonia Xeomin CD 200 Units [employer] [facility] B&B Exp: 05/06/24 Brianne Bundy MD [facility] [address] [place] [address] Phone: tel: fax: Brianne Bundy MD [address] [place] [address] Phone: tel: fax: Referral ID Status Reason Start Date Expiration Date V isits Requested Visits Authorized [id number] Authorized 06/05/2023 05/06/2024 5 5 Encounter Details Date Type Department Care Team (Latest Contact Info) Description 03/13/2024 3:30 PM EST Procedure Visit [facility] Neurology - [facility] [place] [address] [place] [address] Brianne Bundy MD [address] [place] [address] Cervical dystonia (Primary Dx) Social History Tobacco [...] Date Adrian rded Speak language other than Ukrainian at home Not on file 05/15/2023 Want [...] Progress Notes * Brianne Bundy MD - 03/13/2024 3:30 PM EST Erna Mosley is a 58 y.o. female that presents with Spasms She has cervical dystonia. She is responding very well to Xeomin njections. No adverse reaction. Procedures Neck Botulinum Injection Date/Time: 03/13/2024 Performed by: Brianne Bundy MD Authorized by: [...] procedure: Tolerated well, no immediate complications Comments: [place] Lot #[id number], exp 05/01 x 1 vial She is responding very well to Xeomin injections Return in about 12 weeks (around 06/05/2024) for botox. HAT POUNCING OPERATOR HAND documented in this encounter Miscellaneous Notes * Addendum Note - Lindy Rene - 03/13/2024 3:30 PM ESTAddended by: LINDY RENE on: 03/13/2024 04:25 PM Modules accepted: Orders HAT POUNCING OPERATOR HAND documented in this encounter Plan of Treatment Upcoming Encounters Date Type Department Care Team (Late st Contact Info) Description 06/05/2024 3:30 PM EST Procedure Visit [facility] Neurology - [facility] [address] [place] [address] Brianne Bundy MD [address] [facility] [address] [place] [address] documented as of this encounter Visit Diagnoses Diagnosis Cervical dystonia- Primary Spasmodic torticollis documented in this encounter Administered Medications Inactive Administered Medications - up to 3 most recent administrations Medication Order MAR Action Action Date Dose Rate Site incobotulinumtoxinA (XEOMIN) injection 100 Units 100 Units Once, intraMUSCULAR, On [place] 03/13/24 at 1530, For 1 dose, XEOMIN should be used for only 1 injection session and for only one patient. XEOMIN vials are for single-dose only. Discard any unused portion. Refrigerate.Indications:Cer vical dystonia Given by Other 03/13/2024 3:30 PM EST 100 Units O ther documented in this encounter Care Teams Brewing Director Relationship Specialty Start Date End Date Jeremy Cortes MD [address] [place] [id number] PCP - General Family Medicine 05/10/22 documented as of this encounter
[2024-03-31 12:16] VITALS: BP 135/86; PULSE 85; RESP 17; TEMP 36.2; O2SAT 98
[2024-03-31] MEDS: LACTATED RINGERS 1000ML 1,000 ML 25 ML IV (12:23)
[2024-03-31 12:41] VITALS: O2SAT 99
--- NOTE | 2024-03-31 12:44 | P.PNANES_ITS ---
[facility] Disclaimer: The information contained in this section may have been updated after the patient was seen, as this information can be updated by other users. Medical History James's disease Anxiety and depression Muscle spasm History of tumor Skin cancer Celiac disease Asthma Migraine Appendicitis Congestive heart failure Edema Surgical History History of hysterectomy History of cholecystectomy History of carpal tunnel surgery History of surgery on wrist Hx of neck surgery History of surgery Family History Other Colon cancer Diabetes Heart disease Social History Smoking Status: Current every day smoker alcohol intake: never counseling provided: none substance use type: denies use current occupational status: disabled Travel in the last 8 weeks: Outside the [facility] housing: apartment current occupational exposures/hazards: No caffeine: Yes [facility] Anesthesia Checklist Patient Identification Patient Identification: Arm Band Structural Data Admitted From: Home Planned Operative Procedure/s: EGD/Colonoscopy Consent for Planned Operative Procedure(s) Verified: Yes Verified Documents: Surgical Consent and History and Physical NPO Status Verified Time NPO: 00:00 Additional verifications Anesthesia Reactions: No Airway Assessment Mallampati Score:: Class II C-Spine Mobility Assessed: Yes TMJ Mobility Assessed: Yes Dentition: Good Dentition Neurological Assessment Level of Consciousness: Awake, Alert and Appropriate Anesthesia Plan Anesthesia Risk discussed: Yes Anesthesia Plan: Verified ASA Class: III Anesthesia Type: MAC
--- NOTE | 2024-03-31 12:54 | P.HP_ITS ---
History of Present Illness *Admission Date: 03/31/24 *Reason for visit:: Bright red rectal bleeding, right sided abdominal pain, fecal incontinence *History of present illness: Mrs. Mosley is a 58-year-old female who is here for diagnostic panendoscopy secondary to abdominal pain, change in bowel habits, diarrhea, rectal bleeding. The examination is deemed medically necessary for diagnostic panendoscopy. The patient has been seen, interviewed and examined prior to the procedure by both myself and the anesthesia provider. [facility] Disclaimer: The information contained in this section may have been updated after the patient was seen, as this information can be updated by other users. Medical History (Updated 03/31/24 @ 12:56 by Orlando Peoples II, MD) James's disease Anxiety and depression Muscle spasm History of tumor Skin cancer Celiac disease Asthma Migraine Appendicitis Congestive heart failure Edema Surgical History History of hysterectomy History of cholecystectomy History of carpal tunnel surgery History of surgery on wrist Hx of neck surgery History of surgery Family History Other Colon cancer Diabetes Heart disease Social History Smoking Status: Current every day smoker alcohol intake: never counseling provided: none substance use type: denies use current occupational status: disabled Travel in the last 8 weeks: Outside the [facility] housing: apartment current occupational exposures/hazards: No caffeine: Yes Other Medical History Have you received the Flu Vaccine for this season: No Have you received the Pneumonia Vaccine: No Review of Systems Review of Systems Review of systems (narrative): Negative *Cardiovascular Comments: Negative *Gastrointestinal Comments: Negative *Genitourinary Comments: Negative *Musculoskeletal Comments: Negative *Neurologic Comments: Negative Meds Home Medications and Allergies Home Medications ?Medication ?Instructions ?Recorded ?Confirmed ?Type montelukast 10 mg tablet 10 mg PO PM Asthma 05/14/17 03/28/24 History ibuprofen 800 mg tablet 800 mg PO TID PRN pain 06/26/17 03/28/24 History gabapentin 600 mg tablet 600 mg PO TID nerve pain 08/01/17 03/31/24 History primidone 50 mg tablet 50 mg PO TID seizures 08/01/17 03/28/24 History buspirone 10 mg tablet 10 mg PO TID Depression 11/21/17 03/31/24 History cyclobenzaprine 10 mg tablet 10 mg PO BID Pain 11/21/17 03/31/24 History hyoscyamine sulfate 0.125 mg 0.125 mg PO QID PRN reflux 11/21/17 03/31/24 History tablet (Levsin) trazodone 50 mg tablet 50 mg PO QHS sleep 11/21/17 03/28/24 History bisoprolol fumarate 5 mg tablet 5 mg PO DAILY htn 01/30/18 03/31/24 History spironolactone 25 mg tablet 25 mg PO DAILY Fluid 01/30/18 03/28/24 History furosemide 40 mg tablet 40 mg PO DAILY Fluid #30 tabs 07/25/18 03/31/24 Rx amitriptyline 10 mg tablet 10 mg PO DAILY . 11/20/18 03/31/24 History hydrocodone 7.5 mg-acetaminophen 1 tab PO BID Pain #60 tabs 02/28/24 03/31/24 Rx 325 mg tablet sodium sul 1.479 gram-potas ch See Rx Instructions PO PER PKG DIR 03/24/24 03/28/24 Rx 0.188 gram-magnes sul 0.225 gram colonscopy #24 tabs tablet (Sutab) semaglutide 1 mg/dose (2 mg/1.5 1 mg SQ WEEKLY 03/28/24 03/28/24 History mL) subcutaneous pen injector New Prescriptions to Start Prescriptions: Allergies Allergy/AdvReac Type Severity Reaction Status Date / Time formaldehyde (FORMALDEHYDE) Allergy Mild Blister Verified 03/31/24 12:10 levothyroxine sodium (From Allergy Unknown CANT TAKE Verified 10/08/23 11:43 SYNTHROID) GENERIC flu shot Allergy Blister Uncoded 03/31/24 12:10 Exam Data for Last 24 hours Vital signs and Labs for Last 24 Hours: Temp Pulse Resp BP Pulse Ox O2 Del Method O2 Flow Rate 97.1 F L 85 17 135/86 98 Nasal Cannula 5 03/31/24 12:16 03/31/24 12:16 03/31/24 12:16 03/31/24 12:16 03/31/24 12:16 03/31/24 12:41 03/31/24 12:41 I & O for Last 24 hours: Intake & Output 03/28/24 03/29/24 03/30/24 03/31/24 23:59 23:59 23:59 23:59 Weight 215 lb *Routine HEENT Exam Head: Present normocephalic Eye: Present EOMI and PERRL ENT: Present mucous membranes moist *Routine Neck Exam Neck: Present supple *Routine Respiratory Exam Respiratory: Present CTA bilaterally *Routine Cardiovascular Exam Cardiovascular: Present RRR *Routine Abdominal Exam Abdominal: Present soft and normoactive bowel sounds; Absent tenderness *Routine Rectal Exam Rectal:: deferred *Routine Genitalia Exam Genitalia:: deferred *Routine Extremities Exam Extremities: Absent cyanosis, clubbing or edema *Routine Skin Exam Skin: Present warm; Absent rash *Routine Neurological Exam Neurological: Present alert and oriented X3 Assessment and Plan *Assessment and plan (1) Bright red rectal bleeding: Status: Acute Category: Medical Code(s): K62.5 - Hemorrhage of anus and rectum (2) Change in bowel habits: Status: Acute Category: Medical Code(s): R19.4 - Change in bowel habit (3) Fecal urgency: Status: Acute Category: Medical Code(s): R15.2 - Fecal urgency (4) Incontinence of feces with fecal urgency: Status: Acute Category: Medical Code(s): R15.9 - Full incontinence of feces; R15.2 - Fecal urgency (5) Right sided abdominal pain: Status: Acute Category: Medical Code(s): R10.9 - Unspecified abdominal pain Plan A/P: 1. Bright red rectal bleeding, fecal urgency and right-sided abdominal pain is the preprocedural diagnosis. The patient will be anesthetized/sedated using MAC sedation. The patient has been seen and examined. Cardiac and lung assessment prior to the examination is stable. Proceed with planned EGD and colonoscopy
--- NOTE | 2024-03-31 13:04 | HMH.PROCNOTE ---
[facility] Procedure Note Date: 03/31/24 Time: 13:04 Procedure Note:: Upper Endoscopy Procedure Report: Esophagogastroduodenoscopy with cold biopsies Endoscopost: Orlando Peoples II, MD Referring Physician: Miguelito Cortes MD Date of Procedure: March 31, 2024 Equipment: Olympus GIF 190 standard upper endoscope Sedation: MAC sedation Indications: Mrs. Mosley is a 58-year-old female who is here for diagnostic panendoscopy secondary to abdominal pain, indigestion and bright red rectal bleeding. She also has had some change in bowel habits with urgency, frequency and intermittent fecal incontinence. This had worsened over the summer. She has had longstanding digestive difficulties. 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 The patient does get some gassiness and bloating. She is on buspirone. She had a former gastric sleeve. She does state that at 1 point she was diagnosed with celiac disease but is not gluten-free. The patient reports no heartburn or dysphagia. Procedure: Prior to the procedure, a history and physical exam was performed, and patient's medications and allergies were reviewed. The risks, benefits and alternatives of the sedation and procedure were discussed with the patient. All questions were answered and informed consent was obtained. The patient was brought to the procedure room. Patient identification and proposed procedure were verified by the physician and the nurse. The patient was placed in a left lateral decubitus position and the scope was passed under direct vision. Throughout the procedure, the patient's blood pressure, pulse, and oxygen saturations were monitored continuously. The upper GI endoscopy was accomplished without difficulty. The patient tolerated the procedure well. Findings: The scope was passed directly into the upper esophagus and advanced to the third portion of the duodenum. The post bulbar duodenum and duodenal bulb were normal with normal mucosa and conniventes. Cold biopsies were taken from the first portion of duodenum and duodenal bulb to rule out celiac disease. The ampulla was normal in appearance. The scope was withdrawn through a slightly spastic pylorus into the stomach. There was bile reflux with moderate reactive gastropathy. Biopsies were taken from the stomach and the antrum and lesser curvature. There was evidence of reduced luminal diameter and prior gastric sleeve surgery. Upon retroflexion there was a small 2 cm hiatal hernia. The scope was then withdrawn into the esophagus. There was no evidence of reflux esophagitis. There were tertiary contractions and mild dysmotility. The remainder of the esophageal mucosa was normal. Impression: 1. Bile reflux with moderate reactive gastropathy 2. 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 Small 2 cm hiatal hernia Plan: I will follow-up the biopsies and proceed with diagnostic colonoscopy. We will discuss treatment options.
--- NOTE | 2024-03-31 13:08 | P.PCN_ITS ---
[facility] Procedure Note Date: 03/31/24 Time: 13:27 Procedure Note:: Colonoscopy Procedure Report: Colonoscopy with cold biopsies and forced coagulation/ablation of internal hemorrhoids Endoscopist: Orlando Peoples II, MD Referring physician: Miguelito Cortes MD Date of Procedure: March 31, 2024 Equipment: Olympus 190 variable stiffness pediatric colonoscope Sedation: MAC sedation Indication: Mrs. Mosley is a 58-year-old female who is here for diagnostic panendoscopy. Over the summer, she had 3 episodes of bright red blood per rectum that occurred while standing up in the morning. She also has had a change in bowel habits with fecal urgency and frequency with intermittent fecal incontinence. This occurs if she goes out to eat and she has stopped eating meals outside the home. The patient does get moderate gassiness and some bloating. 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 Her last colonoscopy was 5-1/2 years ago. Procedure: Prior to the procedure, a history and physical exam was performed, and patient's medications and allergies were reviewed. The risks, benefits and alternatives of the sedation and procedure were discussed with the patient. All questions were answered and informed consent was obtained. The patient was brought to the procedure room. Patient identification and proposed procedure were verified by the physician and the nurse. The patient was placed in a left lateral decubitus position and the scope was passed under direct vision. Throughout the procedure, the patient's blood pressure, pulse, and oxygen saturations were monitored continuously. The colonoscopy was accomplished without difficulty. The patient tolerated the procedure well. Findings: On digital rectal examination there was normal rectal tone. There were no external hemorrhoids. The colonoscope was introduced through the anal canal to the rectum and advanced to the cecum. The ileocecal valve and appendiceal orifice were identified. The scope was advanced a short distance into the ileum which appeared grossly normal. The scope was then withdrawn into the colon. The cecum, ascending, transverse, descending, sigmoid and rectum were grossly normal. There was a diminutive 3 mm polyp in the rectum removed via cold biopsy. There were no other mucosal abnormalities identified. Random biopsies were taken from the right colon to rule out microscopic colitis. Upon retroflexion within the rectum there were grade 2 internal hemorrhoids. 3 columns of hemorrhoids were coagulated using forced coagulation/ablation to destruction of the internal hemorrhoids. The preparation was excellent throughout with [place] Preparation Score of 9. The cecal time was 13 minutes. Impression: 1. Diminutive 3 mm rectal polyp 2. Grade 2 internal hemorrhoids status post monopolar/forced coagulation/ablation Plan: I will follow-up the biopsies to rule out microscopic colitis. I will recommend bulking/binding FiberCon 2 tablets p.o. every morning. I would also consider bile acid binding with colestipol. We will discuss additional treatment options.
[2024-03-31 13:29] VITALS: BP 116/80; PULSE 81; RESP 16; TEMP 36.3; O2SAT 96
[2024-03-31 13:39] VITALS: BP 115/74; PULSE 79; RESP 16; O2SAT 97
[2024-03-31 13:49] VITALS: BP 111/77; PULSE 88; RESP 16; O2SAT 99
[2024-03-31 13:59] VITALS: BP 124/79; PULSE 84; RESP 16; O2SAT 99
== END 2024-03-31 14:02 | disposition home or self-care (01) ==
PROVIDERS: PCP Family Medicine; Visit Provider Internal Medicine Gastroenterology
PROC: 0DJ08ZZ Inspection of Upper Intestinal Tract, Via Natural or Artificial Opening Endoscopic (ICD-10-PCS; CPT 43235; principal; 2024-03-31 13:00)
DX: K62.5 Hemorrhage of anus and rectum (principal); R19.4 Change in bowel habit; R15.2 Fecal urgency; R15.9 Full incontinence of feces; R10.9 Unspecified abdominal pain; K58.0 Irritable bowel syndrome with diarrhea; K90.89 Other intestinal malabsorption; K31.9 Disease of stomach and duodenum, unspecified; K44.9 Diaphragmatic hernia without obstruction or gangrene; K63.5 Polyp of colon; K64.1 Second degree hemorrhoids
CPT/HCPCS: 43239; 45380; 45388; 88305; J7120

== ENCOUNTER 2024-04-07 10:30 | Outpatient (POV) | payer OTHER, SELFPAY ==
--- OUTSIDE RECORDS SUMMARY | 2024-04-07 10:38 | XMS_ITS | Encounter Summary ---
Author Organization [employer] Address [address] [place] [address] Care Team Providers Care Executive Vice President And Chief Operating Officer Name Role Phone Jeremy Cortes MD Primary Care Provider +1- [phone] Reason for Visit * Reason Comments Follow-up Peripheral Neuropathy Encounter Details Date Type Department Care Team (Late st Contact Info) Description 11/14/2022 1:45 PM EDT Office Visit [facility] Neurology - [facility] [address] [facility] [address] [place] [address] Brianne Bundy MD [address] [facility] [address] [place], [place] [id number] Idiopathic polyneuropathy; Tremor Social History Tobacco Use [...] D deficiency has been defined by the [place] of Medicine and an Endocrine Society practice guideline as a level of serum 25-OH vitamin D less than 20 ng/mL (1,2). The Endocrine Society went on to further define vitamin D insufficiency as a level between 21 and 29 ng/mL (2). 1. IOM ([place] of Medicine). 2010. Dietary reference intakes for [...] Description 06/05/2024 3:30 PM EST Procedure Visit [facility] Neurology - [place] [address] [place] [id number] Brianne Bundy MD [address] [facility] [address] [place] [address] documented as of this encounter Visit Diagnoses Diagnosis Idiopathic polyneuropathy Tremor Abnormal involuntary movements documented in this encounter Care Teams Executive Vice President And Chief Operating Officer Relationship Specialty Start Date End Date Jeremy Cortes MD [address] [place] [address] PCP - General Family Medicine 05/10/22 documented as of this encounter
--- OUTSIDE RECORDS SUMMARY | 2024-04-07 10:38 | XMS_ITS | Encounter Summary ---
Author Organization [employer] Address [address] [place] [address] Care Team Providers Care Tuft Machine Operator Name Role Phone Jeremy Cortes MD Primary Care Provider +1- [phone] Reason for Visit * Reason Comments Medication Refill Encounter Details Date Type Department Care Team (Late Contact Info) Description 07/07/2022 Refill [facility] [address] [place] [address] Brianne Bundy MD [address] [place], [place] [id number] Avitaminosis D Social History Tobacco Use Types [...] Description 06/05/2024 3:30 PM EST Procedure Visit [facility] Neurology - [place] [address] [place] [address] Brianne Bundy MD [address] [place], [place] [id number] documented as of this encounter Visit Diagnoses Diagnosis Avitaminosis D Unspecified vitamin D deficiency documented in this encounter Care Teams Tuft Machine Operator Relationship Specialty Start Date End Date Jeremy Cortes MD [address] [place] [id number] PCP - General Family Medicine 05/10/22 documented as of this encounter
--- OUTSIDE RECORDS SUMMARY | 2024-04-07 10:38 | XMS_ITS | Encounter Summary ---
Author Organization [employer] Address [address] [place] [address] Care Team Providers Care Election Judge Name Role Phone Jeremy Cortes MD Primary Care Provider +1- [phone] Encounter Details Date Type Department Care Team (Late st Contact Info) Description 05/12/2022 Orders Only [facility] Neurology - [facility] [address] [place] [address] Garima Avila, CARPENTRY TEACHER Idiopathic polyneuropathy Social History Tobacco Use Types [...] Procedure Visit [facility] Neurology - [facility] [address] [place] [address] Brianne Bundy MD [address] [place] [address] documented as of this encounter Visit Diagnoses Diagnosis Idiopathic polyneuropathy documented in this encounter Care Teams Election Judge Relationship Specialty Start Date End Date Jeremy Cortes MD [address] [place] [phone] PCP - General Family Medicine 05/10/22 documented as of this encounter
--- OUTSIDE RECORDS SUMMARY | 2024-04-07 10:38 | XMS_ITS | Encounter Summary ---
Author Organization [employer] Address [address] [place] [address] Care Team Providers Care Restaurant Server Name Role Phone Jeremy Cortes MD Primary Care Provider +1- [phone] Reason for Visit * Reason Comments Cervical Dystonia Encounter Details Date Type Department Care Team (Latest Contact Info) Description 03/13/2024 2:45 PM EST Office Visit [facility] Neurology - [facility] [address] [place] [address] [address] [place] [id number] Sara Huddleston APRN [address] [facility] [address] [place] [address] Idiopathic polyneuropathy (Primary Dx); Migraine without aura [...] Date Adrian rded Speak language other than [place] at home Not on file 05/15/2023 Want [...] this encounter Progress Notes * Sara Huddleston, SUPERINTENDENT TESTS - 03/13/2024 2:45 PM EST Subjective Erna [...] D deficiency has been defined by the [place] of Medicine and an Endocrine Society practice guideline as a level of serum 25-OH vitamin D less than 20 ng/mL (1,2). The Endocrine Society went on to further define vitamin D insufficiency as a level between 21 and 29 ng/mL (2). 1. IOM ([place] of Medicine). 2010. Dietary reference intakes for [...] same day as botox with dr bundy. ER CHEF documented in this encounter Plan of Treatment Upcoming Encounters Date Type Department Care Team (Late st Contact Info) Description 06/05/2024 3:30 PM EST Procedure Visit [facility] Neurology - [facility] [place] [address] [facility] [place] [address] Brianne Bundy MD [address] [facility] [address] [place] [address] documented as of this encounter Visit Diagnoses Diagnosis Idiopathic polyneuropathy- Primary Migraine without aura and without status migrainosus, not intractable Tremor Abnormal involuntary movements Cervical dystonia Spasmodic torticollis documented in this encounter Care Teams Restaurant Server Relationship Specialty Start Date End Date Jeremy Cortes MD [address] [place] [phone] PCP - General Family Medicine 05/10/22 documented as of this encounter
--- OUTSIDE RECORDS SUMMARY | 2024-04-07 10:38 | XMS_ITS | Encounter Summary ---
Author Organization [employer] Address [address] [place] [address] Care Team Providers Care Iron Worker Foreman Name Role Phone Jeremy Cortes MD Primary Care Provider +1- [phone] Encounter Details Date Type Department Care Team (Late st Contact Info) Description 05/11/2022 Orders Only [facility] Neurology - [facility] [address] [place] [address] ProviderMiguel MD [address] [place] [address] Social History Tobacco Use Types Packs/Day [...] Description 06/05/2024 3:30 PM EST Procedure Visit [facility] Neurology - [facility] [address] [place] [address] Brianne Bundy MD [address] [facility] [address] [place] [address] documented as of this encounter Procedures Procedure Name Priority Date/Time Associated Diagnosis Comments EMG W/NCS Routine 05/11/2022 documented in this encounter Results * EMG W/ NCS (05/11/2022) Anatomical Region Laterality Modality Other Historical Provider NEUROLOGY ORDERABLES (MCT ) Final Result documented in this encounter Visit Diagnoses Not on filedocumented in this encounter Care Teams Iron Worker Foreman Relationship Specialty Start Date End Date Jeremy Cortes MD [address] [place] [address] PCP - General Family Medicine 05/10/22 documented as of this encounter
--- OUTSIDE RECORDS SUMMARY | 2024-04-07 10:38 | XMS_ITS | Encounter Summary ---
Author Organization [employer] Address [address] [place] [address] Care Team Providers Care Textiles And Clothing Teacher Name Role Phone Jeremy Corets MD Primary Care Provider +1- [phone] Encounter Details Date Type Department Care Team [...] Date Adrian rded Speak language other than [place] Islander at home Not on file 05/15/2023 Want [...] Description 06/05/2024 3:30 PM EST Procedure Visit [facility] Neurology - [place] [address] [place] [address] Brianne Bundy MD [address] [place] [address] documented as of this encounter Visit Diagnoses Not on filedocumented in this encounter Care Teams Textiles And Clothing Teacher Relationship Specialty Start Date End Date Jeremy Cortes MD [address] [place] [address] PCP - General Family Medicine 05/10/22 documented as of this encounter
--- OUTSIDE RECORDS SUMMARY | 2024-04-07 10:38 | XMS_ITS ---
Author Organization [facility] Address [address] [place] [id number] Care Team Providers Care Lunchroom Operator Name Role Phone Omi Cortes Primary [...] Encounter Location Date Provider Diagnosis Mireya [address] [facility] [address] [place] [id number] 02/05/2024 Omi Cortes Generalized anxiety disorder F41.1 [...] Name:Omi Elkins, 04/10/2024 02:00:00 PM, [address] [facility] [address] [facility], [address], [place], [place], [id number], Progress Notes * Examination Category Sub-Category Detail [...] is here today for a 3 mo [facility] follow up. Pt sts that she needs refills today , a scheduled check up. Pt sts that she needs refills of Flexeril and Oxazepam. Pt sts that she has no new concerns or complaints at this time
--- OUTSIDE RECORDS SUMMARY | 2024-04-07 10:38 | XMS_ITS | Encounter Summary ---
Author Organization [employer] Address [address] [place] [address] Care Team Providers Care Diagnostics Sales Developer Name Role Phone Jeremy Cortes MD Primary Care Provider +1- [phone] Reason for Visit * Reason Comments Spasms * Clinic Procedure (Routine) - Authorized Specialty Diagnoses / Procedures Referred By Contac t Referred To Contact Neurology Diagnoses Cervical dystonia Xeomin CD [address] [employer] [facility] B&B Exp: 05/06/24 Brianne Bundy MD [address] [place] [address] Phone: tel: fax: Brianne Bundy MD [address] [place] [address] Phone: tel: fax: Referral ID Status Reason Start Date Expiration Date V isits Requested Visits Authorized [id number] Authorized 06/05/2023 05/06/2024 5 5 Encounter Details Date Type Department Care Team (Latest Contact Info) Description 09/27/2023 3:30 PM EDT Procedure Visit [facility] Neurology - [place] [address] [place] [address] Brianne Bunyd MD [address] [place] [address] Cervical dystonia (Primary Dx) Social History Tobacco [...] Date Adrian rded Speak language other than German at home Not on file 05/15/2023 Want [...] immediate complications Comments: BUY AND BILL Lot [id number], exp 10/30 x 1 vial I am [...] Description 06/05/2024 3:30 PM EST Procedure Visit [facility] Neurology - [place] [address] [place] [phone] Brianne Bundy MD [address] [facility] [address] [place] [address] documented as of this encounter Visit Diagnoses [...] ther documented in this encounter Care Teams Diagnostics Sales Developer Relationship Specialty Start Date End Date Jeremy Cortes MD [address] [place] [address] PCP - General Family Medicine 05/10/22 documented as of this encounter
--- OUTSIDE RECORDS SUMMARY | 2024-04-07 10:38 | XMS_ITS | Referral Summary ---
Author Organization [employer] Address [address] [place] [address] Care Team Providers Care Neck Band Operator Name Role Phone Jeremy Cortes MD Primary Care Provider +1- [phone] Encounters Date Type Department Care Team Description 03/13/2024 Travel 03/13/2024 3:30 PM EST Procedure Visit [facility] [address] [place] [address] Brianne Bundy MD Cervical dystonia (Primary Dx) 03/13/2024 2:45 PM EST Office Visit [facility] [address] [place] [address] Sara Huddleston APRN Idiopathic polyneuropathy (Primary Dx); Migraine without aura and without status migrainosus, not intractable; Tremor; Cervical dystonia 02/12/2024 Orders Only [facility] [address] [place] [address] Garima Avila CMA Idiopathic polyneuropathy 02/11/2024 Refill [facility] [address] [place] [address] Brianne Bundy MD Idiopathic polyneuropathy 02/11/2024 Refill [facility] [address] [place] [address] Brianne Bundy MD Tremor 01/14/2024 Refill [facility] Neurology - [address] [place] [address] Brianne Bundy MD Idiopathic polyneuropathy [...] Amount: 1,800 mg 90 tablet 024 Discontin ued([facility]) Hospital, Clinic, or Other Facility Administered [...] Date Adrian rded Speak language other than [place]araguan at home Not on file 05/15/2023 Want [...] Description 06/05/2024 3:30 PM EST Procedure Visit [facility] Neurology - [place] [address] [place] [address] Brianne Bundy MD [address] [place], [place] [id number] Insurance [employer] MEDICARE HMO Care Teams Neck Band Operator Relationship Specialty Start Date End Date Jeremy Cortes MD [address] [place] [address] PCP - General Family Medicine 05/10/22
--- OUTSIDE RECORDS SUMMARY | 2024-04-07 10:38 | XMS_ITS | Encounter Summary ---
Author Organization [employer] Address [address] [place] [address] Care Team Providers Care Tetryl Screen Operator Name Role Phone Jeremy Cortes MD Primary Care Provider +1- [phone] Reason for Visit * Reason Comments Medication Refill Encounter Details Date Type Department Care Team (Late st Contact Info) Description 12/20/2023 Refill [facility] Neurology [facility] [address] [facility] [address] [place] [address] Brianne Bundy MD [address] [place] [address] Idiopathic polyneuropathy Social History Tobacco Use Types [...] Date Adrian rded Speak language other than Monegasque at home Not on file 05/15/2023 Want [...] Visit [facility] Neurology - [facility] [address] [facility] [place] [address] Brianne Bundy MD [address] [place] [address] documented as of this encounter Visit Diagnoses Diagnosis Idiopathic polyneuropathy documented in this encounter Care Teams Tetryl Screen Operator Relationship Specialty Start Date End Date Jeremy Cortes MD [address] [place] [address] PCP - General Family Medicine 05/10/22 documented as of this encounter
--- OUTSIDE RECORDS SUMMARY | 2024-04-07 10:38 | XMS_ITS | Encounter Summary ---
Author Organization [employer] Address [address] [place] [address] Care Team Providers Care Cross Roller Name Role Phone Jeremy Cortes MD Primary Care Provider +1- [phone] Reason for Visit * Reason Comments Medication Refill Encounter Details Date Type Department Care Team (Late st Contact Info) Description 02/11/2024 Refill [facility] [address] [facility] [address] [place] [address] Brianne Bundy MD [address] [place] [address] Tremor Social History Tobacco Use Types Packs/Day [...] Date Adrian rded Speak language other than [place]inean at home Not on file 05/15/2023 Want [...] Description 06/05/2024 3:30 PM EST Procedure Visit [facility] Neurology - [facility] [address] [facility] [address] [place] [address] Brianne Bundy MD [address] [facility] [address] [place] [address] documented as of this encounter Visit Diagnoses Diagnosis Tremor Abnormal involuntary movements documented in this encounter Care Teams Cross Roller Relationship Specialty Start Date End Date Jeremy Cortes MD [address] [place] [phone] PCP - General Family Medicine 05/10/22 documented as of this encounter
--- OUTSIDE RECORDS SUMMARY | 2024-04-07 10:38 | XMS_ITS | Encounter Summary ---
Author Organization [employer] Address [address] [place] [address] Care Team Providers Care Surgery Manager Name Role Phone Jeremy Cortes MD Primary Care Provider +1- [phone] Encounter Details Date Type Department Care Team [...] Description 06/05/2024 3:30 PM EST Procedure Visit [facility] Neurology - [place] [address] [place] [address] Brianne Bundy MD [address] [place] [address] documented as of this encounter Visit Diagnoses Not on filedocumented in this encounter Care Teams Surgery Manager Relationship Specialty Start Date End Date Jeremy Cortes MD [address] [place] [address] PCP - General Family Medicine 05/10/22 documented as of this encounter
--- OUTSIDE RECORDS SUMMARY | 2024-04-07 10:38 | XMS_ITS | Encounter Summary ---
Author Organization [employer] Address [address] [place] [address] Care Team Providers Care Brush Or Broom Cutter Name Role Phone Jeremy Cortes MD Primary Care Provider +1- [phone] Encounter Details Date Type Department Care Team (Late Contact Info) Description 05/16/2022 Orders Only [facility] Neurology - [place] [address] [place] [address] Brianne Bundy MD [address] [place] [address] Avitaminosis D (Primary Dx) Social [...] 12:49 PM EST Vit D sent in RAMMING INSTRUCTOR documented in this encounter Plan of Treatment Upcoming Encounters Date Type Department Care Team (Late st Contact Info) Description 06/05/2024 3:30 PM EST Procedure Visit [facility] Neurology - [place] [address] [place] [address] Brianne Bundy MD [address] [place], [place] [phone] documented as of this encounter Visit Diagnoses Diagnosis Avitaminosis D- Primary Unspecified vitamin D deficiency documented in this encounter Care Teams Brush Or Broom Cutter Relationship Specialty Start Date End Date Jeremy Cortes MD [address] [place] [address] PCP - General Family Medicine 05/10/22 documented as of this encounter
--- OUTSIDE RECORDS SUMMARY | 2024-04-07 10:38 | XMS_ITS | Encounter Summary ---
Author Organization [employer] Address [address] [place] [address] Care Team Providers Care Pickle Water Pump Operator Name Role Phone Jeremy Cortes MD Primary Care Provider +1- [phone] Reason for Referral * Clinic Procedure (Routine) - Authorized Specialty Diagnoses / Procedures Referred By Bee khan Referred To Contact Neurology Diagnoses Cervical dystonia Xeomin CD [address] [employer] [facility] B&B Exp: 05/06/24 Brianne Bundy MD [facility] [address] [place] [address] Phone: tel: fax: Brianne Bundy MD [facility] [address] [place] [address] Phone: tel: fax: Referral ID Status Reason Start Date Expiration Date V isits Requested Visits Authorized [id number] Authorized 06/05/2023 05/06/2024 5 5 Reason for Visit * Reason Comments Follow-up Encounter Details Date Type Department Care Team (Latest Contact Info) Description 05/15/2023 1:45 PM EST Office Visit [facility] Neurology - [place] [address] [place] [address] Brianne Bundy MD [facility] [place] [address] Cervical dystonia (Primary Dx); Tremor; Idiopathic polyneuropathy [...] Date Adrian rded Speak language other than Malawian at home Not on file 05/15/2023 Want [...] D deficiency has been defined by the [place] of Medicine and an Endocrine Society practice guideline as a level of serum 25-OH vitamin D less than 20 ng/mL (1,2). The Endocrine Society went on to further define vitamin D insufficiency as a level between 21 and 29 ng/mL (2). 1. IOM ([place] of Medicine). 2010. Dietary reference intakes for calcium and D. [place]: The National Academies Press. 2. Darrius BRICENO, Dustin AVILEZ, Cristian TAM, et al. Evaluation, treatment, and prevention of vitamin D deficiency: an Endocrine Society clinical practice guideline. JCEM. 2010; 96(9):1911-30. ? ? Folate (Folic Acid), Serum 05/11/2022 [...] po qhs. Idiopathic polyneuropathy Return for xeomin. NICAL SALES ADVISOR documented in this encounter Plan of Treatment Upcoming Encounters Date Type Department Care Team (Late st Contact Info) Description 06/05/2024 3:30 PM EST Procedure Visit [facility] Neurology - [place] [address] [place] [address] Brianne Bundy MD [address] [place] [address] Scheduled Referrals Name Type Priority Associated Diagnoses Order Schedule Ambulatory referral for Botulinum Toxin Outpatient Referral Routine Cervical dystonia Expected: 05/15/2023, Expires: 05/15/2024 documented as of this encounter Visit Diagnoses Diagnosis Cervical dystonia- Primary Spasmodic torticollis Tremor Abnormal involuntary movements Idiopathic polyneuropathy documented in this encounter Care Teams Pickle Water Pump Operator Relationship Specialty Start Date End Date Jeremy Cortes MD [address] [place] [address] PCP - General Family Medicine 05/10/22 documented as of this encounter
--- OUTSIDE RECORDS SUMMARY | 2024-04-07 10:38 | XMS_ITS | Encounter Summary ---
Author Organization [employer] Address [address] [place] [address] Care Team Providers Care Buffet Runner Name Role Phone Jeremy Cortes MD Primary Care Provider +1- [phone] Reason for Visit * Reason Comments Spasms * Clinic Procedure (Routine) - Authorized Specialty Diagnoses / Procedures Referred By Contac t Referred To Contact Neurology Diagnoses Cervical dystonia Xeomin CD [address] [employer] [facility] B&B Exp: 05/06/24 Brianne Bundy MD [address] [place] [address] Phone: tel: fax: Brianne Bundy MD [address] [place] [address] Phone: tel: fax: Referral ID Status Reason Start Date Expiration Date V isits Requested Visits Authorized [id number] Authorized 06/05/2023 05/06/2024 5 5 Encounter Details Date Type Department Care Team (Latest Contact Info) Description 03/13/2024 3:30 PM EST Procedure Visit [facility] Neurology - [place] [address] [place] [address] Brianne Bundy MD [address] [place] [address] Cervical dystonia (Primary Dx) Social History Tobacco [...] Date Adrian rded Speak language other than Citizen [place] at home Not on file 05/15/2023 Want [...] well, no immediate complications Comments: [place] Lot #[id number], exp 05/01 x 1 vial She is responding very well to Xeomin injections Return in about 12 weeks (around 06/05/2024) for botox. AL CRUELTY INVESTIGATOR documented in this encounter Miscellaneous Notes * Addendum Note - Lindy Rene - 03/13/2024 3:30 PM ESTAddended by: LINDY RENE on: 03/13/2024 04:25 PM Modules accepted: Orders AL CRUELTY INVESTIGATOR documented in this encounter Plan of Treatment Upcoming Encounters Date Type Department Care Team (Late st Contact Info) Description 06/05/2024 3:30 PM EST Procedure Visit [facility] Neurology - [facility] [address] [place] [address] Brianne Bundy MD [address] [facility] [address] [place] [address] documented as of this encounter Visit Diagnoses [...] ther documented in this encounter Care Teams Buffet Runner Relationship Specialty Start Date End Date Jeremy Cortes MD [address] [place] [phone] PCP - General Family Medicine 05/10/22 documented as of this encounter
--- OUTSIDE RECORDS SUMMARY | 2024-04-07 10:38 | XMS_ITS | Encounter Summary ---
Author Organization [employer] Address [address] [place] [address] Care Team Providers Care Lead Software Tester Name Role Phone Jeremy Cortes MD Primary Care Provider +1- [phone] Encounter Details Date Type Department Care Team (Late st Contact Info) Description 02/12/2024 Orders Only [facility] Neurology - [address] [place] [address] Garima Avila, RADHA Idiopathic polyneuropathy [...] Date Adrian rded Speak language other than Kenyan at home Not on file 05/15/2023 Want [...] Description 06/05/2024 3:30 PM EST Procedure Visit [facility] Neurology - [facility] [address] [facility] [address] [place] [address] Brianne Bundy MD [address] [place] [address] documented as of this encounter Visit Diagnoses Diagnosis Idiopathic polyneuropathy documented in this encounter Care Teams Lead Software Tester Relationship Specialty Start Date End Date Jeremy Cortes MD [address] [place] [address] PCP - General Family Medicine 05/10/22 documented as of this encounter
--- OUTSIDE RECORDS SUMMARY | 2024-04-07 10:38 | XMS_ITS | Clinical Summary ---
Author Organization [employer] Address [address] [place] [address] Care Team Providers Care Textile Cutting Machine Operator Name Role Phone Jeremy Cortes MD Primary Care Provider +1- [phone] Allergies No known active allergies Medications bisoprolol [...] Description 03/13/2024 3:30 PM EST Procedure Visit [facility] Neurology - [place] [address] [place] [address] Brianne Bundy MD Cervical dystonia (Primary Dx) 03/13/2024 2:45 PM EST Office Visit [facility] Neurology - [facility] [address] [place] [address] Sara Huddleston APRN Idiopathic polyneuropathy (Primary Dx); Migraine without aura and without status migrainosus, not intractable; Tremor; Cervical dystonia 03/13/2024 Travel 02/12/2024 Orders Only [facility] Neurology - [facility] [address] [place] [address] Garima Avila CMA Idiopathic polyneuropathy 02/11/2024 Refill [facility] Neurology - [facility] [address] [place] [address] Brianne Bundy MD Idiopathic polyneuropathy 02/11/2024 [facility]rology - [facility] [address] [place] [address] Brianne Bundy MD Tremor 01/14/2024 [facility] Neurology [facility] [address] [place] [address] Brianne Bundy MD Idiopathic polyneuropathy [...] Date Adrian rded Speak language other than Guinean at home Not on file 05/15/2023 [...] Description 06/05/2024 3:30 PM EST Procedure Visit [facility] Neurology - [place] [address] [place] [address] Brianne Bundy MD [address] [place] [address] Health Maintenance Due Date Last [...] 03/1303/13/2024 Insurance [employer] MEDICARE HMO Care Teams Textile Cutting Machine Operator Relationship Specialty Start Date End Date Jeremy Cortes MD [address] [place] [address] PCP - General Family Medicine 05/10/22
--- OUTSIDE RECORDS SUMMARY | 2024-04-07 10:38 | XMS_ITS | Encounter Summary ---
Author Organization [employer] Address [address] [place] [address] Care Team Providers Care Branch Store Manager Name Role Phone Jeremy Cortes MD Primary Care Provider +1- [phone] Reason for Visit * Reason Comments Medication Refill Encounter Details Date Type Department Care Team (Late st Contact Info) Description 05/22/2023 Refill [facility] Neurology - [facility] [address] [facility] [address] [address] [place] [address] Brianne Bundy MD [address] [place] [address] Migraine without aura and without status migrainosus, [...] Date Adrian rded Speak language other than Gabonese at home Not on file 05/15/2023 Want [...] Description 06/05/2024 3:30 PM EST Procedure Visit [facility] Neurology - [facility] [address] [facility] [address] [place] [address] Brianne Bundy MD [address] [place] [address] documented as of this encounter Visit Diagnoses Diagnosis Migraine without aura and without status migrainosus, not intractable documented in this encounter Care Teams Branch Store Manager Relationship Specialty Start Date End Date Jeremy Cortes MD [address] [place] [address] PCP - General Family Medicine 05/10/22 documented as of this encounter
--- OUTSIDE RECORDS SUMMARY | 2024-04-07 10:38 | XMS_ITS ---
[facility] Address [address] [place] [id number] Care Team Providers Care Dance Director Name Role Phone Omi Cortes Primary Care Provider Yuli Millan Unavailable [phone] ALLERGIES Allergen (clinical drug ingredient) Drug/Non Drug [...] Notes Problem Leucocytosis (D72.829) Active confirmed Leucocytosis (360514555) VITAL SIGNS Weight 205.6 lbs 01/21/2024 Blood pressure systolic 110 mm Hg 01/21/20 24 Blood pressure diastolic 80 mm Hg 024 Heart Rate 92 /min 01/21/2024 Height 63.75 in 01/21/2024 BMI 35.56 kg/m2 01/21/2024 Encounters Encounter Location Date Provider Diagnosis [facility] [address] [facility] 36 [facility] [address] [place] [id number] 01/21/2024 Ylui Millan Leucocytosis D72.829 and Jaw pain R68.84 [...] Reason: Provider Name:Omi Elkins, 04/10/2024 02:00:00 PM, [address] [place] [address], [address], [place], [phone], Progress Notes * Examination Category Sub-Category Detail [...]
--- OUTSIDE RECORDS SUMMARY | 2024-04-07 10:38 | XMS_ITS | Encounter Summary ---
Author Organization [employer] Address [address] [place] [address] Care Team Providers Care Mine Wedge Sawyer Name Role Phone Jeremy Cortes MD Primary Care Provider +1- [phone] Reason for Visit * Reason Comments Spasms * Clinic Procedure (Routine) - Authorized Specialty Diagnoses / Procedures Referred By Contac t Referred To Contact Neurology Diagnoses Cervical dystonia Xeomin CD 200 Units [employer] [facility] B&B Exp: 05/06/24 Brianne Bundy MD [address] [place] [address] Phone: tel: fax: Brianne Bundy MD [address] [place] [address] Phone: tel: fax: Referral ID Status Reason Start Date Expiration Date V isits Requested Visits Authorized [id number] Authorized 06/05/2023 05/06/2024 5 5 Encounter Details Date Type Department Care Team (Latest Contact Info) Description 12/20/2023 3:30 PM EDT Procedure Visit [facility] Neurology - [place] [address] [place] [address] Brianne Bundy MD [address] [place] [address] Cervical dystonia (Primary Dx) Social History Tobacco [...] Date Adrian rded Speak language other than Syrian at home Not on file 05/15/2023 Want [...] immediate complications Comments: MARCELO AND BILL Lot #[id number], exp 03/01 x 1 vial She is [...] [facility] Neurology - [place] [facility] [address] [facility] [address] [place] [address] Brianne Bundy MD [address] [facility] [address] [place] [address] documented as of this encounter Visit Diagnoses [...] ther documented in this encounter Care Teams Mine Wedge Sawyer Relationship Specialty Start Date End Date Jeremy Cortes MD [address] [place] [address] PCP - General Family Medicine 05/10/22 documented as of this encounter
--- OUTSIDE RECORDS SUMMARY | 2024-04-07 10:38 | XMS_ITS ---
Author Organization [facility] Address [address] [facility] [address] [place] [id number] Care Team Providers Care Lead Producer Name Role Phone Omi Cortes Primary Care Provider [phone] REASON FOR VISIT Message Encounters Encounter Location Date Provider Diagnosis [facility] [address] [place] [id number] 01/24/2024 Omi Cortes Encounter for screening colonoscopy Z12.11 ASSESSMENTS Encounter Date Diagnosis Assessment Notes Treatment Notes Treatment Clinical Notes 01/24/2024 Encounter for screening colonoscopy (ICD-10 - Z12.11) PLAN OF TREATMENT Pending Test Test Name Order Date colonoscopy 01/24/2024 Next Appt Details Provider Name:Omi Elkins, 04/10/2024 02:00:00 PM, [address], [address], [place], [phone],
--- OUTSIDE RECORDS SUMMARY | 2024-04-07 10:38 | XMS_ITS | Encounter Summary ---
Author Organization [employer] Address [address] [place] [address] Care Team Providers Care Driver/Merchandiser Name Role Phone Jeremy Cortes MD Primary Care Provider +1- [phone] Reason for Visit * Reason Comments Medication Refill Encounter Details Date Type Department Care Team (Late st Contact Info) Description 02/11/2024 Refill [facility] Neurology - [facility] [address] [facility] [address] [place] [address] Brianne Bundy MD [address] [place] [address] Idiopathic polyneuropathy Social History Tobacco Use Types [...] file 2023 Family and Community Support Answer Jhony e Recorded Help with Day to Day Activities Not on file 05/15/2023 Feeling Lonely or Isolated Not on file 05/15 Educational Attainment Answer Date Adrian rded Speak language other than Beninese at home Not on file 05/15/2023 Want [...] EST Procedure Visit [facility] Neurology - [facility] [address] [facility] [address] [facility] [address] [place] [address] Brianne Bundy MD [address] [place] [address] documented as of this encounter Visit Diagnoses Diagnosis Idiopathic polyneuropathy documented in this encounter Care Teams Driver/Merchandiser Relationship Specialty Start Date End Date Jeremy Cortes MD [address] [place] [address] PCP - General Family Medicine 05/10/22 documented as of this encounter
--- OUTSIDE RECORDS SUMMARY | 2024-04-07 10:38 | XMS_ITS | Encounter Summary ---
Author Organization [employer] Address [address] [place] [address] Care Team Providers Care Maintainer Operator Name Role Phone Jeremy Cortes MD Primary Care Provider +1- [phone] Reason for Visit * Reason Onset Date Comments Medication Refill 01/14/2024 Encounter Details Date Type Department Care Team (Late st Contact Info) Description 01/14/[address] [facility] Neurology - [facility] [address] [facility] [address] [place] [address] Brianne Bundy MD [address] [place] [address] Idiopathic polyneuropathy Social History Tobacco Use Types [...] Date Adrian rded Speak language other than Maldivian at home Not on file 05/15/2023 Want [...] Procedure Visit [facility] Neurology - [place] [address] [place] [address] Brianne Bundy MD [address] [place] [address] documented as of this encounter Visit Diagnoses Diagnosis Idiopathic polyneuropathy documented in this encounter Care Teams Maintainer Operator Relationship Specialty Start Date End Date Jeremy Cortes MD [address] [place] [address] PCP - General Family Medicine 05/10/22 documented as of this encounter
--- OUTSIDE RECORDS SUMMARY | 2024-04-07 10:38 | XMS_ITS | Encounter Summary ---
Author Organization [employer] Address [address] [place] [address] Care Team Providers Care Photographer Name Role Phone Jeremy Cortes MD Primary Care Provider +1- [phone] Encounter Details Date Type Department Care Team [...] Date Adrian rded Speak language other than St Helenian at home Not on file 05/15/2023 Want [...] Description 06/05/2024 3:30 PM EST Procedure Visit [facility] Neurology - [place] [address] [place] [address] Brianne Bundy MD [address] [place] [address] documented as of this encounter Visit Diagnoses Not on filedocumented in this encounter Care Teams Photographer Relationship Specialty Start Date End Date Jeremy Cortes MD [address] [place] [address] PCP - General Family Medicine 05/10/22 documented as of this encounter
--- OUTSIDE RECORDS SUMMARY | 2024-04-07 10:38 | XMS_ITS | Encounter Summary ---
Author Organization [employer] In [employer] Address [address] [place] [address] Care Team Providers Care Lead Technical Architect Name Role Phone Jeremy Cortes MD Primary Care Provider +1- [phone] Reason for Visit * Reason Comments Medication Refill Encounter Details Date Type Department Care Team (Late st Contact Info) Description 11/16/2023 Refill [facility] Neurology - [facility] [address] [facility] [address] [place] [address] Brianne Bundy MD [address] [place] [address] Idiopathic polyneuropathy Social History Tobacco Use Types [...] Date Adrian rded Speak language other than Chinese at home Not on file 05/15/2023 Want [...] Procedure Visit [facility] Neurology - [facility] [address] [address] [place] [address] Brianne Bundy MD [address] [place] [address] documented as of this encounter Visit Diagnoses Diagnosis Idiopathic polyneuropathy documented in this encounter Care Teams Lead Technical Architect Relationship Specialty Start Date End Date Jeremy Cortes MD [address] [place] [address] PCP - General Family Medicine 05/10/22 documented as of this encounter
--- OUTSIDE RECORDS SUMMARY | 2024-04-07 10:38 | XMS_ITS | Encounter Summary ---
Author Organization [employer] Address [address] [place] [address] Care Team Providers Care Snowboarder Name Role Phone Jeremy Cortes MD Primary Care Provider +1- [phone] Reason for Visit * Reason Comments Spasms * Clinic Procedure (Routine) - Authorized Specialty Diagnoses / Procedures Referred By Contac t Referred To Contact Neurology Diagnoses Cervical dystonia Xeomin CD 200 Units [employer] [facility] B&B Exp: 05/06/24 Brianne Bundy MD [address] [place] [address] Phone: tel: fax: Brianne Bundy MD [address] [place] [address] Phone: tel: fax: Referral ID Status Reason Start Date Expiration Date V isits Requested Visits Authorized [id number] Authorized 06/05/2023 05/06/2024 5 5 Encounter Details Date Type Department Care Team (Latest Contact Info) Description 07/05/2023 3:30 PM EST Procedure Visit [facility] Neurology - [place] [address] [place] [address] Brianne Bundy MD [address] [place] [address] Cervical dystonia (Primary Dx) Social History Tobacco [...] Date Adrian rded Speak language other than Stateless at home Not on file 05/15/2023 Want [...] immediate complications Comments: BUY AND BILL LOT# [id number], exp 04/30 x 1 vial LOT # [id number], exp 02/28 x 1 vial I am optimistic she will have benefit from Xeomin injections. Return in about 12 weeks (around 09/27/2023) for xeomin. AND CUTTER HAND documented in this encounter Plan of Treatment Upcoming Encounters Date Type Department Care Team (Late st Contact Info) Description 06/05/2024 3:30 PM EST Procedure Visit [facility] Neurology - [facility] [address] [place] [id number] Brianne Bundy MD [address] [place] [address] documented as of this encounter Procedures Procedure [...] immediate complications Comments: BUY AND BILL LOT# [id number], exp 04/30 x 1 vial LOT # [id number], exp 02/28 x 1 vial us Brianne [...] ther documented in this encounter Care Teams Snowboarder Relationship Specialty Start Date End Date Jeremy Cortes MD [address] [place] [address] PCP - General Family Medicine 05/10/22 documented as of this encounter
--- OUTSIDE RECORDS SUMMARY | 2024-04-07 10:38 | XMS_ITS | Encounter Summary ---
Author Organization [employer] Address [address] [place] [address] Care Team Providers Care Systems Integration Manager Name Role Phone Jeremy Cortes MD Primary Care Provider +1- [phone] Encounter Details Date Type Department Care Team (Late st Contact Info) Description 11/16/2023 Orders Only [facility] Neurology - [address] [place] [address] Garima Avila, RADHA Idiopathic polyneuropathy [...] Date Adrian rded Speak language other than Turkish at home Not on file 05/15/2023 Want [...] [facility] - [facility] [address] [place] [address] Brianne Bundy MD [address] [place] [address] documented as of this encounter Visit Diagnoses Diagnosis Idiopathic polyneuropathy documented in this encounter Care Teams Systems Integration Manager Relationship Specialty Start Date End Date Jeremy Cortes MD [address] [place] [address] PCP - General Family Medicine 05/10/22 documented as of this encounter
--- OUTSIDE RECORDS SUMMARY | 2024-04-07 10:39 | XMS_ITS | Encounter Summary ---
Author Organization [employer] Address [address] [place] [address] Care Team Providers Care Appian Bpm Developer Name Role Phone Jeremy Cortes MD Primary Care Provider +1- [phone] Reason for Visit * Reason Comments NCV/EMG follow up Encounter Details Date Type Department Care Team (Latest Contact Info) Description 05/11/2022 2:15 PM EST Office Visit [facility] Neurology - [facility] [address] [facility] [address] [place] [address] Brianne Bundy MD [address] [facility] [address] [place] [address] Idiopathic polyneuropathy (Primary Dx); Tremor; Avitaminosis D; [...] Return in about 6 months (around 11/08/2022). GYN documented in this encounter Plan of Treatment Upcoming Encounters Date Type Department Care Team (Late st Contact Info) Description 06/05/2024 3:30 PM EST Procedure Visit [facility] Neurology - [place] [address] [place] [address] Brianne Bundy MD [address] [place] [address] documented as of this encounter [...] metabolic panel (05/11/2022 2:00 PM EST) Pathologist [facility] Glucose, Serum 83 70 - 99 mg/dL [...] 1:05 AM EST Performed at: ??01 - [facility] ??[id number] Kiosk Sales Representative: Brandan Syed PhD, Phone: ??[phone] us Brianne Bundy MD LAB BLOOD ORDERABLES Final R esult [facility] * Folate, Serum (05/11/2022 2:00 PM EST) Pathologist [facility] Folate (Folic Acid), Serum 12.4 >3.0 ng/mL [facility] Comment: A serum folate concentration of less than 3.1 ng/mL is considered to represent clinical deficiency. Blood 05/11/2022 2:00 PM EST 05/11/2022 Narrative [facility] - 05/16/2022 1:05 AM EST Performed at: ??01 - [facility] [address] ??[id number] Kiosk Sales Representative: Brandan Syed PhD, Phone: ??[phone] Brianne Bundy MD LAB BLOOD ORDERABLES Final R esult Performing Organization Address [facility] de Phone Number [facility] * (ABNORMAL) Vitamin [...] IOM ([place] of Medicine). 2010. Dietary reference ?? intakes for calcium and D. Alexis [place]: The ?? National [employer]. 2. Darrius MF, Dustin NC, Cristian TAM, et al. ?? Evaluation, treatment, and prevention of vitamin D ?? deficiency: an Endocrine Society clinical practice ?? guideline. JCEM. 2010; 96(7):1911-30. Blood 05/11/2022 2:00 PM EST 05/11/2022 Narrative [facility] - 05/16/2022 1:05 AM EST Performed at: ??01 - [facility] [address] ??[id number] Kiosk Sales Representative: Brandan Syed PhD, Phone: ??[phone] Brianne Bundy MD LAB BLOOD ORDERABLES Final R esult Performing Organization Address [facility] de Phone Number [facility] * Vitamin B1 (Thiamine), Whole Blood, LC/MS/MS (05/11/2022 2:00 PM EST) Vit. B1, Whole Blood 124.7 66.5 - 200.0 nmol/L [facility] 05/11/2022 2:00 PM EST 05/11/2022 Narrative [facility] - 05/16/2022 1:05 AM EST Test(s) [id number]. B1, Whole Blood was developed and its performance characteristics determined by [facility]. It has not been cleared or approved by the Food and Drug Administration. Performed at: ??02 - [facility] [address] ??[id number] Kiosk Sales Representative: Kameron Naylor MD, Phone: ??[phone] Brianne Bundy MD LAB BLOOD ORDERABLES Final R esult [facility] * Vitamin B6, Plasma (05/11/2022 2:00 PM EST) [facility] Vitamin B6 14.2 3.4 - 65.2 ug/L [facility] Comment: ? Deficiency: ? <3.4 ? Marginal: ?3.4 - 5.1 ? Adequate: ? >5.1 Blood 05/11/2022 2:00 PM EST 05/11/2022 Narrative [facility] - 05/16/2022 1:05 AM EST Test(s) [id number] B6 was developed and its performance characteristics determined by [facility]. It has not been cleared or approved by the Food and Drug Administration. Performed at: ??02 - [facility] [address] ??[id number] Kiosk Sales Representative: Kameron Naylor MD, Phone: ??[phone] Brianne Bundy MD LAB BLOOD ORDERABLES Final R esult [facility] * Vitamin B12 (05/11/2022 2:00 PM EST) Vitamin B12 299 232 - 1,245 pg/mL [facility] Blood 05/11/2022 2:00 PM EST 05/11/2022 Narrative [facility] - 05/16/2022 1:05 AM EST Performed at: ??01 - [facility] [address] ??[id number] Kiosk Sales Representative: Brandan Syed PhD, Phone: ??[phone] us Brianne Bundy MD LAB BLOOD ORDERABLES Final R esult [facility] documented in this encounter Visit Diagnoses Diagnosis Idiopathic polyneuropathy- Primary Tremor Abnormal involuntary movements Avitaminosis D Unspecified vitamin D deficiency Migraine without aura and without status migrainosus, not intractable documented in this encounter Care Teams Appian Bpm Developer Relationship Specialty Start Date End Date Jeremy Cortes MD [address] [place] [address] PCP - General Family Medicine 05/10/22 documented as of this encounter
--- OUTSIDE RECORDS SUMMARY | 2024-04-07 10:39 | XMS_ITS | Encounter Summary ---
Author Organization [employer] Address [address] [place] [address] Care Team Providers Care Lvn Name Role Phone Unavailable Primary Care Provider Unavailabl e Encounter Details Date Type Department Care Team (Late st Contact Info) Description 02/05/2014 11:42 AM EDT - 02/05/2014 11:59 PM EDT Hospital Encounter [facility] DEPARTMENT [address] [facility] [place] [address] Howie Pinto MD Social History [...] Released Date Time- 02/05/141658 Ben Yang Result [facility] Howie Pinto MD [facility] ORDERABLE S Final Result documented in this encounter Visit Diagnoses Not on filedocumented in this encounter
--- OUTSIDE RECORDS SUMMARY | 2024-04-07 10:39 | XMS_ITS | Encounter Summary ---
Author Organization [facility] ystem Address [address] [place] [address] Care Team Providers Care Solution Engineer Name Role Phone Unavailable Primary Care Provider Unavailabl e Encounter Details Date Type Department Care Team (Late st Contact Info) Description 01/09/2014 5:52 AM EDT - 01/10/2014 9:52 AM EDT Hospital Encounter [facility] DEPARTMENT [address] [place] [id number] Sanjay Pinto MD Social History Tobacco [...] See Report - 01/09/2014 5:52 AM EDT [address] [address] DISCHARGE SUMMARY PATIENT NAME: KAVIN ARAMBULA ROOM NUMBER: [id number] VISIT NUMBER: [id number] DATE OF : 1965 DATE OF ADMISSION: [...] follow-up in 4 weeks. 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 Sanjay Pinto MD* JRB/rxmsc Voice Rec. ID #[id number] Voice Original ID #[id number] Doc ID #[id number] Rev. #0 cc: Sanajy Pinto MD* Leola Cortes M.D.* DO NOT TEXT EDIT THIS LINE :CDS:[id number]: Authenticated by SANJAY PINTO MD On 01/14/2014 06:21:46 AM documented in this encounter H&P Notes * Interface, See Report - 01/09/2014 5:52 AM EDT [address] HISTORY AND PHYSICAL PATIENT NAME: KAVIN ARAMBULA ROOM NUMBER: VISIT NUMBER: [id number] DATE OF : 1965 DATE OF ADMISSION: [...] mg. SOCIAL HISTORY: Single. 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 Pack per day smoker. FAMILY HISTORY: Heart disease, colon cancer and diabetes. REVIEW OF SYSTEMS: History of pneumonia, headaches, dizziness, memory loss, nervousness, insomnia, depression and heat and cold intolerance. PHYSICAL EXAMINATION: Height 5 feet 4 inches. Weight 241. Strength intact deltoid, biceps, triceps and insecticide mixer. Subjective numbness left arm. No focal loss. Reflexes 1+ in both biceps, and triceps, 2+ knee jerks, 1+ ankle jerks equal. IMPRESSION: 1. Cervical disc herniation, C5-C6, left. 2. Significant degenerative disc C5-C6, C6-C7. PLAN: Anterior cervical discectomy and fusion, C5-C6, C6-C7. Sanjay Pinto MD* JRB/rxll Voice Rec. ID #[id number] Voice Original ID #[id number] Doc ID #[id number] Rev. #0 cc: Sanjay Pinto MD* Leola Cortes M.D.* DO NOT TEXT EDIT THIS LINE :[facility]:[id number]: Authenticated by SANJAY PINTO MD On 12/12/2013 06:09:35 AM documented in this encounter OR Notes * Op Note - Interface, See Report - 01/09/2014 5:52 AM EDT [place] [address] OPERATIVE REPORT PATIENT NAME: KAVIN ARAMBULA ROOM NUMBER: [id number] VISIT NUMBER: [id number] DATE OF : 1965 DATE OF OPERATION: 01/09/2014 PREOPERATIVE DIAGNOSES: 1. Cervical disc herniation C5-C6 left. 2. Degenerative disc C6-C7. POSTOPERATIVE DIAGNOSES: PROCEDURE PERFORMED: Anterior cervical discectomy and fusion C5-C6, C6-C7. SURGEON: Sanjay Pinto MD HOME SCHOOL TEACHER: Jami García PA-C. INDICATIONS FOR PROCEDURE: The [...] A 7 mm height cage filled with Anny was inserted and countersunk by 2 mm [...] A 7 mm PEEK cage filled with [place] was inserted at this level also and slightly countersunk. Then the distraction was released. The screws were removed from the vertebral bodies. The holes were waxed. A 40 mm [place] plate was positioned over the C5 to [...] Sanjay Pinto MD* JRB/rxcbp Voice Rec. ID #[id number] Original Voice Rec. ID #[id number] Doc ID #[id number] Revision Count: 0 cc: Sanjay Pinto MD* <start header> [place] [address] OPERATIVE REPORT PATIENT NAME: KAVIN ARAMBULA ROOM NUMBER: [id number] VISIT NUMBER: [id number] DATE OF : 1965 <end header> DO NOT TEXT EDIT THIS LINE :BEHAVIOR SPECIALIST:20201: Authenticated by SANJAY PINTO MD On 01/09/2014 [...] EDT) Potassium 4.18 3.5 - 5.3 mmol/L [facility] Venous blood specimen (specimen) 01/09/2014 6:25 AM EDT Narrative [facility] - 01/09/2014 6:54 AM EDT Specimen Type: Venous Akash Chauhan MD LAB BLOOD ORDERABLES Micaela hugo Result [facility] [address] [place] [address], * X-RAY CERVICAL SPINE LATERAL (01/09/2014 6:08 [...] ? Released Date Time- 01/09/14 1005 ? Damaged Freight Inspector- León Procedure Note Donn Castillo MD - 01/27/2015 LATERAL VIEW OF THE CERVICAL SPINE: HISTORY: Neck pain. FINDINGS: Lateral view of the cervical spine demonstrates anterior plate and screw devices fusing C5, C6 and C7. The alignment is excellent in a single lateral projection. E: 01/09/2014 Reading Gracie GATICA Releasing Gracie GATICA Released Date Time- 01/09/14 1005 Damaged Freight Inspector- León Sanjay Pinto MD IMG DIAGNOSTIC IMAGING [...] ? Released Date Time- 01/09/14 1007 ? Damaged Freight Inspector- D.M.E. Procedure Note Sanjay Curiel MD - 01/27/2015 CROSSTABLE LATERAL PORTABLE VIEW CERVICAL SPINE, SINGLE IMAGE ON 01/09/2014: HISTORY: Cervical fusion, neck pain, preop localization for disc surgery FINDINGS: Needle has been placed from the anterolateral approach into the C5-C6 interspace for preoperative disc space localization. DE: 01/09/2014 Reading Gracie CSHAFFER Releasing Gracie SCHAFFER Released Date Time- 01/09/14 1007 Damaged Freight Inspector- Yovanny.M.EChristina Sanjay Pinto MD IMG DIAGNOSTIC IMAGING ORDERABLE S Final Result * Converted Surgical Pathology (01/09/2014 5:52 AM EDT) 01/09/2014 5:52 AM EDT Narrative [facility] - 01/13/2014 3:03 [place] [address] SURGICAL PATHOLOGY REPORT Patient Name: KAVIN ARAMBULA MR#: [id number] : 1965 Gender: F Ordering Physician: SANJAY PINTO Copy To: ?? Location: [address] [place] [address] Collected: 01/09/2014 Received: 01/09/2014 Reported: 01/13/2014 Clinical [...] neely/pink fibrocartilaginous soft tissue fragments from which sales representative church furniture sections are submitted in one cassette. HBM/mbc Microscopic Description Sections of the intervertebral disc material demonstrate fibrocartilage without inflammation or neoplasia. JFJ/mbc ?? Procedures/Addenda us See Report Interface PATHOLOGY/CYTOLOGY ORDERABL ES [place] [address], * SCANNED EKG (01/09/2014) us [facility] ECG ORDERABLES Final Result * (ABNORMAL) Basic metabolic panel (01/02/2014 11:55 AM EDT) Glucose 100 70 - 100 mg/dL [facility] BUN 10 9 - 23 mg/dL [facility] Creatinine 0.8 0.6 - 1.3 mg/dL [facility] Sodium 138 132 - 146 mmol/L [facility] Potassium 4.3 3.5 - 5.5 mmol/L [facility] Chloride 108 99 - 109 mmol/L [facility] CO2 29 20 - 31 mmol/L [facility] Calcium 9.1 8.7 - 10.4 mg/dL [facility] eGFR 77 ml/min/1.7 32 [facility] Comment: DF by IF @ 01/02/2014 12:31 ?? National Kidney Foundation Guidelines ?Stage ? Description ?GFR ?1 ?Normal or High ? 90+ ?2 ?Mild decrease ? 60-89 ?3 ?Moderate decrease ?30-59 ?4 ?Severe decrease ?15-29 ?5 ?Kidney failure ?<15 Anion Gap 1(L) 3 - 11 mmol/L [facility] Blood specimen (specimen) 01/02/2014 11:55 AM EDT [facility] - 01/02/2014 12:31 PM EDT Specimen Type: Blood Sanjay Pinto MD LAB BLOOD ORDERABLES Final Resul t Performing Organization Address [facility] [place] [address], * (ABNORMAL) CBC (No diff) (01/02/2014 11:55 AM EDT) WBC 10.62 3.50 - 10.80 K/[facility] RBC 5.50(H) 3.89 - 5.14 /[facility] Hemoglobin 16.4(H) 11.5 - 15.5 g/dL [facility] Hematocrit 47.9(H) 34.5 - 44.0 % [facility] MCV 87.1 80.0 - 99.0 fL [facility] MCH 29.8 27.0 - 31.0 pg [facility] MCHC 34.2 32.0 - 36.0 g/dL [facility] RDW-CV 12.8 11.3 - 14.5 % [facility] Platelets 252 150 - 450 [facility] Blood specimen (specimen) 01/02/2014 11:55 AM EDT [facility] - 01/02/2014 12:09 PM EDT Specimen Type: Blood us Sanjay Pinto MD LAB BLOOD ORDERABLES Final Resul t Performing Organization Address [facility] Co [place] [address], * MRSA screen (01/02/2014 11:49 AM EDT) Other 01/02/2014 11:4 9 AM EDT [facility] - 01/04/2014 8:49 AM EDT Specimen Type: Screening Nares [facility] - Culture MRSA Screen Specimen: Screening Nares Collected: 01/02/2014 11:49 Status: FINAL ? Last Updated: 01/04/2014 08:49 Culture Result (CR) (Final) ??No Methicillin Resistant Staph Aureus Isolated us Sanjay Pinto MD MICROBIOLOGY - GENERAL ORDERABLE S Final Result Performing Organization Address City/State/[facility] Co de Phone Number [facility] [address] [place] [address], documented in this encounter Visit Diagnoses Not on filedocumented in this encounter
--- OUTSIDE RECORDS SUMMARY | 2024-04-07 10:39 | XMS_ITS | Encounter Summary ---
Author Organization [facility] ystem Address [address] [place] [address] Care Team Providers Care Research And Evaluation Analyst Name Role Phone Unavailable Primary Care Provider Unavailabl e Encounter Details Date Type Department Care Team (Late st Contact Info) Description 04/23/2014 8:45 AM EST - 04/23/2014 11:59 PM EST Hospital Encounter [facility] DEPARTMENT [address] [place] [address] Howie Pinto MD Social History [...] ? Released Date Time- 04/23/14 1647 ? Delivery Nurse- Narcisa. Procedure Note Donn Castillo MD - [...] Gracie GATICA Released Date Time- 04/23/14 1647 Delivery Nurse- Can Howie Pinto MD IMG MRI ORDERABLES Final Result documented in this encounter Visit Diagnoses Not on filedocumented in this encounter
--- OUTSIDE RECORDS SUMMARY | 2024-04-07 10:39 | XMS_ITS | Clinical Summary ---
[facility] Address [address] [place] [address] Care Team Providers Care Hospice Spiritual Care Coordinator Name Role Phone Unavailable Primary Care Provider [...] VACCINE (1 of 2) 2015 INFLUENZA VACCINE 11/05/2023 COVID-19 Vaccine (1 - 2023-2 5 season) 2024 Pneumococcal Vaccine 0-64 Aged Out No longer eligible based on patient's age to complete this topic
[2024-04-07 10:50] VITALS: BP 121/66; PULSE 89; RESP 14; O2SAT 98; BMI 35.6
--- NOTE | 2024-04-07 10:54 | EXP.PAIN.SOA ---
[facility] Disclaimer: The information contained in this section may have been updated after the patient was seen, as this information can be updated by other users. Medical History (Updated 03/31/24 @ 14:17 by Orlando Peoples II, MD) James's disease Anxiety and depression Muscle spasm History of tumor Skin cancer Celiac disease Asthma Migraine Appendicitis Congestive heart failure Edema Surgical History History of hysterectomy History of cholecystectomy History of carpal tunnel surgery History of surgery on wrist Hx of neck surgery History of surgery Family History Other Colon cancer Diabetes Heart disease Social History Smoking Status: Current every day smoker alcohol intake: never counseling provided: none substance use type: denies use current occupational status: other housing: apartment current occupational exposures/hazards: No caffeine: Yes PM Subjective & Objective Subjective Subjective:: Patient is a pleasant 59-year-old female who presents today for medication refill and 1 month follow-up. Today she rates her pain a 1 out of 10. She states that she is actually doing really well and denies any new falls or injuries. She states that her pain medication is working well and denies any side effects. Patient is currently prescribed [place] 7.5 mg twice a day from our office and gabapentin from her PCP. Her Sarthak has been reviewed and is appropriate. Review of Systems: General: No recent weight changes, no fever, no sleep disturbances Respiratory: No cough, no shortness of air, no recurring pulmonary infections Cardiovascular/peripheral vascular: No chest pain, no palpitations, no edema, no shortness of breath Gastrointestinal: No new onset incontinence, normal bowel movements reported Genitourinary: No new onset incontinence Musculoskeletal: Low back pain Psychiatric: [Normal mood/affect] Neurological: [Denies weakness in extremities], [denies balance issues] Pain at rest (0-10 scale): 1 Objective Objective:: Physical Exam: General: Alert and oriented x3, no acute distress, pleasant and cooperative Lungs: Respirations even and unlabored, symmetrical chest expansion Eyes: PERRL Musculoskeletal: Flexion and extension of lumbar [spine] somewhat guarded secondary to pain, [antalgic gait noted] Neurological: Speech clear, no gross sensory deficit Has patient had previous pain injection?: No Conservative treatment options previously tried: Prescription medications Length of treatment: Longer than 12 weeks Meds Home Medications and Allergies Home Medications ?Medication ?Instructions ?Recorded ?Confirmed ?Type montelukast 10 mg tablet 10 mg PO PM Asthma 05/14/17 04/07/24 History ibuprofen 800 mg tablet 800 mg PO TID PRN pain 06/26/17 04/07/24 History gabapentin 600 mg tablet 600 mg PO TID nerve pain 08/01/17 04/07/24 History primidone 50 mg tablet 50 mg PO TID seizures 08/01/17 04/07/24 History buspirone 10 mg tablet 10 mg PO TID Depression 11/21/17 04/07/24 History cyclobenzaprine 10 mg tablet 10 mg PO BID Pain 11/21/17 04/07/24 History hyoscyamine sulfate 0.125 mg 0.125 mg PO QID PRN reflux 11/21/17 04/07/24 History tablet (Levsin) trazodone 50 mg tablet 50 mg PO QHS sleep 11/21/17 04/07/24 History bisoprolol fumarate 5 mg tablet 5 mg PO DAILY htn 01/30/18 04/07/24 History spironolactone 25 mg tablet 25 mg PO DAILY Fluid 01/30/18 04/07/24 History furosemide 40 mg tablet 40 mg PO DAILY Fluid #30 tabs 07/25/18 04/07/24 Rx amitriptyline 10 mg tablet 10 mg PO DAILY . 11/20/18 04/07/24 History hydrocodone 7.5 mg-acetaminophen 1 tab PO BID Pain #60 tabs 02/28/24 04/07/24 Rx 325 mg tablet sodium sul 1.479 gram-potas ch See Rx Instructions PO PER PKG DIR 03/24/24 04/07/24 Rx 0.188 gram-magnes sul 0.225 gram colonscopy #24 tabs tablet (Sutab) semaglutide 1 mg/dose (2 mg/1.5 1 mg SQ WEEKLY 03/28/24 04/07/24 History mL) subcutaneous pen injector amitriptyline 50 mg tablet 50 mg PO HS #30 tabs 03/31/24 04/07/24 Rx colestipol 1 gram tablet 1 g PO .Nightly #30 tabs 03/31/24 04/07/24 Rx New Prescriptions to Start Prescriptions: Allergies Allergy/AdvReac Type Severity Reaction Status Date / Time formaldehyde (FORMALDEHYDE) Allergy Mild Blister Verified 03/31/24 12:10 levothyroxine sodium (From Allergy Unknown CANT TAKE Verified 10/08/23 11:43 SYNTHROID) GENERIC flu shot Allergy Blister Uncoded 03/31/24 12:10 Assessment and Plan *Assessment and plan (1) Lumbar radiculopathy: Status: Acute Category: Medical Code(s): M54.16 - Radiculopathy, lumbar region (2) Degenerative disc disease, lumbar: Status: Acute Category: Medical Code(s): M51.36 - Other intervertebral disc degeneration, lumbar region Plan We will refill the patient's [place] and provide a 1 month supply of this medication. Patient will return to clinic in 1 month for reevaluation of symptoms and plan of care. Risks and benefits of the medication have been explained in detail to the patient. The patient does understand the risk of dependence on the medication when given over a prolonged period. Patient has been advised of risks of oversedation with the prescribed medication. Narcan has been offered to the paitent in the event of oversedation. Patient has been advised that a family member should also be educated regarding administration of Narcan. The patient has been advised to consult with his/her primary care provider and pharmacist regarding drug-drug interaction of medications currently prescribed. Patient has been prescribed a controlled substance after being counseled on the medication, medication safety, and possible side effects. Opioid contract was reviewed and signed by the patient, and that they have agreed to all of the terms set forth by our compliance program. Patient has been instructed to contact the clinic with any concerns before the next appointment. Dr. Butler has reviewed this note and agrees with this plan of care. This note was dictated using voice recognition software and make contain errors or omissions.
== END 2024-04-07 23:59 | disposition home or self-care (01) ==
PROVIDERS: PCP Family Medicine; Visit Provider Nurse Practitioner Family
DX: M51.16 Intervertebral disc disorders with radiculopathy, lumbar region (principal); Z79.899 Other long term (current) drug therapy
CPT/HCPCS: 99212; G0463

== ENCOUNTER 2024-05-08 11:12 | Outpatient (POV) | payer OTHER, SELFPAY ==
[2024-05-08 11:29] VITALS: BP 131/77; PULSE 94; RESP 18; O2SAT 92; BMI 37.4
--- NOTE | 2024-05-08 11:44 | EXP.PAIN.SOA ---
[facility] Disclaimer: The information contained in this section may have been updated after the patient was seen, as this information can be updated by other users. Medical History (Updated 03/31/24 @ 14:17 by Orlando Peoples II, MD) James's disease Anxiety and depression Muscle spasm History of tumor Skin cancer Celiac disease Asthma Migraine Appendicitis Congestive heart failure Edema Surgical History History of hysterectomy History of cholecystectomy History of carpal tunnel surgery History of surgery on wrist Hx of neck surgery History of surgery Family History Other Colon cancer Diabetes Heart disease Social History Smoking Status: Current every day smoker alcohol intake: never counseling provided: none substance use type: denies use current occupational status: other Travel in the last 8 weeks: None housing: apartment current occupational exposures/hazards: No caffeine: Yes Have you lived/traveled outside [place] in past 30 days?: No Contact w/someone who lives/traveled outside US past 30 days?: No Exposure to someone with infectious disease in past 14 days?: No Do you have a fever (greater than 100.4 F or 38 C)?: No Have you tested positive for COVID-19: No Exposed to someone with COVID-19 in past 14 days?: No Do you have a sore throat?: No Do you have a cough?: No Do you have any weakness?: No Do you have any diarrhea?: No Are you experiencing any unusual bleeding?: No Do you have any muscle aches/pain?: No Do you have any abdominal pain?: No Are you experiencing loss of taste or smell?: No PM Subjective & Objective Subjective Subjective:: Patient is a pleasant 59-year-old female who presents today for medication refill. Today she rates her pain a 2 out of 10. She denies any new changes. She is currently prescribed [place] 7.5 mg twice a day from our office and gabapentin from an outside provider. Her Sarthak has been reviewed and is appropriate. She denies any side effects. Review of Systems: General: No recent weight changes, no fever, no sleep disturbances Respiratory: No cough, no shortness of air, no recurring pulmonary infections Cardiovascular/peripheral vascular: No chest pain, no palpitations, no edema, no shortness of breath Gastrointestinal: No new onset incontinence, normal bowel movements reported Genitourinary: No new onset incontinence Musculoskeletal: [Low back pain psychiatric: [Normal mood/affect] Neurological: [Denies weakness in extremities], [denies balance issues] Pain at rest (0-10 scale): 2 Objective Objective:: Physical Exam: General: Alert and oriented x3, no acute distress, pleasant and cooperative Lungs: Respirations even and unlabored, symmetrical chest expansion Eyes: PERRL Musculoskeletal: Flexion and extension of lumbar [spine] somewhat guarded secondary to pain, [antalgic gait noted] Neurological: Speech clear, no gross sensory deficit Has patient had previous pain injection?: No Conservative treatment options previously tried: Home exercise plan Length of treatment: Longer than 12 weeks Meds Home Medications and Allergies Home Medications ?Medication ?Instructions ?Recorded ?Confirmed ?Type montelukast 10 mg tablet 10 mg PO PM Asthma 05/14/17 04/07/24 History ibuprofen 800 mg tablet 800 mg PO TID PRN pain 06/26/17 04/07/24 History gabapentin 600 mg tablet 600 mg PO TID nerve pain 08/01/17 04/07/24 History primidone 50 mg tablet 50 mg PO TID seizures 08/01/17 04/07/24 History buspirone 10 mg tablet 10 mg PO TID Depression 11/21/17 04/07/24 History cyclobenzaprine 10 mg tablet 10 mg PO BID Pain 11/21/17 04/07/24 History hyoscyamine sulfate 0.125 mg 0.125 mg PO QID PRN reflux 11/21/17 04/07/24 History tablet (Levsin) trazodone 50 mg tablet 50 mg PO QHS sleep 11/21/17 04/07/24 History bisoprolol fumarate 5 mg tablet 5 mg PO DAILY htn 01/30/18 04/07/24 History spironolactone 25 mg tablet 25 mg PO DAILY Fluid 01/30/18 04/07/24 History furosemide 40 mg tablet 40 mg PO DAILY Fluid #30 tabs 07/25/18 04/07/24 Rx amitriptyline 10 mg tablet 10 mg PO DAILY . 11/20/18 04/07/24 History sodium sul 1.479 gram-potas ch See Rx Instructions PO PER PKG DIR 03/24/24 04/07/24 Rx 0.188 gram-magnes sul 0.225 gram colonscopy #24 tabs tablet (Sutab) semaglutide 1 mg/dose (2 mg/1.5 1 mg SQ WEEKLY 03/28/24 04/07/24 History mL) subcutaneous pen injector amitriptyline 50 mg tablet 50 mg PO HS #30 tabs 03/31/24 04/07/24 Rx colestipol 1 gram tablet 1 g PO .Nightly #30 tabs 03/31/24 04/07/24 Rx hydrocodone 7.5 mg-acetaminophen 1 tab PO BID Pain #60 tabs 04/07/24 Rx 325 mg tablet New Prescriptions to Start Prescriptions: Allergies Allergy/AdvReac Type Severity Reaction Status Date / Time formaldehyde (FORMALDEHYDE) Allergy Mild Blister Verified 03/31/24 12:10 levothyroxine sodium (From Allergy Unknown CANT TAKE Verified 10/08/23 11:43 SYNTHROID) GENERIC flu shot Allergy Blister Uncoded 03/31/24 12:10 Assessment and Plan *Assessment and plan (1) Lumbar radiculopathy: Status: Acute Category: Medical Code(s): M54.16 - Radiculopathy, lumbar region (2) Degenerative disc disease, lumbar: Status: Acute Category: Medical Code(s): M51.369 - Other intervertebral disc degeneration, lumbar region without mention of lumbar back pain or lower extremity pain Plan I will refill the patient's Earlham and provide a 1 month supply of this medication. Patient will return to clinic in 1 month for reevaluation of symptoms and plan of care. Risks and benefits of the medication have been explained in detail to the patient. The patient does understand the risk of dependence on the medication when given over a prolonged period. Patient has been advised of risks of oversedation with the prescribed medication. Narcan has been offered to the paitent in the event of oversedation. Patient has been advised that a family member should also be educated regarding administration of Narcan. The patient has been advised to consult with his/her primary care provider and pharmacist regarding drug-drug interaction of medications currently prescribed. Patient has been prescribed a controlled substance after being counseled on the medication, medication safety, and possible side effects. Opioid contract was reviewed and signed by the patient, and that they have agreed to all of the terms set forth by our compliance program. A UDS is needed to verify patient's compliance with our office pain contract. This is ordered based off specific treatments related to chronic pain with the potential to abuse certain medications. Patient has been instructed to contact the clinic with any concerns before the next appointment. Dr. Butler has reviewed this note and agrees with this plan of care. This note was dictated using voice recognition software and make contain errors or omissions.
== END 2024-05-08 23:59 | disposition home or self-care (01) ==
PROVIDERS: PCP Family Medicine; Visit Provider Nurse Practitioner Family
DX: M51.16 Intervertebral disc disorders with radiculopathy, lumbar region (principal); F17.210 Nicotine dependence, cigarettes, uncomplicated; Z79.899 Other long term (current) drug therapy
CPT/HCPCS: 99212; G0463

== ENCOUNTER 2024-06-09 10:26 | Outpatient (POV) | payer OTHER, SELFPAY ==
--- NOTE | 2024-06-09 10:51 | A.OFFVIS_ITS ---
[facility] Disclaimer: The information contained in this section may have been updated after the patient was seen, as this information can be updated by other users. Medical History (Updated 03/31/24 @ 14:17 by Orlando Peoples II, MD) James's disease Anxiety and depression Muscle spasm History of tumor Skin cancer Celiac disease Asthma Migraine Appendicitis Congestive heart failure Edema Surgical History History of hysterectomy History of cholecystectomy History of carpal tunnel surgery History of surgery on wrist Hx of neck surgery History of surgery Family History Other Colon cancer Diabetes Heart disease Social History Smoking Status: Current every day smoker alcohol intake: never counseling provided: none substance use type: denies use current occupational status: other Travel in the last 8 weeks: None housing: apartment current occupational exposures/hazards: No caffeine: Yes PM Subjective & Objective Subjective Subjective:: Patient is a pleasant 59-year-old female who presents today for medication refill. She rates her pain a 2 out of 10. She states she is doing really well. Patient is currently managed with Henrietta 7.5 mg twice a day. She denies any side effects from this medication. Her Sarthak has been reviewed and is appropriate. Review of Systems: General: No recent weight changes, no fever, no sleep disturbances Respiratory: No cough, no shortness of air, no recurring pulmonary infections Cardiovascular/peripheral vascular: No chest pain, no palpitations, no edema, no shortness of breath Gastrointestinal: No new onset incontinence, normal bowel movements reported Genitourinary: No new onset incontinence Musculoskeletal: Low back pain Psychiatric: [Normal mood/affect] Neurological: [Denies weakness in extremities], [denies balance issues] Pain at rest (0-10 scale): 2 Objective Objective:: Physical Exam: General: Alert and oriented x3, no acute distress, pleasant and cooperative Lungs: Respirations even and unlabored, symmetrical chest expansion Eyes: PERRL Musculoskeletal: Flexion and extension of lumbar [spine] somewhat guarded secondary to pain, [antalgic gait noted] Neurological: Speech clear, no gross sensory deficit Has patient had previous pain injection?: No Conservative treatment options previously tried: Prescription medications Length of treatment: Longer than 12 weeks Meds Home Medications and Allergies Home Medications ?Medication ?Instructions ?Recorded ?Confirmed ?Type montelukast 10 mg tablet 10 mg PO PM Asthma 05/14/17 05/08/24 History ibuprofen 800 mg tablet 800 mg PO TID PRN pain 06/26/17 05/08/24 History gabapentin 600 mg tablet 600 mg PO TID nerve pain 08/01/17 05/08/24 History primidone 50 mg tablet 50 mg PO TID seizures 08/01/17 05/08/24 History buspirone 10 mg tablet 10 mg PO TID Depression 11/21/17 05/08/24 History cyclobenzaprine 10 mg tablet 10 mg PO BID Pain 11/21/17 05/08/24 History hyoscyamine sulfate 0.125 mg 0.125 mg PO QID PRN reflux 11/21/17 05/08/24 History tablet (Levsin) trazodone 50 mg tablet 50 mg PO QHS sleep 11/21/17 05/08/24 History bisoprolol fumarate 5 mg tablet 5 mg PO DAILY htn 01/30/18 05/08/24 History spironolactone 25 mg tablet 25 mg PO DAILY Fluid 01/30/18 05/08/24 History furosemide 40 mg tablet 40 mg PO DAILY Fluid #30 tabs 07/25/18 05/08/24 Rx amitriptyline 10 mg tablet 10 mg PO DAILY . 11/20/18 05/08/24 History sodium sul 1.479 gram-potas ch See Rx Instructions PO PER PKG DIR 03/24/24 05/08/24 Rx 0.188 gram-magnes sul 0.225 gram colonscopy #24 tabs tablet (Sutab) semaglutide 1 mg/dose (2 mg/1.5 1 mg SQ WEEKLY 03/28/24 05/08/24 History mL) subcutaneous pen injector amitriptyline 50 mg tablet 50 mg PO HS #30 tabs 03/31/24 05/08/24 Rx colestipol 1 gram tablet 1 g PO .Nightly #30 tabs 03/31/24 05/08/24 Rx hydrocodone 7.5 mg-acetaminophen 1 tab PO BID Pain #60 tabs 05/08/24 Rx 325 mg tablet New Prescriptions to Start Prescriptions: Allergies Allergy/AdvReac Type Severity Reaction Status Date / Time formaldehyde (FORMALDEHYDE) Allergy Mild Blister Verified 03/31/24 12:10 levothyroxine sodium (From Allergy Unknown CANT TAKE Verified 10/08/23 11:43 SYNTHROID) GENERIC flu shot Allergy Blister Uncoded 03/31/24 12:10 Assessment and Plan *Assessment and plan (1) Degenerative disc disease, lumbar: Status: Acute Category: Medical Code(s): M51.369 - Other intervertebral disc degeneration, lumbar region without mention of lumbar back pain or lower extremity pain (2) Lumbar radiculopathy: Status: Acute Category: Medical Code(s): M54.16 - Radiculopathy, lumbar region Plan I will refill her Henrietta and provide a 1 month supply of this medication. Patient will return to clinic in 1 month. Risks and benefits of the medication have been explained in detail to the patient. The patient does understand the risk of dependence on the medication when given over a prolonged period. Patient has been advised of risks of oversedation with the prescribed medication. Narcan has been offered to the paitent in the event of oversedation. Patient has been advised that a family member should also be educated regarding administration of Narcan. The patient has been advised to consult with his/her primary care provider and pharmacist regarding drug-drug interaction of medications currently prescribed. Patient has been prescribed a controlled substance after being counseled on the medication, medication safety, and possible side effects. Opioid contract was reviewed and signed by the patient, and that they have agreed to all of the terms set forth by our compliance program. A UDS is needed to verify patient's compliance with our office pain contract. This is ordered based off specific treatments related to chronic pain with the potential to abuse certain medications. Patient has been instructed to contact the clinic with any concerns before the next appointment. Dr. Butler has reviewed this note and agrees with this plan of care. This note was dictated using voice recognition software and make contain errors or omissions.
[2024-06-09 14:06] VITALS: BP 124/82; PULSE 89; RESP 18; O2SAT 96; BMI 35.9
== END 2024-06-09 23:59 | disposition home or self-care (01) ==
PROVIDERS: PCP Family Medicine; Visit Provider Nurse Practitioner Family
DX: M51.16 Intervertebral disc disorders with radiculopathy, lumbar region (principal); F17.210 Nicotine dependence, cigarettes, uncomplicated; Z79.899 Other long term (current) drug therapy
CPT/HCPCS: 99212; G0463

== ENCOUNTER 2024-07-07 11:39 | Outpatient (POV) | payer MEDICARE, SELFPAY ==
--- NOTE | 2024-07-07 11:48 | EXP.PAIN.SOA ---
[facility] Disclaimer: The information contained in this section may have been updated after the patient was seen, as this information can be updated by other users. 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 Skin cancer Celiac disease Asthma Migraine Appendicitis Congestive heart failure Edema Surgical History History of hysterectomy History of cholecystectomy History of carpal tunnel surgery RIGHT History of surgery on wrist LEFT Hx of neck surgery History of surgery HEART CATH - NO STENTS Family History Other Colon cancer Diabetes Heart disease Social History Smoking Status: Current every day smoker alcohol intake: never counseling provided: none substance use type: denies use current occupational status: other Travel in the last 8 weeks: None housing: apartment current occupational exposures/hazards: No caffeine: Yes PM Subjective & Objective Subjective Subjective:: Patient is a pleasant 59-year-old female who presents today for medication refill. She rates her pain today a 1 out of 10. She denies any new trauma or injury. She states overall she is doing really well with her current medications. She is prescribed Elkins 7.5 mg twice a day and compounded cream from our office. She denies any changes to her pharmacy. She is prescribed gabapentin from an outside provider. Her Sarthak has been reviewed and is appropriate. Review of Systems: General: No recent weight changes, no fever, no sleep disturbances Respiratory: No cough, no shortness of air, no recurring pulmonary infections Cardiovascular/peripheral vascular: No chest pain, no palpitations, no edema, no shortness of breath Gastrointestinal: No new onset incontinence, normal bowel movements reported Genitourinary: No new onset incontinence Musculoskeletal: Low back pain Psychiatric: [Normal mood/affect] Neurological: [Denies weakness in extremities], [denies balance issues] Pain at rest (0-10 scale): 1 Objective Objective:: Physical Exam: General: Alert and oriented x3, no acute distress, pleasant and cooperative Lungs: Respirations even and unlabored, symmetrical chest expansion Eyes: PERRL Musculoskeletal: Flexion and extension of lumbar [spine] somewhat guarded secondary to pain, [antalgic gait noted] Neurological: Speech clear, no gross sensory deficit Has patient had previous pain injection?: No Conservative treatment options previously tried: Home exercise plan Length of treatment: Longer than 12 weeks Meds Home Medications and Allergies Home Medications ?Medication ?Instructions ?Recorded ?Confirmed ?Type montelukast 10 mg tablet 10 mg PO PM Asthma 05/14/17 07/02/24 History ibuprofen 800 mg tablet 800 mg PO TID PRN pain 06/26/17 07/02/24 History gabapentin 600 mg tablet 600 mg PO TID nerve pain 08/01/17 07/02/24 History primidone 50 mg tablet 50 mg PO TID seizures 08/01/17 07/02/24 History buspirone 10 mg tablet 10 mg PO TID Depression 11/21/17 07/02/24 History cyclobenzaprine 10 mg tablet 10 mg PO BID Pain 11/21/17 07/02/24 History hyoscyamine sulfate 0.125 mg 0.125 mg PO QID PRN reflux 11/21/17 07/02/24 History tablet (Levsin) trazodone 50 mg tablet 50 mg PO QHS sleep 11/21/17 07/02/24 History bisoprolol fumarate 5 mg tablet 5 mg PO DAILY htn 01/30/18 07/02/24 History spironolactone 25 mg tablet 25 mg PO DAILY Fluid 01/30/18 07/02/24 History amitriptyline 50 mg tablet 50 mg PO HS #30 tabs 03/31/24 07/02/24 Rx colestipol 1 gram tablet 1 g PO .Nightly #30 tabs 03/31/24 07/02/24 Rx furosemide 40 mg tablet 40 mg PO DAILY PRN Fluid 07/02/24 History hydrocodone 7.5 mg-acetaminophen 1 tab PO BID Pain #60 tabs 07/07/24 Rx 325 mg tablet New Prescriptions to Start Prescriptions: hydrocodone-acetaminophen Rachel García Allergies Allergy/AdvReac Type Severity Reaction Status Date / Time formaldehyde (FORMALDEHYDE) Allergy Mild Blister Verified 07/02/24 11:37 Influenza Virus Vaccines Allergy Unknown Verified 07/02/24 11:37 allergy reaction levothyroxine sodium (From AdvReac Unknown Other Verified 07/02/24 11:37 SYNTHROID) Assessment and Plan *Assessment and plan (1) Lumbar radiculopathy: Status: Acute Category: Medical Code(s): M54.16 - Radiculopathy, lumbar region (2) Degenerative disc disease, lumbar: Status: Acute Category: Medical Code(s): M51.369 - Other intervertebral disc degeneration, lumbar region without mention of lumbar back pain or lower extremity pain Plan I will refill the patient's Elkins and provide a 1 month supply of this medication. Patient will return to clinic in 1 month. Risks and benefits of the medication have been explained in detail to the patient. The patient does understand the risk of dependence on the medication when given over a prolonged period. Patient has been advised of risks of oversedation with the prescribed medication. Narcan has been offered to the paitent in the event of oversedation. Patient has been advised that a family member should also be educated regarding administration of Narcan. The patient has been advised to consult with his/her primary care provider and pharmacist regarding drug-drug interaction of medications currently prescribed. Patient has been prescribed a controlled substance after being counseled on the medication, medication safety, and possible side effects. Opioid contract was reviewed and signed by the patient, and that they have agreed to all of the terms set forth by our compliance program. A UDS is needed to verify patient's compliance with our office pain contract. This is ordered based off specific treatments related to chronic pain with the potential to abuse certain medications. Patient has been instructed to contact the clinic with any concerns before the next appointment. Dr. Butler has reviewed this note and agrees with this plan of care. This note was dictated using voice recognition software and make contain errors or omissions.
[2024-07-07 12:38] VITALS: BP 123/82; PULSE 85; RESP 18; O2SAT 95; BMI 35.4
== END 2024-07-07 23:59 | disposition home or self-care (01) ==
PROVIDERS: PCP Family Medicine; Visit Provider Nurse Practitioner Family
DX: M51.16 Intervertebral disc disorders with radiculopathy, lumbar region (principal); F17.210 Nicotine dependence, cigarettes, uncomplicated
CPT/HCPCS: 99212; G0463

== ENCOUNTER 2024-07-23 14:38 | Outpatient (CLI) | payer MEDICARE, SELFPAY | END 2024-07-23 23:59 | disposition home or self-care (01) | LOC: LAB.DROPOF 07-24 11:03 | PROVIDERS: PCP Nurse Practitioner; Visit Provider Nurse Practitioner | DX: N39.0 Urinary tract infection, site not specified (principal); R31.9 Hematuria, unspecified | CPT/HCPCS: 87086; 87088; 87186 ==

== ENCOUNTER 2024-08-06 10:34 | Outpatient (POV) | payer OTHER, MEDICARE, SELFPAY ==
[2024-08-06 11:13] VITALS: BP 137/72; PULSE 81; RESP 14; O2SAT 99; BMI 36.8
--- NOTE | 2024-08-06 11:34 | EXP.PAIN.SOA ---
[facility] Disclaimer: The information contained in this section may have been updated after the patient was seen, as this information can be updated by other users. Medical History UTI (urinary tract infection) James's disease Anxiety and depression Muscle spasm History of tumor Skin cancer Celiac disease Asthma Migraine Appendicitis Congestive heart failure Edema Surgical History History of hysterectomy History of cholecystectomy History of carpal tunnel surgery History of surgery on wrist Hx of neck surgery History of surgery Family History Other Colon cancer Diabetes Heart disease Social History Smoking Status: Current every day smoker alcohol intake: never counseling provided: none substance use type: denies use current occupational status: other Travel in the last 8 weeks: None housing: apartment current occupational exposures/hazards: No caffeine: Yes PM Subjective & Objective Subjective Subjective:: Patient is a pleasant 59-year-old female who presents today for 1 month follow-up and medication refill. Patient rates her pain today a 2 out of 10. She denies any new trauma or injury. She does state that she has been having a little bit more knee pain that does come and go from time to time. Patient is currently managed with compounded cream patient rates her pain today a 2 out of 10. She denies any new trauma or injury. She does state that she has been having a little bit more knee pain that does come and go from time to time. Patient is currently managed with compounded cream and Humarock 7.5 mg twice a day from our office. She is prescribed gabapentin from an outside provider. Her Sarthak has been reviewed and is appropriate. Review of Systems: General: No recent weight changes, no fever, no sleep disturbances Respiratory: No cough, no shortness of air, no recurring pulmonary infections Cardiovascular/peripheral vascular: No chest pain, no palpitations, no edema, no shortness of breath Gastrointestinal: No new onset incontinence, normal bowel movements reported Genitourinary: No new onset incontinence Musculoskeletal: knee pain, low back pain Psychiatric: [Normal mood/affect] Neurological: [Denies weakness in extremities], [denies balance issues] Pain at rest (0-10 scale): 2 Objective Objective:: Physical Exam: General: Alert and oriented x3, no acute distress, pleasant and cooperative Lungs: Respirations even and unlabored, symmetrical chest expansion Eyes: PERRL Musculoskeletal: Flexion and extension of lumbar [spine] somewhat guarded secondary to pain, [antalgic gait noted] Neurological: Speech clear, no gross sensory deficit Has patient had previous pain injection?: No Conservative treatment options previously tried: Home exercise plan Length of treatment: Longer than 12 weeks Meds Home Medications and Allergies Home Medications ?Medication ?Instructions ?Recorded ?Confirmed ?Type montelukast 10 mg tablet 10 mg PO PM Asthma 05/14/17 08/06/24 History ibuprofen 800 mg tablet 800 mg PO TID PRN pain 06/26/17 08/06/24 History gabapentin 600 mg tablet 600 mg PO TID nerve pain 08/01/17 08/06/24 History primidone 50 mg tablet 50 mg PO TID seizures 08/01/17 08/06/24 History buspirone 10 mg tablet 10 mg PO TID Depression 11/21/17 08/06/24 History cyclobenzaprine 10 mg tablet 10 mg PO BID Pain 11/21/17 08/06/24 History hyoscyamine sulfate 0.125 mg 0.125 mg PO QID PRN reflux 11/21/17 08/06/24 History tablet (Levsin) trazodone 50 mg tablet 50 mg PO QHS sleep 11/21/17 08/06/24 History bisoprolol fumarate 5 mg tablet 5 mg PO DAILY htn 01/30/18 08/06/24 History spironolactone 25 mg tablet 25 mg PO DAILY Fluid 01/30/18 08/06/24 History amitriptyline 50 mg tablet 50 mg PO HS #30 tabs 03/31/24 08/06/24 Rx colestipol 1 gram tablet 1 g PO .Nightly #30 tabs 03/31/24 08/06/24 Rx furosemide 40 mg tablet 40 mg PO DAILY PRN Fluid 07/02/24 08/06/24 History hydrocodone 7.5 mg-acetaminophen 1 tab PO BID Pain #60 tabs 07/07/24 08/06/24 Rx 325 mg tablet levofloxacin 750 mg tablet 750 mg PO DAILY 7 days #7 tabs 07/23/24 08/06/24 Rx phenazopyridine 200 mg tablet 200 mg PO Q8H 2 days #6 tabs 07/23/24 08/06/24 Rx (Pyridium) New Prescriptions to Start Prescriptions: Allergies Allergy/AdvReac Type Severity Reaction Status Date / Time formaldehyde (FORMALDEHYDE) Allergy Mild Blister Verified 07/23/24 14:14 Influenza Virus Vaccines Allergy Unknown Verified 07/23/24 14:14 allergy reaction levothyroxine sodium (From AdvReac Unknown Other Verified 07/23/24 14:14 SYNTHROID) Assessment and Plan *Assessment and plan (1) Degenerative disc disease, lumbar: Status: Acute Category: Medical Code(s): M51.369 - Other intervertebral disc degeneration, lumbar region without mention of lumbar back pain or lower extremity pain (2) Lumbar radiculopathy: Status: Acute Category: Medical Code(s): M54.16 - Radiculopathy, lumbar region Plan Will refill her Humarock and provide a 1 month supply of this medication. We will also increase her compounded cream concentration. Patient will return to clinic in 1 month. Risks and benefits of the medication have been explained in detail to the patient. The patient does understand the risk of dependence on the medication when given over a prolonged period. Patient has been advised of risks of oversedation with the prescribed medication. Narcan has been offered to the paitent in the event of oversedation. Patient has been advised that a family member should also be educated regarding administration of Narcan. The patient has been advised to consult with his/her primary care provider and pharmacist regarding drug-drug interaction of medications currently prescribed. Patient has been prescribed a controlled substance after being counseled on the medication, medication safety, and possible side effects. Opioid contract was reviewed and signed by the patient, and that they have agreed to all of the terms set forth by our compliance program. A UDS is needed to verify patient's compliance with our office pain contract. This is ordered based off specific treatments related to chronic pain with the potential to abuse certain medications. Patient has been instructed to contact the clinic with any concerns before the next appointment. Dr. Butler has reviewed this note and agrees with this plan of care. This note was dictated using voice recognition software and make contain errors or omissions.
== END 2024-08-06 23:59 | disposition home or self-care (01) ==
PROVIDERS: PCP Family Medicine; Visit Provider Nurse Practitioner Family
DX: M51.16 Intervertebral disc disorders with radiculopathy, lumbar region (principal); F17.210 Nicotine dependence, cigarettes, uncomplicated
CPT/HCPCS: 99212; G0463

== ENCOUNTER 2024-09-04 10:35 | Outpatient (POV) | payer OTHER, MEDICARE, SELFPAY ==
--- OUTSIDE RECORDS SUMMARY | 2024-09-04 10:38 | XMS_ITS ---
Author Organization Unknown Medications Date Medication Dosage DosageUnit StartDate StopDate StopReason Active DoseQuantity DoseUnit Dispense DispenseUnit Refills NdcCode DrugCode PharmacyId IsPrescription MappedMedication Srcstatus 08/07 00:00 :00 Adipex-P 37.5 MG Tablet 08/07/2024 00:00:00 1 30 [id number] 4 001 P Start 12/12 00:00 :00 Adipex-P 37.5 MG Tablet 01/12/2022 00:00:00 0 30 [id number] 4 001 P Not Taking 10/31 00:00 :00 Adipex-P 37.5 MG Tablet 01/12/2022 00:00:00 0 30 [id number] 4 001 P Not Taking 10/08 00:00 :00 Adipex-P 37.5 MG Tablet 01/12/2022 00:00:00 0 30 [id number] 4 001 P Not Taking 08/07 00:00 :00 Albuterol Sulfate HFA 90 UG/INHA LATION 05/27/2012 00:00:00 1 Taking 06/12 00:00 :00 Albuterol Sulfate HFA 90 UG/INHA LATION 05/27/2012 00:00:00 1 Taking 04/10 00:00 :00 Albuterol Sulfate HFA 90 UG/INHA LATION 05/27/2012 00:00:00 1 Taking 02/04 00:00 :00 Albuterol Sulfate HFA 90 UG/INHA LATION 05/27/2012 00:00:00 1 Taking 01/20 00:00 :00 Albuterol Sulfate HFA 90 UG/INHA LATION 05/27/2012 00:00:00 1 Taking 12/12 00:00 :00 Albuterol Sulfate HFA 90 UG/INHA LATION 05/27/2012 00:00:00 1 Taking 10/31 00:00 :00 Albuterol Sulfate HFA 90 UG/INHA LATION 05/27/2012 00:00:00 1 Taking 10/08 00:00 :00 Albuterol Sulfate HFA 90 UG/INHA LATION 05/27/2012 00:00:00 1 Taking 08/07 00:00 :00 Amitriptyli ne HCl 10 MG Tablet 1 30 [id number] 21 221 P Taking 06/12 00:00 :00 Amitriptyli ne HCl 10 MG Tablet 1 30 907826 21 221 P Taking 04/10 00:00 :00 Amitriptyli ne HCl 10 MG Tablet 1 30 069798 21 221 P Taking 02/04 00:00 :00 Amitriptyli ne HCl 10 MG Tablet 1 30 565916 21 221 P Taking 01/20 00:00 :00 Amitriptyli ne HCl 10 MG Tablet 1 30 154307 21 221 P Taking 12/12 00:00 :00 Amitriptyli ne HCl 10 MG Tablet 1 30 327937 21 221 P Taking 10/31 00:00 :00 Amitriptyli ne HCl 10 MG Tablet 1 30 768174 21 221 P Taking 10/08 00:00 :00 Amitriptyli ne HCl 10 MG Tablet 1 30 129461 21 221 P Taking 06/12 00:00 :00 Amoxicillin 875 MG Tablet 04/10/2024 00:00:00 0 14 0808175 6 401 P Discontinu ed 04/10 00:00 :00 Amoxicillin 875 MG Tablet 04/10/2024 00:00:00 1 14 [id number] 6 401 P Start 08/07 00:00 :00 Aspirin Low Dose 81 MG Tablet Delayed Release 1 99767778 314 Taking 06/12 00:00 :00 Aspirin Low Dose 81 MG Tablet Delayed Release 1 82466058 314 Taking 04/10 00:00 :00 Aspirin Low Dose 81 MG Tablet Delayed Release 1 59196889 314 Taking 02/04 00:00 :00 Aspirin Low Dose 81 MG Tablet Delayed Release 1 13033634 314 Taking 01/20 00:00 :00 Aspirin Low Dose 81 MG Tablet Delayed Release 1 44579402 314 Taking 12/12 00:00 :00 Aspirin Low Dose 81 MG Tablet Delayed Release 1 22437063 314 Taking 10/31 00:00 :00 Aspirin Low Dose 81 MG Tablet Delayed Release 1 03324634 314 Taking 10/08 00:00 :00 Aspirin Low Dose 81 MG Tablet Delayed Release 1 29390581 314 Taking 08/07 00:00 :00 Bisoprolol Fumarate 5 MG Tablet 1 90 Tablet 1 93993289 901 Taking 06/12 00:00 :00 Bisoprolol Fumarate 5 MG Tablet 1 90 Tablet 1 86710530 901 Taking 04/10 00:00 :00 Bisoprolol Fumarate 5 MG Tablet 1 90 Tablet 1 02691165 901 Taking 03/17 00:00 :00 Bisoprolol Fumarate 5 MG Tablet 1 90 Tablet 1 29516759 901 Start 03/17 00:00 :00 Bisoprolol Fumarate 5 MG Tablet 0 90 Tablet 1 00965530 901 Stop 02/04 00:00 :00 Bisoprolol Fumarate 5 MG Tablet 1 90 Tablet 1 29471854 901 Taking 01/20 00:00 :00 Bisoprolol Fumarate 5 MG Tablet 1 90 Tablet 1 00869704 901 Taking 12/12 00:00 :00 Bisoprolol Fumarate 5 MG Tablet 1 90 Tablet 1 58387704 901 Taking 10/31 00:00 :00 Bisoprolol Fumarate 5 MG Tablet 1 90 Tablet 1 79923309 901 Taking 10/08 00:00 :00 Bisoprolol Fumarate 5 MG Tablet 1 90 Tablet 1 29126918 901 Taking 09/10 00:00 :00 Bisoprolol Fumarate 5 MG Tablet 1 90 Tablet 1 00855624 901 Start 09/10 00:00 :00 Bisoprolol Fumarate 5 MG Tablet 0 90 Tablet 0 84144333 901 Stop 08/07 00:00 :00 busPIRone HCl 10 MG Tablet 1 5768532 5 401 P Taking 06/12 00:00 :00 busPIRone HCl 10 MG Tablet 1 9345829 5 401 P Taking 04/10 00:00 :00 busPIRone HCl 10 MG Tablet 1 5172871 5 401 P Taking 02/04 00:00 :00 busPIRone HCl 10 MG Tablet 1 3807760 5 401 P Taking 01/20 00:00 :00 busPIRone HCl 10 MG Tablet 1 4172229 5 401 P Taking 12/12 00:00 :00 busPIRone HCl 10 MG Tablet 1 6182559 5 401 P Taking 10/31 00:00 :00 busPIRone HCl 10 MG Tablet 1 0398364 5 401 P Taking 10/08 00:00 :00 busPIRone HCl 10 MG Tablet 1 9712603 5 401 P Taking 02/04 00:00 :00 Cefdinir 300 MG Capsule 01/21/2024 00:00:00 0 20 1584971 6 006 P Discontinu ed 01/20 00:00 :00 Cefdinir 300 MG Capsule 01/21/2024 00:00:00 1 20 0288135 6 006 P Start 08/07 00:00 :00 Cyclobenzap rine HCl 10 MG Tablet 1 60 1 0009 3342 201 P Unknown Status 08/07 00:00 :00 Cyclobenzap rine HCl 10 MG Tablet 1 60 1 0009 3342 201 P Taking 06/12 00:00 :00 Cyclobenzap rine HCl 10 MG Tablet 1 60 1 0009 3342 201 P Unknown Status 06/12 00:00 :00 Cyclobenzap rine HCl 10 MG Tablet 1 60 1 0009 3342 201 P Taking 04/10 00:00 :00 Cyclobenzap rine HCl 10 MG Tablet 1 60 1 0009 3342 201 P Unknown Status 04/10 00:00 :00 Cyclobenzap rine HCl 10 MG Tablet 1 60 1 0009 3342 201 P Taking 02/04 00:00 :00 Cyclobenzap rine HCl 10 MG Tablet 1 60 1 0009 3342 201 P Unknown Status 02/04 00:00 :00 Cyclobenzap rine HCl 10 MG Tablet 1 60 1 0009 3342 201 P Taking 01/20 00:00 :00 Cyclobenzap rine HCl 10 MG Tablet 1 60 1 0009 3342 201 P Taking 12/12 00:00 :00 Cyclobenzap rine HCl 10 MG Tablet 1 60 1 0009 3342 201 P Unknown Status 12/12 00:00 :00 Cyclobenzap rine HCl 10 MG Tablet 1 60 1 0009 3342 201 P Taking 10/31 00:00 :00 Cyclobenzap rine HCl 10 MG Tablet 1 60 1 0009 3342 201 P Taking 10/08 00:00 :00 Cyclobenzap rine HCl 10 MG Tablet 1 60 1 0009 3342 201 P Unknown Status 10/08 00:00 :00 Cyclobenzap rine HCl 10 MG Tablet 1 60 1 0009 3342 201 P Taking 08/07 00:00 :00 Cymbalta 60 MG Capsule Delayed Release Particles 1 [id number] 7 030 Taking 06/12 00:00 :00 Cymbalta 60 MG Capsule Delayed Release Particles 1 [id number] 7 030 Taking 04/10 00:00 :00 Cymbalta 60 MG Capsule Delayed Release Particles 1 [id number] 7 030 Taking 02/04 00:00 :00 Cymbalta 60 MG Capsule Delayed Release Particles 1 [id number] 7 030 Taking 01/20 00:00 :00 Cymbalta 60 MG Capsule Delayed Release Particles 1 [id number] 7 030 Taking 12/12 00:00 :00 Cymbalta 60 MG Capsule Delayed Release Particles 1 [id number] 7 030 Taking 10/31 00:00 :00 Cymbalta 60 MG Capsule Delayed Release Particles 1 [id number] 7 030 Taking 10/08 00:00 :00 Cymbalta 60 MG Capsule Delayed Release Particles 1 [id number] 7 030 Taking 08/07 00:00 :00 Desloratadi ne 5 mg Tablet 1 90 Tablet 1 695 72260 710 Taking 06/30 00:00 :00 Desloratadi ne 5 mg Tablet 1 90 Tablet 1 695 29497 710 Start 06/30 00:00 :00 Desloratadi ne 5 MG Tablet 0 90 Tablet 1 622 53106 902 Stop 06/12 00:00 :00 Desloratadi ne 5 MG Tablet 1 90 Tablet 1 622 29251 902 Taking 04/10 00:00 :00 Desloratadi ne 5 MG Tablet 1 90 Tablet 1 622 49467 902 Taking 02/04 00:00 :00 Desloratadi ne 5 MG Tablet 1 90 Tablet 1 622 15852 902 Taking 01/20 00:00 :00 Desloratadi ne 5 MG Tablet 1 90 Tablet 1 622 93639 902 Taking 12/19 00:00 :00 Desloratadi ne 5 MG Tablet 1 90 Tablet 1 622 49931 902 Start 12/19 00:00 :00 Desloratadi ne 5 MG Tablet 0 90 Tablet 1 622 32187 902 Stop 12/12 00:00 :00 Desloratadi ne 5 MG Tablet 1 90 Tablet 1 622 29436 902 Taking 10/31 00:00 :00 Desloratadi ne 5 MG Tablet 1 90 Tablet 1 622 36945 902 Taking 10/08 00:00 :00 Desloratadi ne 5 MG Tablet 1 90 Tablet 1 622 30609 902 Taking 08/07 00:00 :00 Ezetimibe 10 MG Tablet 1 1741682 1 305 P Continue 08/07 00:00 :00 Ezetimibe 10 MG Tablet 1 90 Tablet 1 105029 305 Taking 08/07 00:00 :00 Ezetimibe 10 MG Tablet 1 6447315 1 305 P Taking 06/12 00:00 :00 Ezetimibe 10 MG Tablet 1 6628266 1 305 P Continue 06/12 00:00 :00 Ezetimibe 10 MG Tablet 1 90 Tablet 1 116618 305 Taking 06/05 00:00 :00 Ezetimibe 10 MG Tablet 1 90 Tablet 1 038824 305 Start 06/05 00:00 :00 Ezetimibe 10 MG Tablet 0 90 Tablet 1 595898 305 Stop 04/10 00:00 :00 Ezetimibe 10 MG Tablet 1 9752963 1 305 P Continue 04/10 00:00 :00 Ezetimibe 10 MG Tablet 1 90 Tablet 1 534213 305 Taking 04/10 00:00 :00 Ezetimibe 10 MG Tablet 1 5433938 1 305 P Taking 02/04 00:00 :00 Ezetimibe 10 MG Tablet 1 7049140 1 305 P Continue 02/04 00:00 :00 Ezetimibe 10 MG Tablet 1 90 Tablet 1 212376 305 Taking 01/20 00:00 :00 Ezetimibe 10 MG Tablet 1 90 Tablet 1 783430 305 Taking 12/19 00:00 :00 Ezetimibe 10 MG Tablet 1 90 Tablet 1 974316 305 Start 12/19 00:00 :00 Ezetimibe 10 MG Tablet 0 6584173 1 305 Stop 12/12 00:00 :00 Ezetimibe 10 MG Tablet 1 8647243 1 305 P Continue 12/12 00:00 :00 Ezetimibe 10 MG Tablet 1 9115497 1 305 P Taking 10/31 00:00 :00 Ezetimibe 10 MG Tablet 1 3503796 1 305 P Taking 10/08 00:00 :00 Ezetimibe 10 MG Tablet 1 7341747 1 305 P Continue 10/08 00:00 :00 Ezetimibe 10 MG Tablet 1 30 2 3580566 1 305 P Taking 08/07 00:00 :00 Furosemide 40 MG Tablet 1 90 Tablet 1 0 4702273 925 Taking 06/12 00:00 :00 Furosemide 40 MG Tablet 1 90 Tablet 1 0 6253715 925 Taking 06/05 00:00 :00 Furosemide 40 MG Tablet 1 90 Tablet 1 0 9369123 925 Start 06/05 00:00 :00 Furosemide 40 MG Tablet 0 90 Tablet 1 0 4928806 925 Stop 04/10 00:00 :00 Furosemide 40 MG Tablet 1 90 Tablet 1 0 0167058 925 Taking 02/04 00:00 :00 Furosemide 40 MG Tablet 1 90 Tablet 1 0 5219666 925 Taking 01/20 00:00 :00 Furosemide 40 MG Tablet 1 90 Tablet 1 0 9336035 925 Taking 12/19 00:00 :00 Furosemide 40 MG Tablet 1 90 Tablet 1 0 9788556 925 Start 12/19 00:00 :00 Furosemide 40 MG Tablet 0 90 Tablet 1 0 1529662 925 Stop 12/12 00:00 :00 Furosemide 40 MG Tablet 1 90 Tablet 1 0 7463098 925 Taking 10/31 00:00 :00 Furosemide 40 MG Tablet 1 90 Tablet 1 0 7433459 925 Taking 10/08 00:00 :00 Furosemide 40 MG Tablet 1 90 Tablet 1 0 8790713 925 Taking 08/07 00:00 :00 Gabapentin 600 MG Tablet 1 95285 263 611 P Taking 06/12 00:00 :00 Gabapentin 600 MG Tablet 1 86041 263 611 P Taking 04/10 00:00 :00 Gabapentin 600 MG Tablet 1 56737 263 611 P Taking 02/04 00:00 :00 Gabapentin 600 MG Tablet 1 11991 263 611 P Taking 01/20 00:00 :00 Gabapentin 600 MG Tablet 1 80735 263 611 P Taking 12/12 00:00 :00 Gabapentin 600 MG Tablet 1 17766 263 611 P Taking 10/31 00:00 :00 Gabapentin 600 MG Tablet 1 34041 263 611 P Taking 10/08 00:00 :00 Gabapentin 600 MG Tablet 1 36229 263 611 P Taking 08/07 00:00 :00 HYDROcodone -Acetaminop hen 7.5-325 MG Tablet 1 01130341 501 P Taking 06/12 00:00 :00 HYDROcodone -Acetaminop hen 7.5-325 MG Tablet 1 01428562 501 P Taking 04/10 00:00 :00 HYDROcodone -Acetaminop hen 7.5-325 MG Tablet 1 43920648 501 P Taking 02/04 00:00 :00 HYDROcodone -Acetaminop hen 7.5-325 MG Tablet 1 56777046 501 P Taking 01/20 00:00 :00 HYDROcodone -Acetaminop hen 7.5-325 MG Tablet 1 32286096 501 P Taking 12/12 00:00 :00 HYDROcodone -Acetaminop hen 7.5-325 MG Tablet 1 21992300 501 P Taking 10/31 00:00 :00 HYDROcodone -Acetaminop hen 7.5-325 MG Tablet 1 33936853 501 P Taking 10/08 00:00 :00 HYDROcodone -Acetaminop hen 7.5-325 MG Tablet 1 36450543 501 P Taking 08/07 00:00 :00 Ibuprofen 800 MG Tablet 1 90 2 150560 85 540 Taking 08/04 00:00 :00 Ibuprofen 800 MG Tablet 1 90 2 776551 85 540 Start 08/04 00:00 :00 Ibuprofen 800 MG Tablet 0 90 2 750019 85 540 Stop 06/12 00:00 :00 Ibuprofen 800 MG Tablet 1 90 2 566797 85 540 Taking 05/08 00:00 :00 Ibuprofen 800 MG Tablet 1 90 2 492212 85 540 Start 05/08 00:00 :00 Ibuprofen 800 MG Tablet 0 90 2 422307 85 540 Stop 04/10 00:00 :00 Ibuprofen 800 MG Tablet 1 90 2 023396 85 540 P Taking 02/04 00:00 :00 Ibuprofen 800 MG Tablet 1 90 2 069928 85 540 P Unknown Status 02/04 00:00 :00 Ibuprofen 800 MG Tablet 1 90 2 437348 85 540 Taking 01/20 00:00 :00 Ibuprofen 800 MG Tablet 1 90 2 779939 85 540 Taking 12/12 00:00 :00 Ibuprofen 800 MG Tablet 1 90 2 820489 85 540 Taking 10/31 00:00 :00 Ibuprofen 800 MG Tablet 1 90 2 281169 85 540 Taking 10/08 00:00 :00 Ibuprofen 800 MG Tablet 1 90 2 434021 85 540 Taking 08/07 00:00 :00 Levsin/SL 0.125 MG Tablet Sublingual 1 60 857505 11 310 P Taking 06/12 00:00 :00 Levsin/SL 0.125 MG Tablet Sublingual 1 60 213709 11 310 P Taking 04/10 00:00 :00 Levsin/SL 0.125 MG Tablet Sublingual 1 60 640605 11 310 P Taking 02/04 00:00 :00 Levsin/SL 0.125 MG Tablet Sublingual 1 60 538337 11 310 P Taking 01/20 00:00 :00 Levsin/SL 0.125 MG Tablet Sublingual 1 60 597446 11 310 P Taking 12/12 00:00 :00 Levsin/SL 0.125 MG Tablet Sublingual 1 60 228207 11 310 P Taking 10/31 00:00 :00 Levsin/SL 0.125 MG Tablet Sublingual 1 60 009690 11 310 P Taking 10/08 00:00 :00 Levsin/SL 0.125 MG Tablet Sublingual 1 60 585124 11 310 P Taking 08/07 00:00 :00 Oxazepam 10 MG Capsule 08/07/2024 00:00:00 1 30 1 4589812 6 710 P Unknown Status 08/07 00:00 :00 Oxazepam 10 MG Capsule 06/12/2024 00:00:00 1 30 1 8157761 6 710 P Taking 06/12 00:00 :00 Oxazepam 10 MG Capsule 06/12/2024 00:00:00 1 30 1 3464511 6 710 P Unknown Status 06/12 00:00 :00 Oxazepam 10 MG Capsule 04/10/2024 00:00:00 1 30 1 5907333 6 710 P Taking 06/09 00:00 :00 Oxazepam 10 MG Capsule 04/10/2024 00:00:00 1 30 1 9625579 6 710 P Unknown Status 04/10 00:00 :00 Oxazepam 10 MG Capsule 04/10/2024 00:00:00 1 30 1 1263813 6 710 P Unknown Status 04/10 00:00 :00 Oxazepam 10 MG Capsule 02/05/2024 00:00:00 1 30 1 3913493 6 710 P Taking 02/04 00:00 :00 Oxazepam 10 MG Capsule 02/05/2024 00:00:00 1 30 1 2221777 6 710 P Unknown Status 02/04 00:00 :00 Oxazepam 10 MG Capsule 12/13/2023 00:00:00 1 30 1 9481465 6 710 P Taking 01/20 00:00 :00 Oxazepam 10 MG Capsule 12/13/2023 00:00:00 1 30 1 0132772 6 710 P Taking 12/12 00:00 :00 Oxazepam 10 MG Capsule 12/13/2023 00:00:00 1 30 1 1120242 6 710 P Unknown Status 12/12 00:00 :00 Oxazepam 10 MG Capsule 10/09/2023 00:00:00 1 30 1 6317172 6 710 P Taking 10/31 00:00 :00 Oxazepam 10 MG Capsule 10/09/2023 00:00:00 1 30 1 9865936 6 710 P Taking 10/08 00:00 :00 Oxazepam 10 MG Capsule 10/09/2023 00:00:00 1 30 1 3236386 6 710 P Unknown Status 10/08 00:00 :00 Oxazepam 10 MG Capsule 08/09/2023 00:00:00 1 30 1 5482510 6 710 P Taking 08/07 00:00 :00 Pravastatin Sodium 80 MG Tablet 1 90 1 488950 27 010 Taking 06/12 00:00 :00 Pravastatin Sodium 80 MG Tablet 1 90 1 145353 27 010 Taking 04/10 00:00 :00 Pravastatin Sodium 80 MG Tablet 1 90 1 020097 27 010 Taking 02/04 00:00 :00 Pravastatin Sodium 80 MG Tablet 1 90 1 494138 27 010 Taking 01/20 00:00 :00 Pravastatin Sodium 80 MG Tablet 1 90 1 603757 27 010 Taking 12/12 00:00 :00 Pravastatin Sodium 80 MG Tablet 1 90 1 908579 27 010 Taking 10/31 00:00 :00 Pravastatin Sodium 80 MG Tablet 1 90 1 733864 27 010 Taking 10/08 00:00 :00 Pravastatin Sodium 80 MG Tablet 1 90 1 432372 27 010 Taking 08/07 00:00 :00 Primidone 50 MG Tablet 1 0308778 0 101 Taking 06/12 00:00 :00 Primidone 50 MG Tablet 1 6749777 0 101 Taking 04/10 00:00 :00 Primidone 50 MG Tablet 1 1559351 0 101 Taking 02/04 00:00 :00 Primidone 50 MG Tablet 1 4932684 0 101 Taking 01/20 00:00 :00 Primidone 50 MG Tablet 1 0193551 0 101 Taking 12/12 00:00 :00 Primidone 50 MG Tablet 1 5828918 0 101 Taking 10/31 00:00 :00 Primidone 50 MG Tablet 1 1200564 0 101 Taking 10/08 00:00 :00 Primidone 50 MG Tablet 1 2354686 0 101 Taking 08/07 00:00 :00 ProAir Digihaler 108 (90 Base) MCG/ACT Aerosol Powder Breath Activated 04/19/2013 00:00:00 1 1 5 5062743 8 020 Taking 06/12 00:00 :00 ProAir Digihaler 108 (90 Base) MCG/ACT Aerosol Powder Breath Activated 04/19/2013 00:00:00 1 1 5 7114423 8 020 Taking 04/10 00:00 :00 ProAir Digihaler 108 (90 Base) MCG/ACT Aerosol Powder Breath Activated 04/19/2013 00:00:00 1 1 5 7219411 8 020 Taking 02/04 00:00 :00 ProAir Digihaler 108 (90 Base) MCG/ACT Aerosol Powder Breath Activated 04/19/2013 00:00:00 1 1 5 2903499 8 020 Taking 01/20 00:00 :00 ProAir Digihaler 108 (90 Base) MCG/ACT Aerosol Powder Breath Activated 04/19/2013 00:00:00 1 1 5 4162360 8 020 Taking 12/12 00:00 :00 ProAir Digihaler 108 (90 Base) MCG/ACT Aerosol Powder Breath Activated 04/19/2013 00:00:00 1 1 5 9003699 8 020 Taking 10/31 00:00 :00 ProAir Digihaler 108 (90 Base) MCG/ACT Aerosol Powder Breath Activated 04/19/2013 00:00:00 1 1 5 0211582 8 020 Taking 10/08 00:00 :00 ProAir Digihaler 108 (90 Base) MCG/ACT Aerosol Powder Breath Activated 04/19/2013 00:00:00 1 1 5 6185650 8 020 Taking 08/07 00:00 :00 Singulair 10 MG Tablet 1 90 Tablet 1 66 126649 402 Taking 06/12 00:00 :00 Singulair 10 MG Tablet 1 90 Tablet 1 66 882071 402 Taking 06/05 00:00 :00 Singulair 10 MG Tablet 1 90 Tablet 1 66 849981 402 Start 06/05 00:00 :00 Singulair 10 MG Tablet 0 90 Tablet 1 66 734385 402 Stop 04/10 00:00 :00 Singulair 10 MG Tablet 1 90 Tablet 1 66 135023 402 Taking 02/04 00:00 :00 Singulair 10 MG Tablet 1 90 Tablet 1 66 098184 402 Taking 01/20 00:00 :00 Singulair 10 MG Tablet 1 90 Tablet 1 66 116606 402 Taking 12/19 00:00 :00 Singulair 10 MG Tablet 1 90 Tablet 1 66 943317 402 Start 12/19 00:00 :00 Singulair 10 MG Tablet 0 90 Tablet 1 66 454421 402 Stop 12/12 00:00 :00 Singulair 10 MG Tablet 1 90 Tablet 1 66 431292 402 Taking 10/31 00:00 :00 Singulair 10 MG Tablet 1 90 Tablet 1 66 256187 402 Taking 10/08 00:00 :00 Singulair 10 MG Tablet 1 90 Tablet 1 66 127412 402 Taking 08/07 00:00 :00 Spironolact one 25 MG Tablet 1 90 Tablet 1 003 42183 601 Taking 08/04 00:00 :00 Spironolact one 25 MG Tablet 1 90 Tablet 1 003 46766 601 Start 08/04 00:00 :00 Spironolact one 25 MG Tablet 0 90 Tablet 1 003 05850 601 Stop 06/12 00:00 :00 Spironolact one 25 MG Tablet 1 90 Tablet 1 003 59845 601 Taking 04/10 00:00 :00 Spironolact one 25 MG Tablet 1 90 Tablet 1 003 [id number] 601 Taking 02/10 00:00 :00 Spironolact one 25 MG Tablet 1 90 Tablet 1 003 65699 601 Start 02/10 00:00 :00 Spironolact one 25 MG Tablet 0 90 Tablet 1 003 [id number] 601 Stop 02/04 00:00 :00 Spironolact one 25 MG Tablet 1 90 Tablet 1 003 [id number] 601 Taking 01/20 00:00 :00 Spironolact one 25 MG Tablet 1 90 Tablet 1 003 [id number] 601 Taking 12/12 00:00 :00 Spironolact one 25 MG Tablet 1 90 Tablet 1 003 [id number] 601 Taking 10/31 00:00 :00 Spironolact one 25 MG Tablet 1 90 Tablet 1 003 48878 601 Taking 10/08 00:00 :00 Spironolact one 25 MG Tablet 1 90 Tablet 1 003 86618 601 Taking
--- NOTE | 2024-09-04 11:30 | A.OFFVIS_ITS ---
[facility] Disclaimer: The information contained in this section may have been updated after the patient was seen, as this information can be updated by other users. Medical History UTI (urinary tract infection) James's disease Anxiety and depression Muscle spasm History of tumor Skin cancer Celiac disease Asthma Migraine Appendicitis Congestive heart failure Edema Surgical History History of hysterectomy History of cholecystectomy History of carpal tunnel surgery History of surgery on wrist Hx of neck surgery History of surgery Family History Other Colon cancer Diabetes Heart disease Social History Smoking Status: Current every day smoker alcohol intake: never counseling provided: none substance use type: denies use current occupational status: other Travel in the last 8 weeks?: None housing: apartment current occupational exposures/hazards: No caffeine: Yes PM Subjective & Objective Subjective Subjective:: Patient is a pleasant 59-year-old female who presents today for her monthly medication refill. Today she rates her pain a 2 out of 10. She states overall she is doing good. Patient is currently managed with compounded cream and [place] 7.5 mg twice a day from our office. She denies any side effects. Her Sarthak has been reviewed and is appropriate. Review of Systems: General: No recent weight changes, no fever, no sleep disturbances Respiratory: No cough, no shortness of air, no recurring pulmonary infections Cardiovascular/peripheral vascular: No chest pain, no palpitations, no edema, no shortness of breath Gastrointestinal: No new onset incontinence, normal bowel movements reported Genitourinary: No new onset incontinence Musculoskeletal: Low back pain Psychiatric: [Normal mood/affect] Neurological: [Denies weakness in extremities], [denies balance issues] Pain at rest (0-10 scale): 2 Objective Objective:: Physical Exam: General: Alert and oriented x3, no acute distress, pleasant and cooperative Lungs: Respirations even and unlabored, symmetrical chest expansion Eyes: PERRL Musculoskeletal: Flexion and extension of lumbar [spine] somewhat guarded secondary to pain, [antalgic gait noted] Neurological: Speech clear, no gross sensory deficit Has patient had previous pain injection?: No Conservative treatment options previously tried: Prescription medications Length of treatment: Longer than 12 weeks Meds Home Medications and Allergies Home Medications ?Medication ?Instructions ?Recorded ?Confirmed ?Type montelukast 10 mg tablet 10 mg PO PM Asthma 05/14/17 08/06/24 History ibuprofen 800 mg tablet 800 mg PO TID PRN pain 06/26/17 08/06/24 History gabapentin 600 mg tablet 600 mg PO TID nerve pain 08/01/17 08/06/24 History primidone 50 mg tablet 50 mg PO TID seizures 08/01/17 08/06/24 History buspirone 10 mg tablet 10 mg PO TID Depression 11/21/17 08/06/24 History cyclobenzaprine 10 mg tablet 10 mg PO BID Pain 11/21/17 08/06/24 History hyoscyamine sulfate 0.125 mg 0.125 mg PO QID PRN reflux 11/21/17 08/06/24 History tablet (Levsin) trazodone 50 mg tablet 50 mg PO QHS sleep 11/21/17 08/06/24 History bisoprolol fumarate 5 mg tablet 5 mg PO DAILY htn 01/30/18 08/06/24 History spironolactone 25 mg tablet 25 mg PO DAILY Fluid 01/30/18 08/06/24 History amitriptyline 50 mg tablet 50 mg PO HS #30 tabs 03/31/24 08/06/24 Rx colestipol 1 gram tablet 1 g PO .Nightly #30 tabs 03/31/24 08/06/24 Rx furosemide 40 mg tablet 40 mg PO DAILY PRN Fluid 07/02/24 08/06/24 History levofloxacin 750 mg tablet 750 mg PO DAILY 7 days #7 tabs 07/23/24 08/06/24 Rx phenazopyridine 200 mg tablet 200 mg PO Q8H 2 days #6 tabs 07/23/24 08/06/24 Rx (Pyridium) hydrocodone 7.5 mg-acetaminophen 1 tab PO BID #60 tabs 08/07/24 Rx 325 mg tablet New Prescriptions to Start Prescriptions: Allergies Allergy/AdvReac Type Severity Reaction Status Date / Time formaldehyde (FORMALDEHYDE) Allergy Mild Blister Verified 07/23/24 14:14 Influenza Virus Vaccines Allergy Unknown Verified 07/23/24 14:14 allergy reaction levothyroxine sodium (From AdvReac Unknown Other Verified 07/23/24 14:14 SYNTHROID) Assessment and Plan *Assessment and plan (1) Degenerative disc disease, lumbar: Status: Acute Category: Medical Code(s): M51.369 - Other intervertebral disc degeneration, lumbar region without mention of lumbar back pain or lower extremity pain (2) Lumbar radiculopathy: Status: Acute Category: Medical Code(s): M54.16 - Radiculopathy, lumbar region Plan I will refill her [place] and provide a 1 month supply of this medication. Patient will return to clinic in 1 month for reevaluation of symptoms and plan of care. Risks and benefits of the medication have been explained in detail to the patient. The patient does understand the risk of dependence on the medication when given over a prolonged period. Patient has been advised of risks of oversedation with the prescribed medication. Narcan has been offered to the paitent in the event of oversedation. Patient has been advised that a family member should also be educated regarding administration of Narcan. The patient has been advised to consult with his/her primary care provider and pharmacist regarding drug-drug interaction of medications currently prescribed. Patient has been prescribed a controlled substance after being counseled on the medication, medication safety, and possible side effects. Opioid contract was reviewed and signed by the patient, and that they have agreed to all of the terms set forth by our compliance program. A UDS is needed to verify patient's compliance with our office pain contract. This is ordered based off specific treatments related to chronic pain with the potential to abuse certain medications. Patient has been instructed to contact the clinic with any concerns before the next appointment. Dr. Butler has reviewed this note and agrees with this plan of care. This note was dictated using voice recognition software and make contain errors or omissions.
[2024-09-04 11:48] VITALS: BP 122/88; PULSE 75; RESP 16; O2SAT 96; BMI 37.0
== END 2024-09-04 23:59 | disposition home or self-care (01) ==
PROVIDERS: PCP Family Medicine; Visit Provider Nurse Practitioner Family
DX: M51.16 Intervertebral disc disorders with radiculopathy, lumbar region (principal); F17.200 Nicotine dependence, unspecified, uncomplicated
CPT/HCPCS: 99212; G0463

== ENCOUNTER 2024-10-08 13:40 | Outpatient (POV) | payer MEDICARE, SELFPAY ==
--- NOTE | 2024-10-08 14:37 | EXP.PAIN.SOA ---
[facility] Disclaimer: The information contained in this section may have been updated after the patient was seen, as this information can be updated by other users. Medical History UTI (urinary tract infection) James's disease Anxiety and depression Muscle spasm History of tumor Skin cancer Celiac disease Asthma Migraine Appendicitis Congestive heart failure Edema Surgical History History of hysterectomy History of cholecystectomy History of carpal tunnel surgery History of surgery on wrist Hx of neck surgery History of surgery Family History Other Colon cancer Diabetes Heart disease Social History Smoking Status: Current every day smoker alcohol intake: never counseling provided: none substance use type: denies use current occupational status: other Travel in the last 8 weeks?: None housing: apartment current occupational exposures/hazards: No caffeine: Yes PM Subjective & Objective Subjective Subjective:: Patient is a pleasant 59-year-old female who presents today for medication refill. She rates her pain 2 out of 10. She is currently managed with [place] 7.5 mg twice a day and compounded cream. She denies any side effects or changes to her pharmacy. Her Sarthak has been reviewed and is appropriate. Review of Systems: General: No recent weight changes, no fever, no sleep disturbances Respiratory: No cough, no shortness of air, no recurring pulmonary infections Cardiovascular/peripheral vascular: No chest pain, no palpitations, no edema, no shortness of breath Gastrointestinal: No new onset incontinence, normal bowel movements reported Genitourinary: No new onset incontinence Musculoskeletal: Low back pain Psychiatric: [Normal mood/affect] Neurological: [Denies weakness in extremities], [denies balance issues] Pain at rest (0-10 scale): 2 Objective Objective:: Physical Exam: General: Alert and oriented x3, no acute distress, pleasant and cooperative Lungs: Respirations even and unlabored, symmetrical chest expansion Eyes: PERRL Musculoskeletal: Flexion and extension of lumbar [spine] somewhat guarded secondary to pain, [antalgic gait noted] Neurological: Speech clear, no gross sensory deficit Has patient had previous pain injection?: No Conservative treatment options previously tried: Prescription medications Length of treatment: Longer than 12 weeks Meds Home Medications and Allergies Home Medications ?Medication ?Instructions ?Recorded ?Confirmed ?Type montelukast 10 mg tablet 10 mg PO PM Asthma 05/14/17 09/04/24 History ibuprofen 800 mg tablet 800 mg PO TID PRN pain 06/26/17 09/04/24 History gabapentin 600 mg tablet 600 mg PO TID nerve pain 08/01/17 09/04/24 History primidone 50 mg tablet 50 mg PO TID seizures 08/01/17 09/04/24 History buspirone 10 mg tablet 10 mg PO TID Depression 11/21/17 09/04/24 History cyclobenzaprine 10 mg tablet 10 mg PO BID Pain 11/21/17 09/04/24 History hyoscyamine sulfate 0.125 mg 0.125 mg PO QID PRN reflux 11/21/17 09/04/24 History tablet (Levsin) trazodone 50 mg tablet 50 mg PO QHS sleep 11/21/17 09/04/24 History bisoprolol fumarate 5 mg tablet 5 mg PO DAILY htn 01/30/18 09/04/24 History spironolactone 25 mg tablet 25 mg PO DAILY Fluid 01/30/18 09/04/24 History amitriptyline 50 mg tablet 50 mg PO HS #30 tabs 03/31/24 09/04/24 Rx colestipol 1 gram tablet 1 g PO .Nightly #30 tabs 03/31/24 09/04/24 Rx furosemide 40 mg tablet 40 mg PO DAILY PRN Fluid 07/02/24 09/04/24 History levofloxacin 750 mg tablet 750 mg PO DAILY 7 days #7 tabs 07/23/24 09/04/24 Rx phenazopyridine 200 mg tablet 200 mg PO Q8H 2 days #6 tabs 07/23/24 09/04/24 Rx (Pyridium) hydrocodone 7.5 mg-acetaminophen 1 tab PO BID #60 tabs 09/04/24 Rx 325 mg tablet New Prescriptions to Start Prescriptions: Allergies Allergy/AdvReac Type Severity Reaction Status Date / Time formaldehyde (FORMALDEHYDE) Allergy Mild Blister Verified 07/23/24 14:14 Influenza Virus Vaccines Allergy Unknown Verified 07/23/24 14:14 allergy reaction levothyroxine sodium (From AdvReac Unknown Other Verified 07/23/24 14:14 SYNTHROID) Assessment and Plan *Assessment and plan (1) Lumbar radiculopathy: Status: Acute Category: Medical Code(s): M54.16 - Radiculopathy, lumbar region (2) Degenerative disc disease, lumbar: Status: Acute Category: Medical Code(s): M51.369 - Other intervertebral disc degeneration, lumbar region without mention of lumbar back pain or lower extremity pain Plan I will refill the patient's [place] and provide a 1 month supply of this medication. Patient will return to clinic in 1 month. Risks and benefits of the medication have been explained in detail to the patient. The patient does understand the risk of dependence on the medication when given over a prolonged period. Patient has been advised of risks of oversedation with the prescribed medication. Narcan has been offered to the paitent in the event of oversedation. Patient has been advised that a family member should also be educated regarding administration of Narcan. The patient has been advised to consult with his/her primary care provider and pharmacist regarding drug-drug interaction of medications currently prescribed. Patient has been prescribed a controlled substance after being counseled on the medication, medication safety, and possible side effects. Opioid contract was reviewed and signed by the patient, and that they have agreed to all of the terms set forth by our compliance program. A UDS is needed to verify patient's compliance with our office pain contract. This is ordered based off specific treatments related to chronic pain with the potential to abuse certain medications. Patient has been instructed to contact the clinic with any concerns before the next appointment. Dr. Butler has reviewed this note and agrees with this plan of care. This note was dictated using voice recognition software and make contain errors or omissions.
[2024-10-08 15:15] VITALS: BP 123/76; PULSE 83; RESP 14; O2SAT 96; BMI 36.8
== END 2024-10-08 23:59 | disposition home or self-care (01) ==
LOC: SC.PAIN 13:41
PROVIDERS: PCP Family Medicine; Visit Provider Nurse Practitioner Family
DX: M51.16 Intervertebral disc disorders with radiculopathy, lumbar region (principal); Z79.891 Long term (current) use of opiate analgesic
CPT/HCPCS: 99212; G0463

== ENCOUNTER 2024-11-10 11:18 | Outpatient (POV) | payer OTHER, MEDICARE, SELFPAY ==
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
--- NOTE | 2024-11-10 11:25 | EXP.PAIN.SOA ---
[facility] Disclaimer: The information contained in this section may have been updated after the patient was seen, as this information can be updated by other users. Medical History UTI (urinary tract infection) James's disease Anxiety and depression Muscle spasm History of tumor Skin cancer Celiac disease Asthma Migraine Appendicitis Congestive heart failure Edema Surgical History History of hysterectomy History of cholecystectomy History of carpal tunnel surgery History of surgery on wrist Hx of neck surgery History of surgery Family History Other Colon cancer Diabetes Heart disease Social History Smoking Status: Current every day smoker alcohol intake: never counseling provided: none substance use type: denies use current occupational status: other Travel in the last 8 weeks?: None housing: apartment current occupational exposures/hazards: No caffeine: Yes Have you lived/traveled outside US in past 30 days?: No Contact w/someone who lives/traveled outside US past 30 days?: No Exposure to someone with infectious disease in past 14 days?: No Do you have a fever (greater than 100.4 F or 38 C)?: No Have you tested positive for COVID-19?: No Exposed to someone with COVID-19 in past 14 days?: No Do you have a sore throat?: No Do you have a cough?: No Do you have any weakness?: No Do you have any diarrhea?: No Are you experiencing any unusual bleeding?: No Do you have any muscle aches/pain?: No Do you have any abdominal pain?: No Are you experiencing loss of taste or smell?: No PM Subjective & Objective Subjective Subjective:: Patient is a pleasant 59-year-old female who presents today for medication refill and follow-up. Today she rates her pain a 2out of 10. Patient denies any new falls or injuries. She states she is doing pretty good overall. She is currently managed with Holland 7.5 mg twice a day along with her compounded cream. She denies any side effects. Her Sarthak has been reviewed and is appropriate. Review of Systems: General: No recent weight changes, no fever, no sleep disturbances Respiratory: No cough, no shortness of air, no recurring pulmonary infections Cardiovascular/peripheral vascular: No chest pain, no palpitations, no edema, no shortness of breath Gastrointestinal: No new onset incontinence, normal bowel movements reported Genitourinary: No new onset incontinence Musculoskeletal: Chronic back pain Psychiatric: [Normal mood/affect] Neurological: [Denies weakness in extremities], [denies balance issues] Pain at rest (0-10 scale): 2 Objective Objective:: Physical Exam: General: Alert and oriented x3, no acute distress, pleasant and cooperative Lungs: Respirations even and unlabored, symmetrical chest expansion Eyes: PERRL Musculoskeletal: Flexion and extension of lumbar [spine] somewhat guarded secondary to pain, [antalgic gait noted] Neurological: Speech clear, no gross sensory deficit Has patient had previous pain injection?: No Conservative treatment options previously tried: Home exercise plan Length of treatment: Longer than 12 weeks Meds Home Medications and Allergies Home Medications ?Medication ?Instructions ?Recorded ?Confirmed ?Type montelukast 10 mg tablet 10 mg PO PM Asthma 05/14/17 10/08/24 History ibuprofen 800 mg tablet 800 mg PO TID PRN pain 06/26/17 10/08/24 History gabapentin 600 mg tablet 600 mg PO TID nerve pain 08/01/17 10/08/24 History primidone 50 mg tablet 50 mg PO TID seizures 08/01/17 10/08/24 History buspirone 10 mg tablet 10 mg PO TID Depression 11/21/17 10/08/24 History cyclobenzaprine 10 mg tablet 10 mg PO BID Pain 11/21/17 10/08/24 History hyoscyamine sulfate 0.125 mg 0.125 mg PO QID PRN reflux 11/21/17 10/08/24 History tablet (Levsin) trazodone 50 mg tablet 50 mg PO QHS sleep 11/21/17 10/08/24 History bisoprolol fumarate 5 mg tablet 5 mg PO DAILY htn 01/30/18 10/08/24 History spironolactone 25 mg tablet 25 mg PO DAILY Fluid 01/30/18 10/08/24 History amitriptyline 50 mg tablet 50 mg PO HS #30 tabs 03/31/24 10/08/24 Rx colestipol 1 gram tablet 1 g PO .Nightly #30 tabs 03/31/24 10/08/24 Rx furosemide 40 mg tablet 40 mg PO DAILY PRN Fluid 07/02/24 10/08/24 History levofloxacin 750 mg tablet 750 mg PO DAILY 7 days #7 tabs 07/23/24 10/08/24 Rx phenazopyridine 200 mg tablet 200 mg PO Q8H 2 days #6 tabs 07/23/24 10/08/24 Rx (Pyridium) hydrocodone 7.5 mg-acetaminophen 1 tab PO BID #60 tabs 11/10/24 Rx 325 mg tablet New Prescriptions to Start Prescriptions: hydrocodone-acetaminophen Rachel García Allergies Allergy/AdvReac Type Severity Reaction Status Date / Time formaldehyde (FORMALDEHYDE) Allergy Mild Blister Verified 07/23/24 14:14 Influenza Virus Vaccines Allergy Unknown Verified 07/23/24 14:14 allergy reaction levothyroxine sodium (From AdvReac Unknown Other Verified 07/23/24 14:14 SYNTHROID) Assessment and Plan *Assessment and plan (1) Degenerative disc disease, lumbar: Status: Acute Category: Medical Code(s): M51.369 - Other intervertebral disc degeneration, lumbar region without mention of lumbar back pain or lower extremity pain (2) Lumbar radiculopathy: Status: Acute Category: Medical Code(s): M54.16 - Radiculopathy, lumbar region Plan I will refill her current medication and supply a 1 month supply of the hydrocodone. Patient will return to clinic in 1 month for reevaluation of symptoms and plan of care. Risks and benefits of the medication have been explained in detail to the patient. The patient does understand the risk of dependence on the medication when given over a prolonged period. Patient has been advised of risks of oversedation with the prescribed medication. Narcan has been offered to the paitent in the event of oversedation. Patient has been advised that a family member should also be educated regarding administration of Narcan. The patient has been advised to consult with his/her primary care provider and pharmacist regarding drug-drug interaction of medications currently prescribed. Patient has been prescribed a controlled substance after being counseled on the medication, medication safety, and possible side effects. Opioid contract was reviewed and signed by the patient, and that they have agreed to all of the terms set forth by our compliance program. A UDS is needed to verify patient's compliance with our office pain contract. This is ordered based off specific treatments related to chronic pain with the potential to abuse certain medications. Patient has been instructed to contact the clinic with any concerns before the next appointment. Dr. Butler has reviewed this note and agrees with this plan of care. This note was dictated using voice recognition software and make contain errors or omissions.
--- OUTSIDE RECORDS SUMMARY | 2024-11-10 11:37 | XMS_ITS | Encounter Summary ---
Author Organization [facility] ([place], [place], [place], [place] Address [address] [place] [address] Care Team Providers Care Zinc Plating Machine Operator Name Role Phone Jeremy Cortes MD Primary Care Provider [phone] Reason for Visit * Reason Comments Medication Refill Encounter Details Date Type Department Care Team (Late Contact Info) Description 11/16/2023 Refill [facility] Neurology - [place] [address] [facility] [address] [place] [address] Brianne Bundy MD [address] [facility] [address] [place] [address] Idiopathic polyneuropathy Social History Tobacco Use Types Packs/Day Years Used Date Smoking Tobacco: Never Smokeless Tobacco: Never Family and Community Support Answer Johny e Recorded Help with Day to Day Activities Not on file 05/15/2023 Feeling Lonely or Isolated Not on file 05/15 Educational Attainment Answer Date Adrian rded Speak language other than Eritrean at home Not on file 05/15/2023 Want help with school or training Not on file 05/15/2023 Substance Use Answer Date Recorded Used [...] Encounters Date Type Department Care Team (Late Contact Info) Description 12/04/2024 3:30 PM EDT Procedure Visit [facility] Neurology - [place] [address] [place] [id number] Brianne Bundy MD [address] [place] [address] documented as of this encounter Visit Diagnoses Diagnosis Idiopathic polyneuropathy documented in this encounter Care Teams Zinc Plating Machine Operator Relationship Specialty Start Date End Date Jeremy Cortes MD [address] [place] [address] PCP - General Family Medicine 05/10/22 documented as of this encounter
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
--- OUTSIDE RECORDS SUMMARY | 2024-11-10 11:37 | XMS_ITS | Clinical Summary ---
Author Organization [employer] ([place], [place], [place], [place]) Address [address] [place] [address] Care Team Providers Care Teacher Early Childhood Development Name Role Phone Jeremy Cortes MD Primary Care Provider [phone] Allergies Active Allergy Reactions Criticality Noted Date Comments Formaldehyde Low 11/20/2018 Levothyroxine Itching 08/28/2024 Kenedy Juice Low 11/20/2018 Penicillins Other (See Comments) 08/28/2024 Pravastatin Nausea Only 08/28/2024 Pregabalin Swelling High 08/28/2024 Rosuvastatin Nausea And Vomiting 08/28/2024 Medications bisoprolol (ZEBETA) 5 MG tablet Take 1 tablet (5 mg total) by mouth daily. 3 Active busPIRone (BUSPAR) 10 MG tablet Take 1 tablet (10 mg total) by mouth 3 (three) times daily. 3 Active cyclobenzaprine (FLEXERIL) 10 MG tablet Take 1 tablet (10 mg total) by mouth 2 (two) times daily. 3 Active DULoxetine (CYMBALTA) 60 MG capsule Take 2 capsules (120 mg total) by mouth daily. 3 Active ezetimibe (ZETIA) 10 mg tablet Take 1 tablet (10 mg total) by mouth daily. 5 Active furosemide (LASIX) 40 MG tablet Take 1 tablet (40 mg total) by mouth daily. 5 Active HYDROcodone-acetami nophen (NORCO) 7.5-325 mg per tablet Take 1 tablet by mouth 2 (two) times daily. Max Daily Amount: 2 tablets 5 Active ibuprofen (MOTRIN) 800 MG tablet Take 1 tablet (800 mg total) by mouth 3 (three) times daily as needed. 5 Active montelukast (SINGULAIR) 10 mg tablet Take 1 tablet (10 mg total) by mouth daily. Active oxazepam (SERAX) 10 MG capsule Take 1 capsule (10 mg total) by mouth nightly. Active Adipex-P 37.5 mg tablet 1 tablet (37.5 mg total). Active spironolactone (ALDACTONE) 25 MG tablet Take 1 tablet (25 mg total) by mouth daily. 5 Active traZODone (DESYREL) 50 MG tablet Take 1 tablet (50 mg total) by mouth nightly. Active gabapentin (NEURONTIN) 600 MG tabletIndications:I diopathic polyneuropathy Take 1 tablet (600 mg total) by mouth 3 (three) times daily for 180 days. Max Daily Amount: 1,800 mg 270 tablet 1 5 02/25/20 25 Active primidone (MYSOLINE) 50 MG tabletIndications:T remor TAKE TWO TABLETS BY MOUTH EVERY MORNING AND TAKE THREE TABLETS EVERY DAY AT BEDTIME. 450 tablet 3 5 Active amitriptyline (ELAVIL) 10 MG tabletIndications:M igraine without aura and without status migrainosus, not intractable Take 1 tablet (10 mg total) by mouth nightly. 90 tablet 3 5 08/29/19 26 Active Active Problems No known active problems Encounters Date Type Department Care Team Description 08/28/2024 3:30 PM EDT Procedure Visit [facility] Neurology [place] [address] [place] [address] Brianne Bundy MD Cervical dystonia (Primary Dx) 08/28/2024 3:00 PM EDT Office Visit [facility] Neurology [facility] [address] [place] [address] Sara Huddleston APRN Idiopathic polyneuropathy; Tremor; Migraine without aura and without status migrainosus, not intractable 08/28/2024 Travel from Last 3 Months Family History Medical History Relation Name Comments Arthritis Other Depression Other Diabetes Other Hyperlipidemia Other Schizophrenia Other Stroke Other Relation Name Status Comments Other Social History Tobacco Use Types Packs/Day Years Used Date Smoking Tobacco: Never Smokeless Tobacco: Never Tobacco Cessation:Counseling Given: No Family and Community Support Answer Johny e Recorded Help with Day to Day Activities Not on file 05/15/2023 Feeling Lonely or Isolated Not on file 05/15 Educational Attainment Answer Date Adrian rded Speak language other than Tunisian at home Not on file 05/15/2023 Want [...] Sign Reading Time Taken Comments Blood Pressure 105/75 08/28/2024 3:08 PM EDT Pulse 87 08/28/2024 3:08 PM EDT Temperature - - Respiratory Rate - - Oxygen Saturation 99% 05/15/2023 2:24 PM EST Inhaled Oxygen Concentration - - Weight 98.4 kg (217 lb) 09/01/2024 9:12 AM EDT Height 162.6 cm (5' 4 ) 08/28/2024 3:08 PM EDT Body Mass Index 37.25 08/28/2024 3:08 PM EDT Plan of Treatment Upcoming Encounters Date Type Department Care Team (Late st Contact Info) Description 12/04/2024 3:30 PM EDT Procedure [facility] [address] [place] [address] Brianne Bundy MD [address] [place] [address] Health Maintenance Due Date Last Done Comments CT Colonography 1965 Colonoscopy 1965 Colorectal Cancer Screening 1965 FOBT/FIT 1965 Fit-DNA (Cologuard) 1965 Sigmoidoscopy 1965 Depression Screening (12+) 1977 HIV Screening 1980 Hepatitis C Screening 1983 DTAP/TDAP/TD VACCINES (1 - Tdap) 1984 Pap Smear 1986 Breast Cancer Screening 2005 Lipid Panel 2010 Pneumococcal 50+ years (1 of 1 - PCV) 2015 Shingles Vaccine (Zoster) (1 of 2) 2015 COVID-19 VACCINE (1 - 2023- season) 2024 Medicare Initial AWV [id number] 05/07/2024 Influenza Vaccine (#1) 2025 Tobacco Cessation Counseling and Screening (12+) 08/2808/28/2024 Insurance [employer] MEDICARE PPO Care Teams Teacher Early Childhood Development Relationship Specialty Start Date End Date Jeremy Cortes MD [address] [place] [address] PCP - General Family Medicine 05/10/22
--- OUTSIDE RECORDS SUMMARY | 2024-11-10 11:38 | XMS_ITS | Encounter Summary ---
Author Organization [facility] ([place], [place], [place], [place]) Address [address] [place] [address] Care Team Providers Care Senior Health Physics Technician Name Role Phone Jeremy Cortes MD Primary Care Provider [phone]- [phone] Reason for Visit * Reason Comments Medication Refill Encounter Details Date Type Department Care Team (Late Contact Info) Description 02/11/2024 Refill [facility] Neurology - [place] [address] [facility] [address] [place] [address] Brianne Bundy MD [address] [facility] [address] [place] [address] Idiopathic polyneuropathy Social History Tobacco Use Types Packs/Day Years Used Date Smoking Tobacco: Never Smokeless Tobacco: Never Family and Community Support Answer Johny e Recorded Help with Day to Day Activities Not on file 05/15/2023 Feeling Lonely or Isolated Not on file 05/15 Educational Attainment Answer Date Adrian rded Speak language other than [place] Sudanese at home Not on file 05/15/2023 Want [...] Description 12/04/2024 3:30 PM EDT Procedure Visit [facility] Neurology - [place] [address] [place] [id number] Brianne Bundy MD [address] [facility] [address] [place] [address] documented as of this encounter Visit Diagnoses Diagnosis Idiopathic polyneuropathy documented in this encounter Care Teams Senior Health Physics Technician Relationship Specialty Start Date End Date Jeremy Cortes MD [address] [place] [address] PCP - General Family Medicine 05/10/22 documented as of this encounter
--- OUTSIDE RECORDS SUMMARY | 2024-11-10 11:38 | XMS_ITS | Referral Summary ---
Author Organization [employer] ([place], [place], [place], [place]) Address [address] [place] [address] Care Team Providers Care Clipper And Turner Name Role Phone Jeremy Cortes MD Primary Care Provider +1- [phone] Encounters Date Type Department Care Team Description 08/28/2024 Travel 08/28/2024 3:00 PM EDT Office Visit [facility] Neu[facility] - [facility] [address] [place] [address] Sara Huddleston APRN Idiopathic polyneuropathy; Tremor; Migraine without aura and without status migrainosus, not intractable 08/28/2024 3:30 PM EDT Procedure Visit [facility] [address] [place] [address] Brianne Bundy MD Cervical dystonia (Primary Dx) from Last 3 Months Allergies Active Allergy Reactions Criticality Noted Date Comments Formaldehyde Low 11/20/2018 Levothyroxine Itching 08/28/2024 Otoe Juice Low 11/20/2018 Penicillins Other (See Comments) 08/28/2024 Pravastatin Nausea Only 08/28/2024 Pregabalin Swelling High 08/28/2024 Rosuvastatin Nausea And Vomiting 08/28/2024 Medications bisoprolol (ZEBETA) 5 MG tablet Take 1 tablet (5 mg total) by mouth daily. Active busPIRone (BUSPAR) 10 MG tablet Take 1 tablet (10 mg total) by mouth 3 (three) times daily. Active cyclobenzaprine (FLEXERIL) 10 MG tablet Take [...] tablet (40 mg total) by mouth daily. Active HYDROcodone-acetami nophen (NORCO) 7.5-325 mg per tablet Take 1 tablet by mouth 2 (two) times daily. Max Daily Amount: 2 tablets Active ibuprofen (MOTRIN) 800 MG tablet Take 1 tablet (800 mg total) by mouth 3 (three) times daily as needed. 5 Active montelukast (SINGULAIR) 10 mg tablet Take 1 tablet (10 mg total) by mouth daily. 5 Active oxazepam (SERAX) 10 MG capsule Take 1 capsule (10 mg total) by mouth nightly. Active Adipex-P 37.5 mg tablet 1 tablet (37.5 mg total). 5 Active spironolactone (ALDACTONE) 25 MG tablet Take 1 tablet (25 mg total) by mouth daily. 5 Active traZODone (DESYREL) 50 MG tablet Take 1 tablet (50 mg total) by mouth nightly. 5 Active gabapentin (NEURONTIN) 600 MG tabletIndications:I diopathic [...] Active Active Problems No known active problems Social [...] Description 12/04/2024 3:30 PM EDT Procedure Visit [facility] - [place] [address] [place] [address] Brianne Bundy MD [address] [place] [address] Insurance [employer] MEDICARE PPO Care Teams Clipper And Turner Relationship Specialty Start Date End Date Jeremy Cortes MD [address] [place] [address] PCP - General Family Medicine 05/10/22
--- OUTSIDE RECORDS SUMMARY | 2024-11-10 11:38 | XMS_ITS | Encounter Summary ---
Author Organization [employer] ([place], [place], [place], [place]) Address [address] [place] [address] Care Team Providers Care Seam Hammerer Name Role Phone Jeremy Cortes MD Primary Care Provider +1- [phone] Reason for Visit * Reason Comments Medication Refill Encounter Details Date Type Department Care Team (Late Contact Info) Description 12/20/2023 Refill [facility] Neurology - [place] [address] [facility] [address] [place] [address] Brianne Bundy MD [address] [facility] [address] [place] [address] Idiopathic polyneuropathy Social History Tobacco Use Types Packs/Day Years Used Date Smoking Tobacco: Never Smokeless Tobacco: Never Family and Community Support Answer Johny e Recorded Help with Day to Day Activities Not on file 05/15/2023 Feeling Lonely or Isolated Not on file 05/15 Educational Attainment Answer Date Adrian rded Speak language other than Thai at home Not on file 05/15/2023 Want [...] Description 12/04/2024 3:30 PM EDT Procedure Visit [facility] Neurology - [place] [address] [place] [id number] Brianne Bundy MD [address] [facility] [address] [place] [address] documented as of this encounter Visit Diagnoses Diagnosis Idiopathic polyneuropathy documented in this encounter Care Teams Seam Hammerer Relationship Specialty Start Date End Date Jeremy Cortes MD [address] [place] [address] PCP - General Family Medicine 05/10/22 documented as of this encounter
--- OUTSIDE RECORDS SUMMARY | 2024-11-10 11:38 | XMS_ITS | Encounter Summary ---
Author Organization [employer] ([place], [place], [place], [place]) Address [address] [place] [address] Care Team Providers Care Tax Evaluator Name Role Phone Jeremy Cortes MD Primary Care Provider +1- [phone] Reason for Visit * Reason Comments Medication Refill Encounter Details Date Type Department Care Team (Late Contact Info) Description 07/07/2022 Refill [facility] Neurology - [place] [address] [place] [address] Brianne Bundy MD [address] [place], [place] [id number] Avitaminosis D Social History Tobacco Use Types [...] Description 12/04/2024 3:30 PM EDT Procedure Visit [facility]rology - [place] [address] [place] [address] Brianne Bundy MD [address] [place], [place] [id number] documented as of this encounter Visit Diagnoses Diagnosis Avitaminosis D Unspecified vitamin D deficiency documented in this encounter Care Teams Tax Evaluator Relationship Specialty Start Date End Date Jeremy Cortes MD [address] [place] [address] PCP - General Family Medicine 05/10/22 documented as of this encounter
--- OUTSIDE RECORDS SUMMARY | 2024-11-10 11:38 | XMS_ITS | Data Portability ---
Author Organization [facility] Address [address] [place] [address] Care Team Providers Care Solderer Dipper Name Role Phone DIA HERNANDEZ Primary Care Provider Assessment Encounter Date Assessment Date Assessment LastModified by Organization Details LastModified Time 04/15/2024 04/15/2024 Medicare Preventive Services Check List reviewed and printed for patient. diana Not available 04/15/2024 10:23:44 Plan of Treatment Reminders Order Date Submit Date Provider Last Modified By Organization Details Last Modified Time Details Appointments None recorded. Lab HbA1c (hemoglobin A1c), blood 2023 024 [facility], [address] [place] [address], [id number], 4 13:58:36 HbA1c (hemoglobin A1c), blood 2023 024 [facility], [address] [place] [address], [phone], 4 13:50:41 Referral None recorded. Procedures None recorded. Surgeries None recorded. Imaging None recorded. Medication Orders cephalexin 500 mg capsule 2024 025 [facility]/Pharmacy #[id number], [address] [place], [address], 5 10:43:37 potassium chloride ER 10 mEq tablet,exte nded release 2023 024 [facility]/Pharmacy #[id number], [address] [place] [address], [address], 4 13:58:38 Ozempic 1 mg/dose (4 mg/3 mL) subcutaneou s pen injector 2023 024 [facility]/Pharmacy #[id number], [address] [place] [address], [address], 4 13:58:38 Ozempic 1 mg/dose (4 mg/3 mL) subcutaneou s pen injector 2023 024 [facility]/Pharmacy #[id number], [address] [place] [address], [address], 4 13:14:17 potassium chloride ER 10 mEq tablet,exte nded release 2023 024 [facility]/Pharmacy #[id number], [address] [place] [address], [address], 4 08:07:53 Ozempic 1 mg/dose (4 mg/3 mL) subcutaneou s pen injector 2023 024 [facility]/Pharmacy #[id number], [address] [place] [address], [phone], 4 13:50:43 Patient TargetsNo targets recorded. Patient Instructions Encounter Date Encounter Id Patient Instructions Last Modified By Organization Details Last Modified Time 09/10/2023 [id number] learning about healthy weight efryman Not available 09/10/2023 13:50:39 body mass index: care instructions efryman Not available 09/10/2023 13:50:39 04/15/2024 [id number] advance directives: care instructions efryman Not available 04/15/2024 11:36:56 learning about depression efryman Not available 04/15/2024 11:36:56 preventing falls : care instructions efryman Not available 04/15/2024 11:36:56 medicare preventive services guide efryman Not available 04/15/2024 11:36:56 learning about healthy weight efryman Not available 04/15/2024 11:36:56 body mass index: care instructions efryman Not available 04/15/2024 11:36:56 learning about healthy weight efryman Not available 04/15/2024 11:36:56 body mass index: care instructions efryman Not available 04/15/2024 11:36:56 Reason for Referral None Reported. Results Created Date Observation Date Name Description Value Unit Range Abnormal Flag Note LastModifiedBy Organization Detail LastModifiedTime 09/10/19 24 09/10/2023 HbA1c (hemo globi n A1c), blood HbA1C 5.5 % Not Available [address], [address], 09/10/2023 11:55:49 03/17/20 24 03/17/2024 HbA1c (hemo globi n A1c), blood HbA1C 5.6 % Not Available [address], [address], 03/17/2024 11:40:00 Result Notes None recorded. Problems Name Problem SNOMED Code Status Onset Date Resolution Date Notes Provider Name and Address Organization Details Recorded Time Autoimmune disease 20831454 Active Marina Torib[place] null, [place] - [facility] 3 13:26:42 Chronic pain 33575672 Active Marina [place], [place] - [facility] 3 13:27:00 Congestive heart failure 77501815 Active Marina [place], [place] - [facility] 3 13:27:16 Finding of cervical spine 412344811 Active Marina Tor[place], [place] - [facility] 3 13:29:37 Prediabetes 502057338 Active 2022 Susan Payne, [employer] [address], [place], [address] , [place] - [facility] 3 14:09:16 Problem Notes None recorded. Procedures Surgical History Date Name Laterality Status Provider Name and Address Organization Details Recorded Time 04/15/20 24 Advance Care Planning completed [place] - [facility] 04/15/2024 10:23:45 04/15/20 24 Functional Status Assessed completed [place] - [facility] 04/15/2024 10:23:45 04/07/20 24 Date of Last Colonoscopy completed [place] - [facility] 04/15/2024 10:48:53 09/10/19 A1C level 6.9 and below completed [place] - [facility] 09/10/2023 12:01:23 hysterectomy completed Marina Catarino [place] - [facility] 06/13/2022 13:36:00 procedure on neck completed Olivia davis Cat[place] - [facility] 06/13/2022 13:36:08 cholecystectomy completed Marina Catarino [place] - [facility] 06/13/2022 13:36:17 operation on intestine completed Marina Catarino [place] - [facility] 06/13/2022 13:36:28 procedure on wrist completed Manav kirill [place] - [facility] 06/13/2022 13:36:36 detorsion of ovary completed Manav kirill [place] - [facility] 06/13/2022 13:36:56 Imaging Results None recorded. Procedure Notes None recorded. Medical Equipment None Reported. Allergies Allergen ID Allergen Name Allergen Category Reaction Reaction Severity Criticality Documentation Date Start Date Code Code System Note Provider Name and Address Organization Details Recorded Time 446630 Product containin g penicilli n (product) medicatio n Not available Not available Not available 06/13/2022 45750 8001 SNOMED Marina maguire [place] - [facility] 13:19:51 Medications Name Sig Start Date Stop Date Status Note LastModified by Organization Details LastModified Time cyclobenz aprine 10 mg tablet TAKE ONE TABLET BY MOUTH TWICE DAILY MAY CAUSE DROWSINE SS active Not Available Not Available No t Available amoxicill in 500 mg capsule TAKE ONE CAPSULE BY MOUTH THREE TIMES DAILY FOR 10 DAYS -- FINISH ALL MEDICINE -- 06/13 completed Not Available Not Available Not Available furosemid e 40 mg tablet TAKE ONE TABLET BY MOUTH EVERY DAY active Not Available Not Available No t Available metformin 500 mg tablet TAKE ONE TABLET BY MOUTH EVERY DAY 06/12 completed Not Available Not Available Not Available primidone 50 mg tablet TAKE TWO TABLETS BY MOUTH EVERY MORNING AND TAKE THREE TABLETS EVERY DAY AT BEDTIME active Not Available Not Available No t Available oxazepam 10 mg capsule TAKE ONE CAPSULE BY MOUTH EVERY DAY AT BEDTIME active Not Available Not Available No t Available gabapenti n 600 mg tablet TAKE ONE TABLET BY MOUTH THREE TIMES DAILY MAX DAILY AMOUNT 1800 MG active Not Available Not Available No t Available albuterol sulfate 2.5 mg/3 mL (0.083 %) solution for nebulizat ion INHALE THE CONTENTS OF 1 VIAL VIA NEBULIZE R DIRECTED EVERY 4 TO 6 HOURS NEEDED FOR persiste nt cough, wheezing , OR SHORTNES S OF BREATH active Not Available Not Available No t Available trazodone 50 mg tablet TAKE ONE TABLET BY MOUTH EVERY NIGHT AT BEDTIME active Not Available Not Available No t Available pravastat in 40 mg tablet TAKE ONE TABLET BY MOUTH EVERY DAY AT BEDTIME 06/12 completed Not Available Not Available Not Available ibuprofen 800 mg tablet TAKE ONE TABLET BY MOUTH THREE TIMES DAILY NEEDED active Not Available Not Available No t Available hydrocodo ne 5 mg-acetam inophen 325 mg tablet TAKE ONE TABLET BY MOUTH THREE TIMES DAILY MAY CAUSE DROWSINE SS 06/12 completed Not Available Not Available Not Available potassium chloride ER 10 mEq tablet,ex tended release Take 1 tablet every day by oral route. 2023 active Not Available Not Available Not Avai lable phentermi ne 37.5 mg tablet TAKE ONE TABLET BY MOUTH EVERY DAY 12/12 completed Not Available Not Available Not Available spironola ctone 25 mg tablet TAKE ONE TABLET BY MOUTH EVERY DAY active Not Available Not Available No t Available bisoprolo l fumarate 5 mg tablet TAKE ONE TABLET BY MOUTH EVERY DAY active Not Available Not Available No t Available amoxicill in 875 mg tablet 07/04 completed Not Available Not Available Not Available pravastat in 80 mg tablet TAKE ONE TABLET BY MOUTH EVERY DAY 07/04 completed Not Available Not Available Not Available ciproflox acin 0.3 % eye drops INSTILL 1 DROP IN THE LEFT EYE FOUR TIMES DAILY FOR 3 DAYS 06/12 completed Not Available Not Available Not Available amitripty line 10 mg tablet TAKE ONE TABLET BY MOUTH EVERY DAY AT BEDTIME active Not Available Not Available No t Available deslorata dine 5 mg tablet TAKE ONE TABLET BY MOUTH EVERY DAY active Not Available Not Available No t Available hydrocodo ne 7.5 mg-acetam inophen 325 mg tablet TAKE ONE TABLET BY MOUTH TWICE DAILY FOR PAIN MAY CAUSE DROWSINE SS active Not Available Not Available No t Available cephalexi n 500 mg capsule TAKE ONE CAPSULE BY MOUTH TWICE DAILY FOR 7 DAYS -- FINISH ALL MEDICINE -- active Not Available Not Available No t Available neomycin- polymyxin -dexameth 3.5 mg/mL-10, 000 unit/mL-0 .1% eye drops INSTILL ONE DROP IN THE RIGHT EYE FOUR TIMES DAILY FOR 1-2 WEEKS 07/04 completed Not Available Not Available Not Available buspirone 10 mg tablet TAKE ONE TABLET BY MOUTH THREE TIMES DAILY active Not Available Not Available No t Available hyoscyami ne 0.125 mg sublingua l tablet DISSOLVE ONE TABLET UNDER THE TONGUE FOUR TIMES DAILY NEEDED active Not Available Not Available No t Available monteluka st 10 mg tablet TAKE ONE TABLET BY MOUTH EVERY DAY active Not Available Not Available No t Available pravastat in 20 mg tablet TAKE ONE TABLET BY MOUTH EVERY DAY AT BEDTIME 03/13 completed Not Available Not Available Not Available cefdinir 300 mg capsule TAKE ONE CAPSULE BY MOUTH TWICE DAILY FOR 10 DAYS -- FINISH ALL MEDICINE -- 03/17 completed Not Available Not Available Not Available fluticaso ne propionat e 50 mcg/actua tion nasal spray,maty pension INSTILL 1-2 SPRAY IN EACH NOSTRIL EVERY DAY active Not Available Not Available No t Available colestipo l 1 gram tablet TAKE ONE TABLET BY MOUTH EVERY DAY IN THE EVENING active Not Available Not Available No t Available doxycycli ne hyclate 100 mg tablet TAKE ONE TABLET BY MOUTH TWICE DAILY FOR FOURTEEN DAYS -- FINISH ALL MEDICINE -- 03/17 completed Not Available Not Available Not Available ezetimibe 10 mg tablet TAKE ONE TABLET BY MOUTH EVERY DAY active Not Available Not Available No t Available rosuvasta tin 20 mg tablet TAKE ONE TABLET BY MOUTH EVERY DAY 06/13 completed Not Available Not Available Not Available duloxetin e 60 mg capsule,d elayed release TAKE TWO CAPSULES BY MOUTH EVERY DAY active Not Available Not Available No t Available Symbicort 80 mcg-4.5 mcg/actua tion HFA aerosol inhaler INHALE TWO PUFFS BY MOUTH TWICE DAILY DIRECTED --RINSE MOUTH AFTER USE-- active Not Available Not Available No t Available cholecalc iferol (vitamin D3) 1,250 mcg (50,000 unit) capsule TAKE ONE CAPSULE BY MOUTH ONCE WEEKLY FOR 8 WEEKS, THEN take 2000 units daily DIRECTED active Not Available Not Available No t Available Aerochamb er Plus Flow-Vu,L arge Mask USE DIRECTED with steroid AND albutero l inhalers active Not Available Not Available No t Available Ozempic 0.25 mg or 0.5 mg (2 mg/1.5 mL) subcutane ous pen injector Inject 0.5 mg every week by subcutan eous route. 06/15 completed incresed dose Not Available Not Available Not Available Sutab 1.479-0.1 88-0.225 gram tablet Evening before the colonosc opy 12 tablets PO along with 16 oz of water (use provided containe r to measure) , ingested over 15 to 20 minutes. Approxim ately 1 hour after the last tablet is ingested , the patient must drink another 16 oz of water over 30 minutes. Approxim ately 30 minutes after finishin g the second containe r of water, the patient must drink another 16 oz of water over 30 minutes. On 04/15 completed Not Available Not Available Not Available Ozempic 1 mg/dose (4 mg/3 mL) subcutane ous pen injector INJECT 1 MG UNDER THE SKIN EVERY WEEK active Not Available Not Available No t Available Ozempic 0.25 mg or 0.5 mg (2 mg/3 mL) subcutane ous pen injector INJECT 0.5 MG SUBCUTAN EOUSLY EVERY WEEK 06/15 completed Not Available Not Available Not Available Vitals Date Recorded Body height Respiratory rate Body mass index (BMI) Body weight Body temperature Oxygen saturation Oxygen saturation in Arterial blood by Pulse oximetry Heart rate Systolic And Diastolic Provider Name and Address Organization Details Last Updated DateTime 5 162.56 cm 18 /min 36.8 kg/m2 47301.5 7 g 97.6 [degF] 97 % 97 % 80 /min 118/74 mm[Hg] Leatha Finley [place] - [facility] 5 09:32:37 Date Recorded Body height Body mass index (BMI) Body weight Body temperature Heart rate Oxygen saturation Oxygen saturation in Arterial blood by Pulse oximetry Respiratory rate Systolic And Diastolic Provider Name and Address Organization Details Last Updated DateTime 4 162.56 cm 33.9 kg/m2 62121.1 g 97.7 [degF] 72 /min 94 % 94 % 20 /min 128/80 mm[Hg] Marina Toribio [place] - [facility] 4 11:39:09 Date Recorded Body height Body mass index (BMI) Body weight Body temperature Heart rate Oxygen saturation Oxygen saturation in Arterial blood by Pulse oximetry Respiratory rate Systolic And Diastolic Provider Name and Address Organization Details Last Updated DateTime 4 162.56 cm 34.7 kg/m2 27969.6 6 g 97.2 [degF] 79 /min 98 % 98 % 18 /min 122/84 mm[Hg] Marina Toribio [place] - [facility] 4 11:43:49 Date Recorded Body height Body mass index (BMI) Body weight Respiratory rate Oxygen saturation Oxygen saturation in Arterial blood by Pulse oximetry Heart rate Body temperature Systolic And Diastolic Provider Name and Address Organization Details Last Updated DateTime 4 162.56 cm 36.1 kg/m2 40822.2 g 18 /min 97 % 97 % 84 /min 97.6 [degF] 120/80 mm[Hg] Leatha Malia [place] - [facility] 4 11:23:51 Date Recorded Body height Body mass index (BMI) Body weight Heart rate Oxygen saturation Oxygen saturation in Arterial blood by Pulse oximetry Respiratory rate Systolic And Diastolic Provider Name and Address Organization Details Last Updated DateTime 4 162.56 cm 36.6 kg/m2 05423.1 7 g 80 /min 97 % 97 % 18 /min 112/70 mm[Hg] Marina Toribio [place] - [facility] 4 10:36:10 Social History Question Answer Notes LastModified by Organizat ion Details LastModified Time Tobacco Smoking Status Current Every Day Smoker Marina maguire [place] - [facility] 06/13/2022 13:34:38 Do You Have An Advance Directive? No Information not available 06/13/2022 Are You Blind Or Do You Have Difficulty Seeing? No Information not available 06/13/2022 What Is Your Level Of Caffeine Consumption? Occasional Information not available 06/13/2022 In The 14 Days Before Symptom Onset, Have You Had Close Contact With A Laboratory-confir med COVID-19 While That Case Was Ill? No Information not available 06/13/2022 In The 14 Days Before Symptom Onset, Have You Had Close Contact With A Person Who Is Under Investigation For COVID-19 While That Person Was Ill? No Information not available 06/13/2022 Have You Been To An Area Known To Be High Risk For COVID-19? No Information not available 06/13/2022 Are You Deaf Or Do You Have Serious Difficulty Hearing? No Information not available 06/13/2022 What Type Of Diet Are You Following? REGULAR Information not available 06/13/2022 Have You Processed Blood Or Body Fluids From An Ebola Virus Disease Patient Without Appropriate PPE? No Information not available 06/13/2022 Do You Reside In Or Have You Traveled To An Area Where Ebola Virus Transmission Is Active? No Information not available 06/13/2022 What Is The Highest Grade Or Level Of School You Have Completed Or The Highest Degree You Have Received? [id number] Information not available 06/13/2022 Have There Been Any Changes To Your Family Or Social Situation? No Information no t available 06/13/2022 What Is The Fluoride Status Of Your Home? Fluoridated Information not available 06/13/2022 Have You Recently Or Are You Planning To Travel To An Area With Zika Virus? No Information not available 06/13/2022 Do You Have A Medical Power Of Technical Advisor? No Information not available 06/13/2022 What Was The Date Of Your Most Recent Tobacco Screening? 07/04/2024 Information not available 07/04/2024 What Is Your Current Pack Years? 30ormorepackyea rs Information not available 06/12/2023 What Is Your Relationship Status? Information not available 06/13/2022 Do You Have Smoke And Carbon Monoxide Detectors In Your Home? Yes Information not available 06/13/2022 At What Age Did You Start Smoking Tobacco? 16 Information not available 06/13/2022 Are You Passively Exposed To Smoke? No Information no t available 06/13/2022 How Much Tobacco Do You Smoke? 0.25 PPD Information not available 06/13/2022 Has Tobacco Cessation Counseling Been Provided? Yes Information not available 07/11/2022 On What Date Was Tobacco Cessation Counseling Provided? 07/04/2024 Information not available 07/04/2024 How Many Years Have You Smoked Tobacco? 42 Information not available 06/12/2023 Do You Have Difficulty Walking Or Climbing Stairs? No Information not available 06/13/2022 Sex: Female Functional Status Question Answer Note LastModified by Organizat ion Details LastModified Time Do you use any illicit or recreational drugs? No Information not available 06/13/2022 Do you or have you ever used any other forms of tobacco or nicotine? No Information not available 12/12/2022 What is your level of alcohol consumption? Occasional Information not available 06/13/2022 Are you currently employed? No Information not available 06/13/2022 Do you have transportation difficulties? No Information not available 06/13/2022 Are you able to walk? YESWOREST Information not available 06/13/2022 Do you have difficulty doing errands alone? No Information not available 06/13/2022 Are you able to care for yourself? Yes Information n ot available 06/13/2022 Do you have difficulty dressing or bathing? No Information not available 06/13/2022 What is your exercise level? None Information not available 12/12/2022 Mental Status Question Answer Note LastModified by Organizat ion Details LastModified Time Do you feel stressed (tense, restless, nervous, or anxious, or unable to sleep at night)? IN3936-6 Information not available 12/12/2022 Do you have difficulty concentrating, remembering or making decisions? No Information no t available 06/13/2022 Family History Relationship Description Onset Age of this Age Resolved Age Notes LastModified by Organization Details LastModified Time Father Hypertensive disorder cbuckler Not available 2022 13:32:55 Mother Diabetes mellitus cbuckler Not available 2022 13:33:23 Mother Disorder of thyroid gland cbuckler Not available 2022 13:33:41 Medical History No medical history recorded. Gynecological History Statement/Question Response Abnormal Pap N If Post Menopausal, Age at Menopause Date of Last Colonoscopy 04/07/2024 Date of Last Mammogram Most Recent Bone Density Menses Monthly N Date of Last Pap Smear LMP Unknown Obstetrics History GPAL:G 1 P 0 1 0 1 Type Value Multiple Births 0 Induced 0 Spontaneous 0 Premature 1 Living 1 Ectopics 0 Total 1 Immunizations Vaccine Type Date Status Note Provider Name and Address Organization Details Recorded Time Influenza, split virus, trivalent, preservative 04/15/20 24 cancelled patient objection Susan Payne APRN [facility] [address], [place], [address], [facility] - [facility] 04/15/2024 11:37:21 Past Encounters Encounter ID Performer Location Encounter Start Date Encounter Closed Date Diagnosis/Indication Diagnosis SNOMED-CT Code Diagnosis ICD10 Code Diagnosis Note [id number] Susan Payne APRN [address] [address] 06/13/2022 13:03:16 06/13/2022 14:30:04 Autoimmune disease 82167879 M35.9 Chronic pain 79204700 G8 9.29 Congestive heart failure 08477886 I50.9 Prediabetes 220820453 R7 3.03 [id number] Susan Payne APRN [address] [address] 07/11/2022 12:49:17 07/11/2022 13:42:24 Prediabetes 596115444 R73.03 unable to tolerate metformin [id number] Susan Payne APRN [address] [address] 12/12/2022 10:12:17 12/12/2022 11:51:26 Prediabetes 062386295 R73.03 unable to tolerate metformina 1c down and wt down 28 lbs Body mass index 30+ - obesity 463550272 Z68.35 35.5 Obesity 643531649 E66.9 [id number] Susan Payne [address] [address] 03/13/2023 10:15:56 03/13/2023 11:44:49 Prediabetes 535389843 R73.03 unable to tolerate metformina 1c down and wt down 10 lbs [id number] Susan Payne [address] [address] 06/12/2023 10:08:18 06/12/2023 11:15:40 Prediabetes 528232277 R73.03 unable to tolerate metformind iscussed diet and exercisea1 c down and wt up 3 lbs Chronic pain 67161720 G8 9.29 [id number] Susan Payne[address] [address] 09/10/2023 11:05:14 09/10/2023 12:10:53 Prediabetes 415451448 R73.03 unable to tolerate metformind iscussed diet and exercisea1 c downdiscus sed risk of meds Body mass index 30+ - obesity 307680476 Z68.33 33.9 Obesity 063975093 E66.9 continue diet and exercise plan Edema of l ower extremity 334336899 R60.0 [id number] Susan Payne[address] [address] 12/11/2023 11:00:49 12/11/2023 12:49:31 Prediabetes 335017554 R73.03 unable to tolerate metformind iscussed diet and exercisea1 c downdiscus sed risk of meds [id number] Susan Payne[address] [address] 03/17/2024 11:04:11 03/17/2024 12:50:21 Edema of lower extremity 352726472 R60.0 take with fluid pill Prediabetes 601528277 R7 3.03 unable to tolerate metformind iscussed diet and exercisedi scussed risk of meds [id number] Susan Payne APRN [address] [address] 04/15/2024 10:21:04 04/15/2024 11:37:47 Adult health examination 045587179 Z00.00 Depression screening 171 413315 Z13.31 A depression screening was completed via a standardiz ed screening tool. 5 minutes were spent discussing depression screening results and risk factors. Examinatio n of blood pressure 866522900 Z01.30 Diet education 63298281 Z71.3 Counseling 941919379 Z71 .82 Exercise counseling . Patient encouraged to exercise 30 minutes 5 days a week. At [facility] ed risk for falls 045067590 Z91.81 STEADI FAST screening score of _1____. Advance care planning 71 5870221 Z71.89 Body mass index 30+ - obesity 712528538 Z68.36 36.6 Obesity 210842184 E66.9 continue diet and exercise plan HIV screen ing declined 6559410000 76509 Z53.20 Active or passive immunization 378528714 Z23 Lung cance r screening declined 6731699088 6331356 Z53.20 [id number] Susan Payne APRN [address] [address] 07/04/2024 09:04:05 07/04/2024 10:54:26 Prediabetes 313511889 R73.03 unable to tolerate metformind iscussed diet and exercisedi scussed risk of medsstop ozempic Obesity 041863361 E66.9 continue diet and exercise planshe will need to discuss adipex with dr hernandez Congestive heart failure 90835186 I50.9 informed her she needs to talk to cardiology about jardiance with them for her chf Toothache 07400976 K08.8 9 discussed lemon heads to help if swelling is due to gland Health Concerns Section Related Observation LastModified by Organization Detai ls LastModified Time None Recorded Concern Status LastModified by Organization Details LastModified Time None Recorded Advance Directives Directive N: Payers Insurance Date Sequence Insurance Name Policy Number Policy Bueno Covered Member ID Bueno Member ID Guarantor Name 07/21/2024 1 [employer] (MEDICARE REPLACEMENT/A DVANTAGE - PPO) Erna Mosley [id number] Erna Mosley 05/15/2024 1 [employer] (MEDICARE REPLACEMENT/A DVANTAGE - HMO) Erna Mosley [id number] Erna Mosley Notes Date Note Type Note Provider Name and Address Organization Details Recorded Time 09/10/2023 text/html 58 yr old female presents for a weight loss follow up and a refill on ozempic. down 35 lbs and pt states she is breathing better. states she does not take lasix everyday due to it making her feel weak and muscle cramps. Susan Payne, [employer] [address], [place], [address], [place] - [facility] 09/10/2023 13:53:07 12/11/2023 text/html 58 yr old female presents for a weight loss follow up. pt states she has not been following her diet but plans to get back on track starting next week Susan Payne [employer] [address], [place], [address], [place] - [facility] 12/11/2023 13:14:44 03/17/2024 text/html 58 year old rubens reynolds who presents to the office today for a follow up onpre diabetes. Susan Payne, T[employer]ER [address], [place], [address], [place] [facility] 03/17/2024 13:59:17 04/15/2024 text/html Medicare Annual Wellness VisitReported bypatient.Diet and Nutrition:discussed portion control; discussed diet improvement Fracture Risk:no history of fractures; no recent explained fracture; no sudden unexplained fractures; no previous musculoskeletal injuries Physical Activity:discussed weightbearing activities Depression Risk:never feels sad, empty, or tearful; no loss of interest in activities; no significant changes in weight; no sleep disturbances or insomnia; no agitation; no loss of energy; no feelings of worthlessness or guilt; no thoughts of suicide; no history of depression; no history of mood disorders Orientation:no disorientation to time; no disorientation to date; no disorientation to place Concentration and Memory:no decreased concentrating ability; no memory lapses or loss; does not forget words Speech/Motor difficulties:no speech difficulties; no difficulty expressing formulated concepts; no difficulty with fine manipulative tasks; no difficulty writing/copying; no slowed reaction time; does not knock things over when trying to pick them up Hearing:no loss of hearing Vision:worsening; cataracts Activities of Daily Living:able to bathe with limited or no assistance; able to contol urination and bowels; able to dress with limited or no assistance; able to feed self with limited or no assistance; able to get out of chair or bed with limited or no assistance; able to groom with limited or no assistance; able to toilet with limited or no assistance Instrumental Activities of Daily Living:able to do house work with limited or no assistance; able to grocery shop with limited or no assistance; able to manage medications with limited or no assistance; able to manage money with limited or no assistance; able to prepare meals with limited or no assistance; able to use the phone with limited or no assistance Falls Risk Assessment:no frequent falls while walking; no fall in the past year; no fall since last visit; no dizziness/vertigo Home Safety:no unsafe bakari hazzards; no unsafe stairs; no unsafe gas appliances; working smoke/CO detectors; no vision or hearing loss while driving; no fire arms Current level of painNo pain: 0/10 59 yr old female presents for a Medicare annual wellness. Susan Payne APRN [address], [place], [address], [place] - [facility] 04/15/2024 11:37:24 07/04/2024 text/html 59 year old rubens reynolds who presents to the office today for a follow up on pre diabeteswent to follow up from colonoscopy and was told she should not use ozempicweight gain would like to discuss adipexpt states she is having pain in her teeth on rt side thinks maybe a fracture tooth has been seeing dentist Susan Payne APRN [address], [place], [address], [place] [facility] 07/04/2024 10:44:30 OBGyn Episode No OBEpisode recorded.
[2024-11-10 12:46] VITALS: BP 120/61; PULSE 81; RESP 18; O2SAT 96; BMI 37.8
== END 2024-11-10 23:59 | disposition home or self-care (01) ==
PROVIDERS: PCP Family Medicine; Visit Provider Nurse Practitioner Family
DX: M51.360 Other intervertebral disc degeneration, lumbar region with discogenic back pain only (principal); M54.16 Radiculopathy, lumbar region; Z79.891 Long term (current) use of opiate analgesic
CPT/HCPCS: 99212; G0463

== ENCOUNTER 2024-12-15 13:02 | Outpatient (POV) | payer OTHER, MEDICARE, SELFPAY ==
--- OUTSIDE RECORDS SUMMARY | 2024-12-04 15:30 | XMS_ITS | Encounter Summary ---
Author Organization [employer] ([place], [place], [place], [place]) Address [address] [place] [address] Care Team Providers Care Outsole Beveler Name Role Phone Jeremy Cortes MD Primary Care Provider [phone]- [phone] Reason for Visit * Reason Comments Spasms * Clinic Procedure (Routine) - Authorized Specialty Diagnoses / Procedures Referred By Contac t Referred To Contact Neurology Diagnoses Cervical dystonia Xeomin CD 200 Units [employer] [facility] B&B Exp: 05/06/24 Brianne Bundy MD [facility] [employer] [address] [place] [address] Phone: tel: fax: Brianne Bundy MD [facility] [employer] [address] [place] [address] Phone: tel: fax: Referral ID Status Reason Start Date Expiration Date V isits Requested Visits Authorized [id number] Authorized 05/07/2024 05/06/2025 5 5 Encounter Details Date Type Department Care Team (Latest Contact Info) Description 12/04/2024 3:30 PM EDT Procedure Visit [facility] Neurology - [facility] [place] [address] [place] [phone] [facility] [address] [place] [address] Cervical dystonia (Primary Dx) Social History Tobacco Use Types Packs/Day Years Used Date Smoking Tobacco: Never Smokeless Tobacco: Never Family and Community Support Answer Johny e Recorded Help with Day to Day Activities Not on file 05/15/2023 Feeling Lonely or Isolated Not on file 05/15 Educational Attainment Answer Date Adrian rded Speak language other than Filipino at home Not on file 05/15/2023 Want [...] Comments: MARCELO LIZ BILL Lot # [id number], expiration 01/2027 x 1 vial She is [...] Description 02/26/2025 2:45 PM EDT Office Visit [facility] Neu[facility] - [facility] [address] [place] [address] Sara Huddleston APRN [address] [facility] [address] [place], [place] [id number] 02/26/2025 3:30 PM EDT [facility] [address] [place] [address] Brianne Bundy MD [facility] [address] [place] [address] documented as of this encounter [...] ther documented in this encounter Care Teams Outsole Beveler Relationship Specialty Start Date End Date Jeremy Cortes MD [address] [place] [address] PCP - General Family Medicine 05/10/22 documented as of this encounter
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
--- OUTSIDE RECORDS SUMMARY | 2024-12-15 13:07 | XMS_ITS | Encounter Summary ---
Author Organization [employer] ([place], [place], [place], [place]) Address [address] [place] [address] Care Team Providers Care Greenhouse Instructor Name Role Phone Jeremy Cortes MD Primary Care Provider +1- [phone] Reason for Visit * Reason Comments Medication Refill Encounter Details Date Type Department Care Team (Late Contact Info) Description 11/16/2023 Refill [facility] Neurology - [place] [address] [facility] [address] [place] [address] Brianne Bundy MD [address] [facility] [address] [place] [address] Idiopathic polyneuropathy Social History Tobacco Use Types Packs/Day Years Used Date Smoking Tobacco: Never Smokeless Tobacco: Never Family and Community Support Answer Johny e Recorded Help with Day to Day Activities Not on file 05/15/2023 Feeling Lonely or Isolated Not on file 05/15 Educational Attainment Answer Date Adrian rded Speak language other than Ghanaian at home Not on file 05/15/2023 Want [...] Department Care Team (Late Contact Info) Description 02/26/2025 2:45 PM EDT Office Visit [facility] Neurology - [facility] [address] [place] [address] Sara Huddleston APRN [address] [facility] [address] [place], [place] [id number] 02/26/2025 3:30 PM EDT Procedure Visit [facility] Neurology - [facility] [address] [place] [address] Brianne Bundy MD [address] [facility] [address] [place] [address] documented as of this encounter Visit Diagnoses Diagnosis Idiopathic polyneuropathy documented in this encounter Care Teams Greenhouse Instructor Relationship Specialty Start Date End Date Jeremy Cortes MD [address] [place] [address] PCP - General Family Medicine 05/10/22 documented as of this encounter
--- OUTSIDE RECORDS SUMMARY | 2024-12-15 13:07 | XMS_ITS | Clinical Summary ---
Author Organization [employer] ([place], [place], [place], [place]) Address [address] [place] [address] Care Team Providers Care Bailing Machine Operator Name Role Phone Jeremy Cortes MD Primary Care Provider +1- [phone] Allergies Active Allergy Reactions Criticality Noted Date Comments Formaldehyde Low 11/20/2018 Levothyroxine Itching 08/28/2024 [facility] Juice Low 11/20/2018 Penicillins Other (See Comments) [...] 90 tablet 3 5 08/29/19 26 Active Hospital, Clinic, or Other Facility Administered Medication Ordered Dose Route Frequency Start Date End Date Status incobotulinumtoxinA (XEOMIN) injection 100 UnitsIndications:Cervical dystonia 100 Units IM Once 12/04/2024 12/04/2024 Ended Active Problems No known active problems Encounters Date Type Department Care Team Description 12/04/2024 3:30 PM EDT Procedure Visit [facility] Neurology [address] [place] [address] Brianne Bundy MD Cervical dystonia (Primary Dx) 12/04/2024 Travel from Last 3 Months Family History [...] Date Adrian rded Speak language other than Palauan at home Not on file 05/15/2023 Want [...] EST Inhaled Oxygen Concentration - - Weight 105 kg (231 lb 8 oz) 12/05/2024 3:33 PM E DT Height 162.6 cm (5' 4 ) 08/28/2024 3:08 PM EDT Body Mass Index 39.74 08/28/2024 3:08 PM EDT Plan of Treatment Upcoming Encounters Date Type Department Care Team (Late st Contact Info) Description 02/26/2025 2:45 PM EDT Office Visit [facility] Neurology - [place] [address] [place] [address] Sara Huddleston APRN [address] [place] [address] [place] [address] 02/26/2025 3:30 PM EDT Procedure Visit [facility] Neurology - [place] [address] [place] [address] Brianne Bundy MD [address] [place] [address] Health Maintenance Due Date Last Done Comments [...] of 2) 2015 COVID-19 VACCINE (1 - season) 2024 Medicare Initial AWV [id number] 05/07/2024 Influenza Vaccine (#1) 2025 Tobacco Cessation Counseling and Screening (12+) 08/2808/28/2024 Insurance [employer] MEDICARE PPO Care Teams Bailing Machine Operator Relationship Specialty Start Date End Date Jeremy Cortes MD [address] [place] [address] PCP - General Family Medicine 05/10/22
--- OUTSIDE RECORDS SUMMARY | 2024-12-15 13:08 | XMS_ITS | Referral Summary ---
Author Organization [employer] ([place], [place], [place], [place]) Address [address] [place] [address] Care Team Providers Care Construction Rigger Name Role Phone Jeremy Cortes MD Primary Care Provider +1- [phone] Encounters Date Type Department Care Team Description 12/04/2024 Travel 12/04/2024 3:30 PM EDT Procedure Visit [facility] Neurology - [address] [place] [address] Brianne Bundy MD Cervical dystonia (Primary Dx) from Last 3 Months Allergies Active Allergy Reactions Criticality Noted Date Comments Formaldehyde Low 11/20/2018 Levothyroxine Itching 08/28/2024 [facility] Juice Low 11/20/2018 Penicillins Other (See Comments) [...] (10 mg total) by mouth daily. Active furosemide (LASIX) 40 MG tablet Take 1 tablet (40 mg total) by mouth daily. Active HYDROcodone-acetami nophen (NORCO) 7.5-325 mg per tablet Take 1 tablet by mouth 2 (two) times daily. Max Daily Amount: 2 tablets Active ibuprofen (MOTRIN) 800 MG tablet Take 1 tablet (800 mg total) by mouth 3 (three) times daily as needed. Active montelukast (SINGULAIR) 10 mg tablet Take 1 tablet (10 mg total) by mouth daily. Active oxazepam (SERAX) 10 MG capsule Take 1 capsule (10 mg total) by mouth nightly. Active Adipex-P 37.5 mg tablet 1 tablet (37.5 mg total). Active spironolactone (ALDACTONE) 25 MG tablet Take 1 tablet (25 mg total) by mouth daily. Active traZODone (DESYREL) 50 MG tablet Take 1 tablet (50 mg total) by mouth nightly. Active gabapentin (NEURONTIN) 600 MG tabletIndications:I diopathic polyneuropathy Take 1 tablet (600 mg total) by mouth 3 (three) times daily for 180 days. Max Daily Amount: 1,800 mg 270 tablet 1 02/25/20 25 Active primidone (MYSOLINE) 50 MG [...] Date Adrian rded Speak language other than Mexican at home Not on file 05/15/2023 Want [...] Description 02/26/2025 2:45 PM EDT Office Visit [facility] - [facility] [address] [place] [address] Sara Huddleston APRN [address] [place] [address] [place], [place] [id number] 02/26/2025 3:30 PM EDT Procedure Visit [facility] [address] [place] [address] Brianne Bundy MD [address] [place] [address] Insurance [employer] MEDICARE PPO Care Teams Construction Rigger Relationship Specialty Start Date End Date Jeremy Cortes MD [address] [place] [address] PCP - General Family Medicine 05/10/22
--- OUTSIDE RECORDS SUMMARY | 2024-12-15 13:08 | XMS_ITS | Encounter Summary ---
Author Organization [email or web address] ([place], [place], [place], [place]) Address [address] [place] [address] Care Team Providers Care Job Specification Writer Name Role Phone Jeremy Cortes MD Primary Care Provider +1- [phone] Reason for Visit * Reason Comments Medication Refill Encounter Details Date Type Department Care Team (Late Contact Info) Description 07/07/2022 Refill [facility] Neurology - [place] [address] [place] [address] Brianne Bnudy MD [address] [facility] [address] [place], [place] [id number] Avitaminosis D Social History Tobacco Use Types [...] Description 02/26/2025 2:45 PM EDT Office Visit [facility] Neurology - [place] [address] [place] [address] Sara Huddleston APRN [address] [place] [address] [place], [place] [id number] 02/26/2025 3:30 PM EDT Procedure Visit [facility] Neurology - [place] [address] [place] [address] Brianne Bundy MD [address] [facility] [address] [place] [address] documented as of this encounter Visit Diagnoses Diagnosis Avitaminosis D Unspecified vitamin D deficiency documented in this encounter Care Teams Job Specification Writer Relationship Specialty Start Date End Date Jeremy Cortes MD [address] [place] [address] PCP - General Family Medicine 05/10/22 documented as of this encounter
--- OUTSIDE RECORDS SUMMARY | 2024-12-15 13:08 | XMS_ITS | Encounter Summary ---
Author Organization [employer] ([place], [place], [place], [place]) Address [address] [place] [address] Care Team Providers Care Process Chemist Name Role Phone Jeremy Cortes MD Primary Care Provider +1- [phone] Reason for Visit * Reason Comments Medication Refill Encounter Details Date Type Department Care Team (Late Contact Info) Description 02/11/2024 Refill [facility] Neurology - [place] [address] [facility] [address] [place] [address] Brianne Bundy MD [address] [facility] [address] [place] [address] Idiopathic polyneuropathy Social History Tobacco Use Types Packs/Day Years Used Date Smoking Tobacco: Never Smokeless Tobacco: Never Family and Community Support Answer Johny e Recorded Help with Day to Day Activities Not on file 05/15/2023 Feeling Lonely or Isolated Not on file 05/15 Educational Attainment Answer Date Adrian rded Speak language other than Emirati at home Not on file 05/15/2023 Want [...] Description 02/26/2025 2:45 PM EDT Office Visit [facility] Neurology - [facility] [address] [place] [address] Sara Huddleston APRN [address] [facility] [address] [place], [place] [id number] 02/26/2025 3:30 PM EDT Procedure Visit [facility] Neurology - [facility] [address] [place] [address] Brianne Bundy MD [address] [facility] [place] [address] documented as of this encounter Visit Diagnoses Diagnosis Idiopathic polyneuropathy documented in this encounter Care Teams Process Chemist Relationship Specialty Start Date End Date Jeremy Cortes MD [address] [place] [address] PCP - General Family Medicine 05/10/22 documented as of this encounter
--- OUTSIDE RECORDS SUMMARY | 2024-12-15 13:08 | XMS_ITS | Encounter Summary ---
Author Organization [employer] ([place], [place], [place], [place]) Address [address] [place] [address] Care Team Providers Care Warp Worker Name Role Phone Jeremy Cortes MD Primary Care Provider +1- [phone] Encounter Details Date Type Department Care Team (Latest Contact Info) Description 12/04/2024 Travel Social History Tobacco Use Types Packs/Day Years Used Date Smoking Tobacco: Never Smokeless Tobacco: Never Family and Community Support Answer Johny e Recorded Help with Day to Day Activities Not on file 05/15/2023 Feeling Lonely or Isolated Not on file 05/15 Educational Attainment Answer Date Adrian rded Speak language other than Grenadian at home Not on file 05/15/2023 Want [...] Description 02/26/2025 2:45 PM EDT Office Visit [facility] Neurology - [facility] [address] [facility] [address] [place] [address] Sara Huddleston APRN [address] [facility] [address] [place], [place] [address] 02/26/2025 3:30 PM EDT Procedure Visit [facility] Neurology - [place] [address] [place] [address] Brianne Bundy MD [address] [place] [address] documented as of this encounter Visit Diagnoses Not on filedocumented in this encounter Care Teams Warp Worker Relationship Specialty Start Date End Date Jeremy Cortes MD [address] [place] [address] PCP - General Family Medicine 05/10/22 documented as of this encounter
--- OUTSIDE RECORDS SUMMARY | 2024-12-15 13:08 | XMS_ITS | Encounter Summary ---
Author Organization [employer] ([place], [place], [place], [place]) Address [address] [place] [address] Care Team Providers Care Pharmaceutical Analyst Name Role Phone Jeremy Cortes MD Primary Care Provider +1- [phone] Reason for Visit * Reason Comments Medication Refill Encounter Details Date Type Department Care Team (Late Contact Info) Description 12/20/2023 Refill [facility] Neurology - [place] [address] [facility] [address] [place] [address] Brianne Bundy MD [address] [facility] [address] [place] [address] Idiopathic polyneuropathy Social History Tobacco Use Types Packs/Day Years Used Date Smoking Tobacco: Never Smokeless Tobacco: Never Family and Community Support Answer Johny e Recorded Help with Day to Day Activities Not on file 05/15/2023 Feeling Lonely or Isolated Not on file 05/15 Educational Attainment Answer Date Adrian rded Speak language other than Icelandic at home Not on file 05/15/2023 Want [...] Description 02/26/2025 2:45 PM EDT Office Visit [facility] Neurology - [facility] [address] [place] [address] Sara Huddleston APRN [address] [facility] [address] [place], [place] [id number] 02/26/2025 3:30 PM EDT Procedure Visit [facility] Neurology - [facility] [address] [place] [address] Brianne Bundy MD [address] [facility] [address] [place] [address] documented as of this encounter Visit Diagnoses Diagnosis Idiopathic polyneuropathy documented in this encounter Care Teams Pharmaceutical Analyst Relationship Specialty Start Date End Date Jeremy Cortes MD [address] [place] [address] PCP - General Family Medicine 05/10/22 documented as of this encounter
--- OUTSIDE RECORDS SUMMARY | 2024-12-15 13:08 | XMS_ITS | Clinical Summary ---
Author Organization [facility] Address [address] [place] [address] Care Team Providers Care [employer] Name Role Phone Unavailable Primary Care Provider [...] Comments ANNUAL PHYSICAL 1965 Annual Gynecologic Pelvic and Breast Exam 1965 HEPATITIS C SCREENING 1965 TDAP/TD VACCINES (1 - Tdap) 1984 MAMMOGRAM 2005 COLOGUARD 2010 COLON CANCER SCREENING 5 YEAR SIGMOIDOSCOPY 2010 COLONOSCOPY 2010 COLORECTAL CANCER SCREENING 2010 CT COLONOGRAPHY 2010 FECAL OCCULT BLOOD TEST 2010 FIT Testing (1 year) 2010 Pneumococcal Vaccine 50+ (1 of 1 - PCV) 2015 ZOSTER VACCINE (1 of 2) 2015 COVID-19 Vaccine (1 - season) 2024 INFLUENZA VACCINE 02/04/2025
--- NOTE | 2024-12-15 13:11 | EXP.PAIN.SOA ---
[facility] Disclaimer: The information contained in this section may have been updated after the patient was seen, as this information can be updated by other users. Medical History UTI (urinary tract infection) James's disease Anxiety and depression Muscle spasm History of tumor Skin cancer Celiac disease Asthma Migraine Appendicitis Congestive heart failure Edema Surgical History History of hysterectomy History of cholecystectomy History of carpal tunnel surgery History of surgery on wrist Hx of neck surgery History of surgery Family History Other Colon cancer Diabetes Heart disease Social History Smoking Status: Current every day smoker alcohol intake: never counseling provided: none substance use type: denies use current occupational status: other Travel in the last 8 weeks?: None housing: apartment current occupational exposures/hazards: No caffeine: Yes Have you lived/traveled outside US in past 30 days?: No Contact w/someone who lives/traveled outside US past 30 days?: No Exposure to someone with infectious disease in past 14 days?: No Do you have a fever (greater than 100.4 F or 38 C)?: No Have you tested positive for COVID-19?: No Exposed to someone with COVID-19 in past 14 days?: No Do you have a sore throat?: No Do you have a cough?: No Do you have any weakness?: No Do you have any diarrhea?: No Are you experiencing any unusual bleeding?: No Do you have any muscle aches/pain?: No Do you have any abdominal pain?: No Are you experiencing loss of taste or smell?: No PM Subjective & Objective Subjective Subjective:: Patient is a pleasant 59-year-old female who presents today for a 1 month medication refill. She is currently doing well with her [place] 7.5 mg twice a day along with compounded cream. She denies any side effects or changes to her pharmacy. She does state that she has been looking into oxygen therapy with hyperbaric chamber. She states that she is hoping that her son may end up getting this here locally. Her Sarthak has been reviewed and is appropriate. Review of Systems: General: No recent weight changes, no fever, no sleep disturbances Respiratory: No cough, no shortness of air, no recurring pulmonary infections Cardiovascular/peripheral vascular: No chest pain, no palpitations, no edema, no shortness of breath Gastrointestinal: No new onset incontinence, normal bowel movements reported Genitourinary: No new onset incontinence Musculoskeletal: Low back pain Psychiatric: [Normal mood/affect] Neurological: [Denies weakness in extremities], [denies balance issues] Pain at rest (0-10 scale): 4 Objective Objective:: Physical Exam: General: Alert and oriented x3, no acute distress, pleasant and cooperative Lungs: Respirations even and unlabored, symmetrical chest expansion Eyes: PERRL Musculoskeletal: Flexion and extension of lumbar [spine] somewhat guarded secondary to pain, [antalgic gait noted] Neurological: Speech clear, no gross sensory deficit Has patient had previous pain injection?: No Conservative treatment options previously tried: Home exercise plan Length of treatment: Longer than 12-week Meds Home Medications and Allergies Home Medications ?Medication ?Instructions ?Recorded ?Confirmed ?Type montelukast 10 mg tablet 10 mg PO PM Asthma 05/14/17 11/10/24 History ibuprofen 800 mg tablet 800 mg PO TID PRN pain 06/26/17 11/10/24 History gabapentin 600 mg tablet 600 mg PO TID nerve pain 08/01/17 11/10/24 History primidone 50 mg tablet 50 mg PO TID seizures 08/01/17 11/10/24 History buspirone 10 mg tablet 10 mg PO TID Depression 11/21/17 11/10/24 History cyclobenzaprine 10 mg tablet 10 mg PO BID Pain 11/21/17 11/10/24 History hyoscyamine sulfate 0.125 mg 0.125 mg PO QID PRN reflux 11/21/17 11/10/24 History tablet (Levsin) trazodone 50 mg tablet 50 mg PO QHS sleep 11/21/17 11/10/24 History bisoprolol fumarate 5 mg tablet 5 mg PO DAILY htn 01/30/18 11/10/24 History spironolactone 25 mg tablet 25 mg PO DAILY Fluid 01/30/18 11/10/24 History amitriptyline 50 mg tablet 50 mg PO HS #30 tabs 03/31/24 11/10/24 Rx colestipol 1 gram tablet 1 g PO .Nightly #30 tabs 03/31/24 11/10/24 Rx furosemide 40 mg tablet 40 mg PO DAILY PRN Fluid 07/02/24 11/10/24 History levofloxacin 750 mg tablet 750 mg PO DAILY 7 days #7 tabs 07/23/24 11/10/24 Rx phenazopyridine 200 mg tablet 200 mg PO Q8H 2 days #6 tabs 07/23/24 11/10/24 Rx (Pyridium) hydrocodone 7.5 mg-acetaminophen 1 tab PO BID #60 tabs 12/15/24 Rx 325 mg tablet New Prescriptions to Start Prescriptions: hydrocodone-acetaminophen Rachel García Allergies Allergy/AdvReac Type Severity Reaction Status Date / Time formaldehyde (FORMALDEHYDE) Allergy Mild Blister Verified 07/23/24 14:14 Influenza Virus Vaccines Allergy Unknown Verified 07/23/24 14:14 allergy reaction levothyroxine sodium (From AdvReac Unknown Other Verified 07/23/24 14:14 SYNTHROID) Assessment and Plan *Assessment and plan (1) Lumbar radiculopathy: Status: Acute Category: Medical Code(s): M54.16 - Radiculopathy, lumbar region (2) Degenerative disc disease, lumbar: Status: Acute Category: Medical Code(s): M51.369 - Other intervertebral disc degeneration, lumbar region without mention of lumbar back pain or lower extremity pain Plan I will refill her [place] and provide 1 month supply of this medication. Patient will return to clinic in 1 month. Risks and benefits of the medication have been explained in detail to the patient. The patient does understand the risk of dependence on the medication when given over a prolonged period. Patient has been advised of risks of oversedation with the prescribed medication. Narcan has been offered to the paitent in the event of oversedation. Patient has been advised that a family member should also be educated regarding administration of Narcan. The patient has been advised to consult with his/her primary care provider and pharmacist regarding drug-drug interaction of medications currently prescribed. Patient has been prescribed a controlled substance after being counseled on the medication, medication safety, and possible side effects. Opioid contract was reviewed and signed by the patient, and that they have agreed to all of the terms set forth by our compliance program. A UDS is needed to verify patient's compliance with our office pain contract. This is ordered based off specific treatments related to chronic pain with the potential to abuse certain medications. Patient has been instructed to contact the clinic with any concerns before the next appointment. Dr. Butler has reviewed this note and agrees with this plan of care. This note was dictated using voice recognition software and make contain errors or omissions.
[2024-12-15 13:47] VITALS: BP 123/69; PULSE 78; RESP 14; O2SAT 93; BMI 39.1
== END 2024-12-15 23:59 | disposition home or self-care (01) ==
PROVIDERS: PCP Family Medicine; Visit Provider Nurse Practitioner Family
DX: M51.16 Intervertebral disc disorders with radiculopathy, lumbar region (principal); Z79.891 Long term (current) use of opiate analgesic
CPT/HCPCS: 99212; G0463

== ENCOUNTER 2024-12-31 12:48 | Outpatient (CLI) | payer MEDICARE, SELFPAY ==
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
--- OUTSIDE RECORDS SUMMARY | 2024-12-04 15:30 | XMS_ITS | Encounter Summary ---
Author Organization [employer] ([place], [place], [place], [place]) Address [address] [place] [address] Care Team Providers Care Crystallizer Operator Name Role Phone Jeremy Cortes MD Primary Care Provider [phone] Reason for Visit * Reason Comments Spasms * Clinic Procedure (Routine) - Authorized Specialty Diagnoses / Procedures Referred By Contac t Referred To Contact Neurology Diagnoses Cervical dystonia Xeomin CD 200 Units [employer] [facility] B&B Exp: 05/06/24 Brianne Bundy MD [facility] [employer] [address] [place] [address] Phone: tel: fax: Brianne Bundy MD [facility] [employer] [address] [place] [address] Phone: tel: fax: Referral ID Status Reason Start Date Expiration Date V isits Requested Visits Authorized [id number] Authorized 05/07/2024 05/06/2025 5 5 Encounter Details Date Type Department Care Team (Latest Contact Info) Description 12/04/2024 3:30 PM EDT Procedure Visit [facility] Neurology - [facility] [place] [address] [place] [id number] [facility] [address] [place] [address] Cervical dystonia (Primary Dx) Social History Tobacco Use Types Packs/Day Years Used Date Smoking Tobacco: Never Smokeless Tobacco: Never Family and Community Support Answer Johny e Recorded Help with Day to Day Activities Not on file 05/15/2023 Feeling Lonely or Isolated Not on file 05/15 Educational Attainment Answer Date Adrian rded Speak language other than Lebanese at home Not on file 05/15/2023 Want [...] Sign Reading Time Taken Comments Blood Pressure - - Pulse - - Temperature - - Respiratory Rate - - Oxygen Saturation - - Inhaled Oxygen Concentration - - Weight 105 kg (231 lb 8 oz) 12/05/2024 3:33 PM E DT Height - - Body Mass Index 39.74 08/28/2024 3:08 PM EDT documented in this encounter Progress Notes * Brianne Bundy MD - 12/04/2024 3:30 PM EDT Erna Mosley is a 59 y.o. female that presents with Spasms She has cervical dystonia. She has excellent response to Xeomin injections. She has noticed it wearing off the last week. No adverse reaction Procedures Neck Botulinum Injection Date/Time: 12/04/2024 Performed by: Brianne Bundy MD Authorized by: [...] Tolerated well, no immediate complications Comments: MARCELO LIZ BILL Lot # [id number], expiration 01/2027 x 1 vial She is responding very well to Xeomin injections Return in about 12 weeks (around 02/26/2025) for xeomin. documented in this encounter Miscellaneous Notes * Addendum Note - Lindy Rene - 12/04/2024 3:30 PM EDTAddended by: LINDY RENE on: 12/05/2024 03:36 PM Modules accepted: Orders documented in this encounter Plan of Treatment Upcoming Encounters Date Type Department Care Team (Late st Contact Info) Description 02/26/2025 2:45 PM EDT Office Visit [facility] Neurology - [facility] [address] [place] [address] Sara Huddleston APRN [address] [facility] [address] [place], [place] [id number] 02/26/2025 3:30 PM EDT Procedure Visit [facility] [address] [place] [address] Brianne Bundy MD [facility] [address] [place] [address] documented as of this encounter Visit Diagnoses Diagnosis Cervical dystonia- Primary Spasmodic torticollis documented in this encounter Administered Medications Inactive Administered Medications - up to 3 most recent administrations Medication Order MAR Action Action Date Dose Rate Site incobotulinumtoxinA (XEOMIN) injection 100 Units 100 Units Once, intraMUSCULAR, On Dafne 12/04/24 at 0000, For 1 dose, XEOMIN should be used for only 1 injection session and for only one patient. XEOMIN vials are for single-dose only. Discard any unused portion. Refrigerate.Indications:Cer vical dystonia Given by Other 12/04/2024 3:30 PM EDT 100 Units O ther documented in this encounter Care Teams Crystallizer Operator Relationship Specialty Start Date End Date Jeremy Cortes MD [address] [place] [address] PCP - General Family Medicine 05/10/22 documented as of this encounter
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
--- NOTE | 2024-12-31 12:50 | MM_ITS ---
PROCEDURE INFORMATION: Exam: MG Bilateral Screening 3D Mammography Exam date and time: 12/31/2024 1:04 PM Age: 59 years old Clinical indication: Screening examination TECHNIQUE: Imaging protocol: Bilateral Screening tomosynthesis and 2D mammography including computer-aided detection (CAD) when performed. COMPARISON: 1. MG MM DIG SCREENING MAMM BI W/CAD 12/31/2023 9:40 AM 2. MG MM DIG SCREENING MAMM BI W/CAD 08/25/2022 2:20 PM FINDINGS: MAMMOGRAPHY: Breast composition: There are scattered areas of fibroglandular density. Mass: No suspicious masses. Architectural distortion: None. Calcifications: No suspicious calcifications. Asymmetric density: None. Skin thickening: None. Axillary adenopathy: None. IMPRESSION: No mammographic evidence of malignancy. Annual screening is recommended unless otherwise clinically indicated. ASSESSMENT: BI-RADS Category 1: Negative.
--- OUTSIDE RECORDS SUMMARY | 2024-12-31 12:54 | XMS_ITS | Encounter Summary ---
Author Organization [employer] ([place], [place], [place], [place]) Address [address] [place] [address] Care Team Providers Care Road Cutter Name Role Phone Jeremy Cortes MD Primary Care Provider +1- [phone] Reason for Visit * Reason Comments Medication Refill Encounter Details Date Type Department Care Team (Late Contact Info) Description 11/16/2023 Refill [facility] Neurology - [place] [address] [facility] [address] [place] [address] Brianne Bundy MD [address] [facility] [address] [place] [address] Idiopathic polyneuropathy Social History Tobacco Use Types [...] Description 02/26/2025 2:45 PM EDT Office Visit [facility] Neurology - [facility] [address] [place] [address] Sara Huddleston APRN [address] [facility] [address] [place], [place] [id number] 02/26/2025 3:30 PM EDT Procedure Visit [facility] Neurology - [facility] [address] [place] [address] Brianne Bundy MD [address] [facility] [place] [address] documented as of this encounter Visit Diagnoses Diagnosis Idiopathic polyneuropathy documented in this encounter Care Teams Road Cutter Relationship Specialty Start Date End Date Jeremy Cortes MD [address] [place] [address] PCP - General Family Medicine 05/10/22 documented as of this encounter
--- OUTSIDE RECORDS SUMMARY | 2024-12-31 12:55 | XMS_ITS | Clinical Summary ---
Author Organization [employer] ([place], [place], [place], [place]) Address [address] [place] [address] Care Team Providers Care Compensation/Benefits Specialist Name Role Phone Jeremy Cortes MD Primary Care Provider +1- [phone] Allergies Active Allergy Reactions Criticality Noted Date Comments Formaldehyde Low 11/20/2018 Levothyroxine Itching 08/28/2024 Rush Juice Low 11/20/2018 Penicillins Other (See Comments) [...] Description 12/04/2024 3:30 PM EDT Procedure Visit [facility] Neurology [address] [place] [address] Brianne Bundy MD Cervical dystonia [...] Date Adrian rded Speak language other than Georgian at home Not on file 05/15/2023 Want [...] Description 02/26/2025 2:45 PM EDT Office Visit [facility] Neurology - [place] [address] [place] [address] Sara Huddleston APRN [address] [place] [address] 02/26/2025 3:30 PM EDT Procedure Visit [facility] Neurology - [place] [address] [place] [address] Brianne Bundy MD [address] [place] [address] Health Maintenance Due Date Last Done Comments [...] 08/2808/28/2024 Insurance [employer] MEDICARE PPO Care Teams Compensation/Benefits Specialist Relationship Specialty Start Date End Date Jeremy Cortes MD [address] [place] [address] PCP - General Family Medicine 05/10/22
--- OUTSIDE RECORDS SUMMARY | 2024-12-31 12:55 | XMS_ITS | Encounter Summary ---
Author Organization [employer] ([place], [place], [place], [place]) Address [address] [place] [address] Care Team Providers Care Java Web Application Developer Name Role Phone Jeremy Cortes MD Primary Care Provider +1- [phone] Reason for Visit * Reason Comments Medication Refill Encounter Details Date Type Department Care Team (Late Contact Info) Description 07/07/2022 Refill [facility] Neurology - [place] [address] [place] [address] Brianne Bundy MD [address] [place], [place] [id number] Avitaminosis D Social History Tobacco Use Types [...] Description 02/26/2025 2:45 PM EDT Office Visit [facility] Neurology - [place] [address] [place] [address] Sara Huddleston APRN [address] [place] [address] [place], [place] [id number] 02/26/2025 3:30 PM EDT Procedure Visit [facility] Neurology - [place] [address] [place] [address] Brianne Bundy MD [address] [facility] [address] [place] [address] documented as of this encounter Visit Diagnoses Diagnosis Avitaminosis D Unspecified vitamin D deficiency documented in this encounter Care Teams Java Web Application Developer Relationship Specialty Start Date End Date Jeremy Cortes MD [address] [place] [address] PCP - General Family Medicine 05/10/22 documented as of this encounter
--- OUTSIDE RECORDS SUMMARY | 2024-12-31 12:55 | XMS_ITS | Encounter Summary ---
Author Organization [employer] ([place], [place], [place], [place]) Address [address] [place] [address] Care Team Providers Care School Business Administrator Name Role Phone Jeremy Cortes MD Primary Care Provider +1- [phone] Reason for Visit * Reason Comments Medication Refill Encounter Details Date Type Department Care Team (Late Contact Info) Description 12/20/2023 Refill [facility] Neurology - [place] [address] [facility] [address] [place] [address] Brianne Bundy MD [address] [facility] [address] [place] [address] Idiopathic polyneuropathy Social History Tobacco Use Types Packs/Day Years Used Date Smoking Tobacco: Never Smokeless Tobacco: Never Family and Community Support Answer Johny e Recorded Help with Day to Day Activities Not on file 05/15/2023 Feeling Lonely or Isolated Not on file 05/15 Educational Attainment Answer Date Adrian rded Speak language other than Wallisian at home Not on file 05/15/2023 Want [...] Description 02/26/2025 2:45 PM EDT Office Visit [facility] Neurology - [facility] [address] [place] [address] Sara Huddleston APRN [address] [facility] [address] [place], [place] [id number] 02/26/2025 3:30 PM EDT Procedure Visit [facility] Neurology - [facility] [address] [place] [address] Brianne Bundy MD [address] [facility] [address] [place] [address] documented as of this encounter Visit Diagnoses Diagnosis Idiopathic polyneuropathy documented in this encounter Care Teams School Business Administrator Relationship Specialty Start Date End Date Jeremy Cortes MD [address] [place] [address] PCP - General Family Medicine 05/10/22 documented as of this encounter
--- OUTSIDE RECORDS SUMMARY | 2024-12-31 12:55 | XMS_ITS | Referral Summary ---
Author Organization [employer] ([place], [place], [place], [place]) Address [address] [place] [address] Care Team Providers Care Casting Trucker Name Role Phone Jeremy Cortes MD Primary Care Provider +1- [phone] Encounters Date Type Department Care Team Description 12/04/2024 Travel 12/04/2024 3:30 PM EDT Procedure Visit [facility] Neurology - [address] [place] [address] Brianne Bundy MD Cervical dystonia (Primary Dx) from Last 3 Months Allergies Active Allergy Reactions Criticality Noted Date Comments Formaldehyde Low 11/20/2018 Levothyroxine Itching 08/28/2024 Mccormick Juice Low 11/20/2018 Penicillins Other (See Comments) [...] Description 02/26/2025 2:45 PM EDT Office Visit [facility] Neurology - [facility] [address] [place] [address] Sara Huddleston APRN [address] [place] [address] [place], [place] [id number] 02/26/2025 3:30 PM EDT Procedure Visit [facility] [address] [place] [address] Brianne Bundy MD [address] [place] [address] Insurance [employer] MEDICARE PPO Care Teams Casting Trucker Relationship Specialty Start Date End Date Jereym Cortes MD [address] [place] [address] PCP - General Family Medicine 05/10/22
--- OUTSIDE RECORDS SUMMARY | 2024-12-31 12:55 | XMS_ITS | Encounter Summary ---
Author Organization [employer] ([place]) Address [address] [place] [address] Care Team Providers Care Dry End Tester Name Role Phone Jeremy Cortes MD Primary Care Provider +1- [phone] Encounter Details Date Type Department Care Team [...] Adrian rded Speak language other than [place] at home Not on file 05/15/2023 Want [...] [facility] Neurology - [facility] [address] [facility] [address] [place] [address] Sara Huddleston APRN [address] [facility] [address] [place], [place] [id number] 02/26/2025 3:30 PM EDT Procedure Visit [facility] Neurology - [place] [address] [place] [address] Brianne Bundy MD [address] [place] [address] documented as of this encounter Visit Diagnoses Not on filedocumented in this encounter Care Teams Dry End Tester Relationship Specialty Start Date End Date Jeremy Cortes MD [address] [place] [address] PCP - General Family Medicine 05/10/22 documented as of this encounter
--- OUTSIDE RECORDS SUMMARY | 2024-12-31 12:55 | XMS_ITS | Clinical Summary ---
Author Organization [employer] Address [address] [place] [address] Care Team Providers Care Target Network Analyst Name Role Phone Unavailable Primary Care [...]
--- OUTSIDE RECORDS SUMMARY | 2024-12-31 12:55 | XMS_ITS | Encounter Summary ---
Author Organization [employer] ([place], [place], [place], [place]) Address [address] [place] [address] Care Team Providers Care Restaurant Crew Name Role Phone Jeremy Cortes MD Primary Care Provider +1- [phone] Reason for Visit * Reason Comments Medication Refill Encounter Details Date Type Department Care Team (Late Contact Info) Description 02/11/2024 Refill [facility] Neurology - [place] [address] [facility] [address] [place] [address] Brianne Bundy MD [address] [facility] [address] [place] [address] Idiopathic polyneuropathy Social History Tobacco Use Types Packs/Day Years Used Date Smoking Tobacco: Never Smokeless Tobacco: Never Family and Community Support Answer Johny e Recorded Help with Day to Day Activities Not on file 05/15/2023 Feeling Lonely or Isolated Not on file 05/15 Educational Attainment Answer Date Adrian rded Speak language other than Lithuanian at home Not on file 05/15/2023 Want [...] Description 02/26/2025 2:45 PM EDT Office Visit [facility] Neurology - [facility] [address] [place] [address] Sara Huddleston APRN [address] [facility] [address] [place], [place] [id number] 02/26/2025 3:30 PM EDT Procedure Visit [facility] Neurology - [facility] [address] [place] [address] Brianne Bundy MD [address] [facility] [place] [address] documented as of this encounter Visit Diagnoses Diagnosis Idiopathic polyneuropathy documented in this encounter Care Teams Restaurant Crew Relationship Specialty Start Date End Date Jeremy Cortes MD [address] [place] [address] PCP - General Family Medicine 05/10/22 documented as of this encounter
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
== END 2024-12-31 23:59 | disposition home or self-care (01) ==
LOC: RAD 12:48
PROVIDERS: PCP Family Medicine; Visit Provider Family Medicine
DX: Z12.31 Encounter for screening mammogram for malignant neoplasm of breast (principal); R92.323 Mammographic fibroglandular density, bilateral breasts
CPT/HCPCS: 77063; 77067

== ENCOUNTER 2025-03-26 13:40 | Outpatient (CLI) | payer MEDICARE, SELFPAY ==
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
--- OUTSIDE RECORDS SUMMARY | 2025-03-13 11:30 | XMS_ITS | Encounter Summary ---
Author Organization [employer] ([place], [place], [place], [place], [place]) Address [address] [place] [address] Care Team Providers Care Lead Application Architect Name Role Phone Jeremy Cortes MD Primary Care Provider +1- [phone] Reason for Visit * Reason Comments Spasms * Clinic Procedure (Routine) - Authorized Specialty Diagnoses / Procedures Referred By Contac t Referred To Contact Neurology Diagnoses Cervical dystonia Xeomin CD 200 Units [employer] [facility] B&B Exp: 05/06/24 Brianne Bundy MD [facility] [address] [place] [address] Phone: tel: fax: Brianne Bundy MD [facility] [address] [place] [address] Phone: tel: fax: Referral ID Status Reason Start Date Expiration Date V isits Requested Visits Authorized [id number] Authorized 05/07/2024 05/06/2025 5 5 Encounter Details Date Type Department Care Team (Latest Contact Info) Description 03/13/2025 11:30 AM EST Procedure Visit [facility] Neurology - [facility] [place] [address] [place] [id number] [facility] [address] [place] [address] Cervical dystonia (Primary Dx) Social History Tobacco [...] Progress Notes * Brianne Bundy MD - 03/13/2025 11:30 AM EST Erna Mosley is a 59 y.o. female that presents with Spasms She has cervical dystonia. She has excellent response to Xeomin injections. No adverse reactions. Procedures Neck Botulinum Injection Date/Time: 03/13/2025 Performed by: Brianne Bundy MD Authorized by: [...] immediate complications Comments: BUY AND BILL Lot # [id number], exp 02/2027 x 1 vial She is responding very well to Xeomin injections Return in about 12 weeks (around 06/05/2025) for xeomin. CAL DATA ENTRY CLERK documented in this encounter Miscellaneous Notes * Addendum Note - Lindy Rene - 03/13/2025 11:30 AM ESTAddended by: LINDY RENE on: 03/17/2025 04:40 PM Modules accepted: Orders CAL DATA ENTRY CLERK documented in this encounter Plan of Treatment Upcoming Encounters Date Type Department Care Team (Late st Contact Info) Description 06/11/2025 11:30 AM EST Procedure Visit [facility] Neurology - [facility] [place] [address] [place] [phone] Brianne Bundy MD [address] [place], [place] [id number] 06/11/2025 11:45 AM EST Office Visit [facility] - [facility] [place] [address] [place] [address] Sara Huddleston APRN [address] [place], [place] [id number] documented as of this encounter Visit Diagnoses Diagnosis Cervical dystonia- Primary Spasmodic torticollis documented in this encounter Administered Medications Inactive Administered Medications - up to 3 most recent administrations Medication Order MAR Action Action Date Dose Rate Site incobotulinumtoxinA (XEOMIN) injection 100 Units 100 Units Once, intraMUSCULAR, On Sun03/13/25 at 0000, For 1 dose, XEOMIN should be used for only 1 injection session and for only one patient. XEOMIN vials are for single-dose only. Discard any unused portion. Refrigerate.Indications:Cer vical dystonia Given by Other 03/13/2025 11:30 AM EST 100 Units Other documented in this encounter Care Teams Lead Application Architect Relationship Specialty Start Date End Date Jeremy Cortes MD [address] [place] [id number] PCP - General Family Medicine 05/10/22 documented as of this encounter
--- OUTSIDE RECORDS SUMMARY | 2025-03-13 11:45 | XMS_ITS | Encounter Summary ---
Author Organization [employer] ([place], [place], [place], [place], [place]) Address [address] [place] [address] Care Team Providers Care Salesperson Art Objects Name Role Phone Jeremy Cortes MD Primary Care Provider +1- [phone] Encounter Details Date Type Department Care Team (Latest Contact Info) Description 03/13/2025 11:45 AM EST Office Visit [facility] Neurology - [facility] [address] [place] [phone] Cheryl Velásquez, LINA [address] [facility] [address] [place] [address] Idiopathic polyneuropathy (Primary Dx); Tremor; Vitamin deficiency; Vitamin D deficiency; Iron deficiency; Chronic fatigue; Cervical dystonia; Migraine without aura and without status migrainosus, not intractable Social History Tobacco Use Types Packs/Day Years Used Date Smoking Tobacco: Never Smokeless Tobacco: Never Tobacco Cessation:Counseling Given: Not Answered Family and Community Support Answer Johny e Recorded Help with Day to Day Activities Not on file 05/15/2023 Feeling Lonely or Isolated Not on file 05/15 Educational Attainment Answer Date Adrian rded Speak language other than Palestinian at home Not on file 05/15/2023 Want [...] Sign Reading Time Taken Comments Blood Pressure 135/101 03/13/2025 11:29 AM EST Pulse 70 03/13/2025 11:29 AM EST Temperature - - Respiratory Rate - - Oxygen Saturation - - Inhaled Oxygen Concentration - - Weight 104.8 kg (231 lb) 03/13/2025 11:29 AM EST Height 162.6 cm (5' 4 ) 03/13/2025 11:29 AM EST Body Mass Index 39.65 03/13/2025 11:29 AM EST documented in this encounter Progress Notes * Cheryl Flaquito, GEOLOGY INSTRUCTOR - 03/13/2025 11:45 AM EST Subjective Erna Mosley is a 59 y.o. female No chief complaint on file. I have reviewed and/or updated the following: Tobacco Allergies Meds Problems Med Hx Surg Hx Fam Hx Ms. Mosley has tremor. She is being treated with Botox for cervical dystonia Botox with Dr. Bundy. Botox is working well for her neck tremor. Unless it is hurting the tremor can come back. Notes she is a little shakier at the end of her Botox cycle and noted it worsened when she was overdue. Primidone works for tremor as well. Good water drinker and limited caffeine intake. She stopped Adipex because it was not helpful and worsened BP. Gabapentin works well for neuropathy. Mostly burning and pain is controlled. Every now and then shewill have numbness break through. At times her feet will be cold or pins and needle sensation. Has some sciatica which can numb the whole R side of her leg. Back bothers her more in the cold weather.She works with pain management. Denies falls or weakness. Sleeps well at night. Anxiety and depressi on is managed with medicine. Headaches are controlled with amitriptyline 10 mg QHS. Review of Systems Constitutional: Positive for appetite change, diaphoresis, fatigue and unexpected weight change. HENT: Positive for sinus pressure and sinus pain. Cardiovascular: Positive for leg swelling. Gastrointestinal: Positive for diarrhea. Endocrine: Positive for cold intolerance and heat intolerance. Musculoskeletal: Positive for arthralgias, back pain, myalgias and neck pain. Neurological: Positive for dizziness, tremors, weakness and numbness. Psychiatric/Behavioral: The patient is nervous/anxious. All other systems reviewed and are negative. [...] D deficiency has been defined by the [place] of Medicine and an Endocrine Society practice guideline as a level of serum 25-OH vitamin D less than 20 ng/mL (1,2). The Endocrine Society went on to further define vitamin D insufficiency as a level between 21 and 29 ng/mL (2). 1. IOM ([place] of Medicine). 2010. Dietary reference intakes for calcium and D. [place]: The National Academies Press. 2. Darrius MF, Dustin AVILEZ, Cristian TAM, et al. Evaluation, [...] 0 - 32 IU/L Final Objective BP (!) 135/101 (BP Location: Left wrist, Patient Position: Sitting, Cuff Size: Adult) Pulse 70 Ht 1.626 m (5' 4 ) Wt 104.8 kg (231 lb) BMI 39.65 kg/m?? Neurological Exam Mental Status Alert. Oriented to person, place, and time. Cranial Nerves CN II: Visual acuity is normal. Visual mendosa full to confrontation. CN III, IV, : Extraocular movements intact bilaterally. Normal lids and orbits bilaterally. Pupils equal round and reactive to light bilaterally. CN V: Facial sensation is normal. CN VII: Full and symmetric facial movement. CN VIII: Hearing is normal. CN IX, X: Palate elevates symmetrically. Normal gag reflex. CN XI: Shoulder shrug strength is normal. CN XII: Tongue midline without atrophy or fasciculations. Motor The following abnormal movements were seen: Mild horizontal head tremor. Strength is 5/5 throughout all four extremities. Sensory Temperature abnormality: Reduced to BLE in a stocking distribution. Reflexes Deep tendon reflexes are 2+ and symmetric in all four extremities. Coordination [id number], rapid alternating movements and [id number] normal bilaterally without dysmetria. Gait Casual gait is normal including stance, stride, and arm swing. Romberg is absent. Physical Exam Vitals and nursing note reviewed. Constitutional: Appearance: Normal appearance. HENT: Head: Normocephalic. Eyes: General: Lids are normal. Extraocular Movements: Extraocular movements intact. Conjunctiva/sclera: Conjunctivae normal. Pupils: Pupils are equal, round, and reactive to light. Pulmonary: Effort: Pulmonary effort is normal. Skin: General: Skin is warm and dry. Neurological: Mental Status: She is alert and oriented to person, place, and time. Motor: Motor strength is normal. Coordination: Coordination is intact. Romberg sign negative. Deep Tendon Reflexes: Reflexes are normal and symmetric. Psychiatric: Mood and Affect: Mood normal. Thought Content: Thought content normal. No images are attached to the encounter. Assessment 1. Idiopathic polyneuropathy 2. Tremor 3. Vitamin deficiency 4. Vitamin D deficiency 5. Iron deficiency 6. Chronic fatigue 7. Cervical dystonia 8. Migraine without aura and without status migrainosus, not intractable Plan Ms. Mosley has tremor and neuropathy. Continue with Dr. Bundy for Botox for cervical dystonia. Continue current medication regimen of Gabapentin for neuropathy, amitriptyline for headache, and primidone for tremor. Labs ordered. Diagnoses and all orders for this visit: Idiopathic polyneuropathy - Comprehensive metabolic panel - Folate, Serum - TSH W/REFLEX TO FT4 - Vitamin B1 (Thiamine), Whole Blood, LC/MS/MS - Vitamin B12 w reflex <400 - Vitamin B6, Plasma - Vitamin D, 25-Hydroxy - CBC with platelet count + automated diff - IRON, TIBC AND FERRITIN PANEL; Future - gabapentin (NEURONTIN) 600 MG tablet; Take 1 tablet (600 mg total) by mouth 3 (three) times dailyfor 180 days. Max Daily Amount: 1,800 mg Tremor - Comprehensive metabolic panel - Folate, Serum - TSH W/REFLEX TO FT4 - Vitamin B1 (Thiamine), Whole Blood, LC/MS/MS - Vitamin B12 w reflex <400 - Vitamin B6, Plasma - Vitamin D, 25-Hydroxy - CBC with platelet count + automated diff - IRON, TIBC AND FERRITIN PANEL; Future Vitamin deficiency - Folate, Serum - Vitamin B1 (Thiamine), Whole Blood, LC/MS/MS - Vitamin B12 w reflex <400 - Vitamin B6, Plasma - Vitamin D, 25-Hydroxy Vitamin D deficiency - Vitamin D, 25-Hydroxy Iron deficiency - CBC with platelet count + automated diff - IRON, TIBC AND FERRITIN PANEL; Future Chronic fatigue - Comprehensive metabolic panel - Folate, Serum - TSH W/REFLEX TO FT4 - Vitamin B1 (Thiamine), Whole Blood, LC/MS/MS - Vitamin B12 w reflex <400 - Vitamin B6, Plasma - Vitamin D, 25-Hydroxy - CBC with platelet count + automated diff - IRON, TIBC AND FERRITIN PANEL; Future Cervical dystonia Migraine without aura and without status migrainosus, not intractable Return in about 6 months (around 09/10/2025). [employer] documented in this encounter Miscellaneous Notes * Addendum Note - Cheryl Velásquez APRN - 03/13/2025 11:45 AM ESTAddended by: CHERYL VELÁSQUEZ on: 03/13/2025 12:06 PM Modules accepted: Level of Service [employer] documented in this encounter Plan of Treatment Upcoming Encounters Date Type Department Care Team (Late st Contact Info) Description 06/11/2025 11:30 AM EST Procedure Visit [facility] Neurology - [place] [id number] [place] [address] Brianne Bundy MD [address] [facility] [address] [place] [address] 06/11/2025 11:45 AM EST Office Visit [facility] [address] [place] [address] Cheryl Velásquez APRN [address] [facility] [address] [place] [address] Scheduled Orders Name Type Priority Associated Diagnoses Orde r Schedule Comprehensive metabolic panel Lab Routine Idiopathic polyneuropathy Tremor Chronic fatigue Ordered: 03/13/2025 Folate, Serum Lab Routine Idiopathic polyneuropathy Tremor Vitamin deficiency Chronic fatigue Ordered: 03/13/2025 TSH W/REFLEX TO FT4 Lab Routine Idiopathic polyneuropathy Tremor Chronic fatigue Ordered: 03/13/2025 Vitamin B1 (Thiamine), Whole Blood, LC/MS/MS Lab Routine Idiopathic polyneuropathy Tremor Vitamin deficiency Chronic fatigue Ordered: 03/13/2025 Vitamin B12 w reflex <400 Lab Routine Idiopathic polyneuropathy Tremor Vitamin deficiency Chronic fatigue Ordered: 03/13/2025 Vitamin B6, Plasma Lab Routine Idiopathic polyneuropathy Tremor Vitamin deficiency Chronic fatigue Ordered: 03/13/2025 Vitamin D, 25-Hydroxy Lab Routine Idiopathic polyneuropathy Tremor Vitamin deficiency Vitamin D deficiency Chronic fatigue Ordered: 03/13/2025 CBC with platelet count + automated diff Lab Routine Idiopathic polyneuropathy Tremor Iron deficiency Chronic fatigue Ordered: 03/13/2025 IRON, TIBC AND FERRITIN PANEL Lab Routine Idiopathic polyneuropathy Tremor Iron deficiency Chronic fatigue Expected: 03/13/2025 (Approximate), Expires: 06/11/2025 documented as of this encounter Visit Diagnoses Diagnosis Idiopathic polyneuropathy- Primary Tremor Abnormal involuntary movements Vitamin deficiency Unspecified vitamin deficiency Vitamin D deficiency Unspecified vitamin D deficiency Iron deficiency Disorders of iron metabolism Chronic fatigue Other malaise and fatigue Cervical dystonia Spasmodic torticollis Migraine without aura and without status migrainosus, not intractable documented in this encounter Care Teams Salesperson Art Objects Relationship Specialty Start Date End Date Jeremy Cortes MD [address] [place] [phone] PCP - General Family Medicine 05/10/22 documented as of this encounter
[2025-03-26 14:18] LABS: Hematocrit 43.7 % (37.0-47.0); Hemoglobin 14.6 g/dL (12.2-16.2); Immature Granulocytes % 0.4 %; Mean Corpuscular HGB Conc 33.4 g/dL (31.8-35.4); Mean Corpuscular Hemoglobin 28.5 pg (27.0-31.2); Mean Corpuscular Volume 85.2 fl (81-99); Nucleated Red Blood Cells % 0 %; Platelet Count 276 K/mm3 (142-424); Red Blood Count 5.13 M/mm3 (4.20-5.40); Red Cell Distribution Width-SD 39.7 fL; White Blood Count 8.9 K/mm3 (4.8-10.8)
[2025-03-26 14:30] LABS: Hemoglobin A1C 6.2 % (4.0-6.0)
[2025-03-26 14:35] LABS: Iron 143 ug/dL (37-170)
[2025-03-26 14:41] LABS: Alanine Aminotransferase 65 U/L (12-78); Albumin Level 4.0 g/dl (3.5-5.0); Albumin/Globulin Ratio 1.9 (1.1-1.8); Alkaline Phosphatase 72 U/L (38-126); Anion Gap 9.3 mEq/L (5-15); Aspartate Amino Transferase 47 U/L (14-36); Bilirubin,Total 0.7 mg/dl (0.2-1.3); Blood Urea Nitrogen 11 mg/dl (7-17); Calcium 9.8 mg/dl (8.4-10.2); Carbon Dioxide 27 mmol/L (22.0-30.0); Chloride 102 mmol/L (98-107); Creatinine,Serum 0.80 mg/dl (0.52-1.04); Estimated Glomerular Filt Rate 73 ml/min (>60); GFR (African American) 89 ML/MIN (>60); Globulin 2.1 g/dL (1.3-3.2); Glucose 87 mg/dl (74-100); Potassium 4.3 mmoL/L (3.5-5.1); Sodium 134 mmol/L (136-145); Total Protein,Serum 6.1 g/dl (6.3-8.2)
[2025-03-26 14:45] LABS: Total Iron Binding Capacity 313 ug/dL (265-497)
[2025-03-26 14:51] LABS: 25-OH Vitamin D, Total 29.0 ng/mL (30-100)
[2025-03-26 14:52] LABS: Free T4 (Free Thyroxine) 1.22 ng/dl (0.78-2.19)
[2025-03-26 15:06] LABS: Thyroid Stimulating Hormone 2.03 uIU/mL (0.465-4.68)
[2025-03-26 15:10] LABS: Ferritin 38.0 ng/ml (11.1-264)
[2025-03-26 15:25] LABS: Vitamin B12 368 pg/mL (239-931)
[2025-03-26 16:06] LABS: Folate 6.52 ng/mL
--- OUTSIDE RECORDS SUMMARY | 2025-03-26 16:25 | XMS_ITS | Encounter Summary ---
Author Organization [employer] ([place], [place], [place], [place], [place]) Address [address] [place] [address] Care Team Providers Care Air Brake Adjuster Name Role Phone Jeremy Cortes MD Primary Care Provider +1- [phone] Encounter Details Date Type Department Care Team (Latest Contact Info) Description 03/13/2025 Travel Social History Tobacco Use Types Packs/Day Years Used Date Smoking Tobacco: Never Smokeless Tobacco: Never Family and Community Support Answer Johny e Recorded Help with Day to Day Activities Not on file 05/15/2023 Feeling Lonely or Isolated Not on file 05/15 Educational Attainment Answer Date Adrian rded Speak language other than Colombian at home Not on file 05/15/2023 Want [...] Description 06/11/2025 11:30 AM EST [facility] [place] [address] [facility] [address] [place] [address] Brianne Bundy MD [address] [facility] [address] [place] [address] 06/11/2025 11:45 AM EST Office Visit [facility] - [facility] [address] [place] [phone] Sara Huddleston APRN [address] [facility] [address] [place] [address] documented as of this encounter Visit Diagnoses Not on filedocumented in this encounter Care Teams Air Brake Adjuster Relationship Specialty Start Date End Date Jeremy Cortes MD [address] [place] [phone] PCP - General Family Medicine 05/10/22 documented as of this encounter
--- OUTSIDE RECORDS SUMMARY | 2025-03-26 16:25 | XMS_ITS | Clinical Summary ---
Author Organization [employer] ([place], [place], [place], [place], [place]) Address [address] [place] [address] Care Team Providers Care Research Epidemiologist Name Role Phone Jeremy Cortes MD Primary Care Provider +1- [phone] Allergies Active Allergy Reactions Criticality Noted Date Comments Amoxicillin-Pot Clavulanate 03/13/20 25 Formaldehyde Low 11/20/2018 Levothyroxine Itching 08/28/2024 Penicillins Other (See Comments) 08/28/2024 Pravastatin Nausea [...] mg total) by mouth daily. 5 Active HYDROcodone-acetam inophen (NORCO) 7.5-325 mg per tablet Take 1 [...] (10 mg total) by mouth nightly. Active spironolactone (ALDACTONE) 25 MG tablet Take 1 tablet (25 mg total) by mouth daily. Active traZODone (DESYREL) 50 MG tablet Take 1 tablet (50 mg total) by mouth nightly. Active primidone (MYSOLINE) 50 MG tabletIndications: Tremor TAKE TWO TABLETS BY MOUTH EVERY MORNING AND TAKE THREE TABLETS EVERY DAY AT BEDTIME. 450 tablet 3 5 Active amitriptyline (ELAVIL) 10 MG tabletIndications: Migraine without aura and without status migrainosus, not intractable Take 1 tablet (10 mg total) by mouth nightly. 90 tablet 3 5 026 Active gabapentin (NEURONTIN) 600 MG tabletIndications: Idiopathic polyneuropathy Take 1 tablet (600 mg total) by mouth 3 (three) times daily for 180 days. Max Daily Amount: 1,800 mg 270 tablet 1 5 026 Active Adipex-P 37.5 mg tablet 1 tablet (37.5 mg total). 5 025 Discontin ued(Per Patient: Not Taking) gabapentin (NEURONTIN) 600 MG tabletIndications: Idiopathic polyneuropathy Take 1 tablet (600 mg total) by mouth 3 (three) times daily for 180 days. Max Daily Amount: 1,800 mg 270 tablet 1 5 025 Discontin ued([facility] Hospital, Clinic, or Other Facility Administered Medication Ordered Dose Route Frequency Start Date End Date Status incobotulinumtoxinA (XEOMIN) injection 100 UnitsIndications:Cervical dystonia 100 Units IM Once 03/13/2025 03/13/2025 Ended Active Problems No known active problems Encounters Date Type Department Care Team Description 03/13/2025 11:45 AM EST Office Visit [facility] Neurology [place] [address] [place] [address] Sara Huddleston APRN Idiopathic polyneuropathy (Primary Dx); Tremor; Vitamin deficiency; Vitamin D deficiency; Iron deficiency; Chronic fatigue; Cervical dystonia; Migraine without aura and without status migrainosus, not intractable 03/13/2025 11:30 AM EST Procedure Visit [place] [address] [place] [address] Brianne Bundy MD Cervical dystonia (Primary Dx) 03/13/2025 Travel from Last 3 Months Family History [...] Date Adrian rded Speak language other than Malaysian at home Not on file 05/15/2023 Want [...] EST Inhaled Oxygen Concentration - - Weight 104.8 kg (231 lb) 03/13/2025 11:29 AM EST Height 162.6 cm (5' 4 ) 03/13/2025 11:29 AM EST Body Mass Index 39.65 03/13/2025 11:29 AM EST Plan of Treatment Upcoming Encounters Date Type Department Care Team (Late st Contact Info) Description 06/11/2025 11:30 AM EST Procedure Visit [facility] Neurology - [facility] [place] [address] [place] [phone] Brianne Bundy MD [address] [facility] [address] [place], [place] [phone] 06/11/2025 11:45 AM EST Office Visit [facility] Neurology - [facility] [place] [address] [place] [phone] Sara Huddleston APRN [address] [facility] [address] [place], [place] [id number] Health Maintenance Due Date Last Done Comments [...] of 2) 2015 Medicare Initial AWV [id number] 05/07/2024 COVID-19 VACCINE (1 - season) 2025 Influenza Vaccine (#1) 2025 Tobacco Cessation Counseling and Screening (12+) 03/1303/13/2025 Insurance [employer] MEDICARE PPO Care Teams Research Epidemiologist Relationship Specialty Start Date End Date Jeremy Cortes MD [address] [place] [address] PCP - General Family Medicine 05/10/22
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
--- OUTSIDE RECORDS SUMMARY | 2025-03-26 16:26 | XMS_ITS | Clinical Summary ---
Author Organization [facility] Address [address] [place] [address] Care Team Providers Care Linotype Machinist Name Role Phone Unavailable Primary Care Provider [...] 2015 ZOSTER VACCINE (1 of 2) 2015 INFLUENZA VACCINE 12/05/2024
--- OUTSIDE RECORDS SUMMARY | 2025-03-26 16:26 | XMS_ITS | Referral Summary ---
Author Organization [facility] ([place], [place], [place], [place], [place]) Address [address] [place] [address] Care Team Providers Care Training And Development Specialist Name Role Phone Jeremy Cortes MD Primary Care Provider [phone] Encounters Date Type Department Care Team Description 03/13/2025 Travel 03/13/2025 11:30 AM EST Procedure Visit [facility] - [facility] [address] [place] [address] Brianne Bundy MD Cervical dystonia (Primary Dx) 03/13/2025 11:45 AM EST Office Visit [facility] [address] [place] [address] Sara Huddleston APRN Idiopathic polyneuropathy (Primary Dx); Tremor; Vitamin deficiency; Vitamin D deficiency; Iron deficiency; Chronic fatigue; Cervical dystonia; Migraine without aura and without status migrainosus, not intractable from Last 3 Months Allergies Active Allergy [...] mg total) by mouth nightly. 5 Active primidone (MYSOLINE) 50 MG tabletIndications: Tremor [...] mg 270 tablet 1 5 025 Discontin ued(Reord er) Hospital, Clinic, or Other [...] rded Speak language other than Citizen Of [place] at home Not on file 05/15/2023 Want [...] Description 06/11/2025 11:30 AM EST Procedure Visit [facility] - [facility] [place] [address] [place] [id number] Brianne Bundy MD [address] [place] [address] 06/11/2025 11:45 AM EST Office Visit [facility] - [facility] [place] [address] [place] [id number] Sara Huddleston APRN [address] [place] [address] [place], [place] [id number] Insurance [employer] MEDICARE PPO Care Teams Training And Development Specialist Relationship Specialty Start Date End Date Jeremy Cortes MD [address] [place] [address] PCP - General Family Medicine 05/10/22
[2025-03-28 06:08] LABS: Insulin Level Total 23.5 uIU/mL (2.6-24.9)
== END 2025-03-26 23:59 | disposition home or self-care (01) ==
LOC: LAB 13:42
PROVIDERS: Nurse Practitioner; PCP Family Medicine; Visit Provider Nurse Practitioner Family
DX: G60.9 Hereditary and idiopathic neuropathy, unspecified (principal); R73.03 Prediabetes; R25.1 Tremor, unspecified; E61.1 Iron deficiency; R53.82 Chronic fatigue, unspecified
CPT/HCPCS: 36415; 80053; 82306; 82607; 82728; 82746; 83036; 83525; 83540; 83550; 84207; 84425; 84439; 84443; 85025